=== PATIENT | female | born 1970 | race Caucasian/White ===

== ENCOUNTER → 2016-04-08 | Outpatient (CLI) | payer OTHER ==
[~2016-04-08] MED LIST: ATEN50TA8 PO; HYDR-5688 PO; HYDR25TA5 PO; POTA-335 PO; SERT50TA PO
== END | disposition home or self-care (01) ==
LOC: C.PAPS 12:06
PROVIDERS: ATTEND Obstetrics & Gynecology
DX: Z12.4 Encounter for screening for malignant neoplasm of cervix (principal)

== ENCOUNTER → 2016-11-28 | Outpatient (CLI) | payer OTHER ==
[2016-11-28 12:56] LABS: ALT/SGPT 22 U/L (12-78); BLOOD UREA NITROGEN 13 mg/dl (7-18); BUN/CREATININE RATIO 19.7 (10-20); CALCIUM 8.9 mg/dl (8.5-10.1); CARBON DIOXIDE 26 mmol/L (21-32); CHLORIDE 105 mmol/L (98-107); CHOLESTEROL 243 mg/dl (0-200); CREATININE 0.65 mg/dl (0.60-1.20); GLUCOSE,FASTING 91 mg/dl (70-99); POTASSIUM 3.5 mmol/L (3.5-5.1); SODIUM 140 mmol/L (136-145)
[2016-11-28 13:08] LABS: ALB/GLOB RATIO 0.9 (0.9-2); ALKALINE PHOSPHATASE 53 U/L (45-117); AST/SGOT 20 U/L (15-37); CHOLESTEROL/HDL RATIO 5.3; HDL CHOLESTEROL 46 mg/dl; LDL CHOLESTEROL CALCULATED 130 mg/dl; TRIGLYCERIDES 336 mg/dl (0-150); VERY LOW DENSITY LIPOPROT CALC 67 mg/dl
== END | disposition home or self-care (01) ==
LOC: C.LABPBG 09:12
PROVIDERS: ATTEND Physician Assistant
DX: Z00.00 Encounter for general adult medical examination without abnormal findings (principal); R63.5 Abnormal weight gain

== ENCOUNTER 2018-03-18 07:21 | Inpatient (IN) ==
[2018-03-18] MEDS ORDERED: ONDANSETRON INJ 2 MG/ML 2 ML VIAL IV STA (07:41)
[2018-03-18] MEDS ORDERED: HYDROmorphone INJ 0.5 MG/0.5 ML SYR IV STA ×2 (07:41→08:16)
[2018-03-18] MEDS ORDERED: SODIUM CHLORIDE 0.9% 1000ML 1,000 ML IV SCH (07:45)
[2018-03-18] MEDS ORDERED: KETOROLAC TROMETHAMINE 15 MG/ML VIAL IV ONE (07:49)
--- NOTE | 2018-03-18 08:32 | Emergency Department Note ---
History of Present Illness General Chief complaint: Flank Pain Stated complaint: LEFT SIDED FLANK PAIN Time Seen by Provider: 03/18/18 07:29 Source: patient and family Mode of arrival: ambulatory Limitations: no limitations History of Present Illness Maximum Pain Intensity: 8 This 47-year-old white female presents with her father, for evaluation of intractable left flank pain. Patient states she has been dealing with kidney stones since . 2 days ago she underwent ureteroscopy with lithotripsy by Dr. Scruggs. Ureteral stent was placed at that time. She states her pain has never really improved since the procedure. She is on Cipro twice daily. Due to persistently leaking urine, her ureteral stent was pulled yesterday by the patient at the direction of the urology office. Pain was uncontrolled afterward yesterday and she was seen in the ED, about 14 hours ago. Lab work and imaging was obtained. No stone was identified on film. Lab work showed a mild elevation in white count. She received 3 doses of Dilaudid 0.5 mg IV, Toradol 15 mg IV, and Zofran 4 mg IV with improvement of her pain. She went home last night and states she was fairly comfortable until early this morning. She did take her OxyIR but thinks she vomited soon after and did not retain it. She is now here for pain control. No new trauma. She states she does take Azo daily for interstitial cystitis. She thinks that the bladder spasms that she is experiencing are likely due to irritation from her procedure. Home Medications Home Medications Medication Instructions Recorded Confirmed Type diclofenac sodium 50 mg PO BID 03/06/18 03/18/18 History ondansetron 4 mg TRANSLINGUAL UD PRN 03/06/18 03/18/18 History phenazopyridine [Pyridium] 200 mg PO TID PRN 03/06/18 03/18/18 History trazodone 50 mg PO HS 03/06/18 03/18/18 History tamsulosin [Flomax] 0.4 mg PO QPM 03/14/18 03/18/18 History ciprofloxacin HCl [Cipro] 500 mg PO BID #6 tab 03/16/18 03/18/18 Rx hydrocodone-acetaminophen 1 tab PO Q6H PRN #20 tab 03/16/18 03/18/18 Rx Allergies Allergy/AdvReac Type Severity Reaction Status Date / Time Iodinated Contrast- Oral and Allergy Unknown CHEST Verified 03/18/18 07:44 IV Dye PAIN, SHORTNESS OF BREATH lisinopril AdvReac Mild Cough Verified 03/18/18 07:44 Past Med/Surg History Medical History Interstitial cystitis HTN (hypertension) Hyperlipidemia Chronic interstitial cystitis Depression History of hydronephrosis Hyperlipidemia NO MEDS Hypertension NO MEDS Kidney stones Migraine Morbid obesity Surgical History History of cystoscopy X MULTIPLE History of laparoscopy History of tonsillectomy and adenoidectomy Status post breast reduction Family History Other No pertinent family history Social History Current Living Situation: Spouse, Parent and Family Other Information That Helps Us Care for You: No Feels Safe at Home: Yes Safety Concerns: Feels Safe At This Time Smoking Status: Never smoker Do You Dip or Chew Tobacco: No Second Hand Exposure: No Tobacco Cessation Education Requested by Patient: No Hx Alcohol Use: No Hx Substance Use: No Beliefs That Will Affect Care: None Preferred Language: [place]ican Communication Ability: Effective Intermediate Designer Required: No Review of Systems A total of 10 systems reviewed and were otherwise negative Physical Exam Vital Signs Vital Signs - 24 hr 03/18/18 07:24 03/18/18 08:09 03/18/18 08:51 Temperature 36.9 C Temperature Source Oral Sepsis Recent Fever Within 48 Hours No Sepsis New/Unexplained Change in Mental Status No Sepsis Action Taken by Nursing No Action Required Pulse Rate 110 H Pulse Rate [Finger] 107 H 88 Pulse Rhythm [Finger] Pulse Strength [Finger] Respiratory Rate 18 20 20 Respiratory Effort / Characteristics Non-Labored Spontaneous Respiratory Depth Normal Respiratory Pattern Regular Blood Pressure 175/82 H Blood Pressure [Right Arm] 162/88 H 144/85 H Blood Pressure Mean 113 Blood Pressure Mean [Right Arm] 112 104 Blood Pressure Position [Right Arm] Pulse Oximetry 96 96 95 Oxygen Delivery Method Room Air Room Air Room Air 03/18/18 09:59 03/18/18 11:13 01/06/19 12:38 Temperature Temperature Source Sepsis Recent Fever Within 48 Hours Sepsis New/Unexplained Change in Mental Status Sepsis Action Taken by Nursing Pulse Rate Pulse Rate [Finger] 75 70 83 Pulse Rhythm [Finger] Pulse Strength [Finger] Respiratory Rate 20 20 20 Respiratory Effort / Characteristics Respiratory Depth Respiratory Pattern Blood Pressure Blood Pressure [Right Arm] 135/64 132/89 168/75 H Blood Pressure Mean Blood Pressure Mean [Right Arm] 87 103 106 Blood Pressure Position [Right Arm] Pulse Oximetry 97 98 95 Oxygen Delivery Method Room Air Room Air Room Air 03/18/18 13:05 03/18/18 14:54 Temperature 36.7 C 36.8 C Temperature Source Oral Oral Sepsis Recent Fever Within 48 Hours Sepsis New/Unexplained Change in Mental Status Sepsis Action Taken by Nursing Pulse Rate Pulse Rate [Finger] 75 66 Pulse Rhythm [Finger] Regular Pulse Strength [Finger] Normal Respiratory Rate 16 16 Respiratory Effort / Characteristics Non-Labored Spontaneous Respiratory Depth Normal Respiratory Pattern Regular Blood Pressure Blood Pressure [Right Arm] 162/94 H 142/85 H Blood Pressure Mean Blood Pressure Mean [Right Arm] 116 104 Blood Pressure Position [Right Arm] Sitting Sitting Pulse Oximetry 96 97 Oxygen Delivery Method Room Air Room Air General: Well-developed, well-nourished, middle-aged white female, discomfort. Tearful. Sitting on a bed. Alert and oriented. Skin: Warm and dry with good turgor. No rashes or lesions. No ecchymosis or erythema. The patient is not diaphoretic. No abrasions. HEENT: Normocephalic atraumatic. Eyes PERRLA, EOMI. No conjunctiva or scleral injection. Nares patent bilaterally without turbinate enlargement. No significant drainage. No epistaxis. Oropharynx without erythema or exudate. Uvula midline, oral mucosa moist. No lesions present. Heart: Heart RRR. No MGR. Peripheral pulses are 2+. Lungs: Lungs are clear to auscultation. No crackles rhonchi or wheezing. Good air movement. The patient is able to take a deep breath. Abdomen: Abdomen was inspected, auscultated, and palpated. Obese. Bowel sounds present x 4. Soft, nontender to palpation. No hepato-splenomegaly. No masses noted. Left side CVA tenderness. Musculoskeletal: Gross motor function of the upper and lower extremities is intact and unremarkable. Low back evaluation reveals no pain with palpation over the vertebral bodies or disc spaces. She does have pain with palpation over the left SI joint. No pain in the left buttock or along the greater trochanter. Neurologic: Gross sensation is intact across both lower extremities by soft touch. Course Administered Medications Ciprofloxacin (Cipro) 500 mg PO BID ELIUD Stop: 03/28/18 13:04 Last Admin: 03/18/18 14:49 Dose: 500 mg Hydromorphone HCl (Dilaudid) 0.5 mg IV Q2H PRN PRN Reason: Pain Stop: 04/01/18 14:23 Last Admin: 03/18/18 17:26 Dose: 0.5 mg Sodium Chloride (Nss 1000ml) 1,000 mls @ 80 mls/hr IV .[id number] ELIUD Stop: 04/17/18 14:29 Last Admin: 03/18/18 14:35 Dose: 80 mls/hr Morphine Sulfate (Morphine Sulfate) 1 mg IV Q6H PRN PRN Reason: Pain Stop: 04/01/18 13:04 Last Admin: 03/18/18 13:53 Dose: 1 mg Ondansetron HCl (Zofran Odt) 4 mg PO DAILY PRN PRN Reason: Nausea Stop: 04/17/18 13:04 Last Admin: 03/18/18 14:34 Dose: 4 mg Phenazopyridine HCl (Pyridium) 200 mg PO TID PRN PRN Reason: Pain Stop: 04/17/18 13:04 Last Admin: 03/18/18 14:49 Dose: 200 mg Discontinued Medications Hydromorphone HCl (Dilaudid) 0.5 mg IV NOW STA Stop: 03/18/18 07:42 Last Admin: 03/18/18 07:46 Dose: 0.5 mg Hydromorphone HCl (Dilaudid) 0.5 mg IV NOW STA Stop: 03/18/18 08:17 Last Admin: 03/18/18 08:23 Dose: 0.5 mg Hydromorphone HCl (Dilaudid) 0.5 mg IV Q15M PRN PRN Reason: Pain Stop: 04/01/18 08:54 Last Admin: 03/18/18 11:25 Dose: 0.5 mg Admin: 03/18/18 09:59 Dose: 0.5 mg Admin: 03/18/18 08:57 Dose: 0.5 mg Hydromorphone HCl (Dilaudid) Confirm Administered Dose 0.5 mg .ROUTE .STK-MED ONE Stop: 03/18/18 14:49 Last Admin: 03/18/18 14:49 Dose: 0.5 mg Sodium Chloride (Nss 1000ml) 1,000 mls @ 999 mls/hr IV .Q1H1M ELIUD Stop: 03/18/18 08:45 Last Infusion: 03/18/18 08:47 Dose: 0 mls/hr Admin: 03/18/18 07:46 Dose: 999 mls/hr Ketorolac Tromethamine (Toradol) 15 mg IV NOW ONE Stop: 03/18/18 07:50 Last Admin: 03/18/18 08:00 Dose: 15 mg Ketorolac Tromethamine (Toradol) 15 mg IV NOW STA Stop: 03/18/18 10:18 Last Admin: 03/18/18 10:21 Dose: 15 mg Ondansetron HCl (Zofran) 4 mg IV NOW STA Stop: 03/18/18 07:42 Last Admin: 03/18/18 07:46 Dose: 4 mg Medical Decision Making Differential Diagnosis Nephrolithiasis, ureterolithiasis, hydronephrosis, retained stone, nephritis, muscle strain Medical Records Attestation: I reviewed the patient's medical records. Lab work was reviewed from yesterday. Due to the limited number of hours since it was drawn, new labs were not obtained. Home Medications Current Medication List: was personally reviewed by me Imaging Data Radiologist's Impression: CT scan imaging of the abdomen and pelvis without contrast was reviewed by me and read by radiology. She has hydroureteronephrosis with associated periureteral stranding. No evidence of obstructing ureteral stone. There is a 3 mm nonobstructing left renal calculus. Blood Pressure Blood Pressure Disposition: elevated BP felt to be situational MDM Narrative Patient was evaluated in A11. IV was established. Labs were obtained. She was given Toradol 15 mg IV and Dilaudid 0.5 mg IV. She was also given Zofran 4 mg IV. Patient required multiple additional doses of Dilaudid 0.5 mg IV, totaling 5. She was also given an additional Toradol 15 mg IV. Pain was never controlled for prolonged period of time and kept rebounding. I did speak with Dr. Scruggs regarding her care, and he recommended CT scan imaging of her abdomen and pelvis to check for hydronephrosis. He did recommend that she undergo stent placement either later today or tomorrow depending on OR availability. I did speak with the patient regarding his recommendation and she is agreeable for admission with eventual ureteral stent placement. Hospitalist service was contacted and did come to evaluate the patient. Please see that dictation for final management and outcome. She remained stable while in the ED. Patient was seen in conjunction with Dr. Sandoval, who also evaluated the patient and concurred with today's diagnosis and treatment plan. Impression & Plan Hydroureteronephrosis, Acute left flank pain Hospitalist admission for pain control with urology evaluation Discharge Plan Visit Data *Final* Discharge Date/Time: 03/18/18 12:50 Chief Complaint: Flank Pain Stated Complaint: LEFT SIDED FLANK PAIN ED Provider: Frederick Sandoval ED Midlevel Provider: Jaciel Castro Discharge Problem: Hydroureteronephrosis, Acute left flank pain Patient Disposition: Admitted As Inpatient Condition: Fair Discharge Instructions Interventions: ED Discharge Assessment Last Done: 03/18/18 12:50
[2018-03-18] MEDS: HYDROmorphone INJ 0.5 MG/0.5 ML SYR IV PRN ×7 (08:57→23:21)
[2018-03-18] MEDS ORDERED: KETOROLAC TROMETHAMINE 15 MG/ML VIAL IV STA (10:17)
--- NOTE | 2018-03-18 11:38 | CT Scan Report ---
CT SCAN OF THE ABDOMEN AND PELVIS WITHOUT IV CONTRAST CLINICAL HISTORY: Left flank pain. COMPARISON STUDY: Abdominal CT dated 09/20/2017. TECHNIQUE: CT scan of the abdomen and pelvis is performed from the lung bases to the proximal femora. Images are reviewed in the axial, sagittal, and coronal planes. IV contrast was not administered for this examination. A dose lowering technique was utilized adhering to the principles of ALARA. CT DOSE: 1705.56 mGy.cm FINDINGS: Lung bases: The heart is normal in size and without pericardial effusion. Linear atelectasis is noted in the lingula. The lung bases are otherwise clear. Liver: The unenhanced liver is enlarged, measuring 21.3 cm in length. The liver demonstrates diffusel y diminished attenuation consistent with hepatic steatosis. Fatty sparing is seen adjacent to gallbla dder fossa. There is no intrahepatic biliary ductal dilatation. Gallbladder: Unremarkable. Spleen: Normal in size and attenuation. Pancreas: Unremarkable. Adrenal glands: Unremarkable. Kidneys: The unenhanced kidneys are normal in size. There is mild left hydroureteronephrosis with ass ociated periureteric stranding. No obstructing calculus is identified. A 3 mm nonobstructing calculus is seen in the interpolar left kidney. No right renal calculi are identified and there is no right-s ided hydronephrosis. There is no evidence of contour deforming renal mass lesion. Abdominal vasculature: The abdominal aorta is normal in course and caliber noting mild atheroscleroti c calcification. Bowel: The small bowel and colon are normal in course and caliber. The appendix is well-visualized a nd normal. Peritoneum: There is no intraperitoneal free air or abdominal ascites. There is a small fat-containin g umbilical hernia. Lymphadenopathy: None. Pelvic viscera: The bladder, uterus, and adnexa are normal as imaged. There are small bilateral ovari an follicles. Numerous phleboliths are observed in the pelvis. Skeletal structures: No lytic or blastic lesions are seen. IMPRESSION: 1. There is mild left hydroureteronephrosis, with associated left-sided periureteric stranding. No ob structing renal calculus is identified. Given the reported history and findings this likely represent s the sequelae of a recently passed kidney stone. 2. There is a 3 mm nonobstructing left renal calculus. 4. No right renal calculi are identified. 5. Hepatomegaly and hepatic steatosis. 6. Additional findings as above. Electronically signed by: William Rudolph M.D. 03/18/2018 11:37 AM
--- NOTE | 2018-03-18 12:26 | History & Physical Report ---
Date of Service March 18, 2018 Assessment & Plan (1) Renal colic on left side: CTAP noted for L hydronephorsis with appearance of recently passed stone and a 3mm nonobstructing stone Urology planning for OR tomorrow Pain control Was on cipro BID but missed AM dose due to ED, will give additional dose this afternoon and resume BID dosing (2) Hyperlipidemia: Not on meds due to LE swelling reaction (3) HTN (hypertension): Off meds x2 years (4) Interstitial cystitis: continue home meds (5) DVT prophylaxis: SCDs History of Present Illness Chief Complaint: 47 y/o F c/o intractable L flank pain. Pt was recently dx with a L sided renal stone. She had a stent and lithotripsy with Dr. Scruggs on Monday. She continued to have pain and yesterday noted urine leaking out. She called the urology office and Dr. Scruggs told her to pull out the stent, which she did. She continued to have pain and was seen in the ED yesterday. She was d/c'd to home with decent pain control at that time, however her pain continued to worsen so she returned to the ED today. She has been nauseated but no emesis since she has not eaten much. Pt denies fever, SOB, chest pain, c/ d, LE pain or swelling. ED spoke with Dr. Scruggs who stated the OR was full today for cases and to admit overnight for OR tomorrow. Primary Care Provider: Mariama Ann Allergies Allergy/AdvReac Type Severity Reaction Status Date / Time Iodinated Contrast- Oral and Allergy Unknown CHEST Verified 03/18/18 07:44 IV Dye PAIN, SHORTNESS OF BREATH lisinopril AdvReac Mild Cough Verified 03/18/18 07:44 Home Medications Home Medications Medication Instructions Recorded Confirmed Type diclofenac sodium 50 mg PO BID 03/06/18 03/18/18 History ondansetron 4 mg TRANSLINGUAL UD PRN 03/06/18 03/18/18 History phenazopyridine [Pyridium] 200 mg PO TID PRN 03/06/18 03/18/18 History trazodone 50 mg PO HS 03/06/18 03/18/18 History tamsulosin [Flomax] 0.4 mg PO QPM 03/14/18 03/18/18 History ciprofloxacin HCl [Cipro] 500 mg PO BID #6 tab 03/16/18 03/18/18 Rx hydrocodone-acetaminophen 1 tab PO Q6H PRN #20 tab 03/16/18 03/18/18 Rx Past Med/Surg History Medical History Chronic interstitial cystitis Depression History of hydronephrosis Hyperlipidemia NO MEDS Hypertension NO MEDS Kidney stones Migraine Morbid obesity Surgical History History of cystoscopy X MULTIPLE History of laparoscopy History of tonsillectomy and adenoidectomy Status post breast reduction Social History Current Living Situation: Family Feels Safe at Home: Yes Smoking Status: Never smoker Second Hand Exposure: No Hx Alcohol Use: No Hx Substance Use: No Beliefs That Will Affect Care: None Preferred Language: Greek Review of Systems Pertinent positives and negatives reviewed in HPI--all others negative Physical Exam 2 Vital Signs (Past 24 Hours): Last Vital Signs Temp 36.9 C 03/18/18 07:24 Pulse 70 03/18/18 11:13 Resp 20 03/18/18 11:13 BP 132/89 03/18/18 11:13 Pulse Ox 98 03/18/18 11:13 Constitutional: + obese; no acute distress Eyes: normal visual padilla by confrontation and + anicteric sclerae Neck: normal visual inspection and trachea midline Respiratory: normal respiratory effort, lungs clear to auscultation Cardiovascular: Rate/Rhythm: regular rate and regular rhythm Gastrointestinal (Abdomen): Inspection/Auscultation: abdomen not distended Percussion/Palpation: abdomen soft; abdomen nontender L sided flank TTP Musculoskeletal: Head/Neck/Chest: normocephalic and head atraumatic negative for edema, peripheral pulses intact Skin: no rashes, warm and dry Neurologic: awake; not confused Speech / Cognition: normal speech Psychiatric: A+Ox3, euthymic affect Results & Data Diagnostic Findings CTAP noted for L hydronephorsis with appearance of recently passed stone and a 3mm nonobstructing stone Code Status & VTE Plan Code Status Full code VTE Prophylaxis Plan VTE Prophylaxis will be ordered: Yes
[2018-03-18] MEDS ORDERED: ACETAMINOPHEN 325 MG TAB PO PRN (13:05)
[2018-03-18] MEDS ORDERED: ONDANSETRON INJ 2 MG/ML 2 ML VIAL IV PRN (13:05)
[2018-03-18] MEDS ORDERED: ONDANSETRON 4 MG OD TAB PO PRN (13:05)
[2018-03-18] MEDS ORDERED: MAGNESIUM HYDROXIDE SUSP 30 ML UDC PO PRN (13:05)
[2018-03-18] MEDS: MoRPHine SULFATE 2 MG/ML CARP IV PRN (13:53)
[2018-03-18] MEDS: SODIUM CHLORIDE 0.9% 1000ML 1,000 ML IV SCH (14:35)
[2018-03-18] MEDS ORDERED: HYDROmorphone INJ 0.5 MG/0.5 ML SYR ONE (14:48)
[2018-03-18] MEDS: CIPROFLOXACIN 500 MG TAB PO SCH ×2 (14:49→20:45)
[2018-03-18] MEDS: PHENAZOPYRIDINE HCL 200 MG TAB PO PRN (14:49)
--- NOTE | 2018-03-18 15:13 | Emergency Department Note ---
ED Visit Note I have personally evaluated this patient examined her and reviewed the pertinent labs and data. I have discussed the case with Jaciel Castro, the physician anesthetic assistant and agree with the plan. Please refer to the PA note. This patient comes in with left-sided flank pain. She has a long history of kidney stones and removed the stent a couple days ago . she has had spasms and pain since then she was seen yesterday in the ER with pain and required several doses of IV narcotics. The pain was briefly controlled when she went home but it came back today she appears very uncomfortable despite receiving several doses of IV narcotics. We have discussed the case with urology who recommended a CT scan which shows hydronephrosis. At this point, she has nothing to suggest infection. I do think she needs to be admitted/observe for inpatient pain management treatment and possible urologic consultation. .
[2018-03-18] MEDS ORDERED: HYDROmorphone INJ 0.5 MG/0.5 ML SYR IV PRN (18:11)
[2018-03-18] MEDS: DICLOFENAC SODIUM 25 MG TABDR PO SCH (20:45)
[2018-03-18] MEDS: TAMSULOSIN HCL 0.4 MG CAP PO SCH (20:45)
[2018-03-18] MEDS: TRAZODONE HCL 50 MG TAB PO SCH (20:46)
[2018-03-19] MEDS: HYDROCODONE/ACETAMOPHEN 5/325MG TAB PO PRN ×4 (00:36→20:11)
[2018-03-19] MEDS: SODIUM CHLORIDE 0.9% 1000ML 1,000 ML IV SCH ×2 (03:25→16:24)
[2018-03-19 05:10] LABS: Basophils # (auto) 0.03 K/uL (0-0.2); Basophils % (auto) 0.7 %; Eosinophils # (auto) 0.05 K/uL (0-0.5); Eosinophils % (auto) 1.1 %; Hematocrit (blood only) 34.3 % (37-47); Hemoglobin 10.6 g/dL (12.0-16.0); Immature Granulocytes # (auto) 0.01 K/uL (0.00-0.02); Immature Granulocytes % (auto) 0.2 %; Lymphocytes # (auto) 1.74 K/uL (1.2-3.4); Lymphocytes % (auto) 37.8 %; Mean Corpuscular Hgb Conc 30.9 g/dL (32-36); Mean Corpuscular Volume 88.9 fL (80-100); Mean Platelet Volume 9.7 fL (7.4-10.4); Monocytes # (auto) 0.48 K/uL (0.11-0.59); Monocytes % (auto) 10.4 %; Neutrophils # (auto) 2.29 K/uL (1.4-6.5); Neutrophils % (auto) 49.8 %; Platelet Count 234 K/uL (130-400); RDW Coefficient of Variation 12.9 % (11.5-14.5); Red Blood Count 3.86 M/uL (4.2-5.4)
[2018-03-19 05:49] LABS: Calcium 8.3 mg/dl (8.5-10.1); Creatinine Clr Calc Pharmacy 113.7 ml/min; Est GFR (African American) 120.5; Est GFR (Non-African American) 103.9
[2018-03-19] MEDS: HYDROmorphone INJ 0.5 MG/0.5 ML SYR IV PRN ×4 (06:07→16:32)
[2018-03-19] MEDS: PHENAZOPYRIDINE HCL 200 MG TAB PO PRN ×2 (06:49→20:11)
[2018-03-19] MEDS: MoRPHine SULFATE 2 MG/ML CARP IV PRN (07:37)
[2018-03-19] MEDS: DICLOFENAC SODIUM 25 MG TABDR PO SCH ×2 (08:05→20:11)
[2018-03-19] MEDS: CIPROFLOXACIN 500 MG TAB PO SCH ×2 (08:06→20:11)
[2018-03-19] MEDS ORDERED: POTASSIUM CHLORIDE 20 MEQ TABCR PO STA (09:02)
--- NOTE | 2018-03-19 09:14 | Urology Consultation ---
Date of Consultation March 19, 2018 Assessment & Plan (1) Renal colic on left side: Patient is afebrile and no evidence of ureteral obstruction on CT. Renal colic persisting post procedure likely due to premature stent removal and patient history of IC. No URO intervention today, will reassess for potential stent placement tomorrow if no clinical improvement. OK to provide diet. NPO at midnight. Will add Ditropan to regimen for management of bladder spasm. Continue IVF, push PO fluids. Pain control as needed (anti inflammatory likely most beneficial). Thanks for the consult, will follow. (2) Interstitial cystitis: Push PO intake, IVF, continue Pyridium. (3) Left nephrolithiasis: 3mm stone not obstructing, will continue to monitor. Should patient develop acute pain or fever will require emergent stent placement. (4) Urinary tract infection: Finish Cipro course as prescribed. History of Present Illness Reason for Consultation: Renal colic Attending Physician: Pastor Zapata DO History of Present Illness 47 YO female, renal colic. Patient had recent ureteroscopy, laser litho with stent insertion on Monday with Dr. Scruggs. Patient reports migration of tethered stent on Monday and was advised by on-call physician this weekend to remove stent, which she did without difficulty. Worsening flank pain yesterday brought her to the hospital. CT abd&pelvis reviewed and demonstrates mild L hydronephrosis - no obstructing stones; additional 3mm non obstructing L renal stone. Cr 0.67. Afebrile. Patient states that her pain is now mostly controlled +bladder spasms. Denies nausea/vomiting. Denies fever/chills. Spontaneously voiding without difficulty. Allergies Allergy/AdvReac Type Severity Reaction Status Date / Time Iodinated Contrast- Oral and Allergy Unknown CHEST Verified 03/18/18 07:44 IV Dye PAIN, SHORTNESS OF BREATH lisinopril AdvReac Mild Cough Verified 03/18/18 07:44 Home Medications Home Medications Medication Instructions Recorded Confirmed Type diclofenac sodium 50 mg PO BID 03/06/18 03/18/18 History ondansetron 4 mg TRANSLINGUAL UD PRN 03/06/18 03/18/18 History phenazopyridine [Pyridium] 200 mg PO TID PRN 03/06/18 03/18/18 History trazodone 50 mg PO HS 03/06/18 03/18/18 History tamsulosin [Flomax] 0.4 mg PO QPM 03/14/18 03/18/18 History ciprofloxacin HCl [Cipro] 500 mg PO BID #6 tab 03/16/18 03/18/18 Rx hydrocodone-acetaminophen 1 tab PO Q6H PRN #20 tab 03/16/18 03/18/18 Rx Patient History Medical History Interstitial cystitis HTN (hypertension) Hyperlipidemia Chronic interstitial cystitis Depression History of hydronephrosis Hyperlipidemia NO MEDS Hypertension NO MEDS Kidney stones Migraine Morbid obesity Surgical History History of cystoscopy X MULTIPLE History of laparoscopy History of tonsillectomy and adenoidectomy Status post breast reduction Family History Other No pertinent family history Social History Current Living Situation: Spouse, Parent and Family Other Information That Helps Us Care for You: No Feels Safe at Home: Yes Safety Concerns: Feels Safe At This Time Smoking Status: Never smoker Do You Dip or Chew Tobacco: No Second Hand Exposure: No Tobacco Cessation Education Requested by Patient: No Hx Alcohol Use: No Hx Substance Use: No Beliefs That Will Affect Care: None Preferred Language: Wolof Communication Ability: Effective Access Specialist Required: No Review of Systems Constitutional: no fever and no chills Eyes: no problem reported Respiratory: no dyspnea Cardiovascular: no chest pain Gastrointestinal: no nausea and no vomiting Genitourinary (Female): + dysuria and + flank pain; no difficulty urinating Musculoskeletal: + back pain Neurologic: no tingling and no numbness Psychiatric: no problem reported Endocrine: + fatigue Physical Exam 2 Vital Signs (Past 24 Hours): Last Vital Signs Temp 36.8 C 03/19/18 07:01 Pulse 76 03/19/18 07:01 Resp 18 03/19/18 07:01 BP 149/85 H 03/19/18 07:01 Pulse Ox 94 03/19/18 07:01 Constitutional: WD/WN, vitals as above + obese Neck: normal visual inspection Respiratory: normal respiratory effort; does not use accessory muscles Cardiovascular: Vessels: no JVD Gastrointestinal (Abdomen): Inspection/Auscultation: abdomen normal to inspection; abdomen not distended Skin: no rashes, warm and dry Psychiatric: A+Ox3, euthymic affect Genitourinary: Speculum/Bimanual Exam: bladder normal to palpation
[2018-03-19] MEDS: OXYBUTYNIN CHLORIDE 5 MG TAB PO PRN ×2 (11:04→21:05)
--- NOTE | 2018-03-19 11:17 | Hospitalist Progress Note ---
Date of Service March 19, 2018 Assessment & Plan (1) Renal colic on left side: - CT with evidence of L hydronephrosis and a non-obstructing 3 mm stone - Had recent lithotripsy and stent placement with migration and she was instructed to remove this which she did - Reports improvement in pain but not completely resolved but states some of her pain feels like her interstitial cystitis - Recent enterococcus faecalis on UCx with sample from 03/17 with < 1000 colonies - continue Cipro 500 mg BID at this time - Hydrocodone/Acetaminophen 1-2 tabs Q4H and Dilaudid Q2H PRN; Diclofenac 50 mg BID; Ditropan/Pyridium PRN - NSS at 80 mL/hr - Urology following - no urological intervention at this time Present on Admission?: Yes (2) Hyperlipidemia: - Not currently on medications due to LE swelling reaction Present on Admission?: Yes (3) HTN (hypertension): - Has been maintained off medications x 2 years - some elevations which could be pain response - can follow with PCP Present on Admission?: Yes (4) Interstitial cystitis: - Follows with Dr. Scruggs for this - Diclofenac 50 mg BID; Flomax 0.4 mg daily Present on Admission?: Yes (5) DVT prophylaxis: SCDs Disposition: Await clinical response prior to considering urological intervention Subjective Reports feeling some improvement today in pain but feels that is its spasmatic waves of pain. She is eating more but still reports a reduced appetite. Does not appear in distress but does look slightly uncomfortable. She reports the pain medications are helping but at the time of my visit she feels she was still playing some catchup with pain. No urological intervention planned for today. Constitutional: + anorexia; no fever and no chills Respiratory: no cough and no dyspnea Cardiovascular: no chest pain, no palpitations and no edema Gastrointestinal: + nausea; no abdominal pain, no vomiting, no constipation and no diarrhea/loose stools Genitourinary (Female): + dysuria, + urinary frequency, + urinary hesitancy and + flank pain Integumentary: no rash Physical Exam 2 Vital Signs (Past 24 Hours): Last Vital Signs Temp 36.8 C 03/19/18 07:01 Pulse 76 03/19/18 07:01 Resp 18 03/19/18 07:01 BP 149/85 H 03/19/18 07:01 Pulse Ox 94 03/19/18 07:01 Constitutional: well developed and well nourished; no acute distress Eyes: + anicteric sclerae Respiratory: normal respiratory effort, lungs clear to auscultation Cardiovascular: Rate/Rhythm: regular rate and regular rhythm Heart Sounds: no murmur Gastrointestinal (Abdomen): Inspection/Auscultation: normal bowel sounds Percussion/Palpation: abdomen soft; abdomen nontender Musculoskeletal: Head/Neck/Chest: normocephalic, head atraumatic and neck supple Skin: no rashes, warm and dry Psychiatric: A+Ox3, euthymic affect Genitourinary: + CVA tenderness (L)
[2018-03-19] MEDS ORDERED: KETOROLAC TROMETHAMINE 15 MG/ML VIAL IV ONE (11:19)
[2018-03-19] MEDS: TRAZODONE HCL 50 MG TAB PO SCH (20:11)
[2018-03-19] MEDS: TAMSULOSIN HCL 0.4 MG CAP PO SCH (20:11)
[2018-03-20] MEDS: HYDROCODONE/ACETAMOPHEN 5/325MG TAB PO PRN ×4 (00:16→12:31)
[2018-03-20] MEDS: SODIUM CHLORIDE 0.9% 1000ML 1,000 ML IV SCH (04:36)
--- NOTE | 2018-03-20 07:21 | Urology Progress Note ---
Date of Service March 20, 2018 Assessment & Plan (1) Renal colic on left side: Patient is feeling much better, states that her pain is mild and well controlled with pain medication. Declines ureteral stent today. Stable for DC home with pyridium, ditropan, and pain control. Finish Cipro course as prescribed. Patient has existing outpatient follow up with Dr. Scruggs on 03/26/17. Thank you for allowing us to participate in the care of this patient. Please contact our service with additional questions/concerns. Subjective 47YO female with renal colic. Patient reports feeling much better this morning. States that pain is mild and well controlled with PO medication. Denies nausea/vomiting. Denies fever/chills. Patient ambulating upon entry to room. States that she continues to void spontaneously without difficulty. Again offered ureteral stent for relief of renal colic, patient declines. Review of Systems All systems reviewed & are unremarkable except as noted in HPI & below Physical Exam 2 Vital Signs (Past 24 Hours): Last Vital Signs Temp 37.0 C 03/20/18 07:00 Pulse 71 03/20/18 07:00 Resp 16 03/20/18 07:00 BP 156/95 H 03/20/18 07:00 Pulse Ox 93 03/20/18 07:00 Physical Exam: WN/WD NAD. Resp effort normal. No JVD. Abd soft/nontender. No edema. A&O x 3, appropriate affect.
[2018-03-20] MEDS: CIPROFLOXACIN 500 MG TAB PO SCH (08:30)
[2018-03-20] MEDS: DICLOFENAC SODIUM 25 MG TABDR PO SCH (08:30)
[2018-03-20 09:18] LABS: Hematocrit (blood only) 33.8 % (37-47); Hemoglobin 10.6 g/dL (12.0-16.0); Mean Corpuscular Hgb Conc 31.4 g/dL (32-36); Mean Platelet Volume 9.7 fL (7.4-10.4); Platelet Count 251 K/uL (130-400); RDW Coefficient of Variation 12.8 % (11.5-14.5); RDW Standard Deviation 41.1 fL (36.4-46.3); Red Blood Count 3.84 M/uL (4.2-5.4); White Blood Count 4.23 K/uL (4.8-10.8)
[2018-03-20 09:53] LABS: BUN Creatinine Ratio 10.6 (10-20); Calcium 8.3 mg/dl (8.5-10.1); Creatinine Clr Calc Pharmacy 110.4 ml/min; Est GFR (African American) 119.3; Est GFR (Non-African American) 102.9; Potassium 3.3 mmol/L (3.5-5.1)
--- NOTE | 2018-03-23 16:49 | Discharge Summary ---
Date of Service March 20, 2018 Admission HPI Per Admitting Provider Chief Complaint: 47 y/o F c/o intractable L flank pain. Pt was recently dx with a L sided renal stone. She had a stent and lithotripsy with Dr. Scruggs on Monday. She continued to have pain and yesterday noted urine leaking out. She called the urology office and Dr. Scruggs told her to pull out the stent, which she did. She continued to have pain and was seen in the ED yesterday. She was d/c'd to home with decent pain control at that time, however her pain continued to worsen so she returned to the ED today. She has been nauseated but no emesis since she has not eaten much. Pt denies fever, SOB, chest pain, c/ d, LE pain or swelling. ED spoke with Dr. Scruggs who stated the OR was full today for cases and to admit overnight for OR tomorrow. Principal Diagnosis Renal Colic with L Hydronephrosis/Non-Obstructing Renal Calculi Discharge Exam Constitutional well developed and well nourished; no acute distress and not ill appearing Eyes + anicteric sclerae Neck trachea midline Respiratory normal respiratory effort, lungs clear to auscultation Cardiovascular Rate/Rhythm: regular rate and regular rhythm Heart Sounds: no murmur Gastrointestinal (Abdomen) Inspection/Auscultation: normal bowel sounds Percussion/Palpation: abdomen soft; abdomen nontender Musculoskeletal Head/Neck/Chest: normocephalic, head atraumatic and neck supple Skin no rashes, warm and dry Psychiatric A+Ox3, euthymic affect Genitourinary no CVA tenderness Discharge Data Allergies Allergy/AdvReac Type Severity Reaction Status Date / Time Iodinated Contrast- Oral and Allergy Unknown CHEST Verified 03/18/18 07:44 IV Dye PAIN, SHORTNESS OF BREATH lisinopril AdvReac Mild Cough Verified 03/18/18 07:44 Consultations 03/18/18 13:05 Consult Urology Routine Ordered Studies CT SCAN OF THE ABDOMEN AND PELVIS WITHOUT IV CONTRAST FINDINGS: Lung bases: The heart is normal in size and without pericardial effusion. Linear atelectasis is noted in the lingula. The lung bases are otherwise clear. Liver: The unenhanced liver is enlarged, measuring 21.3 cm in length. The liver demonstrates diffusely diminished attenuation consistent with hepatic steatosis. Fatty sparing is seen adjacent to gallbladder fossa. There is no intrahepatic biliary ductal dilatation. Gallbladder: Unremarkable. Spleen: Normal in size and attenuation. Pancreas: Unremarkable. Adrenal glands: Unremarkable. Kidneys: The unenhanced kidneys are normal in size. There is mild left hydroureteronephrosis with associated periureteric stranding. No obstructing calculus is identified. A 3 mm nonobstructing calculus is seen in the interpolar left kidney. No right renal calculi are identified and there is no right-sided hydronephrosis. There is no evidence of contour deforming renal mass lesion. Abdominal vasculature: The abdominal aorta is normal in course and caliber noting mild atherosclerotic calcification. Bowel: The small bowel and colon are normal in course and caliber. The appendix is well-visualized and normal. Peritoneum: There is no intraperitoneal free air or abdominal ascites. There is a small fat-containing umbilical hernia. Lymphadenopathy: None. Pelvic viscera: The bladder, uterus, and adnexa are normal as imaged. There are small bilateral ovarian follicles. Numerous phleboliths are observed in the pelvis. Skeletal structures: No lytic or blastic lesions are seen. IMPRESSION: 1. There is mild left hydroureteronephrosis, with associated left-sided periureteric stranding. No obstructing renal calculus is identified. Given the reported history and findings this likely represents the sequelae of a recently passed kidney stone. 2. There is a 3 mm nonobstructing left renal calculus. 3. No right renal calculi are identified. 4. Hepatomegaly and hepatic steatosis. 5. Additional findings as above. Hospital Course (1) Renal colic on left side: - CT with evidence of L hydronephrosis and a non-obstructing 3 mm stone - Had recent lithotripsy and stent placement with migration of this stent and she was instructed to remove this which she did - Pain is currently resolved with [place] 10 mg PRN and provided Rx - did review in PDMP and she did have a recent Rx but due to pain she was using this around the clock and finished this. Did provide an Rx for pain medication - Recent enterococcus faecalis on UCx with sample from 03/17 with < 1000 colonies - continue Cipro 500 mg BID at this time and to follow prescription guidelines provided by Urology - Rx provided for Pyridium and Ditropan for urinary pains/spasms - No intervention necessary at this time and is to F/U with Dr. Scruggs in the next week - appt already established (2) Hyperlipidemia: - Not currently on medications due to LE swelling reaction (3) HTN (hypertension): - Has been maintained off medications x 2 years - some elevations which could be pain response - can follow with PCP (4) Interstitial cystitis: - Follows with Dr. Scruggs for this - Diclofenac 50 mg BID; Flomax 0.4 mg daily Total Time Total Time Spent Total Time Spent (In Minutes): Greater than 30 minutes Discharge Plan Discharge Items Patient Disposition: Home - Self-Care Reason For Visit: INTRACTABLE FLANK PAIN Discharge Diagnosis: Left Hydronephrosis Condition: Good Discharge Goals: Decrease discomfort, Improve disease control and Improve function Activity: Resume your previous activity Non-emergency contact: Primary Care Provider and Urologist Call non-emergency contact if: you have any medication questions, your symptoms worsen and you have a fever Follow-up/Referrals: Gaetano Scruggs MD [Physician] - 03/26/18 1:20 pm (Please, follow up at [facility] Urology Office with Dr. Scruggs on MondayMarch 26 at 1:20 pm. *If you need to change this appointment, call the office at [phone].) Mariama Ann DO [Primary Care Provider] - 03/27/18 9:20 am (Please, follow up at Dr. Ann's office on MondayMarch 27 at 9:20 am. *This office is located in [place] next to [facility]. If you need to change this appointment, call the office at [phone].) Diet: Regular Addtl Provider Instructions: Left Hydronephrosis: - This is when fluid backs up around the kidney usually from stones or sometimes inflammation. Given your recent stone/stent removal this could have been the cause but some of this inflammation could be contributing. - No intervention was needed during this admission. Recommend to drink plenty of water to keep your urine a pale yellow color - Continue to take your antibiotic (Cipro) as previously prescribed. Your urologist can let you know on follow-up how much longer to take this medication. - Will give a prescription for pain medications. You may take 1-2 tablets as needed for pain. Do not drive when taking this medication. - Will also give you a prescription for Ditropan and Pyridium to use for urinary pain/spams. Usually Ditropan is well tolerated but some people can get urinary retention so just make sure you continue to urinate. Prescriptions: New oxybutynin chloride 5 mg tablet 5 mg PO TID PRN (Reason: bladder spasms) 7 Days Qty: 21 RF: 0 hydrocodone-acetaminophen 5-325 mg tablet 2 tab PO Q6H PRN (Reason: pain) Qty: 30 RF: 0 Continue trazodone 50 mg tablet 50 mg PO HS RF: 0 diclofenac sodium 50 mg tablet,delayed release (DR/EC) 50 mg PO BID RF: 0 ondansetron 4 mg tablet,disintegrating 4 mg Translingual UD PRN (Reason: Nausea) RF: 0 phenazopyridine [Pyridium] 200 mg Tablet 200 mg PO TID PRN (Reason: Pain) 7 Days Qty: 21 RF: 0 tamsulosin [Flomax] 0.4 mg capsule 0.4 mg PO QPM RF: 0 ciprofloxacin HCl [Cipro] 500 mg tablet 500 mg PO BID Qty: 6 RF: 0 Discontinued hydrocodone-acetaminophen 5-325 mg tablet 1 tab PO Q6H PRN (Reason: pain) Qty: 20 RF: 0 Visit Report [facility] Stand-Alone Forms: [facility], [facility] Discharge Orders: Discharge Order (Routine); Ordered 03/20/18 Ordered By: Evie Way Admission Data Admit Date/Time: 03/18/18 12:20 Attending Provider: Pastor Zapata Admit Provider: Yohana Her Primary Care Provider: Mariama Ann Other Providers: Oneil Pyle II Service: Surgical Services Other Interventions: Discharge Summary Assessment (RN) Last Done: 03/20/18 13:23 Pending Studies at Discharge: No DC Date/Time DO NOT enter until pt leaves facility: 03/20/18 14:09
== END 2018-03-20 14:09 | disposition home or self-care (01) | DRG 690 ==
LOC: ED 07:21 → SUATTDRO 12:20 → 3E 12:20
DX: Z87.442 Personal history of urinary calculi; I10 Essential (primary) hypertension; Z79.899 Other long term (current) drug therapy; Z68.42 Body mass index [BMI] 45.0-49.9, adult; Z88.8 Allergy status to other drugs, medicaments and biological substances; N32.89 Other specified disorders of bladder; F32.9 Major depressive disorder, single episode, unspecified; Z91.041 Radiographic dye allergy status; N30.10 Interstitial cystitis (chronic) without hematuria; E66.01 Morbid (severe) obesity due to excess calories; N13.6 Pyonephrosis

== ENCOUNTER 2020-07-30 17:02 | Inpatient (IN) ==
[2020-07-30] MEDS ORDERED: SODIUM CHLORIDE 0.9% 1000ML 1,000 ML IV STA (17:22)
[2020-07-30] MEDS ORDERED: ALBUTEROL 0.083% NEBU SOLN 3 ML VIAL NEB STA (17:22)
[2020-07-30] MEDS ORDERED: dexAMETHasone**PF** 10 MG/ML VIAL IV ONE (17:22)
--- NOTE | 2020-07-30 17:26 | Emergency Department Note ---
Impression & Plan Pneumonia due to COVID-19 virus, Acute dyspnea, Cough, URI (upper respiratory infection) ED Provider Note NAME: VEGA MANDUJANO AGE: 50 SEX: F : 1970 ARRIVES VIA: Ambulance INFORMANT: Patient ED PROVIDER(S): Chacorta Christy DO CHIEF COMPLAINT: shortness of breath HPI: Patient is a 50-year-old female who presents ER for cough which is productive and shortness of breath. Symptoms started over the past 3 weeks. Got sniffily worse this past Monday and Monday. She has lost her sense of taste and smell. Family member is positive for Covid but she has not been around them. She denies any chest pain. No belly pain nausea vomiting or diarrhea. N o dysuria urgency or frequency. Denies any recent trips or travel. Denies coughing up blood history of blood clots or history of clotting disorder. No history of cancer. No swelling of the calfs. No other exacerbating or remitting factors. She has been using inhaler, azithromycin and steroids with no significant improvement as she followed up with the PCP yesterday. ROS: See above HPI for pertinent positives & negatives. A total of 10 systems reviewed and were otherwise negative. PAST MEDICAL HISTORY:See Below PAST SURGICAL HISTORY:See Below FAMILY HISTORY:See Below SOCIAL HISTORY:See Below HOME MEDICATIONS:See Below ALLERGIES:See Below VITALS:See Below PHYSICAL EXAMINATION: GENERAL: Sitting up in bed, alert, significantly dyspneic unable to have a conversation, EYE EXAM: normal conjunctiva. OROPHARYNX:mucous membranes are dry with mask in place NECK: supple, no nuchal rigidity, no adenopathy, non-tender LUNGS: Diffuse wheezing bilaterally with minimal air movement. Normal chest wall mechanics HEART: no murmurs, S1 normal and S2 normal ABDOMEN: abdomen soft, non-tender, normo-active bowel sounds, no masses, no rebound or guarding. UPPER EXTREMITIES: upper extremities are grossly normal. LOWER EXTREMITIES: No pitting edema. NEURO EXAM: Normal sensorium, cranial nerves II-XII grossly intact, normal speech, no gross weakness of arms, no gross weakness of legs. MEDICAL DECISION MAKING: Patient is a 50-year-old female who presents ER for shortness of breath associate with a cough. Symptoms have been present for the past 2 weeks. IV was established blood was obtained. Labs show no significant leukocytosis or anemia. D-dimer was negative. BMP with a slightly elevated chloride. CO2 slightly low at 20. LFTs bilirubin and troponin was negative. Covid was negative. Chest x-ray with bilateral infiltrates. She was given steroids, ho ur-long neb treatment. She is significantly dyspneic. Pt improved significantly with rest and oxygen. She is given IV Toradol. Updated bedside. She became significantly dyspneic with only a short walk in the room. Discussed with hospitalist for further evaluation. Triage Nursing notes reviewed. Limited review of prior medical records performed Vital Signs: reviewed and remarkable for no significant abnormalities Differential diagnosis: Differential diagnoses includes but is not limited to pneumonia, bronchitis, COPD/Asthma exacerbation, pneumothorax, pulmonary embolism, congestive heart failure, acute coronary syndrome ER treatment provided: See below Diagnostics interpreted by me: ECG: Sinus rhythm rate of 101 Left axis No PVCs QTC 459 Cardiac Monitoring: An order was placed for continuous cardiac monitoring. The monitor shows a rate of 100 with sinus rhythm. Laboratory studies: As stated above and show below. Imaging studies: Portable AP upright 1 view of the chest shows bilateral lower lobe infiltrates Consultation(s): Discussed with Dr. Farhan Hopkins for further evaluation Procedures: none Critical Care: None Past Med/Surg History Medical History (Updated 07/30/20 @ 21:45 by Chacorta Christy DO) Chronic interstitial cystitis Depression History of hydronephrosis HTN (hypertension) Hyperlipidemia Kidney stones Migraine Morbid obesity Vitamin D deficiency Surgical History History of cystoscopy X MULTIPLE History of laparoscopy History of tonsillectomy and adenoidectomy Hx of lithotripsy (03/2018) w/ stent on L Status post breast reduction Family History Father No problems noted. Mother Hypertension Migraine Other No pertinent family history Social History Smoking Status: Never smoker Second Hand Exposure: No; Hx Alcohol Use: No Hx Substance Use: No Preferred Language: Jamaican Communication Ability: Effective Visual Impairment: No Limitations Primary Clinician Required: No Beliefs That Will Affect Care: None Current Living Situation: Spouse, Parent and Family current occupational status: employed current occupation: self employed, [employer] Feels Safe at Home: Yes Dental Care, Regularly: Yes Seatbelt Use: always Sunscreen Use: Yes Assistive Devices: None Allergies Allergies Allergy/AdvReac Type Severity Reaction Status Date / Time Iodinated Contrast Media Allergy Unknown CHEST Verified 07/30/20 17:52 PAIN, SHORTNESS OF BREATH lisinopril AdvReac Mild Cough Verified 07/30/20 17:52 Home Meds Previous Rx's Medication Instructions Recorded cholecalciferol (vitamin D3) 50 50 mcg PO DAILY #30 cap 11/28/19 mcg (2,000 unit) capsule escitalopram oxalate 10 mg tablet 10 mg PO DAILY #90 tab 04/08/20 trazodone 50 mg tablet 50 mg PO HS #90 tab 04/08/20 diclofenac sodium 75 mg 75 mg PO BID 30 Days #60 tab 06/15/20 tablet,delayed release metoprolol succinate 50 mg 50 mg PO DAILY #90 tab 06/15/20 tablet,extended release 24 hr azithromycin 250 mg tablet See Rx Instructions PO .COMPLEX #6 07/29/20 tab benzonatate 200 mg capsule 200 mg PO BID PRN #60 cap 07/29/20 prednisone 20 mg tablet 40 mg PO DAILY 5 Days #10 tab 07/29/20 Results & Data (ED) Vital Signs Vital Signs - 24 hr 07/30/20 16:50 07/30/20 17:26 07/30/20 17:40 Temperature 36.8 C Temperature Source Oral Pulse Rate 116 H 91 H Pulse Rate [Exercises] Pulse Rate [Recovery] Pulse Rate [Resting] Pulse Rate [Right Finger] Pulse Rate from SpO2 Sensor 91 H Respiratory Rate 24 22 Respiratory Rate [Exercises] Respiratory Rate [Recovery] Respiratory Rate [Resting] Respiratory Effort / Characteristics Spontaneous Respiratory Depth Shallow Blood Pressure 180/102 H 166/76 H Blood Pressure Mean 128 106 Blood Pressure Position Sitting Pulse Oximetry 94 94 92 Pulse Oximetry [Exercises] Pulse Oximetry [Recovery] Pulse Oximetry [Resting] Oxygen Delivery Method Room Air Room Air Oxygen Flow Rate Sepsis Recent Fever Within 48 Hours No Sepsis New/Unexplained Change in Mental Status N/A Sepsis Action Taken by Nursing No Action Required 07/30/20 17:53 07/30/20 18:00 07/30/20 18:01 Temperature Temperature Source Pulse Rate 91 H 92 H 103 H Pulse Rate [Exercises] Pulse Rate [Recovery] Pulse Rate [Resting] Pulse Rate [Right Finger] 90 Pulse Rate from SpO2 Sensor 91 H 92 H 101 H Respiratory Rate 22 20 25 H Respiratory Rate [Exercises] Respiratory Rate [Recovery] Respiratory Rate [Resting] Respiratory Effort / Characteristics Spontaneous Labored Short of Breath SOB on Exertion Respiratory Depth Shallow Blood Pressure 165/81 H Blood Pressure Mean 109 Blood Pressure Position Pulse Oximetry 92 93 94 Pulse Oximetry [Exercises] Pulse Oximetry [Recovery] Pulse Oximetry [Resting] Oxygen Delivery Method Nasal Cannula Oxygen Flow Rate 2 Sepsis Recent Fever Within 48 Hours Sepsis New/Unexplained Change in Mental Status Sepsis Action Taken by Nursing 07/30/20 18:10 07/30/20 18:20 07/30/20 18:30 Temperature Temperature Source Pulse Rate 100 H 95 H 98 H Pulse Rate [Exercises] Pulse Rate [Recovery] Pulse Rate [Resting] Pulse Rate [Right Finger] Pulse Rate from SpO2 Sensor 100 H 96 H 99 H Respiratory Rate 19 20 20 Respiratory Rate [Exercises] Respiratory Rate [Recovery] Respiratory Rate [Resting] Respiratory Effort / Characteristics Respiratory Depth Blood Pressure 142/85 H Blood Pressure Mean 104 Blood Pressure Position Pulse Oximetry 94 93 94 Pulse Oximetry [Exercises] Pulse Oximetry [Recovery] Pulse Oximetry [Resting] Oxygen Delivery Method Oxygen Flow Rate Sepsis Recent Fever Within 48 Hours Sepsis New/Unexplained Change in Mental Status Sepsis Action Taken by Nursing 07/30/20 18:31 07/30/20 18:40 07/30/20 18:50 Temperature Temperature Source Pulse Rate 101 H 104 H 100 H Pulse Rate [Exercises] Pulse Rate [Recovery] Pulse Rate [Resting] Pulse Rate [Right Finger] Pulse Rate from SpO2 Sensor 101 H 104 H 99 H Respiratory Rate 24 21 24 Respiratory Rate [Exercises] Respiratory Rate [Recovery] Respiratory Rate [Resting] Respiratory Effort / Characteristics Respiratory Depth Blood Pressure Blood Pressure Mean Blood Pressure Position Pulse Oximetry 96 91 93 Pulse Oximetry [Exercises] Pulse Oximetry [Recovery] Pulse Oximetry [Resting] Oxygen Delivery Method Oxygen Flow Rate Sepsis Recent Fever Within 48 Hours Sepsis New/Unexplained Change in Mental Status Sepsis Action Taken by Nursing 07/30/20 19:00 07/30/20 19:10 07/30/20 19:20 Temperature Temperature Source Pulse Rate 120 H 102 H 104 H Pulse Rate [Exercises] Pulse Rate [Recovery] Pulse Rate [Resting] Pulse Rate [Right Finger] Pulse Rate from SpO2 Sensor 117 H 103 H 104 H Respiratory Rate 31 H 23 21 Respiratory Rate [Exercises] Respiratory Rate [Recovery] Respiratory Rate [Resting] Respiratory Effort / Characteristics Respiratory Depth Blood Pressure 171/75 H Blood Pressure Mean 107 Blood Pressure Position Pulse Oximetry 95 93 92 Pulse Oximetry [Exercises] Pulse Oximetry [Recovery] Pulse Oximetry [Resting] Oxygen Delivery Method Oxygen Flow Rate Sepsis Recent Fever Within 48 Hours Sepsis New/Unexplained Change in Mental Status Sepsis Action Taken by Nursing 07/30/20 19:30 07/30/20 19:31 07/30/20 19:39 Temperature Temperature Source Pulse Rate 101 H 103 H Pulse Rate [Exercises] 130 H Pulse Rate [Recovery] 108 H Pulse Rate [Resting] 102 H Pulse Rate [Right Finger] Pulse Rate from SpO2 Sensor 102 H 102 H Respiratory Rate 22 23 Respiratory Rate [Exercises] 28 H Respiratory Rate [Recovery] 22 Respiratory Rate [Resting] 22 Respiratory Effort / Characteristics Respiratory Depth Blood Pressure 161/69 H Blood Pressure Mean 99 Blood Pressure Position Pulse Oximetry 94 94 Pulse Oximetry [Exercises] 92 Pulse Oximetry [Recovery] 95 Pulse Oximetry [Resting] 96 Oxygen Delivery Method Room Air Oxygen Flow Rate Sepsis Recent Fever Within 48 Hours Sepsis New/Unexplained Change in Mental Status Sepsis Action Taken by Nursing 07/30/20 19:40 07/30/20 19:50 07/30/20 20:00 Temperature Temperature Source Pulse Rate 100 H 102 H 98 H Pulse Rate [Exercises] Pulse Rate [Recovery] Pulse Rate [Resting] Pulse Rate [Right Finger] Pulse Rate from SpO2 Sensor 101 H 104 H 98 H Respiratory Rate 29 H 26 H 19 Respiratory Rate [Exercises] Respiratory Rate [Recovery] Respiratory Rate [Resting] Respiratory Effort / Characteristics Respiratory Depth Blood Pressure Blood Pressure Mean Blood Pressure Position Pulse Oximetry 94 91 90 Pulse Oximetry [Exercises] Pulse Oximetry [Recovery] Pulse Oximetry [Resting] Oxygen Delivery Method Oxygen Flow Rate Sepsis Recent Fever Within 48 Hours Sepsis New/Unexplained Change in Mental Status Sepsis Action Taken by Nursing 07/30/20 20:10 07/30/20 20:20 07/30/20 20:30 Temperature Temperature Source Pulse Rate 101 H 103 H Pulse Rate [Exercises] Pulse Rate [Recovery] Pulse Rate [Resting] Pulse Rate [Right Finger] Pulse Rate from SpO2 Sensor 103 H 102 H 102 H Respiratory Rate 28 H 14 Respiratory Rate [Exercises] Respiratory Rate [Recovery] Respiratory Rate [Resting] Respiratory Effort / Characteristics Respiratory Depth Blood Pressure Blood Pressure Mean Blood Pressure Position Pulse Oximetry 90 92 91 Pulse Oximetry [Exercises] Pulse Oximetry [Recovery] Pulse Oximetry [Resting] Oxygen Delivery Method Oxygen Flow Rate Sepsis Recent Fever Within 48 Hours Sepsis New/Unexplained Change in Mental Status Sepsis Action Taken by Nursing 07/30/20 20:43 07/30/20 20:50 07/30/20 21:00 Temperature Temperature Source Pulse Rate 92 H 98 H Pulse Rate [Exercises] Pulse Rate [Recovery] Pulse Rate [Resting] Pulse Rate [Right Finger] Pulse Rate from SpO2 Sensor 117 H 93 H 95 H Respiratory Rate 25 H 24 Respiratory Rate [Exercises] Respiratory Rate [Recovery] Respiratory Rate [Resting] Respiratory Effort / Characteristics Respiratory Depth Blood Pressure Blood Pressure Mean Blood Pressure Position Pulse Oximetry 95 93 93 Pulse Oximetry [Exercises] Pulse Oximetry [Recovery] Pulse Oximetry [Resting] Oxygen Delivery Method Oxygen Flow Rate Sepsis Recent Fever Within 48 Hours Sepsis New/Unexplained Change in Mental Status Sepsis Action Taken by Nursing 07/30/20 21:10 07/30/20 21:20 07/30/20 21:30 Temperature Temperature Source Pulse Rate 97 H 92 H 90 Pulse Rate [Exercises] Pulse Rate [Recovery] Pulse Rate [Resting] Pulse Rate [Right Finger] Pulse Rate from SpO2 Sensor 96 H 92 H 92 H Respiratory Rate 23 20 22 Respiratory Rate [Exercises] Respiratory Rate [Recovery] Respiratory Rate [Resting] Respiratory Effort / Characteristics Respiratory Depth Blood Pressure Blood Pressure Mean Blood Pressure Position Pulse Oximetry 93 92 91 Pulse Oximetry [Exercises] Pulse Oximetry [Recovery] Pulse Oximetry [Resting] Oxygen Delivery Method Oxygen Flow Rate Sepsis Recent Fever Within 48 Hours Sepsis New/Unexplained Change in Mental Status Sepsis Action Taken by Nursing Laboratory Data Result diagrams: 07/30/20 17:27 07/30/20 17:27 Lab Results 07/30/20 07/30/20 07/30/20 Range/Units 17:27 17:27 17:27 WBC 7.48 (4.8-10.8) K/uL RBC 4.61 (4.2-5.4) M/uL Hgb 13.6 (12.0-16.0) g/dL Hct 41.8 (37-47) % MCV 90.7 (80-100) fL MCH 29.5 (25-34) pg MCHC 32.5 (32-36) g/dL RDW Std Deviation 45.6 (36.4-46.3) fL RDW Coeff of Lexus 13.8 (11.5-14.5) % Plt Count 273 (130-400) K/uL MPV 10.1 (7.4-10.4) fL Immature Gran % (Auto) 0.3 % Neut % (Auto) 88.3 % Lymph % (Auto) 7.4 % Whitley % (Auto) 3.9 % Eos % (Auto) 0.0 % Baso % (Auto) 0.1 % Neut # (Auto) 6.61 H (1.4-6.5) K/uL Lymph # (Auto) 0.55 L (1.2-3.4) K/uL Whitley # (Auto) 0.29 (0.11-0.59) K/uL Eos # (Auto) 0.00 (0-0.5) K/uL Baso # (Auto) 0.01 (0-0.2) K/uL Immature Gran # (Auto) 0.02 (0.00-0.02) K/uL APTT 23.1 (21.0-31.0) Seconds PTT Ratio 0.9 D-Dimer 290 (0-500) ug/L FEU Sodium 142 (136-145) mmol/L Potassium 3.5 (3.5-5.1) mmol/L Chloride 110 H (98-107) mmol/L Carbon Dioxide 20 L (21-32) mmol/L Anion Gap 12.0 H (3-11) BUN 10 (7-18) mg/dl Creatinine 0.89 (0.6-1.2) mg/dl Est Cr Clr Drug Dosing 83.1 ml/min Est GFR ( Amer) 87.0 ml/min Est GFR (Non-Af Amer) 75.0 ml/min BUN/Creatinine Ratio 11.0 (10-20) Glucose 134 H (70-99) mg/dl Calcium 9.5 (8.5-10.1) mg/dl Total Bilirubin 0.3 (0.2-1) mg/dl AST 14 L (15-37) U/L ALT 15 (12-78) U/L Alkaline Phosphatase 63 (45-117) U/L Troponin I < 0.015 (0-0.045) ng/ml Total Protein 8.6 H (6.4-8.2) gm/dl Albumin 3.6 (3.4-5.0) gm/dl Globulin 5.0 H (2.5-4.0) gm/dl Albumin/Globulin Ratio 0.7 L (0.9-2) Lipase 76 (73-393) U/L COVID-19 Eval Order SARS-CoV-2 (PCR) (Negative) 07/30/20 07/30/20 Range/Units 17:40 17:40 WBC (4.8-10.8) K/uL RBC (4.2-5.4) M/uL Hgb (12.0-16.0) g/dL Hct (37-47) % MCV (80-100) fL MCH (25-34) pg MCHC (32-36) g/dL RDW Std Deviation (36.4-46.3) fL RDW Coeff of Lexus (11.5-14.5) % Plt Count (130-400) K/uL MPV (7.4-10.4) fL Immature Gran % (Auto) % Neut % (Auto) % Lymph % (Auto) % Whitley % (Auto) % Eos % (Auto) % Baso % (Auto) % Neut # (Auto) (1.4-6.5) K/uL Lymph # (Auto) (1.2-3.4) K/uL Whitley # (Auto) (0.11-0.59) K/uL Eos # (Auto) (0-0.5) K/uL Baso # (Auto) (0-0.2) K/uL Immature Gran # (Auto) (0.00-0.02) K/uL APTT (21.0-31.0) Seconds PTT Ratio D-Dimer (0-500) ug/L FEU Sodium (136-145) mmol/L Potassium (3.5-5.1) mmol/L Chloride (98-107) mmol/L Carbon Dioxide (21-32) mmol/L Anion Gap (3-11) BUN (7-18) mg/dl Creatinine (0.6-1.2) mg/dl Est Cr Clr Drug Dosing ml/min Est GFR ( Amer) ml/min Est GFR (Non-Af Amer) ml/min BUN/Creatinine Ratio (10-20) Glucose (70-99) mg/dl Calcium (8.5-10.1) mg/dl Total Bilirubin (0.2-1) mg/dl AST (15-37) U/L ALT (12-78) U/L Alkaline Phosphatase (45-117) U/L Troponin I (0-0.045) ng/ml Total Protein (6.4-8.2) gm/dl Albumin (3.4-5.0) gm/dl Globulin (2.5-4.0) gm/dl Albumin/Globulin Ratio (0.9-2) Lipase (73-393) U/L COVID-19 Eval Order Covid19 at [facility] SARS-CoV-2 (PCR) POSITIVE A* (Negative) Administered Medications Discontinued Medications Albuterol (Albuterol 0.083% Nebu Soln 3 Ml Vial) 10 mg NEB NOW STA Stop: 07/30/20 17:23 Last Admin: 07/30/20 17:52 Dose: 10 mg Documented by: [id number] Dexamethasone Sodium Phosphate (DexamethasonePf 10 Mg/Ml Vial) 10 mg IV NOW ONE Stop: 07/30/20 17:23 Last Admin: 07/30/20 17:41 Dose: 10 mg Documented by: [id number] Sodium Chloride (Nss 1000ml) 1,000 mls @ 999 mls/hr IV .Q1H1M STA Stop: 07/30/20 18:22 Last Infusion: 07/30/20 21:09 Dose: 0 mls/hr Documented by: [id number] Admin: 07/30/20 17:41 Dose: 999 mls/hr Documented by: [id number] Imaging Data Radiologist's Impression: Chest X-Ray 07/30/20 17:22 XR chest 1V portable HISTORY: 50 years-old Female Chest Pain acute atypical chest pain COMPARISON: Chest radiographs 03/10/2018 TECHNIQUE: Portable AP view the chest FINDINGS: Cardiac silhouette is upper limits of normal in size. Lungs are hypoinflated. Mild left greater than right bibasilar opacities. No pneumothorax, large pleural effusion or pulmonary edema. Bones appear grossly intact. IMPRESSION: Hypoinflation with left greater than right bibasilar opacities suspicious for pneumonitis with atelectasis considered less likely. Findings could be correlated with PA and lateral views of the chest. ACT 112: Negative or not required by law. The above report was generated using voice recognition software. It may contain grammatical, syntax or spelling errors. Electronically signed by: Deuce Garzon M.D. 07/30/2020 7:00 PM Discharge Plan Visit Data Chief Complaint: Shortness of Breath/Dyspnea Stated Complaint: SOB, COUGH ED Provider: Chacorta Christy Discharge Problem: Pneumonia due to COVID-19 virus, Acute dyspnea, Cough, URI (upper respiratory infection) Forms Stand Alone Forms: [facility] Prescriptions Prescriptions: No Action cholecalciferol (vitamin D3) 50 mcg (2,000 unit) capsule 50 mcg PO DAILY Qty: 30 RF: 0 escitalopram oxalate [Lexapro] 10 mg tablet 10 mg PO DAILY Qty: 90 RF: 1 trazodone 50 mg tablet 50 mg PO HS Qty: 90 RF: 1 diclofenac sodium 75 mg tablet,delayed release (DR/EC) 75 mg PO BID 30 Days Qty: 60 RF: 1 metoprolol succinate 50 mg tablet extended release 24 hr 50 mg PO DAILY Qty: 90 RF: 1 prednisone 20 mg tablet 40 mg PO DAILY 5 Days Qty: 10 RF: 0 azithromycin 250 mg tablet See Rx Instructions PO .COMPLEX Qty: 6 RF: 0 benzonatate 200 mg capsule 200 mg PO BID PRN (Reason: cough) Qty: 60 RF: 0 Discharge Problem: URI (upper respiratory infection) Qualifiers: URI type: unspecified URI Qualified Code(s): J06.9 - Acute upper respiratory infection, unspecified
[2020-07-30 17:41] LABS: Basophils # (auto) 0.01 K/uL (0-0.2); Basophils % (auto) 0.1 %; Hematocrit (blood only) 41.8 % (37-47); Hemoglobin 13.6 g/dL (12.0-16.0); Immature Granulocytes # (auto) 0.02 K/uL (0.00-0.02); Immature Granulocytes % (auto) 0.3 %; Lymphocytes # (auto) 0.55 K/uL (1.2-3.4); Lymphocytes % (auto) 7.4 %; Mean Corpuscular Hemoglobin 29.5 pg (25-34); Mean Corpuscular Hgb Conc 32.5 g/dL (32-36); Mean Corpuscular Volume 90.7 fL (80-100); Mean Platelet Volume 10.1 fL (7.4-10.4); Monocytes # (auto) 0.29 K/uL (0.11-0.59); Monocytes % (auto) 3.9 %; Neutrophils # (auto) 6.61 K/uL (1.4-6.5); Neutrophils % (auto) 88.3 %; Platelet Count 273 K/uL (130-400); RDW Coefficient of Variation 13.8 % (11.5-14.5); RDW Standard Deviation 45.6 fL (36.4-46.3); Red Blood Count 4.61 M/uL (4.2-5.4); White Blood Count 7.48 K/uL (4.8-10.8)
[2020-07-30 17:54] LABS: D Dimer 290 ug/L FEU (0-500); Partial Thromboplastin Ratio 0.9; Partial Thromboplastin Time 23.1 Seconds (21.0-31.0)
[2020-07-30 18:04] LABS: Alanine Aminotransferase 15 U/L (12-78); Albumin Level 3.6 gm/dl (3.4-5.0); Aspartate Aminotransferase 14 U/L (15-37); Blood Urea Nitrogen 10 mg/dl (7-18); Calcium 9.5 mg/dl (8.5-10.1); Carbon Dioxide 20 mmol/L (21-32); Chloride 110 mmol/L (98-107); Creatinine Clr Calc Pharmacy 83.1 ml/min; Glucose 134 mg/dl (70-99); Lipase 76 U/L (73-393); Potassium 3.5 mmol/L (3.5-5.1); Sodium 142 mmol/L (136-145)
[2020-07-30 18:09] LABS: Albumin Globulin Ratio 0.7 (0.9-2); Alkaline Phosphatase 63 U/L (45-117); Bilirubin,Total 0.3 mg/dl (0.2-1); Total Protein 8.6 gm/dl (6.4-8.2); Troponin I < 0.015 ng/ml (0-0.045)
--- NOTE | 2020-07-30 19:01 | XRay Report ---
XR chest 1V portable HISTORY: 50 years-old Female Chest Pain acute atypical chest pain COMPARISON: Chest radiographs 03/10/2018 TECHNIQUE: Portable AP view the chest FINDINGS: Cardiac silhouette is upper limits of normal in size. Lungs are hypoinflated. Mild left greater than right bibasilar opacities. No pneumothorax, large pleural effusion or pulmonary edema. Bones appear g rossly intact. IMPRESSION: Hypoinflation with left greater than right bibasilar opacities suspicious for pneumonitis with atelectasis considered less likely. Findings could be correlated with PA and lateral views of t he chest. ACT 112: Negative or not required by law. The above report was generated using voice recognition software. It may contain grammatical, syntax o r spelling errors. Electronically signed by: Deuce Garzon M.D. 07/30/2020 7:00 PM
--- NOTE | 2020-07-30 20:37 | History & Physical Report ---
Date of Service July 30, 2020 Assessment & Plan (1) Pneumonia due to COVID-19 virus: COVID-19 pneumonia with hypoxia- Symptoms initially began 3 weeks ago Placed on dexamethasone 6 mg IV every morning Duonebs every 4 hours while awake and every 2 hours when necessary. Ceftriaxone 2 g IV daily Azithromycin 500 mg IV daily Guaifenesin extended release 600 mg p.o. twice daily Vitamin D 5000 international units p.o. daily Zinc sulfate 220 mg p.o. daily Hycodan syrup 5 mils p.o. every 4 hours as needed severe cough Nasal cannula oxygen, titrate to keep pulse ox around 94 to 95% Present on Admission?: Yes (2) Hypoxia: See above Present on Admission?: Yes (3) Depression: continue Lexapro and trazodone Present on Admission?: Yes (4) HTN (hypertension): Continue metoprolol succinate Present on Admission?: Yes (5) Hyperlipidemia: History of Present Illness Chief Complaint: The patient presents to the emergency department with complaint of 3 weeks of persistent cough, and shortness of breath Primary Care Provider: Mariama Ann DO The patient is a 50-year-old female with a past medical history including depression, vitamin D deficiency, chronic interstitial cystitis, kidney stones, hypertension, hyperlipidemia and obesity. She presents to the emergency department after worsening cough and shortness of breath, initial began 3 weeks ago. Work-up in the emergency department included a positive COVID-19 test, with lowest recorded pulse ox 91% on room air. Chest x-ray showed bibasilar infiltrates, left greater than right. Allergies Allergy/AdvReac Type Severity Reaction Status Date / Time Iodinated Contrast Media Allergy Unknown CHEST Verified 07/30/20 17:52 PAIN, SHORTNESS OF BREATH lisinopril AdvReac Mild Cough Verified 07/30/20 17:52 Home Medications Medication Instructions Recorded Confirmed Type cholecalciferol (vitamin D3) 50 50 mcg PO DAILY #30 cap 11/28/19 07/30/20 Rx mcg (2,000 unit) capsule escitalopram oxalate 10 mg tablet 10 mg PO DAILY #90 tab 04/08/20 07/30/20 Rx trazodone 50 mg tablet 50 mg PO HS #90 tab 04/08/20 07/30/20 Rx diclofenac sodium 75 mg 75 mg PO BID 30 Days #60 tab 06/15/20 07/30/20 Rx tablet,delayed release metoprolol succinate 50 mg 50 mg PO DAILY #90 tab 06/15/20 07/30/20 Rx tablet,extended release 24 hr azithromycin 250 mg tablet See Rx Instructions PO .COMPLEX #6 07/29/20 07/30/20 Rx tab benzonatate 200 mg capsule 200 mg PO BID PRN #60 cap 07/29/20 07/30/20 Rx prednisone 20 mg tablet 40 mg PO DAILY 5 Days #10 tab 07/29/20 07/30/20 Rx Past Med/Surg History Medical History (Updated 07/31/20 @ 01:24 by Farhan Hopkins MD) Chronic interstitial cystitis Depression History of hydronephrosis HTN (hypertension) Hyperlipidemia Kidney stones Migraine Morbid obesity Vitamin D deficiency Surgical History History of cystoscopy X MULTIPLE History of laparoscopy History of tonsillectomy and adenoidectomy Hx of lithotripsy (03/2018) w/ stent on L Status post breast reduction Family History Father No problems noted. Mother Hypertension Migraine Other No pertinent family history Social History Smoking Status: Never smoker Second Hand Exposure: No; Hx Alcohol Use: No Hx Substance Use: No Preferred Language: [place] Communication Ability: Effective Visual Impairment: No Limitations Social Work Assistant Required: No Beliefs That Will Affect Care: None Current Living Situation: Family current occupational status: employed current occupation: self employed, [employer] Other Information That Helps Us Care for You: No Feels Safe at Home: Yes Safety Concerns: Feels Safe At This Time Dental Care, Regularly: Yes Seatbelt Use: always Sunscreen Use: Yes Assistive Devices: None Review of Systems Review of Systems: The patient denies palpitations, lower extremity swelling, sore throat, fevers, chills, sweats, nausea, vomiting, diarrhea , constipation, abdominal pain, pelvic pain, blood in urine or stool, dysuria, urinary frequency or urgency, lightheadedness, dizziness, headache, memory loss, loss of consciousness, rash, abnormal bruising or bleeding, imbalance, focal weakness, numbness or tingling in arms or legs, generalized arthralgias or myalgias, back or neck pain, or night sweats. The review of systems is otherwise negative other than for that already noted above, and at least 10 systems have been reviewed. Physical Exam Physical Exam: The patient is awake, alert and oriented 3, well developed and well nourished, normocephalic and atraumatic, lying in bed and in no acute distress. HEENT--PERRL, EOMI, mucous membranes and oropharynx normal. Neck--supple. No JVD. No bruits. Thyroid normal, trachea midline, no adenopathy. Heart--normal S1 and S2. No murmurs, rubs or gallops. Lungs--few coarse breath sounds bilaterally. Lung expansion limited by cough Abdomen--normal bowel sounds and soft. Nontender. Nondistended. Extremities--no cyanosis or clubbing. No edema. Dermatologic--normal skin turgor, normal color, no abnormal lymph nodes, no rash. Neurologic--cranial nerves II through XII grossly intact. Rheumatologic--normal range of motion. Psychiatric--normal affect. Results & Data Results & Data ([facility]) Vital Signs (Past 12 Hours) Vital Signs Temp Pulse Pulse Pulse Pulse Pulse Resp 07/30/20 20:30 07/30/20 20:20 103 H 14 07/30/20 20:10 101 H 28 H 07/30/20 20:00 98 H 19 07/30/20 19:50 102 H 26 H 07/30/20 19:40 100 H 29 H 07/30/20 19:39 130 H 108 H 102 H 07/30/20 19:31 103 H 23 07/30/20 19:30 101 H 22 07/30/20 19:20 104 H 21 07/30/20 19:10 102 H 23 07/30/20 19:00 120 H 31 H 07/30/20 18:50 100 H 24 07/30/20 18:40 104 H 21 07/30/20 18:31 101 H 24 07/30/20 18:30 98 H 20 07/30/20 18:20 95 H 20 07/30/20 18:10 100 H 19 07/30/20 18:01 103 H 25 H 07/30/20 18:00 92 H 20 07/30/20 17:53 91 H 90 22 07/30/20 17:40 91 H 22 07/30/20 17:26 07/30/20 16:50 98.2 F 116 H 24 Resp Resp Resp BP Pulse Ox Pulse Ox Pulse Ox 07/30/20 20:30 91 07/30/20 20:20 92 07/30/20 20:10 90 07/30/20 20:00 90 07/30/20 19:50 91 07/30/20 19:40 94 07/30/20 19:39 28 H 22 22 92 95 07/30/20 19:31 94 07/30/20 19:30 161/69 H 94 07/30/20 19:20 92 07/30/20 19:10 93 07/30/20 19:00 171/75 H 95 07/30/20 18:50 93 07/30/20 18:40 91 07/30/20 18:31 96 07/30/20 18:30 142/85 H 94 07/30/20 18:20 93 07/30/20 18:10 94 07/30/20 18:01 94 07/30/20 18:00 165/81 H 93 07/30/20 17:53 92 07/30/20 17:40 166/76 H 92 07/30/20 17:26 94 07/30/20 16:50 180/102 H 94 Pulse Ox 07/30/20 20:30 07/30/20 20:20 07/30/20 20:10 07/30/20 20:00 07/30/20 19:50 07/30/20 19:40 07/30/20 19:39 96 07/30/20 19:31 07/30/20 19:30 07/30/20 19:20 07/30/20 19:10 07/30/20 19:00 07/30/20 18:50 07/30/20 18:40 07/30/20 18:31 07/30/20 18:30 07/30/20 18:20 07/30/20 18:10 07/30/20 18:01 07/30/20 18:00 07/30/20 17:53 07/30/20 17:40 07/30/20 17:26 07/30/20 16:50 Laboratory Results Laboratory Results WBC 7.48 K/uL (4.8-10.8) 07/30/20: RBC 4.61 M/uL (4.2-5.4) 07/30/20: Hgb 13.6 g/dL (12.0-16.0) 07/30/20 17: Hct 41.8 % (37-47) 07/30/20: MCV 90.7 fL (80-100) 07/30/20: MCH 29.5 pg (25-34) 07/30/20: MCHC 32.5 g/dL (32-36) 07/30/20: RDW Std Deviation 45.6 fL (36.4-46.3) 07/30/20 RDW Coeff of Lexus 13.8 % (11.5-14.5) 07/30/20 Plt Count 273 K/uL (130-400) 07/30/20 MPV 10.1 fL (7.4-10.4) 07/30/20: Immature Gran % (Auto) 0.3 % 07/30/20: Neut % (Auto) 88.3 % 07/30/20: Lymph % (Auto) 7.4 % 07/30/20: [place] % (Auto) 3.9 % 07/30/20: Eos % (Auto) 0.0 % 07/30/20: Baso % (Auto) 0.1 % 07/30/20 Neut # (Auto) 6.61 K/uL (1.4-6.5) H 07/30/20: Lymph # (Auto) 0.55 K/uL (1.2-3.4) L 07/30/20: [place] # (Auto) 0.29 K/uL (0.11-0.59) 07/30/20: Eos # (Auto) 0.00 K/uL (0-0.5) 07/30/20: Baso # (Auto) 0.01 K/uL (0-0.2) 07/30/20: Immature Gran # (Auto) 0.02 K/uL (0.00-0.02) 07/30/20 17: APTT 23.1 Seconds (21.0-31.0) 07/30/20: PTT Ratio 0.9 07/30/20: D-Dimer 290 ug/L FEU (0-500) 07/30/20 17: Sodium 142 mmol/L (136-145) 07/30/20 17: Potassium 3.5 mmol/L (3.5-5.1) 07/30/20: Chloride 110 mmol/L (98-107) H 07/30/20 17: Carbon Dioxide 20 mmol/L (21-32) L 07/30/20: Anion Gap 12.0 (3-11) H 07/30/20: BUN 10 mg/dl (7-18) 07/30/20: Creatinine 0.89 mg/dl (0.6-1.2) 07/30/20: Est Cr Clr Drug Dosing 83.1 ml/min 07/30/20: Est GFR ( Amer) 87.0 ml/min 07/30/20: Est GFR (Non-Af Amer) 75.0 ml/min 07/30/20: BUN/Creatinine Ratio 11.0 (10-20) 07/30/20: Glucose 134 mg/dl (70-99) H 07/30/20: Calcium 9.5 mg/dl (8.5-10.1) 07/30/20: Total Bilirubin 0.3 mg/dl (0.2-1) 07/30/20: AST 14 U/L (15-37) L 07/30/20: ALT 15 U/L (12-78) 07/30/20: Alkaline Phosphatase 63 U/L (45-117) 07/30/20: Troponin I < 0.015 ng/ml (0-0.045) 07/30/20: Total Protein 8.6 gm/dl (6.4-8.2) H 07/30/20: Albumin 3.6 gm/dl (3.4-5.0) 07/30/20: Globulin 5.0 gm/dl (2.5-4.0) H 07/30/20 17:27 Albumin/Globulin Ratio 0.7 (0.9-2) L 07/30/20 17:27 Lipase 76 U/L (73-393) 07/30/20 17:27 COVID-19 Eval Order Covid19 at [facility] 07/30/20 17:40 SARS-CoV-2 (PCR) POSITIVE (Negative) A* 07/30/20 17:40 Impressions Chest X-Ray 07/30/20 17:22 XR chest 1V portable HISTORY: 50 years-old Female Chest Pain acute atypical chest pain COMPARISON: Chest radiographs 03/10/2018 TECHNIQUE: Portable AP view the chest FINDINGS: Cardiac silhouette is upper limits of normal in size. Lungs are hypoinflated. Mild left greater than right bibasilar opacities. No pneumothorax, large pleural effusion or pulmonary edema. Bones appear grossly intact. IMPRESSION: Hypoinflation with left greater than right bibasilar opacities suspicious for pneumonitis with atelectasis considered less likely. Findings could be correlated with PA and lateral views of the chest. ACT 112: Negative or not required by law. The above report was generated using voice recognition software. It may contain grammatical, syntax or spelling errors. Electronically signed by: Deuce Garzon M.D. 07/30/2020 7:00 PM Code Status & VTE Plan Code Status Full code VTE Prophylaxis Plan VTE Prophylaxis will be ordered: Yes PG Care Time/CCT Total # of Minutes Spent Total Time Spent with Patient: Total time spent is greater than 50% in coordination of care (as documented) at patient's floor/unit and/or counseling patient: Coding Level of Care Code 88708 Initial Inpt Care Lvl 3 Diagnoses Pneumonia due to COVID-19 virus U07.1; J12.82 Hypoxia R09.02 Depression F32.9 HTN (hypertension) I10 Hyperlipidemia E78.5
[2020-07-30] MEDS ORDERED: KETOROLAC TROMETHAMINE 15 MG/ML VIAL IV ONE (21:49)
[2020-07-30] MEDS ORDERED: ALBUT/IPRATROP 3MG/0.5MG NEB 3 ML VIAL NEB PRN (23:17)
[2020-07-30] MEDS ORDERED: ONDANSETRON INJ 2 MG/ML 2 ML VIAL IV PRN (23:17)
[2020-07-30] MEDS ORDERED: BENZONATATE 100 MG CAPSULE PO PRN (23:17)
[2020-07-31] MEDS: HYDROcodone/HOMATROPINE SYRUP 5MG/1.5MG 5ML UDP PO PRN ×5 (00:45→21:13)
[2020-07-31] MEDS: DICLOFENAC SODIUM 75 MG TABCR PO SCH ×3 (00:45→20:12)
[2020-07-31] MEDS: traZODone HCL 50 MG TAB PO SCH ×2 (00:46→20:12)
[2020-07-31] MEDS: guaiFENesin 600 MG TABCR PO SCH ×3 (00:46→20:12)
[2020-07-31] MEDS: ENOXAPARIN INJ 60 MG/0.6 ML SYR SQ SCH ×2 (00:46→11:57)
[2020-07-31] MEDS: cefTRIAXone SODIUM 2,000 MG in DEXTROSE 5% 50 ML IV SCH ×2 (02:17→20:08)
[2020-07-31] MEDS: AZITHROMYCIN 500 MG in DEXTROSE 5% 250 ML IV SCH ×2 (02:59→21:14)
[2020-07-31 08:00] LABS: Basophils # (auto) 0.01 K/uL (0-0.2); Basophils % (auto) 0.1 %; Hemoglobin 12.1 g/dL (12.0-16.0); Immature Granulocytes # (auto) 0.02 K/uL (0.00-0.02); Immature Granulocytes % (auto) 0.3 %; Lymphocytes # (auto) 0.53 K/uL (1.2-3.4); Lymphocytes % (auto) 7.8 %; Mean Corpuscular Hemoglobin 29.4 pg (25-34); Mean Corpuscular Hgb Conc 32.7 g/dL (32-36); Mean Corpuscular Volume 89.8 fL (80-100); Mean Platelet Volume 9.9 fL (7.4-10.4); Monocytes # (auto) 0.35 K/uL (0.11-0.59); Monocytes % (auto) 5.2 %; Neutrophils # (auto) 5.85 K/uL (1.4-6.5); Neutrophils % (auto) 86.6 %; Platelet Count 222 K/uL (130-400); RDW Coefficient of Variation 13.8 % (11.5-14.5); RDW Standard Deviation 45.2 fL (36.4-46.3); Red Blood Count 4.12 M/uL (4.2-5.4); White Blood Count 6.76 K/uL (4.8-10.8)
[2020-07-31] MEDS: ZINC SULFATE 220 MG CAPSULE PO SCH (08:18)
[2020-07-31] MEDS: ESCITALOPRAM OXALATE 10 MG TAB PO SCH (08:18)
[2020-07-31] MEDS: METOPROLOL SUCC 50MG EXT REL TAB PO SCH (08:18)
[2020-07-31] MEDS: CHOLECALCIFEROL 1,000 UNITS 25 MCG TAB PO SCH (08:18)
[2020-07-31] MEDS: dexAMETHasone 6 MG in SYRINGE 0 ML IV SCH (08:18)
[2020-07-31 08:34] LABS: Albumin Level 3.3 gm/dl (3.4-5.0); BUN Creatinine Ratio 17.3 (10-20); Calcium 8.7 mg/dl (8.5-10.1); Creatinine Clr Calc Pharmacy 115.8 ml/min; Est GFR (African American) 119.7 ml/min; Est GFR (Non-African American) 103.3 ml/min; Potassium 3.3 mmol/L (3.5-5.1)
[2020-07-31 08:36] LABS: Albumin Globulin Ratio 0.8 (0.9-2); Bilirubin,Total 0.2 mg/dl (0.2-1); Globulin 4.2 gm/dl (2.5-4.0); Total Protein 7.5 gm/dl (6.4-8.2)
[2020-07-31] MEDS ORDERED: POTASSIUM CHLORIDE CRTAB 20 MEQ TABCR PO STA (08:45)
[2020-07-31] MEDS ORDERED: CHOLECALCIFEROL 1,000 UNITS 25 MCG TAB PO SCH (09:00)
--- NOTE | 2020-07-31 11:32 | Electrocardiogram Report ---
Test Reason : Blood Pressure : / mmHG Vent. Rate : 101 BPM Atrial Rate : 101 BPM P-R Int : 126 ms QRS Dur : 078 ms QT Int : 354 ms P-R-T Axes : 044 -15 053 degrees QTc Int : 459 ms Poor data quality, interpretation may be adversely affected Sinus tachycardia Possible Left atrial enlargement Poor R wave progression, consider anterior CO vs. lead placement vs. LVH Borderline ECG When compared with ECG of 15-MAR-2018 18:05, No significant change was found Confirmed by Angel Valdes ([id number]) on 07/31/2020 11:32:22 AM Referred By: Maurizio Rdz Confirmed By:Osvaldo Valdes
--- NOTE | 2020-07-31 18:43 | Hospitalist Progress Note ---
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 really much worse in the last 5 days prior to admission With significant tachypnea, wheezing, respiratory distress and POx 91% on RA on admission, placed on O2 and given 1 hr long neb treatment CXR with bilat infiltrates With h/o obesity, asthma, HTN as risk factors for severe disease Still with severe cough paroxysms here On room air today -continue dexamethasone 6 mg IV every morning -make Duonebs scheduled qid -continue Ceftriaxone 2 g IV daily and Azithromycin daily but change to po 250mg-having PNA and worsening of symptoms late into course of illness so may have secondary bacterial infection -continueGuaifenesin extended release 600 mg p.o. twice daily -increase tessalon perles to 200mg po tid and make scheduled Vitamin D 5000 international units p.o. daily Zinc sulfate 220 mg p.o. daily -continue Hycodan syrup 5 mils p.o. every 4 hours as needed severe cough -continue Nasal cannula oxygen, titrate to keep pulse ox around 94 to 95% (2) Hypoxia: See above (3) Depression: continue Lexapro and trazodone (4) HTN (hypertension): Continue metoprolol succinate (5) Morbid obesity: BMI 46.6 needs weight loss (6) Hypokalemia: mildly low today replace with po KCl (7) DVT prophylaxis: Lovenox 50mg SQ bid Dispo-continued stay Admission and Anticipated Discharge Date Admission Date: July 30, 2020 Subjective pt reports still having severe coughing fits with any talking. Dry cough. No N/V, no abd pains, no diarrhea. Is eating and drinking, making urine Denies lightheadedness feels the nebs help her somewhat Tele with SB 50s to [address] 120s Review of Systems Review of Systems: All systems reviewed & are unremarkable except as noted in HPI & below Physical Exam Constitutional: WD/WN, vitals as above + morbidly obese Eyes: + anicteric sclerae Neck: trachea midline, no thyromegaly Respiratory: normal respiratory effort and + cough (severe); not tachypneic Auscultation: + crackles (bibasilar); no rhonchi and no wheezes Cardiovascular: RRR, no murmur, no edema Chest (Breasts): Chest: normal inspection of chest Gastrointestinal (Abdomen): normal bowel sounds, soft, nontender, no hepatos plenomegaly Musculoskeletal: Extremities: extremities normal to inspection; no cyanosis and no clubbing Skin: no rashes, warm and dry Neurologic: moves all extremities and awake; no focal motor deficits Psychiatric: A+Ox3, euthymic affect Lymphatic: no lymphedema Results & Data Results & Data ([facility]) Vital Signs (Past 12 Hours) Vital Signs Temp Pulse Pulse Resp BP Pulse Ox 07/31/20 17:01 88 20 92 07/31/20 15:10 57 L 07/31/20 11:58 36.8 C 61 18 110/95 96 07/31/20 08:00 53 L 07/31/20 07:35 36.6 C 69 20 130/101 H 93 Laboratory Results 07/31/20 07/31/20 Range/Units 07:40 07:40 WBC 6.76 (4.8-10.8) K/uL RBC 4.12 L (4.2-5.4) M/uL Hgb 12.1 (12.0-16.0) g/dL Hct 37.0 (37-47) % MCV 89.8 (80-100) fL MCH 29.4 (25-34) pg MCHC 32.7 (32-36) g/dL RDW Std Deviation 45.2 (36.4-46.3) fL RDW Coeff of Lexus 13.8 (11.5-14.5) % Plt Count 222 (130-400) K/uL MPV 9.9 (7.4-10.4) fL Immature Gran % (Auto) 0.3 % Neut % (Auto) 86.6 % Lymph % (Auto) 7.8 % [place] % (Auto) 5.2 % Eos % (Auto) 0.0 % Baso % (Auto) 0.1 % Neut # (Auto) 5.85 (1.4-6.5) K/uL Lymph # (Auto) 0.53 L (1.2-3.4) K/uL [place] # (Auto) 0.35 (0.11-0.59) K/uL Eos # (Auto) 0.00 (0-0.5) K/uL Baso # (Auto) 0.01 (0-0.2) K/uL Immature Gran # (Auto) 0.02 (0.00-0.02) K/uL Sodium 142 (136-145) mmol/L Potassium 3.3 L (3.5-5.1) mmol/L Chloride 110 H (98-107) mmol/L Carbon Dioxide 23 (21-32) mmol/L Anion Gap 8.0 (3-11) BUN 11 (7-18) mg/dl Creatinine 0.64 (0.6-1.2) mg/dl Est Cr Clr Drug Dosing 115.8 ml/min Est GFR ( Amer) 119.7 ml/min Est GFR (Non-Af Amer) 103.3 ml/min BUN/Creatinine Ratio 17.3 (10-20) Glucose 120 H (70-99) mg/dl Calcium 8.7 (8.5-10.1) mg/dl Total Bilirubin 0.2 (0.2-1) mg/dl AST 12 L (15-37) U/L ALT 11 L (12-78) U/L Alkaline Phosphatase 53 (45-117) U/L Total Protein 7.5 (6.4-8.2) gm/dl Albumin 3.3 L (3.4-5.0) gm/dl Globulin 4.2 H (2.5-4.0) gm/dl Albumin/Globulin Ratio 0.8 L (0.9-2) PG Care Time/CCT Total # of Minutes Spent Total Time Spent with Patient: Total time spent is greater than 50% in coordination of care (as documented) at patient's floor/unit and/or counseling patient: Coding Level of Care Code 99875 Subseq Hosp Care Lvl 3 Diagnoses Pneumonia due to COVID-19 virus U07.1; J12.82 Hypoxia R09.02 Depression F32.9 HTN (hypertension) I10 Morbid obesity E66.01 Hypokalemia E87.6 DVT prophylaxis Z29.9
[2020-07-31] MEDS: ALBUT/IPRATROP 3MG/0.5MG NEB 3 ML VIAL NEB SCH (19:52)
[2020-07-31] MEDS: BENZONATATE 100 MG CAPSULE PO SCH (20:09)
[2020-08-01] MEDS: ENOXAPARIN INJ 60 MG/0.6 ML SYR SQ SCH ×3 (00:12→23:49)
[2020-08-01] MEDS: ACETAMINOPHEN 325 MG TAB PO PRN (04:12)
[2020-08-01] MEDS: HYDROcodone/HOMATROPINE SYRUP 5MG/1.5MG 5ML UDP PO PRN ×3 (04:30→12:56)
[2020-08-01] MEDS: IBUPROFEN 800 MG TAB PO PRN ×3 (06:21→23:55)
[2020-08-01] MEDS: ALBUT/IPRATROP 3MG/0.5MG NEB 3 ML VIAL NEB SCH ×4 (07:17→19:44)
[2020-08-01 07:22] LABS: Basophils # (auto) 0.01 K/uL (0-0.2); Basophils % (auto) 0.1 %; Hematocrit (blood only) 35.6 % (37-47); Hemoglobin 11.4 g/dL (12.0-16.0); Immature Granulocytes # (auto) 0.05 K/uL (0.00-0.02); Immature Granulocytes % (auto) 0.6 %; Lymphocytes # (auto) 0.77 K/uL (1.2-3.4); Lymphocytes % (auto) 8.8 %; Mean Corpuscular Hemoglobin 29.2 pg (25-34); Mean Platelet Volume 9.8 fL (7.4-10.4); Monocytes # (auto) 0.35 K/uL (0.11-0.59); Neutrophils # (auto) 7.58 K/uL (1.4-6.5); Neutrophils % (auto) 86.5 %; Platelet Count 208 K/uL (130-400); RDW Coefficient of Variation 13.9 % (11.5-14.5); RDW Standard Deviation 46.4 fL (36.4-46.3); Red Blood Count 3.91 M/uL (4.2-5.4); White Blood Count 8.76 K/uL (4.8-10.8)
[2020-08-01 07:47] LABS: Albumin Level 3.1 gm/dl (3.4-5.0); C Reactive Protein 6.23 mg/dl (0-0.29); Calcium 8.7 mg/dl (8.5-10.1); Creatinine Clr Calc Pharmacy 117.6 ml/min; Est GFR (African American) 120.4 ml/min; Est GFR (Non-African American) 103.9 ml/min
[2020-08-01 07:50] LABS: Albumin Globulin Ratio 0.8 (0.9-2); Bilirubin,Total 0.3 mg/dl (0.2-1); Globulin 3.9 gm/dl (2.5-4.0)
[2020-08-01] MEDS: dexAMETHasone 6 MG in SYRINGE 0 ML IV SCH ×2 (08:25→20:57)
[2020-08-01] MEDS: guaiFENesin 600 MG TABCR PO SCH ×2 (08:26→20:55)
[2020-08-01] MEDS: DICLOFENAC SODIUM 75 MG TABCR PO SCH ×2 (08:26→20:54)
[2020-08-01] MEDS: ESCITALOPRAM OXALATE 10 MG TAB PO SCH (08:26)
[2020-08-01] MEDS: CHOLECALCIFEROL 1,000 UNITS 25 MCG TAB PO SCH (08:26)
[2020-08-01] MEDS: BENZONATATE 100 MG CAPSULE PO SCH ×3 (08:27→20:55)
[2020-08-01] MEDS: METOPROLOL SUCC 50MG EXT REL TAB PO SCH (08:27)
[2020-08-01] MEDS: ZINC SULFATE 220 MG CAPSULE PO SCH (08:27)
[2020-08-01] MEDS ORDERED: POTASSIUM CHLORIDE CRTAB 20 MEQ TABCR PO STA (10:04)
--- NOTE | 2020-08-01 15:57 | Hospitalist Progress Note ---
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 really much worse in the last 5 days prior to admission With significant tachypnea, wheezing, respiratory distress and POx 91% on RA on admission, placed on O2 and given 1 hr long neb treatment CXR with bilat infiltrates With h/o obesity, asthma, HTN as risk factors for severe disease Had a fever on 07/31 evening Still with severe cough paroxysms here Now requiring 2LNC -continue dexamethasone but increase to 6mg IV bid -continue Duonebs scheduled qid -continue Ceftriaxone 2 g IV daily and Azithromycin daily but change to po 250mg-having PNA and worsening of symptoms late into course of illness so may have secondary bacterial infection -continue Guaifenesin extended release 600 mg p.o. twice daily -continue tessalon perles 200mg po tid scheduled Vitamin D 5000 international units p.o. daily Zinc sulfate 220 mg p.o. daily -dc Hycodan syrup and trial Robitussin with codeine to see if better controled cough -continue Nasal cannula oxygen, titrate to keep pulse ox around 94 to 95% (2) Hypoxia: See above (3) Depression: continue Lexapro and trazodone (4) HTN (hypertension): Continue metoprolol succinate (5) Morbid obesity: BMI 46.6 needs weight loss (6) Hypokalemia: low again today, 2/2 poor po intake and neb treatments replace with po KCl follow BMP in AM (7) DVT prophylaxis: Lovenox 50mg SQ bid Dispo-continued stay Admission and Anticipated Discharge Date Admission Date: July 30, 2020 Subjective Continues with severe coughing fits with any talking. No N/V, no abd pains, no diarrhea. Is eating and drinking, making urine Denies lightheadedness feels the nebs help her somewhat Tele with SB 50s to 80s Review of Systems Review of Systems: All systems reviewed & are unremarkable except as noted in HPI & below Physical Exam Constitutional: WD/WN, vitals as above + morbidly obese Eyes: + anicteric sclerae Neck: trachea midline, no thyromegaly Respiratory: normal respiratory effort and + cough (severe); not tachypneic Auscultation: + crackles (bibasilar); no rhonchi and no wheezes Cardiovascular: RRR, no murmur, no edema Chest (Breasts): Chest: normal inspection of chest Gastrointestinal (Abdomen): normal bowel sounds, soft, nontender, no hepatosplenomegaly Musculoskeletal: Extremities: extremities normal to inspection; no cyanosis and no clubbing Skin: no rashes, warm and dry Neurologic: moves all extremities and awake; no focal motor deficits Psychiatric: A+Ox3, euthymic affect Lymphatic: no lymphedema Results & Data Results & Data ([facility]) Vital Signs (Past 12 Hours) Vital Signs Temp Pulse Pulse Resp BP BP Pulse Ox 08/01/20 15:32 62 18 96 08/01/20 11:42 36.9 C 65 20 124/74 92 08/01/20 10:44 60 18 94 08/01/20 10:34 36.9 C 08/01/20 08:26 37.3 C 08/01/20 08:11 36.7 C 75 18 156/73 H 96 08/01/20 08:00 86 08/01/20 07:17 61 18 94 08/01/20 06:23 38.6 C H 08/01/20 05:16 39.2 C H 165/76 H 88 L Laboratory Results Chest X-Ray 07/30/20 17:22 XR chest 1V portable HISTORY: 50 years-old Female Chest Pain acute atypical chest pain COMPARISON: Chest radiographs 03/10/2018 TECHNIQUE: Portable AP view the chest FINDINGS: Cardiac silhouette is upper limits of normal in size. Lungs are hypoinflated. Mild left greater than right bibasilar opacities. No pneumothorax, large pleural effusion or pulmonary edema. Bones appear grossly intact. IMPRESSION: Hypoinflation with left greater than right bibasilar opacities suspicious for pneumonitis with atelectasis considered less likely. Findings could be correlated with PA and lateral views of the chest. ACT 112: Negative or not required by law. The above report was generated using voice recognition software. It may contain grammatical, syntax or spelling errors. Electronically signed by: Deuce Garzon M.D. 07/30/2020 7:00 PM PG Care Time/CCT Total # of Minutes Spent Total Time Spent with Patient: Total time spent is greater than 50% in coordination of care (as documented) at patient's floor/unit and/or counseling patient: Coding Level of Care Code 93216 Subseq Hosp Care Lvl 3 Diagnoses Pneumonia due to COVID-19 virus U07.1; J12.82 Hypoxia R09.02 Depression F32.9 HTN (hypertension) I10 Morbid obesity E66.01 Hypokalemia E87.6 DVT prophylaxis Z29.9
[2020-08-01] MEDS: cefTRIAXone SODIUM 2,000 MG in DEXTROSE 5% 50 ML IV SCH (20:45)
[2020-08-01] MEDS: traZODone HCL 50 MG TAB PO SCH (20:55)
[2020-08-01] MEDS: AZITHROMYCIN 250 MG TAB PO SCH (20:57)
[2020-08-02] MEDS: ALBUT/IPRATROP 3MG/0.5MG NEB 3 ML VIAL NEB SCH ×4 (07:20→19:25)
[2020-08-02 07:32] LABS: Basophils # (auto) 0.01 K/uL (0-0.2); Basophils % (auto) 0.1 %; Eosinophils # (auto) 0.01 K/uL (0-0.5); Eosinophils % (auto) 0.1 %; Hematocrit (blood only) 38.3 % (37-47); Hemoglobin 12.3 g/dL (12.0-16.0); Immature Granulocytes # (auto) 0.05 K/uL (0.00-0.02); Immature Granulocytes % (auto) 0.6 %; Lymphocytes # (auto) 0.62 K/uL (1.2-3.4); Mean Corpuscular Hemoglobin 28.9 pg (25-34); Mean Corpuscular Hgb Conc 32.1 g/dL (32-36); Mean Corpuscular Volume 89.9 fL (80-100); Mean Platelet Volume 10.3 fL (7.4-10.4); Monocytes # (auto) 0.21 K/uL (0.11-0.59); Monocytes % (auto) 2.4 %; Neutrophils # (auto) 7.92 K/uL (1.4-6.5); Neutrophils % (auto) 89.8 %; Platelet Count 219 K/uL (130-400); RDW Coefficient of Variation 13.9 % (11.5-14.5); RDW Standard Deviation 45.8 fL (36.4-46.3); Red Blood Count 4.26 M/uL (4.2-5.4); White Blood Count 8.82 K/uL (4.8-10.8)
[2020-08-02 08:08] LABS: Albumin Globulin Ratio 0.6 (0.9-2); BUN Creatinine Ratio 17.8 (10-20); Bilirubin,Total 0.3 mg/dl (0.2-1); C Reactive Protein 13.7 mg/dl (0-0.29); Creatinine Clr Calc Pharmacy 97.5 ml/min; Est GFR (African American) 105.3 ml/min; Est GFR (Non-African American) 90.8 ml/min; Globulin 4.6 gm/dl (2.5-4.0); Potassium 3.8 mmol/L (3.5-5.1); Total Protein 7.6 gm/dl (6.4-8.2)
[2020-08-02] MEDS: BENZONATATE 100 MG CAPSULE PO SCH ×3 (08:53→21:07)
[2020-08-02] MEDS: CHOLECALCIFEROL 1,000 UNITS 25 MCG TAB PO SCH (08:54)
[2020-08-02] MEDS: dexAMETHasone 6 MG in SYRINGE 0 ML IV SCH ×2 (08:54→21:07)
[2020-08-02] MEDS: IBUPROFEN 800 MG TAB PO PRN (08:54)
[2020-08-02] MEDS: guaiFENesin 600 MG TABCR PO SCH ×2 (08:55→21:08)
[2020-08-02] MEDS: ZINC SULFATE 220 MG CAPSULE PO SCH (08:55)
[2020-08-02] MEDS: ESCITALOPRAM OXALATE 10 MG TAB PO SCH (08:55)
[2020-08-02] MEDS: METOPROLOL SUCC 50MG EXT REL TAB PO SCH (08:55)
[2020-08-02] MEDS: DICLOFENAC SODIUM 75 MG TABCR PO SCH ×2 (08:55→21:08)
[2020-08-02] MEDS: ACETAMINOPHEN 325 MG TAB PO PRN ×2 (12:01→21:08)
[2020-08-02] MEDS: ENOXAPARIN INJ 60 MG/0.6 ML SYR SQ SCH ×2 (12:01→23:51)
--- NOTE | 2020-08-02 16:19 | Hospitalist Progress Note ---
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 really much worse in the last 5 days prior to admission With significant tachypnea, wheezing, respiratory distress and POx 91% on RA on admission, placed on O2 and given 1 hr long neb treatment CXR with bilat infiltrates With h/o obesity, asthma, HTN as risk factors for severe disease Had a fever on 07/31 evening, but none since then Was having severe cough paroxysms here which are now improved with guaifenesin with codeine and Tessalon Perles Oxygen requirement has increased to 5 L nasal cannula today -continue dexamethasone at increased dose of 6mg IV bid -continue Duonebs scheduled qid -continue Ceftriaxone 2 g IV daily and Azithromycin 250 mg p.o. daily for possible secondary bacterial pneumonia given worsening of symptoms late into course of illness -continue Guaifenesin extended release 600 mg p.o. twice daily -continue tessalon perles 200mg po tid scheduled Vitamin D 5000 international units p.o. daily Zinc sulfate 220 mg p.o. daily -Continue Robitussin with codeine -continue Nasal cannula oxygen, titrate to keep pulse ox around 94 to 95% -Add on flutter valve 3 times daily and incentive spirometry -Continue prone position as often as possible-patient is doing well with this (2) Hypoxia: See above (3) Depression: continue Lexapro and trazodone No acute issues (4) HTN (hypertension): Continue metoprolol succinate Blood pressures have been low but elevated likely secondary to steroids Consider adding on second antihypertensive if persists (5) Morbid obesity: BMI 46.6 needs weight loss (6) Hypokalemia: Replaced and now resolved Follow BMP Has very poor p.o. intake the last few days (7) DVT prophylaxis: Lovenox 50mg SQ bid Dispo-continued stay on telemetry unit Did discuss the patient's care at her request with her sister, Grazyna Armas, who is an [employer] INSTRUCTOR at our facility Admission and Anticipated Discharge Date Admission Date: July 30, 2020 Subjective Patient reports she feels a little bit better today and that her cough is improved with changing to Robitussin with codeine. No further diarrhea. Denies chest pain. Does feel little short of breath with when she went to the bathroom today without oxygen on and her pulse ox dropped into the 70s. Telemetry with normal sinus rhythm with rates in the 50s to 80s, 130s with being out of bed. She was increased to 5 L nasal cannula overnight. When she sat up in bed for lung exam with minimal movement, her pulse ox dropped to 88% Review of Systems Review of Systems: All systems reviewed & are unremarkable except as noted in HPI & below Physical Exam Constitutional: WD/WN, vitals as above + morbidly obese Eyes: + anicteric sclerae Neck: trachea midline, no thyromegaly Respiratory: + abnormal respiratory effort (Not taking deep breaths due to the fear of coughing), no labored breathing, no cough (Improved today) and not tachypneic Auscultation: + crackles (In bilateral lower and middle lung padilla); no rhonchi and no wheezes Cardiovascular: RRR, no murmur, no edema Extremities: no calf tenderness Chest (Breasts): Chest: normal inspection of chest Gastrointestinal (Abdomen): normal bowel sounds, soft, nontender, no hepatosplenomegaly Musculoskeletal: Extremities: extremities normal to inspection; no cyanosis and no clubbing Skin: no rashes, warm and dry Neurologic: moves all extremities and awake; no focal motor deficits Psychiatric: Orientation: alert and oriented x 3 Speech: normal rate/rhythm/volume of speech Affect: + flat affect Lymphatic: no lymphedema Results & Data Results & Data ([facility]) Vital Signs (Past 12 Hours) Vital Signs Temp Pulse Pulse Resp BP Pulse Ox 08/02/20 15:05 65 18 94 08/02/20 12:00 37.2 C 73 20 174/74 H 94 08/02/20 10:49 72 18 95 08/02/20 07:43 109 H 08/02/20 07:20 82 18 96 08/02/20 06:50 36.7 C 08/02/20 04:26 36.5 C 56 L 18 156/81 H 94 Laboratory Results 08/02/20 08/02/20 Range/Units 07:01 07:01 WBC 8.82 (4.8-10.8) K/uL RBC 4.26 (4.2-5.4) M/uL Hgb 12.3 (12.0-16.0) g/dL Hct 38.3 (37-47) % MCV 89.9 (80-100) fL MCH 28.9 (25-34) pg MCHC 32.1 (32-36) g/dL RDW Std Deviation 45.8 (36.4-46.3) fL RDW Coeff of Lexus 13.9 (11.5-14.5) % Plt Count 219 (130-400) K/uL MPV 10.3 (7.4-10.4) fL Immature Gran % (Auto) 0.6 % Neut % (Auto) 89.8 % Lymph % (Auto) 7.0 % [place] % (Auto) 2.4 % Eos % (Auto) 0.1 % Baso % (Auto) 0.1 % Neut # (Auto) 7.92 H (1.4-6.5) K/uL Lymph # (Auto) 0.62 L (1.2-3.4) K/uL [place] # (Auto) 0.21 (0.11-0.59) K/uL Eos # (Auto) 0.01 (0-0.5) K/uL Baso # (Auto) 0.01 (0-0.2) K/uL Immature Gran # (Auto) 0.05 H (0.00-0.02) K/uL Sodium 139 (136-145) mmol/L Potassium 3.8 D (3.5-5.1) mmol/L Chloride 108 H (98-107) mmol/L Carbon Dioxide 20 L (21-32) mmol/L Anion Gap 11.0 (3-11) BUN 14 (7-18) mg/dl Creatinine 0.76 (0.6-1.2) mg/dl Est Cr Clr Drug Dosing 97.5 ml/min Est GFR ( Amer) 105.3 ml/min Est GFR (Non-Af Amer) 90.8 ml/min BUN/Creatinine Ratio 17.8 (10-20) Glucose 153 H (70-99) mg/dl Calcium 9.0 (8.5-10.1) mg/dl Total Bilirubin 0.3 (0.2-1) mg/dl AST 12 L (15-37) U/L ALT 13 (12-78) U/L Alkaline Phosphatase 58 (45-117) U/L C-Reactive Protein 13.70 H (0-0.29) mg/dl Total Protein 7.6 (6.4-8.2) gm/dl Albumin 3.0 L (3.4-5.0) gm/dl Globulin 4.6 H (2.5-4.0) gm/dl Albumin/Globulin Ratio 0.6 L (0.9-2) PG Care Time/CCT Total # of Minutes Spent Total Time Spent with Patient: Total time spent is greater than 50% in coordination of care (as documented) at patient's floor/unit and/or counseling patient: Coding Level of Care Code 76724 Subseq Hosp Care Lvl 3 Diagnoses Pneumonia due to COVID-19 virus U07.1; J12.82 Hypoxia R09.02 Depression F32.9 HTN (hypertension) I10 Morbid obesity E66.01 Hypokalemia E87.6 DVT prophylaxis Z29.9
[2020-08-02] MEDS: LOPERAMIDE HCL 2 MG CAP PO PRN (16:47)
[2020-08-02] MEDS: cefTRIAXone SODIUM 2,000 MG in DEXTROSE 5% 50 ML IV SCH (21:06)
[2020-08-02] MEDS: AZITHROMYCIN 250 MG TAB PO SCH (21:07)
[2020-08-02] MEDS: traZODone HCL 50 MG TAB PO SCH (21:08)
[2020-08-03] MEDS: LOPERAMIDE HCL 2 MG CAP PO PRN (04:40)
[2020-08-03 06:32] LABS: Basophils # (auto) 0.02 K/uL (0-0.2); Basophils % (auto) 0.3 %; Hematocrit (blood only) 35.7 % (37-47); Hemoglobin 11.8 g/dL (12.0-16.0); Immature Granulocytes # (auto) 0.11 K/uL (0.00-0.02); Immature Granulocytes % (auto) 1.5 %; Lymphocytes # (auto) 0.56 K/uL (1.2-3.4); Lymphocytes % (auto) 7.6 %; Mean Corpuscular Hemoglobin 29.7 pg (25-34); Mean Corpuscular Hgb Conc 33.1 g/dL (32-36); Mean Corpuscular Volume 89.9 fL (80-100); Monocytes % (auto) 5.4 %; Neutrophils # (auto) 6.31 K/uL (1.4-6.5); Neutrophils % (auto) 85.2 %; Platelet Count 241 K/uL (130-400); RDW Coefficient of Variation 13.7 % (11.5-14.5); RDW Standard Deviation 45.4 fL (36.4-46.3); Red Blood Count 3.97 M/uL (4.2-5.4)
[2020-08-03] MEDS: ALBUT/IPRATROP 3MG/0.5MG NEB 3 ML VIAL NEB SCH ×2 (06:57→11:02)
[2020-08-03 07:06] LABS: Albumin Level 2.8 gm/dl (3.4-5.0); BUN Creatinine Ratio 30.5 (10-20); Calcium 8.4 mg/dl (8.5-10.1); Creatinine Clr Calc Pharmacy 141.8 ml/min; Est GFR (African American) 128.2 ml/min; Est GFR (Non-African American) 110.6 ml/min; Magnesium 2.3 mg/dl (1.8-2.4); Potassium 3.4 mmol/L (3.5-5.1)
[2020-08-03 07:08] LABS: Albumin Globulin Ratio 0.6 (0.9-2); Bilirubin,Total 0.3 mg/dl (0.2-1); C Reactive Protein 7.19 mg/dl (0-0.29); Globulin 4.5 gm/dl (2.5-4.0); Total Protein 7.3 gm/dl (6.4-8.2)
[2020-08-03] MEDS: ACETAMINOPHEN 325 MG TAB PO PRN (09:04)
[2020-08-03] MEDS: BENZONATATE 100 MG CAPSULE PO SCH ×3 (09:05→20:57)
[2020-08-03] MEDS: DICLOFENAC SODIUM 75 MG TABCR PO SCH ×2 (09:05→21:00)
[2020-08-03] MEDS: dexAMETHasone 6 MG in SYRINGE 0 ML IV SCH ×2 (09:06→22:16)
[2020-08-03] MEDS: guaiFENesin 600 MG TABCR PO SCH ×2 (09:06→20:58)
[2020-08-03] MEDS: ZINC SULFATE 220 MG CAPSULE PO SCH (09:06)
[2020-08-03] MEDS: CHOLECALCIFEROL 1,000 UNITS 25 MCG TAB PO SCH (09:07)
[2020-08-03] MEDS: ESCITALOPRAM OXALATE 10 MG TAB PO SCH (09:07)
[2020-08-03] MEDS: METOPROLOL SUCC 50MG EXT REL TAB PO SCH (09:07)
[2020-08-03] MEDS ORDERED: POTASSIUM CHLORIDE CRTAB 20 MEQ TABCR PO STA (09:41)
--- NOTE | 2020-08-03 09:41 | Hospitalist Progress Note ---
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 in the last 5 days prior to admission With significant tachypnea, wheezing, respiratory distress and POx 91% on RA on admission, placed on O2 and given 1 hr long neb treatment CXR with bilat infiltrates With h/o obesity, asthma, HTN as risk factors for severe disease Had a fever on 07/31 evening, but none since then Was having severe cough paroxysms here which are now improved with guaifenesin with codeine and Tessalon Perles oxygen requirement was up to 5L yesterday, down to 2L this morning, no distress CRP trending down to 7 from 13 which is good sign -continue dexamethasone at 6mg IV bid, day 4 of treatment, complete 10 days -continue Duonebs scheduled qid -continue Ceftriaxone 2 g IV daily and Azithromycin 250 mg p.o. daily, day 4 of treatment, complete 7 days -continue Guaifenesin extended release 600 mg p.o. twice daily -continue tessalon perles 200mg po tid scheduled Vitamin D 5000 international units p.o. daily Zinc sulfate 220 mg p.o. daily -Continue Robitussin with codeine -Add on flutter valve 3 times daily and incentive spirometry -Continue prone position as often as possible-patient is doing well with this prognosis improving, anticipate a few more days in hospital encouraged her to try to eat and drink more if she can (2) Hypoxia: See above acute respiratory failure with hypoxemia improving, down to 2L NC today, no distress (3) Depression: continue Lexapro and trazodone No acute issues, flat affect (4) HTN (hypertension): Continue metoprolol succinate Blood pressures have been high at times but elevated likely secondary to steroids Consider adding on second antihypertensive if persists (5) Morbid obesity: BMI 46.6 needs weight loss (6) Hypokalemia: Replaced and now resolved Follow BMP Has very poor p.o. intake the last few days down to 3.4 this morning (7) DVT prophylaxis: Lovenox 50mg SQ bid Dispo-continued stay on telemetry unit updated patient's sister Admission and Anticipated Discharge Date Admission Date: July 30, 2020 Subjective patient doing a little better today, still with cough but dyspnea is decreasing she slept a little better still no appetite, drinking a little bit and chewing on ice chips she still has loose stools, not very often, she is making urine, no abdominal pain, no nausea/vomiting reviewed chart, reviewed labs K low at 3.4, CRP is coming down to 7 from 13 which is a good sign also, she is down to 2L NC from 5L NC and no distress encouraged her to be patient, will likely be here 2-3 more days, once down to room air will talk about discharge encouraged her to try to eat and drink, need to know she can stay well hydrated and nourished Review of Systems Review of Systems: All systems reviewed & are unremarkable except as noted in Subjective Physical Exam Constitutional: well developed, well nourished, + ill appearing and + overweight; no acute distress Neck: trachea midline, no thyromegaly Respiratory: normal respiratory effort and + cough; no respiratory distress, no labored breathing and not tachypneic Auscultation: + diminished lung sounds (moving more air on left side) Cardiovascular: RRR, no murmur, no edema Gastrointestinal (Abdomen): normal bowel sounds, soft, nontender, no hepatosplenomegaly Musculoskeletal: no cyanosis or clubbing, extremities motor strength 5/5 Skin: no rashes, warm and dry Neurologic: patellar DTR's 2+ bilat, sensation intact and PERRL, EOMI, accommodation nl, no face palsy, no dysarthria Psychiatric: Orientation: alert and oriented x 3 Affect: + flat affect Lymphatic: no cervical or axillary lymphadenopathy Results & Data Results & Data ([facility]) Vital Signs (Past 12 Hours) Vital Signs Temp Pulse Pulse Resp BP BP Pulse Ox 08/03/20 07:59 36.8 C 64 20 116/74 93 08/03/20 06:57 77 18 96 08/03/20 02:57 36.5 C 63 153/94 H 91 08/03/20 00:00 62 08/02/20 23:52 36.4 C L 66 22 155/76 H 91 08/02/20 23:00 Pulse Ox 08/03/20 07:59 08/03/20 06:57 08/03/20 02:57 08/03/20 00:00 08/02/20 23:52 08/02/20 23:00 91 Laboratory Results Laboratory Results - last 24 hr 08/03/20 08/03/20 06:20 06:20 WBC 7.40 RBC 3.97 L Hgb 11.8 L Hct 35.7 L MCV 89.9 MCH 29.7 MCHC 33.1 RDW Std Deviation 45.4 RDW Coeff of Lexus 13.7 Plt Count 241 MPV 10.0 Immature Gran % (Auto) 1.5 Neut % (Auto) 85.2 Lymph % (Auto) 7.6 [place] % (Auto) 5.4 Eos % (Auto) 0.0 Baso % (Auto) 0.3 Neut # (Auto) 6.31 Lymph # (Auto) 0.[address] [place] # (Auto) 0.40 Eos # (Auto) 0.00 Baso # (Auto) 0.02 Immature Gran # (Auto) 0.11 H Sodium 141 Potassium 3.4 L Chloride 110 H Carbon Dioxide 22 Anion Gap 9.0 BUN 16 Creatinine 0.52 L Est Cr Clr Drug Dosing 141.8 Est GFR ( Amer) 128.2 Est GFR (Non-Af Amer) 110.6 BUN/Creatinine Ratio 30.5 H Glucose 129 H Calcium 8.4 L Magnesium 2.3 Total Bilirubin 0.3 AST 17 ALT 16 Alkaline Phosphatase 58 C-Reactive Protein 7.19 H Total Protein 7.3 Albumin 2.8 L Globulin 4.5 H Albumin/Globulin Ratio 0.6 L Medications Administered Current Inpatient Medications Acetaminophen (Acetaminophen 325 Mg Tab) 650 mg PO Q4H PRN PRN Reason: Pain or Fever Stop: 08/29/20 23:16 Last Admin: 08/03/20 09:04 Dose: 650 mg Documented by: Albuterol (Albut/Ipratrop 3mg/0.5mg Neb 3 Ml Vial) 3 ml NEB QIDR [facility] Stop: 08/30/20 18:59 Last Admin: 08/03/20 06:57 Dose: 3 ml Documented by: Azithromycin (Azithromycin 250 Mg Tab) 250 mg PO [facility]; Protocol Stop: 08/08/20 20:59 Last Admin: 08/02/20 21:07 Dose: 250 mg Documented by: Benzonatate (Benzonatate 100 Mg Capsule) 200 mg PO TID [facility] Stop: 08/30/20 20:59 Last Admin: 08/03/20 09:05 Dose: 200 mg Documented by: Diclofenac Sodium (Diclofenac Sodium 75 Mg Tabcr) 75 mg PO BID [facility] Stop: 08/30/20 00:14 Last Admin: 08/03/20 09:05 Dose: 75 mg Documented by: Enoxaparin Sodium (Enoxaparin Inj 60 Mg/0.6 Ml Syr) 50 mg SQ Q12H [facility] Stop: 08/30/20 00:29 Last Admin: 08/02/20 23:51 Dose: 50 mg Documented by: Escitalopram Oxalate (Escitalopram Oxalate 10 Mg Tab) 10 mg PO DAILY [facility] Stop: 08/30/20 08:59 Last Admin: 08/03/20 09:07 Dose: 10 mg Documented by: Guaifenesin (Guaifenesin 600 Mg Tabcr) 600 mg PO Q12 [facility] Stop: 08/30/20 00:14 Last Admin: 08/03/20 09:06 Dose: 600 mg Documented by: Guaifenesin/Codeine Phosphate (Guaifenesin/Codeine 200mg/20mg 10ml Udc) 10 ml PO Q6H PRN PRN Reason: Cough Stop: 08/31/20 15:53 Last Admin: 08/03/20 09:04 Dose: 10 ml Documented by: Ceftriaxone Sodium 2,000 mg/ (Dextrose) 70 mls @ 100 mls/hr IV Q24H [facility]; Protocol Stop: 08/07/20 01:29 Last Infusion: 08/02/20 21:58 Dose: Infused Documented by: Dexamethasone 6 mg/ Syringe 1.5 mls @ 1 mls/min IV BID [facility] Stop: 08/31/20 20:59 Last Admin: 08/03/20 09:06 Dose: 1 mls/min Documented by: Ibuprofen (Ibuprofen 800 Mg Tab) 800 mg PO TID PRN PRN Reason: Fever Stop: 08/31/20 05:25 Last Admin: 08/02/20 08:54 Dose: 800 mg Documented by: Loperamide HCl (Loperamide Hcl 2 Mg Cap) 2 mg PO Q6H PRN PRN Reason: diarrhea Stop: 09/01/20 14:59 Last Admin: 08/03/20 04:40 Dose: 2 mg Documented by: Metoprolol Succinate (Metoprolol Succ 50mg Ext Rel Tab) 50 mg PO DAILY [facility] Stop: 08/30/20 08:59 Last Admin: 08/03/20 09:07 Dose: 50 mg Documented by: Ondansetron HCl (Ondansetron Inj 2 Mg/Ml 2 Ml Vial) 4 mg IV Q6H PRN PRN Reason: Nausea Stop: 08/29/20 23:16 Trazodone HCl (Trazodone Hcl 50 Mg Tab) 50 mg PO [facility] Stop: 08/30/20 00:14 Last Admin: 08/02/20 21:08 Dose: 50 mg Documented by: Vitamin D (Cholecalciferol 1,000 Units 25 Mcg Tab) [facility] Stop: 08/30/20 08:59 Last Admin: 08/03/20 09:07 Dose: 5,000 units Documented by: Zinc Sulfate (Zinc Sulfate 220 Mg Capsule) [facility] Stop: 08/30/20 08:59 Last Admin: 08/03/20 09:06 Dose: 220 mg Documented by: PG Care Time/CCT Total # of Minutes Spent Total Time Spent with Patient: Total time spent is greater than 50% in coordination of care (as documented) at patient's floor/unit and/or counseling patient: Coding Level of Care Code 61457 Subseq Hosp Care Lvl 3 Diagnoses Pneumonia due to COVID-19 virus U07.1; J12.82 Hypoxia R09.02 Depression F32.9 HTN (hypertension) I10 Morbid obesity E66.01 Hypokalemia E87.6 DVT prophylaxis Z29.9
[2020-08-03] MEDS: ENOXAPARIN INJ 60 MG/0.6 ML SYR SQ SCH (12:02)
[2020-08-03] MEDS: MoRPHine SULFATE 2 MG/ML CARP IV PRN ×3 (12:21→22:16)
[2020-08-03] MEDS ORDERED: ALBUT/IPRATROP 3MG/0.5MG NEB 3 ML VIAL NEB PRN (13:06)
[2020-08-03] MEDS: cefTRIAXone SODIUM 2,000 MG in DEXTROSE 5% 50 ML IV SCH (20:56)
[2020-08-03] MEDS: traZODone HCL 50 MG TAB PO SCH (20:58)
[2020-08-03] MEDS: AZITHROMYCIN 250 MG TAB PO SCH (20:59)
[2020-08-04] MEDS: ENOXAPARIN INJ 60 MG/0.6 ML SYR SQ SCH ×2 (00:10→11:54)
[2020-08-04] MEDS: LIDOCAINE 5% 1 PATCH TD SCH ×3 (00:13→20:54)
[2020-08-04] MEDS: dexAMETHasone 6 MG in SYRINGE 0 ML IV SCH ×2 (08:52→20:52)
[2020-08-04] MEDS: BENZONATATE 100 MG CAPSULE PO SCH ×3 (08:52→20:52)
[2020-08-04] MEDS: guaiFENesin 600 MG TABCR PO SCH ×2 (08:52→20:53)
[2020-08-04] MEDS: METOPROLOL SUCC 50MG EXT REL TAB PO SCH (08:53)
[2020-08-04] MEDS: CHOLECALCIFEROL 1,000 UNITS 25 MCG TAB PO SCH (08:53)
[2020-08-04] MEDS: DICLOFENAC SODIUM 75 MG TABCR PO SCH ×2 (08:54→20:53)
[2020-08-04] MEDS: ZINC SULFATE 220 MG CAPSULE PO SCH (08:54)
[2020-08-04] MEDS: ESCITALOPRAM OXALATE 10 MG TAB PO SCH (08:54)
--- NOTE | 2020-08-04 11:48 | Hospitalist Progress Note ---
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 but really much worse in the last 5 days prior to admission With significant tachypnea, wheezing, respiratory distress and POx 91% on RA on admission, placed on O2 and given 1 hr long neb treatment CXR with bilat infiltrates With h/o obesity, asthma, HTN as risk factors for severe disease Had a fever on 07/31 evening, but none since then Was having severe cough paroxysms here which are now improved with guaifenesin with codeine and Tessalon Perles oxygen requirement stable at 2L today CRP trending down yesterday -continue dexamethasone at 6mg IV bid, day 5 of treatment, complete 10 days -continue Duonebs scheduled qid -continue Ceftriaxone 2 g IV daily and Azithromycin 250 mg p.o. daily, day 5 of treatment, complete 7 days -continue Guaifenesin extended release 600 mg p.o. twice daily -continue tessalon perles 200mg po tid scheduled Vitamin D 5000 international units p.o. daily Zinc sulfate 220 mg p.o. daily -Continue Robitussin with codeine -Add on flutter valve 3 times daily and incentive spirometry -Continue prone position as often as possible-patient is doing well with this prognosis improving, anticipate a few more days in hospital encouraged her to try to eat and drink more if she can (2) Hypoxia: See above acute respiratory failure with hypoxemia stable on 2L NC today, no distress (3) Depression: continue Lexapro and trazodone No acute issues, flat affect (4) HTN (hypertension): Continue metoprolol succinate Blood pressures have been high at times but elevated likely secondary to steroids Consider adding on second antihypertensive if persists (5) Morbid obesity: BMI 46.6 needs weight loss (6) Hypokalemia: repeat tomorrow (7) DVT prophylaxis: Lovenox 50mg SQ bid Dispo-continued stay on telemetry unit Admission and Anticipated Discharge Date Admission Date: July 30, 2020 Subjective patient says she is doing better, would be a lot better if she could get rid of her coughing spells but overall she is breathing easier no fever/chills, no chest pain, she does have mid back pain from coughing stable on tele, BP has been high, will add Norvasc 5mg PO daily today reviewed labs, stable she is on 2L but she is 94%, might be able to get to room in in next 24 hours tried calling number for her sister, went straight to voicemail Review of Systems Review of Systems: All systems reviewed & are unremarkable except as noted in Subjective Respiratory: + cough, + dyspnea, + dyspnea on exertion and + sputum production Cardiovascular: no chest pain and no edema Musculoskeletal: + back pain (mid to upper back pain) Physical Exam Constitutional: well developed, well nourished, + ill appearing and + overweight; no acute distress Neck: trachea midline, no thyromegaly Respiratory: normal respiratory effort and + cough; no respiratory distress, no labored breathing and not tachypneic Auscultation: + diminished lung sounds (moving more air on left side) Cardiovascular: RRR, no murmur, no edema Gastrointestinal (Abdomen): normal bowel sounds, soft, nontender, no hepatosplenomegaly Musculoskeletal: no cyanosis or clubbing, extremities motor strength 5/5 Skin: no rashes, warm and dry Neurologic: patellar DTR's 2+ bilat, sensation intact and PERRL, EOMI, accommodation nl, no face palsy, no dysarthria Psychiatric: Orientation: alert and oriented x 3 Affect: + flat affect Lymphatic: no cervical or axillary lymphadenopathy Results & Data Results & Data ([facility]) Vital Signs (Past 12 Hours) Vital Signs Temp Pulse Pulse Resp BP Pulse Ox 08/04/20 08:16 36.7 C 91 H 23 198/78 H 94 08/04/20 08:00 52 L 08/04/20 03:15 36.2 C L 73 22 180/89 H 90 08/04/20 00:34 60 Medications Administered Current Inpatient Medications Acetaminophen (Acetaminophen 325 Mg Tab) 650 mg PO Q4H PRN PRN Reason: Pain or Fever Stop: 08/29/20 23:16 Last Admin: 08/03/20 09:04 Dose: 650 mg Documented by: Albuterol (Albut/Ipratrop 3mg/0.5mg Neb 3 Ml Vial) 3 ml NEB Q4R PRN PRN Reason: Shortness Of Breath Or Wheezing Stop: 09/02/20 13:05 Azithromycin (Azithromycin 250 Mg Tab) 250 mg PO HS [facility]; Protocol Stop: 08/08/20 20:59 Last Admin: 08/03/20 20:59 Dose: 250 mg Documented by: Benzonatate (Benzonatate 100 Mg Capsule) 200 mg PO TID [facility] Stop: 08/30/20 20:59 Last Admin: 08/04/20 08:52 Dose: 200 mg Documented by: Diclofenac Sodium (Diclofenac Sodium 75 Mg Tabcr) 75 mg PO BID [facility] Stop: 08/30/20 00:14 Last Admin: 08/04/20 08:54 Dose: 75 mg Documented by: Enoxaparin Sodium (Enoxaparin Inj 60 Mg/0.6 Ml Syr) 50 mg SQ Q12H [facility] Stop: 08/30/20 00:29 Last Admin: 08/04/20 00:10 Dose: 50 mg Documented by: Escitalopram Oxalate (Escitalopram Oxalate 10 Mg Tab) 10 mg PO DAILY [facility] Stop: 08/30/20 08:59 Last Admin: 08/04/20 08:54 Dose: 10 mg Documented by: Guaifenesin (Guaifenesin 600 Mg Tabcr) 600 mg PO Q12 [facility] Stop: 08/30/20 00:14 Last Admin: 08/04/20 08:52 Dose: 600 mg Documented by: Guaifenesin/Codeine Phosphate (Guaifenesin/Codeine 200mg/20mg 10ml Udc) 10 ml PO Q6H PRN PRN Reason: Cough Stop: 08/31/20 15:53 Last Admin: 08/04/20 08:52 Dose: 10 ml Documented by: Ceftriaxone Sodium 2,000 mg/ (Dextrose) 70 mls @ 100 mls/hr IV Q24H [facility]; Protocol Stop: 08/07/20 01:29 Last Infusion: 08/03/20 22:18 Dose: Infused Documented by: Dexamethasone 6 mg/ Syringe 1.5 mls @ 1 mls/min IV BID [facility] Stop: 08/31/20 20:59 Last Admin: 08/04/20 08:52 Dose: 1 mls/min Documented by: Ibuprofen (Ibuprofen 800 Mg Tab) 800 mg PO TID PRN PRN Reason: Fever Stop: 08/31/20 05:25 Last Admin: 08/02/20 08:54 Dose: 800 mg Documented by: Lidocaine (Lidocaine 5% 1 Patch) 1 patch TD QAM [facility] Stop: 09/03/20 08:59 Last Admin: 08/04/20 08:53 Dose: Not Given Documented by: Loperamide HCl (Loperamide Hcl 2 Mg Cap) 2 mg PO Q6H PRN PRN Reason: diarrhea Stop: 09/01/20 14:59 Last Admin: 08/03/20 04:40 Dose: 2 mg Documented by: Metoprolol Succinate (Metoprolol Succ 50mg Ext Rel Tab) 50 mg PO DAILY [facility] Stop: 08/30/20 08:59 Last Admin: 08/04/20 08:53 Dose: 50 mg Documented by: Miscellaneous (Remove Lidoderm Patch) 1 ea N/A DAILY@2100 [facility] Stop: 09/03/20 20:59 Morphine Sulfate (Morphine Sulfate 2 Mg/Ml Carp) 2 mg IV Q4H PRN PRN Reason: Pain Stop: 08/17/20 12:09 Last Admin: 08/03/20 22:16 Dose: 2 mg Documented by: Ondansetron HCl (Ondansetron Inj 2 Mg/Ml 2 Ml Vial) 4 mg IV Q6H PRN PRN Reason: Nausea Stop: 08/29/20 23:16 Trazodone HCl (Trazodone Hcl 50 Mg Tab) 50 mg PO HS [facility] Stop: 08/30/20 00:14 Last Admin: 08/03/20 20:58 Dose: 50 mg Documented by: Vitamin D (Cholecalciferol 1,000 Units 25 Mcg Tab) 5,000 units PO QAM [facility] Stop: 08/30/20 08:59 Last Admin: 08/04/20 08:53 Dose: 5,000 units Documented by: Zinc Sulfate (Zinc Sulfate 220 Mg Capsule) [facility] Stop: 08/30/20 08:59 Last Admin: 08/04/20 08:54 Dose: 220 mg Documented by: PG Care Time/CCT Total # of Minutes Spent Total Time Spent with Patient: Total time spent is greater than 50% in coordination of care (as documented) at patient's floor/unit and/or counseling patient: Coding Level of Care Code 10430 Subseq Hosp Care Lvl 3 Diagnoses Pneumonia due to COVID-19 virus U07.1; J12.82 Hypoxia R09.02 Depression F32.9 HTN (hypertension) I10 Morbid obesity E66.01 Hypokalemia E87.6 DVT prophylaxis Z29.9
[2020-08-04] MEDS: amLODIPine BESYLATE 5 MG TAB PO SCH (12:50)
[2020-08-04] MEDS: MoRPHine SULFATE 2 MG/ML CARP IV PRN ×2 (15:08→20:55)
[2020-08-04] MEDS: cefTRIAXone SODIUM 2,000 MG in DEXTROSE 5% 50 ML IV SCH (20:51)
[2020-08-04] MEDS: traZODone HCL 50 MG TAB PO SCH (20:53)
[2020-08-04] MEDS: AZITHROMYCIN 250 MG TAB PO SCH (20:54)
[2020-08-05] MEDS: ENOXAPARIN INJ 60 MG/0.6 ML SYR SQ SCH ×2 (00:49→11:30)
[2020-08-05] MEDS: dexAMETHasone 6 MG in SYRINGE 0 ML IV SCH ×2 (08:13→20:22)
[2020-08-05] MEDS: ESCITALOPRAM OXALATE 10 MG TAB PO SCH (08:13)
[2020-08-05] MEDS: CHOLECALCIFEROL 1,000 UNITS 25 MCG TAB PO SCH (08:13)
[2020-08-05] MEDS: guaiFENesin 600 MG TABCR PO SCH ×2 (08:14→20:20)
[2020-08-05] MEDS: DICLOFENAC SODIUM 75 MG TABCR PO SCH ×2 (08:14→20:20)
[2020-08-05] MEDS: ZINC SULFATE 220 MG CAPSULE PO SCH (08:14)
[2020-08-05] MEDS: METOPROLOL SUCC 50MG EXT REL TAB PO SCH (08:14)
[2020-08-05] MEDS: amLODIPine BESYLATE 5 MG TAB PO SCH (08:14)
[2020-08-05] MEDS: BENZONATATE 100 MG CAPSULE PO SCH ×3 (08:15→20:22)
[2020-08-05 08:54] LABS: BUN Creatinine Ratio 25.1 (10-20); Calcium 8.9 mg/dl (8.5-10.1); Creatinine Clr Calc Pharmacy 104.2 ml/min; Est GFR (African American) 110.5 ml/min; Est GFR (Non-African American) 95.4 ml/min; Potassium 3.7 mmol/L (3.5-5.1)
--- NOTE | 2020-08-05 10:43 | Hospitalist Progress Note ---
Date of Service August 05, 2020 Assessment & Plan (1) Pneumonia due to COVID-19 virus: COVID-19 pneumonia with hypoxia- Symptoms initially began maybe 3 weeks [employer] but really much worse in the last 5 days prior to admission With significant tachypnea, wheezing, respiratory distress and POx 91% on RA on admission, placed on O2 and given 1 hr long neb treatment CXR with bilat infiltrates With h/o obesity, asthma, HTN as risk factors for severe disease Had a fever on 07/31 evening, but none since then Was having severe cough paroxysms here which are now improved with guaifenesin with codeine and Tessalon Perles down to room air at rest today, saturations 93% will get two step tomorrow and plan to discharge home -continue dexamethasone at 6mg IV bid, day 6 of treatment, complete 10 days will change to 6mg PO BID and then daily -continue Duonebs scheduled qid -continue Ceftriaxone 2 g IV daily and Azithromycin 250 mg p.o. daily, day 6 of treatment, complete 7 days -continue Guaifenesin extended release 600 mg p.o. twice daily -continue tessalon perles 200mg po tid scheduled Vitamin D 5000 international units p.o. daily Zinc sulfate 220 mg p.o. daily -Continue Robitussin with codeine -Add on flutter valve 3 times daily and incentive spirometry -Continue prone position as often as possible-patient is doing well with this (2) Hypoxia: See above acute respiratory failure with hypoxemia stable on room air today get two step tomorrow (3) Depression: continue Lexapro and trazodone No acute issues, flat affect (4) HTN (hypertension): Continue metoprolol succinate Blood pressures have been high at times but elevated likely secondary to steroids BP better today on Norvasc 5mg, will continue (5) Morbid obesity: BMI 46.6 needs weight loss (6) Hypokalemia: K is normal today (7) DVT prophylaxis: Lovenox 50mg SQ bid plan to send home tomorrow Admission and Anticipated Discharge Date Admission Date: July 30, 2020 Subjective patient feeling better this morning, much better, down to room air, 93-95% coughing less, using flutter valve all the time she will place oxygen when she walks to the bathroom, told her we can get a two step tomorrow morning she feels ready to be discharged tomorrow, anxious to go home got BMP, Cr and electrolytes stable no fever/chills, no chest pain, no abdominal pain, no diarrhea Review of Systems Review of Systems: All systems reviewed & are unremarkable except as noted in Subjective Respiratory: + cough and + dyspnea on exertion; no dyspnea and no sputum production Physical Exam Constitutional: well developed, well nourished, + ill appearing and + overweight; no acute distress Neck: trachea midline, no thyromegaly Respiratory: normal respiratory effort and + cough; no respiratory distress, no labored breathing and not tachypneic Auscultation: lungs clear to auscultation bilaterally Cardiovascular: RRR, no murmur, no edema Gastrointestinal (Abdomen): normal bowel sounds, soft, nontender, no hepatosplenomegaly Musculoskeletal: no cyanosis or clubbing, extremities motor strength 5/5 Skin: no rashes, warm and dry Neurologic: patellar DTR's 2+ bilat, sensation intact and PERRL, EOMI, accommodation nl, no face palsy, no dysarthria Psychiatric: Orientation: alert and oriented x 3 Affect: + flat affect Lymphatic: no cervical or axillary lymphadenopathy Results & Data Results & Data ([facility]) Vital Signs (Past 12 Hours) Vital Signs Temp Pulse Pulse Resp BP BP Pulse Ox 08/05/20 07:57 36.4 C L 69 18 139/79 96 08/05/20 03:59 36.6 C 64 18 148/75 H 93 08/05/20 00:50 36.6 C 56 L 20 149/82 H 92 08/04/20 23:45 98 H 08/04/20 23:15 Pulse Ox 08/05/20 07:57 08/05/20 03:59 08/05/20 00:50 08/04/20 23:45 08/04/20 23:15 95 Laboratory Results Laboratory Results - last 24 hr 08/05/20 08:16 Sodium 139 Potassium 3.7 Chloride 107 Carbon Dioxide 23 Anion Gap 8.0 BUN 18 Creatinine 0.73 Est Cr Clr Drug Dosing 104.2 Est GFR ( Amer) 110.5 Est GFR (Non-Af Amer) 95.4 BUN/Creatinine Ratio 25.1 H Glucose 147 H Calcium 8.9 Medications Administered Current Inpatient Medications Acetaminophen (Acetaminophen 325 Mg Tab) 650 mg PO Q4H PRN PRN Reason: Pain or Fever Stop: 08/29/20 23:16 Last Admin: 08/03/20 09:04 Dose: 650 mg Documented by: Albuterol (Albut/Ipratrop 3mg/0.5mg Neb 3 Ml Vial) 3 ml NEB Q4R PRN PRN Reason: Shortness Of Breath Or Wheezing Stop: 09/02/20 13:05 Amlodipine Besylate (Amlodipine Besylate 5 Mg Tab) 5 mg PO QAM [facility] Stop: 09/03/20 11:59 Last Admin: 08/05/20 08:14 Dose: 5 mg Documented by: Azithromycin (Azithromycin 250 Mg Tab) 250 mg PO HS [facility]; Protocol Stop: 08/08/20 20:59 Last Admin: 08/04/20 20:54 Dose: 250 mg Documented by: Benzonatate (Benzonatate 100 Mg Capsule) 200 mg PO TID [facility] Stop: 08/30/20 20:59 Last Admin: 08/05/20 08:15 Dose: 200 mg Documented by: Diclofenac Sodium (Diclofenac Sodium 75 Mg Tabcr) 75 mg PO BID [facility] Stop: 08/30/20 00:14 Last Admin: 08/05/20 08:14 Dose: 75 mg Documented by: Enoxaparin Sodium (Enoxaparin Inj 60 Mg/0.6 Ml Syr) 50 mg SQ Q12H [facility] Stop: 08/30/20 00:29 Last Admin: 08/05/20 00:49 Dose: 50 mg Documented by: Escitalopram Oxalate (Escitalopram Oxalate 10 Mg Tab) 10 mg PO DAILY [facility] Stop: 08/30/20 08:59 Last Admin: 08/05/20 08:13 Dose: 10 mg Documented by: Guaifenesin (Guaifenesin 600 Mg Tabcr) 600 mg PO Q12 [facility] Stop: 08/30/20 00:14 Last Admin: 08/05/20 08:14 Dose: 600 mg Documented by: Guaifenesin/Codeine Phosphate (Guaifenesin/Codeine 200mg/20mg 10ml Udc) 10 ml PO Q6H PRN PRN Reason: Cough Stop: 08/31/20 15:53 Last Admin: 08/05/20 10:33 Dose: 10 ml Documented by: Ceftriaxone Sodium 2,000 mg/ (Dextrose) 70 mls @ 100 mls/hr IV Q24H [facility]; Protocol Stop: 08/07/20 01:29 Last Infusion: 08/04/20 21:33 Dose: Infused Documented by: Dexamethasone 6 mg/ Syringe 1.5 mls @ 1 mls/min IV BID [facility] Stop: 08/31/20 20:59 Last Admin: 08/05/20 08:13 Dose: 1 mls/min Documented by: Ibuprofen (Ibuprofen 800 Mg Tab) 800 mg PO TID PRN PRN Reason: Fever Stop: 08/31/20 05:25 Last Admin: 08/02/20 08:54 Dose: 800 mg Documented by: Lidocaine (Lidocaine 5% 1 Patch) 1 patch TD [facility] Stop: 09/03/20 20:59 Last Admin: 08/04/20 20:54 Dose: 1 patch Documented by: Loperamide HCl (Loperamide Hcl 2 Mg Cap) 2 mg PO Q6H PRN PRN Reason: diarrhea Stop: 09/01/20 14:59 Last Admin: 08/03/20 04:40 Dose: 2 mg Documented by: Metoprolol Succinate (Metoprolol Succ 50mg Ext Rel Tab) 50 mg PO DAILY [facility] Stop: 08/30/20 08:59 Last Admin: 08/05/20 08:14 Dose: 50 mg Documented by: Miscellaneous (Remove Lidoderm Patch) 1 ea N/A DAILY@0900 [facility] Stop: 09/04/20 08:59 Morphine Sulfate (Morphine Sulfate 2 Mg/Ml Carp) 2 mg IV Q4H PRN PRN Reason: Pain Stop: 08/17/20 12:09 Last Admin: 08/04/20 20:55 Dose: 2 mg Documented by: Ondansetron HCl (Ondansetron Inj 2 Mg/Ml 2 Ml Vial) 4 mg IV Q6H PRN PRN Reason: Nausea Stop: 08/29/20 23:16 Trazodone HCl (Trazodone Hcl 50 Mg Tab) 50 mg PO [facility] Stop: 08/30/20 00:14 Last Admin: 08/04/20 20:53 Dose: 50 mg Documented by: Vitamin D (Cholecalciferol 1,000 Units 25 Mcg Tab) 5,000 units PO QAM [facility] Stop: 08/30/20 08:59 Last Admin: 08/05/20 08:13 Dose: 5,000 units Documented by: Zinc Sulfate (Zinc Sulfate 220 Mg Capsule) 220 mg PO QAM [facility] Stop: 08/30/20 08:59 Last Admin: 08/05/20 08:14 Dose: 220 mg Documented by: PG Care Time/CCT Total # of Minutes Spent Total Time Spent with Patient: Total time spent is greater than 50% in coordination of care (as documented) at patient's floor/unit and/or counseling patient: Coding Level of Care Code 27847 Subseq Hosp Care Lvl 3 Diagnoses Pneumonia due to COVID-19 virus U07.1; J12.82 Hypoxia R09.02 Depression F32.9 HTN (hypertension) I10 Morbid obesity E66.01 Hypokalemia E87.6 DVT prophylaxis Z29.9
[2020-08-05] MEDS: LIDOCAINE 5% 1 PATCH TD SCH (20:20)
[2020-08-05] MEDS: AZITHROMYCIN 250 MG TAB PO SCH (20:20)
[2020-08-05] MEDS: cefTRIAXone SODIUM 2,000 MG in DEXTROSE 5% 50 ML IV SCH (20:21)
[2020-08-05] MEDS: traZODone HCL 50 MG TAB PO SCH (20:23)
[2020-08-06] MEDS: ENOXAPARIN INJ 60 MG/0.6 ML SYR SQ SCH ×2 (01:02→12:24)
[2020-08-06] MEDS: dexAMETHasone 6 MG in SYRINGE 0 ML IV SCH (07:57)
[2020-08-06] MEDS: DICLOFENAC SODIUM 75 MG TABCR PO SCH (07:58)
[2020-08-06] MEDS: BENZONATATE 100 MG CAPSULE PO SCH (07:59)
[2020-08-06] MEDS: guaiFENesin 600 MG TABCR PO SCH (07:59)
[2020-08-06] MEDS: ESCITALOPRAM OXALATE 10 MG TAB PO SCH (07:59)
[2020-08-06] MEDS: CHOLECALCIFEROL 1,000 UNITS 25 MCG TAB PO SCH (08:00)
[2020-08-06] MEDS: ZINC SULFATE 220 MG CAPSULE PO SCH (08:00)
[2020-08-06] MEDS: METOPROLOL SUCC 50MG EXT REL TAB PO SCH (08:00)
[2020-08-06] MEDS: amLODIPine BESYLATE 5 MG TAB PO SCH (08:00)
--- NOTE | 2020-08-06 10:23 | Discharge Summary ---
Date of Service August 06, 2020 Admission HPI Per Admitting Provider The patient is a 50-year-old female with a past medical history including depression, vitamin D deficiency, chronic interstitial cystitis, kidney stones, hypertension, hyperlipidemia and obesity. She presents to the emergency department after worsening cough and shortness of breath, initial began 3 weeks ago. Work-up in the emergency department included a positive COVID-19 test, with lowest recorded pulse ox 91% on room air. Chest x-ray showed bibasilar infiltrates, left greater than right. Principal Diagnosis COVID 19 pneumonia Discharge Exam Constitutional well developed, well nourished and + overweight; no acute distress Neck trachea midline, no thyromegaly Respiratory normal respiratory effort and + cough; no respiratory distress, no labored breathing and not tachypneic Auscultation: lungs clear to auscultation bilaterally Cardiovascular RRR, no murmur, no edema Gastrointestinal (Abdomen) normal bowel sounds, soft, nontender, no hepatosplenomegaly Musculoskeletal no cyanosis or clubbing, extremities motor strength 5/5 Skin no rashes, warm and dry Neurologic patellar DTR's 2+ bilat, sensation intact and PERRL, EOMI, accommodation nl, no face palsy, no dysarthria Psychiatric Orientation: alert and oriented x 3 Affect: + flat affect Lymphatic no cervical or axillary lymphadenopathy Discharge Data Allergies Allergy/AdvReac Type Severity Reaction Status Date / Time Iodinated Contrast Media Allergy Unknown CHEST Verified 07/30/20 17:52 PAIN, SHORTNESS OF BREATH lisinopril AdvReac Mild Cough Verified 07/30/20 17:52 Consultations 07/30/20 19:57 ED Decision to Admit Stat Hospital Course (1) Pneumonia due to COVID-19 virus: COVID-19 pneumonia with hypoxia- Symptoms initially began maybe 3 weeks [employer] but really much worse in the last 5 days prior to admission With significant tachypnea, wheezing, respiratory distress and POx 91% on RA on admission, placed on O2 and given 1 hr long neb treatment CXR with bilat infiltrates With h/o obesity, asthma, HTN as risk factors for severe disease Had a fever on 07/31 evening, but none since then Was having severe cough paroxysms here which are now improved with guaifenesin with codeine and Tessalon Perles down to room air at rest the day prior to discharge 2 step performed day of discharge, no oxygen needed at rest or on exertion discharge to home on dexamethasone 6mg daily x 4 more days Codeine 10mL q6 PRN for cough stay well rested, well nourished, well hydrated at home no need to quarantine any further (2) Hypoxia: See above acute respiratory failure with hypoxemia stable on room air at rest and on exertion, no home oxygen needed (3) Depression: continue Lexapro and trazodone No acute issues, flat affect (4) HTN (hypertension): Continue metoprolol succinate Blood pressures have been high at times but elevated likely secondary to steroid s BP better today on Norvasc 5mg, will continue on discharge follow up with PCP (5) Morbid obesity: BMI 46.6 needs weight loss (6) Hypokalemia: K is normal today (7) DVT prophylaxis: Lovenox 50mg SQ bid while she was admitted (8) Oral thrush: Nystatin swish and swallow Total Time Total Time Spent Total Time Spent (In Minutes): 33 minutes Total Time Includes: Examination of the Patient, Discharge Planning, Medication Reconciliation and Other (spoke with her sister) Discharge Plan Discharge Items Patient Disposition: Home - Self-Care Reason For Visit: COVID-19 PNEUMONIA Discharge Diagnosis: COVID 19 pneumonia Acute hypoxic respiratory failure Hypertension Oral thrush Condition on Discharge: Good Goals: complete course of steroids stay well nourished, well hydrated, well rested Activity: Resume your previous activity Weightbearing: Full weightbearing Non-emergency contact: Primary Care Provider Call non-emergency contact if: you have any medication questions Follow-up/Referrals: Mariama Ann, [Primary Care Provider] - 08/13/20 9:00 am (Please follow up with Dr. Ann via Telehealth visit on 08/13/20 at 9:00 am. If you are unable to keep this appointment, please call the office to reschedule at [phone].) Diet: Heart Healthy Addtl Attending Provider Instructions: Medications: - DEXAMETHASONE: 6mg daily for 4 more days, next dose due tomorrow - CODEINE: take 10mL as needed for cough, every 6 hours - AMLODIPINE: blood pressure medication added while you were here for high pressures, continue to take 5mg daily, follow up with Dr. Ann for blood pressure check - NYSTATIN: 2mL swish and swallow, take four times a day for 10 days for oral thrush COVID 19: you should only continue to improve complete 4 more days of dexamethasone, no antibiotics needed get rest you do not need to isolate as you are out of contagious time period stay well nourished, well hydrated Pending Studies at Discharge: No Stand-Alone Forms: My [facility], Smoking Cessation Medications and DC Order Prescriptions: New amlodipine [Norvasc] 5 mg Tablet 5 mg PO QAM 30 Days Qty: 30 RF: 3 codeine-guaifenesin 10-100 mg/5 mL Liquid 10 ml PO Q6H PRN (Reason: cough) Qty: 240 RF: 0 dexamethasone 4 mg tablet 6 mg PO DAILY 4 Days Qty: 6 RF: 0 nystatin 100,000 unit/mL suspension 2 ml PO QID 10 Days Qty: 80 RF: 0 Continued cholecalciferol (vitamin D3) 50 mcg (2,000 unit) capsule 50 mcg PO DAILY Qty: 30 RF: 0 escitalopram oxalate [Lexapro] 10 mg tablet 10 mg PO DAILY Qty: 90 RF: 1 trazodone 50 mg tablet 50 mg PO HS Qty: 90 RF: 1 diclofenac sodium 75 mg tablet,delayed release (DR/EC) 75 mg PO BID 30 Days Qty: 60 RF: 1 metoprolol succinate 50 mg tablet extended release 24 hr 50 mg PO DAILY Qty: 90 RF: 1 benzonatate 200 mg capsule 200 mg PO BID PRN (Reason: cough) Qty: 60 RF: 0 Discontinued prednisone 20 mg tablet 40 mg PO DAILY 5 Days Qty: 10 RF: 0 azithromycin 250 mg tablet See Rx Instructions PO .COMPLEX Qty: 6 RF: 0 Discharge Orders: Discharge Order (Routine); Ordered 08/06/20 Ordered By: Pastor Zapata Admission Data Admit Date/Time: 07/30/20 20:39 Attending Provider: Pastor Zapata Admit Provider: Farhan Hopkins Primary Care Provider: Mariama Ann Other Providers: Fahran Hopkins Other Interventions: Discharge Summary Assessment (RN) Last Done: 08/06/20 10:23 Coding Level of Care Code D/C Day Management >30 mins Diagnoses Pneumonia due to COVID-19 virus U07.1; J12.82 Hypoxia R09.02 Depression F32.9 HTN (hypertension) I10 Morbid obesity E66.01 Hypokalemia E87.6 DVT prophylaxis Z29.9 Oral thrush B37.0
== END 2020-08-06 12:57 | disposition home or self-care (01) | DRG 177 ==
LOC: ED 17:02 → SUATTDRO 20:39 → 2S 20:39

== ENCOUNTER 2023-05-09 12:39 | Observation (INO) ==
[2023-05-09] MEDS: ONDANSETRON INJ 2 MG/ML 2 ML VIAL IV STA (13:10)
[2023-05-09] MEDS: SODIUM CHLORIDE 0.9% 500 ML IV STA (13:11)
[2023-05-09 13:40] LABS: Basophils # (auto) 0.02 K/uL (0.00-0.20); Basophils % (auto) 0.3 %; Eosinophils # (auto) 0.06 K/uL (0.00-0.50); Eosinophils % (auto) 0.9 %; Hematocrit (blood only) 41.6 % (37.0-47.0); Hemoglobin 14.7 g/dl (12.0-16.0); Immature Granulocytes # (auto) 0.02 K/uL (0.01-0.20); Immature Granulocytes % (auto) 0.3 %; Lymphocytes # (auto) 1.86 K/uL (1.20-3.40); Lymphocytes % (auto) 27.8 %; Mean Corpuscular Hemoglobin 32.6 pg (25.0-34.0); Mean Corpuscular Hgb Conc 35.3 g/dL (32.0-36.0); Mean Corpuscular Volume 92.2 fL (80.0-100.0); Mean Platelet Volume 10.4 fL (9.4-12.4); Monocytes # (auto) 0.45 K/uL (0.11-0.59); Monocytes % (auto) 6.7 %; Neutrophils # (auto) 4.28 K/uL (1.40-6.50); Platelet Count 278 K/uL (130-400); RDW Coefficient of Variation 11.8 % (11.5-14.5); RDW Standard Deviation 40.1 fL (36.4-46.3); Red Blood Count 4.51 M/uL (4.20-5.40); White Blood Count 6.69 K/ul (4.8-10.8)
[2023-05-09] MEDS: FAMOTIDINE 20MG IV PUSH 20 MG/5 ML SYR IV STA (13:45)
--- NOTE | 2023-05-09 13:45 | Emergency Department Note ---
History of Present Illness General Chief complaint: Abdominal Pain Stated complaint: SEVERE ABDOMINAL PAIN R SIDE UNDER RIB Time Seen by Provider: 05/09/23 13:24 History of Present Illness Maximum Pain Intensity: 9 Patient is a 52-year-old female with past medical history significant for asthma, iron deficiency anemia, anxiety, depression, obesity, hypertension, dyslipidemia, among other chronic medical problems who presents to the emergency department for evaluation of right upper quadrant abdominal pain. Her symptoms starting acutely around 3 hours ago. She admits to having a breakfast sandwich from [employer] to eat this morning. Shortly thereafter she developed what she thought was "heartburn" a upper, epigastric discomfort that quickly moved to the right upper quadrant. It does wrap around to the back. It is a sharp, stabbing, constant pain that she rates a 9/10. She tried taking Tums without relief. She is nauseous but has not vomited. She never had pain like this before. She has no history of gallbladder disease but there is a very extensive family history. No chest pain. She does not feel short of breath. No shortness of breath. She does have a history of kidney stones but states that this is not similar to her kidney stone pain. Home Medications Medication Instructions Recorded Confirmed Type albuterol sulfate 90 mcg/actuation 2 puff inhalation Q6H PRN 06/16/21 03/31/23 Rx aerosol inhaler shortness of breath or wheezing #18 grams phenazopyridine 100 mg tablet 100 mg PO DIRECTED PRN BLADDER 01/17/22 03/31/23 History (Pyridium) PAIN fluticasone furoate 200 1 inh inhalation QAM 03/09/22 03/31/23 History mcg-vilanterol 25 mcg/dose inhalation powder (Breo Ellipta) Iron Transfusions 1 dose IV DIRECTED 04/28/22 03/31/23 History trazodone 50 mg tablet 50 mg PO HS #90 tabs 09/19/22 03/31/23 Rx benzonatate 200 mg capsule 200 mg PO BID PRN cough #60 caps 12/07/22 03/31/23 Rx nystatin 100,000 unit/mL oral 5 ml PO QID PRN NEEDED Thrush 12/21/22 03/31/23 Rx suspension #480 mL hydroxyzine pamoate 25 mg capsule 25 mg PO Q8H PRN anxiety #60 caps 03/14/23 03/31/23 Rx (Vistaril) pravastatin 40 mg tablet 40 mg PO HS #90 tabs 04/03/23 Rx buspirone 5 mg tablet 5 mg PO BID #60 tabs 04/14/23 Rx diclofenac sodium 75 mg 75 mg PO BID Pain #60 tabs 04/14/23 Rx tablet,delayed release metoprolol succinate 50 mg 50 mg PO HS #90 tabs 04/14/23 Rx tablet,extended release 24 hr phentermine 37.5 mg capsule 37.5 mg PO DAILY #30 caps 04/28/23 Rx Allergies Allergy/AdvReac Type Severity Reaction Status Date / Time Iodinated Contrast Media Allergy Severe CHEST Verified 03/31/23 08:52 PAIN, SHORTNESS OF BREATH atorvastatin AdvReac Intermediate leg Verified 03/31/23 08:52 swelling lisinopril AdvReac Intermediate Cough Verified 03/31/23 08:52 Past Med/Surg History Medical History Menorrhagia DEXTER (iron deficiency anemia) DEXTER in the setting of GI blood loss with concurrent anemia of chronic disease/inflammation History of chronic cough since COVID PNA 07/2020 Hx of migraines Hx of supraventricular tachycardia hx of; controlled w/metoprolol; f/u with PCP (no mention in recent PCP notes over past 1 year) Premature ventricular contraction remote hx of per pt History of COVID-19 hospitalized 07/2020 [facility] covid pneumonia; currently has chronic cough, brain fog, chronic fatigue, memory loss; maintains f/u with PCP Hemorrhoids Anxiety Vitamin D deficiency HTN (hypertension) Hyperlipidemia no meds at present; PCP monitoring History of hydronephrosis none currently Depression Chronic interstitial cystitis Morbid obesity Kidney stones hx Surgical History History of hysterectomy S/P hemorrhoidectomy (05/04/22) 05/04/22 [facility]; [place]: LMA #4 iGel wihtout issue History of colonoscopy Hx of lithotripsy (03/2018) History of tonsillectomy and adenoidectomy History of laparoscopy History of cystoscopy x MULTIPLE Status post breast reduction Family History Father No problems noted. Mother Hypertension Migraine Aunt Breast cancer Uncle Colorectal cancer Grandfather (Paternal) Myocardial infarction Other No pertinent family history Denies family history of Ovarian cancer Prostate cancer Social History Smoking Status: Never smoker Second Hand Exposure: No; Do You Dip or Chew Tobacco: No; Hx Alcohol Use: No Hx Substance Use: No Preferred Language: Swedish Communication Ability: Effective Visual Impairment: No Limitations Medical Information Specialist Required: No Beliefs That Will Affect Care: None Current Living Situation: Family current occupational status: employed current occupation: self employed, [employer] Feels Safe at Home: Yes Dental Care, Regularly: Yes Seatbelt Use: always Sunscreen Use: Yes Assistive Devices: Glasses Review of Systems A total of 10 systems reviewed and were otherwise negative Physical Exam Vital Signs Vital Signs - 24 hr 05/09/23 12:49 05/09/23 14:35 05/09/23 15:51 Temperature 37.0 C Temperature Source Temporal Artery Scan Pulse Rate 85 68 Pulse Rate [Left Finger] 88 Respiratory Rate 20 20 Blood Pressure 161/111 H Blood Pressure [Left Arm] 148/77 H Blood Pressure Mean 127 Blood Pressure Mean [Left Arm] 100 Pulse Oximetry 100 98 Oxygen Delivery Method Room Air Sepsis Recent Fever Within 48 Hours No Sepsis New/Unexplained Change in Mental Status N/A Sepsis Action Taken by Nursing No Action Required CONSTITUTIONAL: Patient is an uncomfortable but otherwise well-appearing 52-year-old female in mild distress due to her stated complaint. EYES: Pupils equal, round, reactive to light and accommodation. EOMs intact without nystagmus. Sclera are anicteric. ENT: Tympanic membranes intact, with normal landmarks. External canals are clear. Oral and nasopharynx are clear. Mucous membranes are moist, no lesions, tongue and gums appear normal. NECK: No bruits auscultated. Supple without lymphadenopathy. No thyromegaly. No meningeal signs. Full active range of motion without discomfort. CARDIOVASCULAR: Regular rate and rhythm. Peripheral pulses easily palpable. RESPIRATORY: Breath sounds equal and clear to auscultation. ABDOMEN: Bowel sounds are present. The abdomen is soft, obese, tender in the epigastric and the right upper quadrant with voluntary guarding. INTEGUMENTARY: No lesions or rash, normal skin turgor. LYMPH: No lymphadenopathy. Course Course Patient was seen and assessed as above. External medical records were reviewed. Critical pathways implemented from triage included CBC with differential, CMP, lipase and urinalysis. Urine test was performed ordered as well but the patient is status post hysterectomy. She received a 500 cc bolus of normal saline solution and Zofran from triage, after I assessed the patient she was ordered Pepcid 20 mg and morphine 4 mg IV. Nursing staff contacted me when patient was ready for ultrasound, that she had had no relief of her pain. She was given an additional 6 mg of morphine IV. When she returned from ultrasound she was still quite uncomfortable. EKG and troponin were ordered. She was given Dilaudid 0.5 mg IV. Patient was reassessed, and was roomed in room A11A. Laboratory studies and ultrasound findings were reviewed with her. Given her persistent symptoms, recommended CT scan of the chest, abdomen and pelvis. She was ordered Toradol and Protonix IV. She has had little relief with the IV Dilaudid. CT scan findings as noted below were discussed with the patient. Chest findings are known to her, they are chronic from prior COVID infection. She was ordered an additional dose of Dilaudid 1 mg IV. I did review the exam with general surgery on-call, Dr. Mckay. She does not feel that her findings are acutely surgical, but did recommend medical admission for symptom management, and continued observation, to see if the situation declares itself. After review of the information above and other included data I feel that the patient would benefit from hospitalization. The [facility] hospitalist was consulted for further care. Case discussed with Dr. Case, and Percy Nair PA-C. They will evaluate the patient for admission. Diagnostics, as interpreted by me: Laboratory studies: No leukocytosis, no anemia. No electrolyte imbalance or MARISA. No transaminitis. Lipase is not indicative of acute pancreatitis. Urine microscopy negative, no signs of infection. Trace ketones noted. I did order a high-sensitivity troponin, when gallbladder ultrasound was negative and pain persist, and this was not indicative of acute ischemia. Imaging studies: Gallbladder ultrasound shows no evidence for acute biliary pathology. No gallstones or gallbladder wall thickening. No ductal dilatation. Chest CT notes diffuse groundglass opacities, follow-up chest CT recommended. No obvious aortic pathology. Abdominal pelvic CT mildly distended gallbladder with mild pericholecystic stranding concerning for possible acute cholecystitis. HIDA scan could be obtained as needed. No urinary calculi or hydronephrosis. Normal appendix. Left adnexal lesion noted, possibly cyst, nonemergent pelvic ultrasound recommended. EKG: Normal sinus rhythm at 72 bpm. No ectopy, no acute ischemic changes. Differential diagnosis: GERD, gastritis, esophagitis, peptic ulcer disease, perforated ulcer, acute pancreatitis, acute cholecystitis, biliary colic, ascending cholangitis, choledocholithiasis, bowel obstruction, perforation, ACS, acute HI, aortic dissection, among others. Administered Medications Discontinued Medications Hydromorphone HCl (Hydromorphone Inj 0.5 Mg/0.5 Ml Syr) 0.5 mg IV NOW STA Stop: 05/09/23 15:18 Last Admin: 05/09/23 15:33 Dose: 0.5 mg Documented By: ANDRES Sodium Chloride (Nss) 500 mls @ 999 mls/hr IV .Q31M STA Stop: 05/09/23 13:23 Last Admin: 05/09/23 13:11 Dose: 999 mls/hr Documented By: MARIELA Famotidine (Pepcid 20mg Iv Push) 20 mg in 5 mls @ 2.5 mls/min IV NOW STA Stop: 05/09/23 13:38 Last Admin: 05/09/23 13:45 Dose: 2.5 mls/min Documented By: CATALINOK Morphine Sulfate (Morphine Sulfate 4 Mg/Ml 1 Ml Carp\\Vial) 4 mg IV NOW STA Stop: 05/09/23 13:38 Last Admin: 05/09/23 14:12 Dose: 4 mg Documented By: KADEN Morphine Sulfate (Morphine Sulfate 10 Mg/Ml Carp/Vial) 6 mg IV NOW STA Stop: 05/09/23 14:33 Last Admin: 05/09/23 14:38 Dose: 6 mg Documented By: KADEN Ondansetron HCl (Ondansetron Inj 2 Mg/Ml 2 Ml Vial) 4 mg IV NOW STA Stop: 05/09/23 12:54 Last Admin: 05/09/23 13:10 Dose: 4 mg Documented By: MARIELA Medical Decision Making Differential Diagnosis See ED Course. Medical Records Attestation: I reviewed the patient's medical records. Home Medications Current Medication List: was personally reviewed by me Laboratory Data Attestation: I reviewed the patient's lab results. 05/09/23 13:10 05/09/23 13:10 Lab Results 05/09/23 05/09/23 Range/Units 13:10 15:16 WBC 6.69 (4.8-10.8) K/ul RBC 4.51 (4.20-5.40) M/uL Hgb 14.7 (12.0-16.0) g/dl Hct 41.6 (37.0-47.0) % MCV 92.2 (80.0-100.0) fL MCH 32.6 (25.0-34.0) pg MCHC 35.3 (32.0-36.0) g/dL RDW Std Deviation 40.1 (36.4-46.3) fL RDW Coeff of Lexus 11.8 (11.5-14.5) % Plt Count 278 (130-400) K/uL MPV 10.4 (9.4-12.4) fL Immature Gran % (Auto) 0.3 % Neut % (Auto) 64.0 % Lymph % (Auto) 27.8 % Ashley % (Auto) 6.7 % Eos % (Auto) 0.9 % Baso % (Auto) 0.3 % Neut # (Auto) 4.28 (1.40-6.50) K/uL Lymph # (Auto) 1.86 (1.20-3.40) K/uL Ashley # (Auto) 0.45 (0.11-0.59) K/uL Eos # (Auto) 0.06 (0.00-0.50) K/uL Baso # (Auto) 0.02 (0.00-0.20) K/uL Immature Gran # (Auto) 0.02 (0.01-0.20) K/uL Sodium 138 (136-145) mmol/L Potassium 3.9 (3.5-5.1) mmol/L Chloride 104 (98-107) mmol/L Carbon Dioxide 27 (21-32) mmol/L Anion Gap 7 (3-11) BUN 16 (6-23) mg/dl Creatinine 0.62 (0.6-1.2) mg/dl Est Cr Clr Drug Dosing 121.7 ml/min Est GFR ( Amer) 119.3 ml/min Est GFR (Non-Af Amer) 102.9 ml/min BUN/Creatinine Ratio 25.8 H (10-20) Glucose 97 (70-99(Fasting)) mg/dl Calcium 10.6 H (8.6-10.3) mg/dl Total Bilirubin 0.4 (0.2-1.0) mg/dl AST 25 (13-39) U/L ALT 23 (7-52) U/L Alkaline Phosphatase 61 (34-104) U/L Troponin I High Sens < 2.3 (0-14) pg/ml Total Protein 7.7 (6.0-8.3) gm/dl Albumin 4.7 (3.4-5.0) gm/dl Globulin 3.0 (2.5-4.0) gm/dl Albumin/Globulin Ratio 1.6 (0.9-2) Lipase 39 (11-82) U/L HCG, Qual Negative (Negative) Urine Color Yellow Urine Appearance Clear (Clear) Urine pH 8.0 H (4.5-7.5) Ur Specific Putnam 1.009 (1.000-1.030) Urine Protein Negative (Negative) Urine Glucose (UA) Negative (Negative) Urine Ketones 1+ H (Negative) Urine Blood Negative (Negative) Urine Nitrite Negative (Negative) Urine Bilirubin Negative (Negative) Urine Urobilinogen Negative (Negative) Ur Leukocyte Esterase Negative (Negative) Imaging Data Attestation: I personally reviewed and interpreted this imaging study as follows: Radiologist's Impression: Gallbladder Ultrasound 05/09/23 13:21 US gallbladder CLINICAL HISTORY: Right upper quadrant abdominal pain. COMPARISON STUDY: CT of the abdomen and pelvis January 17, 2022. FINDINGS: Hepatic echogenicity is increased. There are no hepatic lesions. Hypoechoic foci within the gallbladder fossa favor fatty sparing. There is no biliary ductal dilatation. The gallbladder is normal. There are no gallstones. Internal echoes within the gallbladder are likely artifactual. No sonographic Rucker sign was elicited. Pancreatic body is normal. Head and tail are partially obscured. There is no right hydronephrosis. IMPRESSION: 1. No gallstones or biliary ductal dilatation. 2. Hepatic steatosis. 3. Partially obscured pancreas. ACT 112: Negative or not required by law. Electronically signed by: Alpesh Noel M.D. 05/09/2023 3:24 PM Abdomen/Pelvis CT 05/09/23 15:29 CT OF THE ABDOMEN AND PELVIS WITHOUT CONTRAST CLINICAL HISTORY: Right flank pain. COMPARISON STUDY: CT of the abdomen and pelvis January 17, 2022. Right upper quadrant ultrasound performed earlier today. Pelvic ultrasound July 18, 2022. TECHNIQUE: Axial images of the abdomen and pelvis were obtained without IV contrast. Images were reviewed in the axial, sagittal, and coronal planes. Automated exposure control was utilized for the study. A dose lowering technique was utilized adhering to the principles of ALARA. FINDINGS: Please note that the chest CT will be reported separately. No pneumatosis, free air or portal venous gas is present. There are no renal, ureteral or bladder calculi. There is hepatic steatosis. Unenhanced images of the spleen, adrenal glands and pancreas are unremarkable. There is no biliary or pancreatic ductal dilatation. The gallbladder is mildly distended. There is mild pericholecystic stranding. No radiopaque stones are identified. The appendix is normal. There is no evidence for a bowel obstruction. There is no lymphadenopathy. Low attenuation left adnexal lesion measures approximately 3.3 cm. No acute fractures are identified within visualized skeletal structures. IMPRESSION: 1. Mildly distended gallbladder with mild pericholecystic stranding. Despite negative ultrasound, the findings raise the possibility of acute cholecystitis. Nuclear medicine hepatobiliary scan could be obtained for further evaluation. 2. No urinary calculi or hydronephrosis. 3. Normal appendix. No bowel obstruction. 4. Low-attenuation left adnexal lesion. This may reflect an ovarian cyst however follow-up nonemergent pelvic ultrasound is recommended. ACT 112: Negative or not required by law. Electronically signed by: Alpesh Noel M.D. 05/09/2023 4:[address] 05/09/23 15:35 CT SCAN OF THE CHEST WITHOUT IV CONTRAST CLINICAL HISTORY: Atypical chest pain. Epigastric abdominal pain. COMPARISON STUDY: Chest CT dated 07/02/2021. Chest x-ray dated 08/09/2021. TECHNIQUE: CT scan of the thorax was performed from the thoracic inlet to the upper abdomen. Images are reviewed in the axial, sagittal, and coronal planes. IV contrast was not administered for this examination as per the referring clinician. A dose lowering technique was utilized adhering to the principles of ALARA. FINDINGS: Thyroid: Imaged portions of the thyroid gland are normal in size and attenuation. Thoracic aorta: There is minimal atherosclerotic calcification of the thoracic aorta, which is normal in caliber and demonstrates standard 3-vessel arch anatomy. Heart: The heart is normal in size and without pericardial effusion. Lungs and pleural spaces: There is no lobar consolidation or pleural effusion. The trachea and central airways are clear. A 15 mm groundglass focus in the right upper lobe on image #93. Minimal groundglass opacities are also seen in the left upper lobe and lingula. There is a 3 mm left basilar pulmonary nodule on image #144. This is unchanged from 2022. Scattered calcified granulomas are observed. Mediastinum: There is no mediastinal lymphadenopathy. Velia: Not well assessed without IV contrast. Axillae: There is no axillary lymphadenopathy. Upper abdomen: The liver appears steatotic. The liver is top normal in size measuring 13.1 cm in length. Skeletal structures: No lytic or blastic bony lesions are seen. IMPRESSION: 1. There is a 15 mm groundglass focus in the right upper lobe, as well as minimal groundglass opacities seen in the left upper lobe and lingula. These findings likely represent atelectasis versus a mild infectious/inflammatory process. A follow-up chest CT is recommended in 3-4 months time to document resolution. 2. There is no lobar consolidation or pleural effusion. 3. No lymphadenopathy is seen. 4. Hepatic steatosis. 5. Additional findings as above. ACT 112: Negative or not required by law. Electronically signed by: William Rudolph M.D. 05/09/2023 4:19 PM MDM Narrative See ED Course. Impression & Plan Acute acalculous cholecystitis, Intractable right upper quadrant abdominal pain Discharge Plan Visit Data Chief Complaint: Abdominal Pain Stated Complaint: SEVERE ABDOMINAL PAIN R SIDE UNDER RIB ED Provider: William Villarreal ED Midlevel Provider: Mark Wang Discharge Problem: Acute acalculous cholecystitis, Intractable right upper quadrant abdominal pain Patient Disposition: Being Evaluated by Hospitalist Forms Stand Alone Forms: [employer] Prescriptions Prescriptions: No Action trazodone 50 mg tablet 50 mg PO HS Qty: 90 1RF benzonatate 200 mg capsule 200 mg PO BID PRN (Reason: cough) Qty: 60 2RF nystatin 100,000 unit/mL suspension 5 ml PO QID PRN (Reason: NEEDED Thrush) Qty: 480 3RF Rx Instructions: swish and swallow hydroxyzine pamoate [Vistaril] 25 mg capsule 25 mg PO Q8H PRN (Reason: anxiety) Qty: 60 2RF pravastatin 40 mg tablet 40 mg PO HS Qty: 90 4RF metoprolol succinate 50 mg tablet extended release 24 hr 50 mg PO HS Qty: 90 3RF buspirone 5 mg tablet 5 mg PO BID Qty: 60 5RF diclofenac sodium 75 mg tablet,delayed release (DR/EC) 75 mg PO BID Qty: 60 2RF phentermine 37.5 mg capsule 37.5 mg PO DAILY Qty: 30 0RF Rx Instructions: must administer 30 minutes before or 1-2 hours after breakfast albuterol sulfate 90 mcg/actuation HFA aerosol inhaler 2 puff inhalation Q6H PRN (Reason: shortness of breath or wheezing) Qty: 18 3RF phenazopyridine [Pyridium] 100 mg Tablet 100 mg PO DIRECTED PRN (Reason: BLADDER PAIN) Rx Instructions: PER PT "UNSURE OF STRENGTH, HAD LEFTOVER FROM OLD SCRIPT" fluticasone furoate-vilanterol [Breo Ellipta] 200-25 mcg/dose blister with device 1 inh inhalation QAM Iron Transfusions 1 dose IV DIRECTED Referrals Referrals: Maurizio Rdz CRNP [Primary Care Provider] -
[2023-05-09 13:58] LABS: Alanine Aminotransferase 23 U/L (7-52); Albumin Globulin Ratio 1.6 (0.9-2); Albumin Level 4.7 gm/dl (3.4-5.0); Alkaline Phosphatase 61 U/L (34-104); Anion Gap 7 (3-11); Aspartate Aminotransferase 25 U/L (13-39); BUN Creatinine Ratio 25.8 (10-20); Bilirubin,Total 0.4 mg/dl (0.2-1.0); Blood Urea Nitrogen 16 mg/dl (6-23); Calcium 10.6 mg/dl (8.6-10.3); Carbon Dioxide 27 mmol/L (21-32); Chloride 104 mmol/L (98-107); Creatinine Clr Calc Pharmacy 121.7 ml/min; Est GFR (African American) 119.3 ml/min; Est GFR (Non-African American) 102.9 ml/min; Glucose 97 mg/dl (70-99(Fasting)); Lipase 39 U/L (11-82); Potassium 3.9 mmol/L (3.5-5.1); Sodium 138 mmol/L (136-145); Total Protein 7.7 gm/dl (6.0-8.3)
[2023-05-09] MEDS: MoRPHine SULFATE 4 MG/ML 1 ML CARP\\VIAL IV STA (14:12)
[2023-05-09 14:29] LABS: Pregnancy Test, Serum Negative (Negative)
[2023-05-09] MEDS: MoRPHine SULFATE 10 MG/ML CARP/VIAL IV STA (14:38)
--- NOTE | 2023-05-09 15:25 | Ultrasound Report ---
US gallbladder CLINICAL HISTORY: Right upper quadrant abdominal pain. COMPARISON STUDY: CT of the abdomen and pelvis January 17, 2022. FINDINGS: Hepatic echogenicity is increased. There are no hepatic lesions. Hypoechoic foci within the gallbladder fossa favor fatty sparing. There is no biliary ductal dilatation. The gallbladder is nor mal. There are no gallstones. Internal echoes within the gallbladder are likely artifactual. No sonog raphic Rucker sign was elicited. Pancreatic body is normal. Head and tail are partially obscured. The re is no right hydronephrosis. IMPRESSION: 1. No gallstones or biliary ductal dilatation. 2. Hepatic steatosis. 3. Partially obscured pancreas. ACT 112: Negative or not required by law. Electronically signed by: Alpesh Noel M.D. 05/09/2023 3:24 PM
[2023-05-09 15:33] LABS: Appearance Urine Clear (Clear); Bilirubin Urine Negative (Negative); Blood Urine Negative (Negative); Color Urine Yellow; Glucose Urine UA Negative (Negative); Ketones Urine 1+ (Negative); Leukocyte Esterase Urine Negative (Negative); Nitrite Urine Negative (Negative); Protein Urine Negative (Negative); Specific Gravity Urine 1.009 (1.000-1.030); Urobilinogen Urine Negative (Negative)
[2023-05-09] MEDS: HYDROmorphone INJ 0.5 MG/0.5 ML SYR IV STA (15:33)
[2023-05-09 15:36] LABS: Troponin I High Sensitivity < 2.3 pg/ml (0-14)
--- NOTE | 2023-05-09 16:18 | CT Scan Report ---
CT OF THE ABDOMEN AND PELVIS WITHOUT CONTRAST CLINICAL HISTORY: Right flank pain. COMPARISON STUDY: CT of the abdomen and pelvis January 17, 2022. Right upper quadrant ultrasound per formed earlier today. Pelvic ultrasound July 18, 2022. TECHNIQUE: Axial images of the abdomen and pelvis were obtained without IV contrast. Images were revi ewed in the axial, sagittal, and coronal planes. Automated exposure control was utilized for the matthias dy. A dose lowering technique was utilized adhering to the principles of ALARA. FINDINGS: Please note that the chest CT will be reported separately. No pneumatosis, free air or port al venous gas is present. There are no renal, ureteral or bladder calculi. There is hepatic steatosis . Unenhanced images of the spleen, adrenal glands and pancreas are unremarkable. There is no biliary or pancreatic ductal dilatation. The gallbladder is mildly distended. There is mild pericholecystic s tranding. No radiopaque stones are identified. The appendix is normal. There is no evidence for a bow el obstruction. There is no lymphadenopathy. Low attenuation left adnexal lesion measures approximate ly 3.3 cm. No acute fractures are identified within visualized skeletal structures. IMPRESSION: 1. Mildly distended gallbladder with mild pericholecystic stranding. Despite negative ultrasound, the findings raise the possibility of acute cholecystitis. Nuclear medicine hepatobiliary scan could be obtained for further evaluation. 2. No urinary calculi or hydronephrosis. 3. Normal appendix. No bowel obstruction. 4. Low-attenuation left adnexal lesion. This may reflect an ovarian cyst however follow-up nonemergen t pelvic ultrasound is recommended. ACT 112: Negative or not required by law. Electronically signed by: Alpesh Noel M.D. 05/09/2023 4:17 PM
--- NOTE | 2023-05-09 16:21 | CT Scan Report ---
CT SCAN OF THE CHEST WITHOUT IV CONTRAST CLINICAL HISTORY: Atypical chest pain. Epigastric abdominal pain. COMPARISON STUDY: Chest CT dated 07/02/2021. Chest x-ray dated 08/09/2021. TECHNIQUE: CT scan of the thorax was performed from the thoracic inlet to the upper abdomen. Images are reviewed in the axial, sagittal, and coronal planes. IV contrast was not administered for this ex amination as per the referring clinician. A dose lowering technique was utilized adhering to the vishnu Michael. FINDINGS: Thyroid: Imaged portions of the thyroid gland are normal in size and attenuation. Thoracic aorta: There is minimal atherosclerotic calcification of the thoracic aorta, which is normal in caliber and demonstrates standard 3-vessel arch anatomy. Heart: The heart is normal in size and without pericardial effusion. Lungs and pleural spaces: There is no lobar consolidation or pleural effusion. The trachea and centra l airways are clear. A 15 mm groundglass focus in the right upper lobe on image #93. Minimal groundgl ass opacities are also seen in the left upper lobe and lingula. There is a 3 mm left basilar pulmonar y nodule on image #144. This is unchanged from 2022. Scattered calcified granulomas are observed. Mediastinum: There is no mediastinal lymphadenopathy. Velia: Not well assessed without IV contrast. Axillae: There is no axillary lymphadenopathy. Upper abdomen: The liver appears steatotic. The liver is top normal in size measuring 13.1 cm in melida th. Skeletal structures: No lytic or blastic bony lesions are seen. IMPRESSION: 1. There is a 15 mm groundglass focus in the right upper lobe, as well as minimal groundglass opaciti es seen in the left upper lobe and lingula. These findings likely represent atelectasis versus a mild infectious/inflammatory process. A follow-up chest CT is recommended in 3-4 months time to document resolution. 2. There is no lobar consolidation or pleural effusion. 3. No lymphadenopathy is seen. 4. Hepatic steatosis. 5. Additional findings as above. ACT 112: Negative or not required by law. Electronically signed by: William Rudolph M.D. 05/09/2023 4:19 PM
--- NOTE | 2023-05-09 16:52 | History & Physical Report ---
Date of Service May 09, 2023 Assessment & Plan (1) Acute cholecystitis: Plan: Acute onset of epigastric/RUQ pain radiating to the right scapula after eating a breakfast manage around 11 AM on 05/09 Patient was previously on a keto-like diet since march and had not been regularly eating fast foods While gallbladder ultrasound was negative, A/P CT revealed mildly distended gallbladder with pericholecystic stranding which raises the possibility of acute cholecystitis HIDA scan ordered, pending General surgery consulted, and recommended conservative treatment for now Chest CT revealed 15 mm groundglass focus in the right upper lobe (recommended chest CT in 3-4 months) No leukocytosis; afebrile Lipase WNL hCG negative UA negative Keep n.p.o. for now Rocephin 2000 mg IV q24h Metronidazole 500 mg IV q8h IVF with Plasma-Lyte 125 mL/hr x 3 Acetaminophen 1000 mg IV q8h as needed for pain 13 Dilaudid 0.51.0 IV q4h as needed for pain 4-10 Zofran as needed for nausea/vomiting; QTc 413 A.m. CBC, BMP (2) Hyperlipidemia: Plan: Continue pravastatin (3) Depression: Plan: Continue trazodone (4) Anxiety: Plan: Continue BuSpar Hydroxyzine as needed (5) Chronic interstitial cystitis: Plan: Pyridium as needed for bladder pain (6) Hx of supraventricular tachycardia: Plan: Chronic; noted EKG NSR at 72 bpm on arrival; QTc 413 Troponin WNL Continue metoprolol Plan Disposition: Obs -admit to [facility] [place] Full code Keep n.p.o. for now VTE PPx: SCDs (hold chemical DVT PPx until seen by surgery) History of Present Illness Chief Complaint: Abdominal pain Primary Care Provider: MICHELLE Roland Courtney is a 52yo female with PMH of... Patient developed sudden onset of epigastric pain around 11 AM after eating breakfast sandwich from [employer]. Patient notes she has been on a keto-like diet since march and has not been eating this type of food in a while. Sudden epigastric pain felt like heartburn to her, then it radiated under her right ribs into her right upper scapula. She notes that the pain has been constant, sharp, and she rates it at 10/10 at its worst. She did not take any pain medication before coming in. She notes that she took all of her regular morning medications. No prior history of gallbladder issues. Surgeries include hysterectomy in August 2022; no history of appendectomy. She reports that she been having ongoing fevers on and off due to her chronic cystitis. Patient denies smoking, tobacco use, and recent alcohol use. Patient is mildly hypertensive at 148/77 at time of admission; vitals otherwise stable. ED Course: Morphine 4 mg + 6 mg IV Hydromorphone 1.5 mg IV NSS 500 mL IV Pepcid 20 mg IV Zofran 4 mg IV Protonix 40 mg IV ROS: Patient endorses intermittent fevers secondary to cystitis, dry cough (chronic after covid in 2019), pleuritic CP, chest palpitations (with PVCs), epigastric pain, nausea, explosive diarrhea x1 episode yesterday, burning with urination (chronic), blood in urine (chronic), Patient denies chills, nightsweats, dizziness, lightheadedness, pain/pressure in L arm or jaw, headaches, blood in stool, or numbness/tingling in arms or legs. Allergies Allergy/AdvReac Type Severity Reaction Status Date / Time Iodinated Contrast Media Allergy Severe CHEST Verified 05/09/23 17:44 PAIN, SHORTNESS OF BREATH atorvastatin AdvReac Intermediate leg Verified 05/09/23 17:44 swelling lisinopril AdvReac Intermediate Cough Verified 05/09/23 17:44 Home Medications Medication Instructions Recorded Confirmed Type albuterol sulfate 90 mcg/actuation 2 puff inhalation Q6H PRN 06/16/21 05/09/23 Rx aerosol inhaler shortness of breath or wheezing #18 grams phenazopyridine 100 mg tablet 100 mg PO DIRECTED PRN BLADDER 01/17/22 05/09/23 History (Pyridium) PAIN fluticasone furoate 200 1 inh inhalation QAM 03/09/22 05/09/23 History mcg-vilanterol 25 mcg/dose inhalation powder (Breo Ellipta) trazodone 50 mg tablet 50 mg PO HS #90 tabs 09/19/22 05/09/23 Rx benzonatate 200 mg capsule 200 mg PO BID PRN cough #60 caps 12/07/22 05/09/23 Rx nystatin 100,000 unit/mL oral 5 ml PO QID PRN NEEDED Thrush 12/21/22 05/09/23 Rx suspension #480 mL hydroxyzine pamoate 25 mg capsule 25 mg PO Q8H PRN anxiety #60 caps 03/14/23 05/09/23 Rx (Vistaril) pravastatin 40 mg tablet 40 mg PO HS #90 tabs 04/03/23 05/09/23 Rx buspirone 5 mg tablet 5 mg PO BID #60 tabs 04/14/23 05/09/23 Rx metoprolol succinate 50 mg 50 mg PO HS #90 tabs 04/14/23 05/09/23 Rx tablet,extended release 24 hr phentermine 37.5 mg capsule 37.5 mg PO DAILY #30 caps 04/28/23 05/09/23 Rx diclofenac sodium 75 mg 75 mg PO BID PRN Pain 05/09/23 05/09/23 History tablet,delayed release iron,carbonyl 65 mg-vitamin C 125 1 tab PO .EVERY OTHER DAY 05/09/23 05/09/23 History mg tablet,delayed release (Vitron-C) Past Med/Surg History Medical History Menorrhagia DEXTER (iron deficiency anemia) DEXTER in the setting of GI blood loss with concurrent anemia of chronic disease/inflammation History of chronic cough since COVID PNA 07/2020 Hx of migraines Hx of supraventricular tachycardia hx of; controlled w/metoprolol; f/u with PCP (no mention in recent PCP notes over past 1 year) Premature ventricular contraction remote hx of per pt History of COVID-19 hospitalized 07/2020 [facility] covid pneumonia; currently has chronic cough, brain fog, chronic fatigue, memory loss; maintains f/u with PCP Hemorrhoids Anxiety Vitamin D deficiency HTN (hypertension) Hyperlipidemia no meds at present; PCP monitoring History of hydronephrosis none currently Depression Chronic interstitial cystitis Morbid obesity Kidney stones hx Surgical History History of hysterectomy S/P hemorrhoidectomy (05/04/22) 05/04/22 [facility]; [place]: LMA #4 iGel wihtout issue History of colonoscopy Hx of lithotripsy (03/2018) History of tonsillectomy and adenoidectomy History of laparoscopy History of cystoscopy x MULTIPLE Status post breast reduction Family History Father No problems noted. Mother Hypertension Migraine Aunt Breast cancer maternal Uncle Colorectal cancer maternal Grandfather (Paternal) Myocardial infarction Other No pertinent family history Denies family history of Ovarian cancer Prostate cancer Social History Smoking Status: Never smoker Second Hand Exposure: No; Do You Dip or Chew Tobacco: No; Tobacco Cessation Education Requested by Patient: No Hx Alcohol Use: No Hx Substance Use: No Preferred Language: Chinese Communication Ability: Effective Visual Impairment: No Limitations Tanning Consultant Required: No Beliefs That Will Affect Care: None Current Living Situation: Alone current occupational status: employed current occupation: self employed, [employer] Other Information That Helps Us Care for You: No Feels Safe at Home: Yes Safety Concerns: Feels Safe At This Time Dental Care, Regularly: Yes Seatbelt Use: always Sunscreen Use: Yes Assistive Devices: Glasses Review of Systems Review of Systems: See HPI above Physical Exam Physical Exam: General: Moderate physical distress secondary to RUQ pain; non-toxic appearing; well-nourished; cooperative; SpO2 98% on RA HEENT: normocephalic, atraumatic; no scleral icterus; PERRLA; vision and hearing grossly intact Neck: supple; no lymphadenopathy; trachea midline Skin: warm, dry without signs of tenting; no cyanosis; no rashes, bruising, lesions, or erythema noted CV: chest wall NTP; RRR; S1/S2 normal; no murmurs/rubs/gallops; pulses intact and symmetric at radial, DP, and PT Lungs: no acute respiratory distress; symmetrical chest wall expansion; clear breath sounds across all lung padilla w/o adventitious sounds; no wheezing ABD: Soft; RUQ TTP; positive Rucker sign; BS present; mild distention secondary to body habitus; no rashes or bruising on the abdomen noted MSK: no tics or fasciculations; no edema noted in the LEs b/l, nonerythematous Neuro: A&Ox3; normal mood and affect; fluent speech; no focal deficits Results & Data Results & Data Vital Signs (Past 12 Hours) Vital Signs Temp Pulse Pulse Resp BP BP Pulse Ox 05/09/23 15:51 68 05/09/23 14:35 88 20 148/77 H 98 05/09/23 12:49 37.0 C 85 20 161/111 H 100 O2 Del Method 05/09/23 15:51 05/09/23 14:35 05/09/23 12:49 Room Air Laboratory Results Abnormal lab results 05/09/23 05/09/23 Range/Units 13:10 15:16 BUN/Creatinine Ratio 25.8 H (10-20) Calcium 10.6 H (8.6-10.3) mg/dl Urine pH 8.0 H (4.5-7.5) Urine Ketones 1+ H (Negative) Diagnostic Findings Gallbladder Ultrasound 05/09/23 13:21 US gallbladder CLINICAL HISTORY: Right upper quadrant abdominal pain. COMPARISON STUDY: CT of the abdomen and pelvis January 17, 2022. FINDINGS: Hepatic echogenicity is increased. There are no hepatic lesions. Hypoechoic foci within the gallbladder fossa favor fatty sparing. There is no biliary ductal dilatation. The gallbladder is normal. There are no gallstones. Internal echoes within the gallbladder are likely artifactual. No sonographic Rucker sign was elicited. Pancreatic body is normal. Head and tail are partially obscured. There is no right hydronephrosis. IMPRESSION: 1. No gallstones or biliary ductal dilatation. 2. Hepatic steatosis. 3. Partially obscured pancreas. ACT 112: Negative or not required by law. Electronically signed by: Alpesh Noel M.D. 05/09/2023 3:24 PM Abdomen/Pelvis CT 05/09/23 15:29 CT OF THE ABDOMEN AND PELVIS WITHOUT CONTRAST CLINICAL HISTORY: Right flank pain. COMPARISON STUDY: CT of the abdomen and pelvis January 17, 2022. Right upper quadrant ultrasound performed earlier today. Pelvic ultrasound July 18, 2022. TECHNIQUE: Axial images of the abdomen and pelvis were obtained without IV contrast. Images were reviewed in the axial, sagittal, and coronal planes. Automated exposure control was utilized for the study. A dose lowering technique was utilized adhering to the principles of ALARA. FINDINGS: Please note that the chest CT will be reported separately. No pneumatosis, free air or portal venous gas is present. There are no renal, ureteral or bladder calculi. There is hepatic steatosis. Unenhanced images of the spleen, adrenal glands and pancreas are unremarkable. There is no biliary or pancreatic ductal dilatation. The gallbladder is mildly distended. There is mild pericholecystic stranding. No radiopaque stones are identified. The appendix is normal. There is no evidence for a bowel obstruction. There is no lymphadenopathy. Low attenuation left adnexal lesion measures approximately 3.3 cm. No acute fractures are identified within visualized skeletal structures. IMPRESSION: 1. Mildly distended gallbladder with mild pericholecystic stranding. Despite negative ultrasound, the findings raise the possibility of acute cholecystitis. Nuclear medicine hepatobiliary scan could be obtained for further evaluation. 2. No urinary calculi or hydronephrosis. 3. Normal appendix. No bowel obstruction. 4. Low-attenuation left adnexal lesion. This may reflect an ovarian cyst however follow-up nonemergent pelvic ultrasound is recommended. ACT 112: Negative or not required by law. Electronically signed by: Alpesh Noel M.D. 05/09/2023 4:[address] 05/09/23 15:35 CT SCAN OF THE CHEST WITHOUT IV CONTRAST CLINICAL HISTORY: Atypical chest pain. Epigastric abdominal pain. COMPARISON STUDY: Chest CT dated 07/02/2021. Chest x-ray dated 08/09/2021. TECHNIQUE: CT scan of the thorax was performed from the thoracic inlet to the upper abdomen. Images are reviewed in the axial, sagittal, and coronal planes. IV contrast was not administered for this examination as per the referring clinician. A dose lowering technique was utilized adhering to the principles of ALARA. FINDINGS: Thyroid: Imaged portions of the thyroid gland are normal in size and attenuation. Thoracic aorta: There is minimal atherosclerotic calcification of the thoracic aorta, which is normal in caliber and demonstrates standard 3-vessel arch anatomy. Heart: The heart is normal in size and without pericardial effusion. Lungs and pleural spaces: There is no lobar consolidation or pleural effusion. The trachea and central airways are clear. A 15 mm groundglass focus in the right upper lobe on image #93. Minimal groundglass opacities are also seen in the left upper lobe and lingula. There is a 3 mm left basilar pulmonary nodule on image #144. This is unchanged from 2022. Scattered calcified granulomas are observed. Mediastinum: There is no mediastinal lymphadenopathy. Velia: Not well assessed without IV contrast. Axillae: There is no axillary lymphadenopathy. Upper abdomen: The liver appears steatotic. The liver is top normal in size measuring 13.1 cm in length. Skeletal structures: No lytic or blastic bony lesions are seen. IMPRESSION: 1. There is a 15 mm groundglass focus in the right upper lobe, as well as minimal groundglass opacities seen in the left upper lobe and lingula. These findings likely represent atelectasis versus a mild infectious/inflammatory process. A follow-up chest CT is recommended in 3-4 months time to document resolution. 2. There is no lobar consolidation or pleural effusion. 3. No lymphadenopathy is seen. 4. Hepatic steatosis. 5. Additional findings as above. ACT 112: Negative or not required by law. Electronically signed by: William Rudolph M.D. 05/09/2023 4:19 PM Code Status & VTE Plan Code Status Full code VTE Prophylaxis Plan VTE Prophylaxis will be ordered: Yes Supervising Physician Co-Signing Physician Notes I personally saw and examined the patient. I independently reviewed the labs, EKG, imaging, problem list, medication list, past medical history and family history. I verified all renteria points and agree with Percy Nair PA-C with the following exceptions and/or additions: 52 year old with acute onset right upper quadrant pain after eating [employer] earlier today. No fever or chills. O/E HS RRR, no murmurs, Chest CTAB, Abdo RUQ pain with positive [place] sign A/P Possible acute cholecystitis - WBC may not be up yet due to acute onset. Biliary colic vs. acute kieran - acute onset without prior symptoms favors biliary colic. Recommend NPO and treating as acute kieran at this time given ongoing RUQ symptomatically and on palpation with imaging changes. HIDA scan. Consult surgery. PG Care Time/CCT Total # of Minutes Spent Total Time Spent with Patient: Total time spent is greater than 50% in coordination of care (as documented) at patient's floor/unit and/or counseling patient: Coding [place] [address] INT INP/OBS CARE 2/55MIN Patient Type Established Medical Decision Making Moderate Complexity Diagnoses Acute cholecystitis K81.0 Hyperlipidemia E78.5 Depression F32.9 Anxiety F41.9 Chronic interstitial cystitis N30.10 Hx of supraventricular tachycardia Z86.79
[2023-05-09] MEDS: HYDROmorphone INJ 1 MG/ML SYRINGE IV STA (17:11)
[2023-05-09] MEDS: KETOROLAC TROMETHAMINE 15 MG/ML VIAL IV STA (17:13)
[2023-05-09] MEDS ORDERED: cefTRIAXone SODIUM 2,000 MG in DEXTROSE 5 % MINI-B 50 ML IV SCH (17:30)
[2023-05-09 18:21] LABS: Magnesium 1.6 mg/dl (1.7-2.4)
--- NOTE | 2023-05-09 19:20 | Surgery Consultation ---
<Statement entered by Joshua Mckay, DO - 05/10/23 03:37> This case was discussed with the emergency room physician as well as the surgical PA. No abnormality within GB noted to be a potential cause for acute cholecystitis, however, the patient continues with abdominal pain and the radiologist reads stranding around the GB on CT. Of note, I do not appreciate t his on the CT and must be rather mild/subtle. Will f/u am diagnostics/labs and symptoms. Date of Consultation May 09, 2023 Assessment & Plan (1) Acute cholecystitis: Patient has been admitted on the hospitalist service. From surgery perspective we recommend the following: Provide analgesics Provide antiemetics Implement n.p.o. status Provide IV fluid for hydration Patient has been started on antibiotics in the form of Rocephin and Flagyl which should continue At the present time the patient is noted to be afebrile and hemodynamically stable without leukocytosis or elevated LFTs. Although the patient had a essentially normal gallbladder ultrasound her CT scan raises the potential for acute cholecystitis. Therefore, the patient is to undergo HIDA scan to definitively ascertain patient is suffering from acute cholecystitis. If the patient's HIDA scan is positive we will have further discussion with the patient regarding potential cholecystectomy. Additional recommendations will be forthcoming based on her clinical course as unfolds and her pending HIDA scan upon his completion History of Present Illness Reason for Consultation: Abdominal pain History of Present Illness This is a 52-year-old female who presented to the emergency department secondary to abdominal pain. Patient says that she was having a meal at [employer] and approximate 45 minutes later at approximate 11:00 AM today she developed epigastric abdominal pain which radiated to the right upper quadrant and into her back. She had nausea and vomiting but denies any fevers, shakes, or chills. Patient notes that she has not had any postprandial pain in the past several weeks to months. She notes that her bowels have been moving normally and denies any melena. She has had prior abdominal surgeries in the form of a hysterectomy. Since arrival to hospital patient has had labs and imaging which I independent reviewed. The patient had a gallbladder ultrasound that showed no biliary ductal dilatation. The gallbladder was noted to be essentially normal. No cholelithiasis was noted. A CT scan of the abdomen pelvis was performed. This showed that the patient had a mildly distended gallbladder with some pericholecystic stranding. This raises the possibility of potential cholecystitis. A CT scan of the chest was performed that showed patient had a right upper lobe 15 mm groundglass opacity. This was felt to represent either atelectasis or an infectious/inflammatory process. Labs include a CBC her white blood cell count, hemoglobin, hematocrit, and platelet count were normal. Chemistry profile showed sodium and potassium along with BUN and creatinine were normal. There is no elevation of patient's LFTs or lipase. test was negative. Urinalysis was not indicative of infection. An EKG showed normal sinus rhythm without changes indicative of acute ischemia. At the time of my interview the patient was resting comfortably in bed and she was no distress. Allergies Allergy/AdvReac Type Severity Reaction Status Date / Time Iodinated Contrast Media Allergy Severe CHEST Verified 05/09/23 17:44 PAIN, SHORTNESS OF BREATH atorvastatin AdvReac Intermediate leg Verified 05/09/23 17:44 swelling lisinopril AdvReac Intermediate Cough Verified 05/09/23 17:44 Home Medications Medication Instructions Recorded Confirmed Type albuterol sulfate 90 mcg/actuation 2 puff inhalation Q6H PRN 06/16/21 05/09/23 Rx aerosol inhaler shortness of breath or wheezing #18 grams phenazopyridine 100 mg tablet 100 mg PO DIRECTED PRN BLADDER 01/17/22 05/09/23 History (Pyridium) PAIN fluticasone furoate 200 1 inh inhalation QAM 03/09/22 05/09/23 History mcg-vilanterol 25 mcg/dose inhalation powder (Breo Ellipta) trazodone 50 mg tablet 50 mg PO HS #90 tabs 09/19/22 05/09/23 Rx benzonatate 200 mg capsule 200 mg PO BID PRN cough #60 caps 12/07/22 05/09/23 Rx nystatin 100,000 unit/mL oral 5 ml PO QID PRN NEEDED Thrush 12/21/22 05/09/23 Rx suspension #480 mL hydroxyzine pamoate 25 mg capsule 25 mg PO Q8H PRN anxiety #60 caps 03/14/23 05/09/23 Rx (Vistaril) pravastatin 40 mg tablet 40 mg PO HS #90 tabs 04/03/23 05/09/23 Rx buspirone 5 mg tablet 5 mg PO BID #60 tabs 04/14/23 05/09/23 Rx metoprolol succinate 50 mg 50 mg PO HS #90 tabs 04/14/23 05/09/23 Rx tablet,extended release 24 hr phentermine 37.5 mg capsule 37.5 mg PO DAILY #30 caps 04/28/23 05/09/23 Rx diclofenac sodium 75 mg 75 mg PO BID PRN Pain 05/09/23 05/09/23 History tablet,delayed release iron,carbonyl 65 mg-vitamin C 125 1 tab PO .EVERY OTHER DAY 05/09/23 05/09/23 History mg tablet,delayed release (Vitron-C) Patient History Medical History Menorrhagia DEXTER (iron deficiency anemia) DEXTER in the setting of GI blood loss with concurrent anemia of chronic disease/inflammation History of chronic cough since COVID PNA 07/2020 Hx of migraines Hx of supraventricular tachycardia hx of; controlled w/metoprolol; f/u with PCP (no mention in recent PCP notes over past 1 year) Premature ventricular contraction remote hx of per pt History of COVID-19 hospitalized 07/2020 [facility] covid pneumonia; currently has chronic cough, brain fog, chronic fatigue, memory loss; maintains f/u with PCP Hemorrhoids Anxiety Vitamin D deficiency HTN (hypertension) Hyperlipidemia no meds at present; PCP monitoring History of hydronephrosis none currently Depression Chronic interstitial cystitis Morbid obesity Kidney stones hx Surgical History History of hysterectomy S/P hemorrhoidectomy (05/04/22) 05/04/22 [facility]; [place]: LMA #4 [facility] issue History of colonoscopy Hx of lithotripsy (03/2018) History of tonsillectomy and adenoidectomy History of laparoscopy History of cystoscopy x MULTIPLE Status post breast reduction Family History Father No problems noted. Mother Hypertension Migraine Aunt Breast cancer maternal Uncle Colorectal cancer maternal Grandfather (Paternal) Myocardial infarction Other No pertinent family history Denies family history of Ovarian cancer Prostate cancer Social History Smoking Status: Never smoker Second Hand Exposure: No; Do You Dip or Chew Tobacco: No; Hx Alcohol Use: No Hx Substance Use: No Preferred Language: Nigerien Communication Ability: Effective Visual Impairment: No Limitations Extruder Operator Required: No Beliefs That Will Affect Care: None Current Living Situation: Family current occupational status: employed current occupation: self employed, [employer] Feels Safe at Home: Yes Dental Care, Regularly: Yes Seatbelt Use: always Sunscreen Use: Yes Assistive Devices: Glasses Review of Systems Constitutional: no fever and no chills Ear, Nose, Mouth, Throat: no hearing loss Respiratory: no dyspnea Cardiovascular: no chest pain Gastrointestinal: as per Subjective / HPI Genitourinary: no dysuria Musculoskeletal: + back pain (Patient reports chronic tlaya k pain from chronic interstitial cystitis) Integumentary: no rash Neurologic: no localized weakness Physical Exam Constitutional: WD/WN, vitals as above Eyes: + anicteric sclerae ENMT: Ears: no hearing impairment and no external ear abnormality Mouth: no oropharynx abnormality Neck: trachea midline Respiratory: normal respiratory effort; no respiratory distress and no labored breathing Occasional rhonchi noted bilaterally on expiration Cardiovascular: Rate/Rhythm: regular rate and regular rhythm Gastrointestinal (Abdomen): Abdomen is soft and nondistended. There is no rebound tenderness or guarding. The patient did have some mild tenderness with palpation in the epigastric area and the right upper quadrant. Musculoskeletal: No calf tenderness Skin: no rashes Neurologic: moves all extremities Psychiatric: A+Ox3, euthymic affect Results & Data Vital Signs (Past 12 Hours) Vital Signs Temp Pulse Pulse Resp BP BP Pulse Ox 05/09/23 19:00 70 15 96 05/09/23 18:50 77 17 97 05/09/23 18:40 80 15 91 05/09/23 18:30 68 9 L 95 05/09/23 18:20 77 14 95 05/09/23 18:18 73 20 95 05/09/23 18:18 140/82 05/09/23 18:10 74 17 99 05/09/23 18:00 74 17 98 05/09/23 17:50 70 18 97 05/09/23 17:40 68 16 96 05/09/23 17:30 69 19 98 05/09/23 17:20 71 15 98 05/09/23 17:10 73 23 100 05/09/23 17:00 72 21 99 05/09/23 16:50 63 14 100 05/09/23 16:40 65 22 100 05/09/23 16:30 66 23 100 05/09/23 16:20 66 16 100 05/09/23 16:10 64 21 100 05/09/23 16:04 163/73 H 05/09/23 16:04 74 26 H 100 05/09/23 16:03 74 16 100 05/09/23 15:51 68 05/09/23 15:50 100 05/09/23 15:47 65 16 100 05/09/23 14:35 88 20 148/77 H 98 05/09/23 12:49 37.0 C 85 20 161/111 H 100 O2 Del Method 05/09/23 19:00 05/09/23 18:50 05/09/23 18:40 05/09/23 18:30 05/09/23 18:20 05/09/23 18:18 05/09/23 18:18 05/09/23 18:10 05/09/23 18:00 05/09/23 17:50 05/09/23 17:40 05/09/23 17:30 05/09/23 17:20 05/09/23 17:10 05/09/23 17:00 05/09/23 16:50 05/09/23 16:40 05/09/23 16:30 05/09/23 16:20 05/09/23 16:10 05/09/23 16:04 05/09/23 16:04 05/09/23 16:03 05/09/23 15:51 05/09/23 15:50 05/09/23 15:47 05/09/23 14:35 05/09/23 12:49 Room Air PG Care Time/CCT Total # of Minutes Spent Total Time Spent with Patient: Total time spent is greater than 50% in coordination of care (as documented) at patient's floor/unit and/or counseling patient: Coding Level of Care Code 16447 IN/OBS CONSULT LVL 5,80M Diagnoses Acute cholecystitis K81.0
[2023-05-09] MEDS: metroNIDAZOLE 500 MG/100 ML BAG IV STA (20:24)
[2023-05-09] MEDS: PANTOprazole 40 MG in SYRINGE 0 ML IV ONE (20:24)
[2023-05-09] MEDS ORDERED: ACETAMINOPHEN 1,000 MG/100 ML VIAL IV PRN (21:00)
[2023-05-09] MEDS ORDERED: HYDROmorphone INJ 0.5 MG/0.5 ML SYR IV PRN (21:00)
[2023-05-09] MEDS ORDERED: BENZONATATE 100 MG CAPSULE PO PRN (21:00)
[2023-05-09] MEDS ORDERED: hydrOXYzine HCl 25 MG TAB PO PRN (21:00)
[2023-05-09] MEDS ORDERED: MELATONIN 3 MG TAB PO PRN (21:00)
[2023-05-09] MEDS ORDERED: ALBUTEROL HFA 8 GM INHALER INH PRN (21:00)
[2023-05-09] MEDS ORDERED: PHENAZOPYRIDINE HCL 100 MG TAB PO PRN (21:00)
[2023-05-09] MEDS: ONDANSETRON INJ 2 MG/ML 2 ML VIAL IV PRN (21:09)
[2023-05-09] MEDS: traZODone HCL 50 MG TAB PO SCH (21:45)
[2023-05-09] MEDS: PRAVASTATIN SOD 40 MG TAB PO SCH (21:45)
[2023-05-09] MEDS: METOPROLOL SUCC 50MG EXT REL TAB PO SCH (21:45)
[2023-05-09] MEDS: busPIRone 5 MG TAB PO SCH (21:46)
[2023-05-09] MEDS: cefTRIAXone SODIUM 2,000 MG in DEXTROSE 5 % MINI-B 50 ML IV SCH (21:48)
[2023-05-09] MEDS: cefTRIAXone SODIUM 2000MG/50ML D5W IV ONE (21:48)
[2023-05-09] MEDS: PLASMA-LYTE A 1,000 ML IV SCH (22:25)
[2023-05-10] MEDS: metroNIDAZOLE 500 MG/100 ML BAG IV SCH (03:05)
--- NOTE | 2023-05-10 06:39 | Surgery Progress Note ---
Date of Service May 10, 2023 Assessment & Plan (1) Abdominal pain: Plan: resolved F/u am labs. If no leukocytosis or transaminitis, may have a low fat diet. Discharge home if she tolerates F/u with me in the office for EGD evaluation and outpatient HIDA scan with EF to check GB function. Admission and Anticipated Discharge Date Admission Date: May 09, 2023 Subjective I have seen and this patient this am. She denies abdominal pain or any other associated symptoms since being admitted and says all resolved. She has not required any pain medication or other intervention. She explains that she had been keeping away from certain foods with a keto diet and had [employer] that sparked her symptoms. She describes RUQ pain under her ribs at that time which has since resolved. Physical Exam Constitutional: + obese; not ill appearing, not in distr ess and not diaphoretic Respiratory: normal respiratory effort; no respiratory distress, no labored breathing and does not use accessory muscles Cardiovascular: Rate/Rhythm: regular rate; not tachycardic Gastrointestinal (Abdomen): Benign Results & Data Vital Signs (Past 12 Hours) Vital Signs Temp Pulse Pulse Resp BP Pulse Ox O2 Del Method 05/09/23 22:05 36.5 C 75 16 142/77 H 98 Room Air 05/09/23 20:45 Room Air 05/09/23 19:44 75 05/09/23 19:23 76 18 131/76 97 Room Air 05/09/23 19:00 70 15 96 05/09/23 18:50 77 17 97 05/09/23 18:40 80 15 91 PG Care Time/CCT Total # of Minutes Spent Total Time Spent with Patient: Total time spent is greater than 50% in coordination of care (as documented) at patient's floor/unit and/or counseling patient: Coding Level of Care Code 78878 SUB INP/OBS CARE 04/06MIN Diagnoses Right upper quadrant abdominal pain R10.11 Abdominal location: right upper quadrant (1) Abdominal pain Abdominal location: right upper quadrant Qualified Code(s): R10.11 - Right upper quadrant pain
[2023-05-10 06:59] LABS: Basophils # (auto) 0.03 K/uL (0.00-0.20); Basophils % (auto) 0.5 %; Eosinophils # (auto) 0.01 K/uL (0.00-0.50); Eosinophils % (auto) 0.2 %; Hematocrit (blood only) 38.2 % (37.0-47.0); Hemoglobin 12.8 g/dl (12.0-16.0); Immature Granulocytes # (auto) 0.02 K/uL (0.01-0.20); Immature Granulocytes % (auto) 0.3 %; Lymphocytes # (auto) 1.19 K/uL (1.20-3.40); Lymphocytes % (auto) 20.4 %; Mean Corpuscular Hgb Conc 33.5 g/dL (32.0-36.0); Mean Corpuscular Volume 95.5 fL (80.0-100.0); Mean Platelet Volume 10.1 fL (9.4-12.4); Monocytes # (auto) 0.45 K/uL (0.11-0.59); Monocytes % (auto) 7.7 %; Neutrophils # (auto) 4.14 K/uL (1.40-6.50); Neutrophils % (auto) 70.9 %; Platelet Count 221 K/uL (130-400); RDW Coefficient of Variation 11.9 % (11.5-14.5); RDW Standard Deviation 41.3 fL (36.4-46.3); White Blood Count 5.84 K/ul (4.8-10.8)
[2023-05-10 07:10] LABS: BUN Creatinine Ratio 18.2 (10-20); Calcium 8.8 mg/dl (8.6-10.3); Creatinine Clr Calc Pharmacy 135.3 ml/min; Est GFR (African American) 124.1 ml/min; Est GFR (Non-African American) 107.1 ml/min; Magnesium 1.7 mg/dl (1.7-2.4)
[2023-05-10 09:04] LABS: Albumin Level 3.9 gm/dl (3.4-5.0); Bilirubin Direct 0.3 mg/dl (0-0.2); Bilirubin,Total 0.8 mg/dl (0.2-1.0); Total Protein 6.4 gm/dl (6.0-8.3)
[2023-05-10] MEDS: FLUTICASONE/VILANTEROL 200/25MCG 14 PUFFS/INHALER INH SCH (10:02)
[2023-05-10] MEDS ORDERED: ACETAMINOPHEN 500 MG TAB PO PRN (10:13)
--- NOTE | 2023-05-10 10:19 | Electrocardiogram Report ---
Test Reason : Blood Pressure : / mmHG Vent. Rate : 072 BPM Atrial Rate : 072 BPM P-R Int : 150 ms QRS Dur : 068 ms QT Int : 378 ms P-R-T Axes : 099 035 043 degrees QTc Int : 413 ms Normal sinus rhythm Low voltage QRS Borderline ECG When compared with ECG of 04-AUG-2022 11:04, No significant change was found Confirmed by Raul Brito ([id number]) on 05/10/2023 10:18:52 AM Referred By: Confirmed By:Raul Brito
--- NOTE | 2023-05-10 12:53 | Hospitalist Progress Note ---
Date of Service May 10, 2023 Assessment & Plan (1) Acute cholecystitis: Plan: Acute onset of epigastric/RUQ pain radiating to the right scapula after eating a breakfast manage around 11 AM on 05/09 While gallbladder ultrasound was negative, A/P CT revealed mildly distended gallbladder with pericholecystic stranding which raises the possibility of acute cholecystitis General surgery consulted - was seen earlier this morning and recommended advanced diet and if tolerated outpatient follow-up - with nausea and vomiting with breakfast, recommended HIDA scan Lipase WNL, LFTs WNL Continue Rocephin 2000 mg IV q24h and Metronidazole 500 mg IV q8h Restart IVF and keep NPO at midnight for pending HIDA results Pain control prn tylenol, diluadid PRN zofran A.m. CBC, BMP (2) Hyperlipidemia: Plan: Continue pravastatin (3) Depression: Plan: Continue trazodone (4) Anxiety: Plan: Continue BuSpar Hydroxyzine as needed (5) Chronic interstitial cystitis: Plan: Pyridium as needed for bladder pain (6) Hx of supraventricular tachycardia: Plan: Chronic; noted EKG NSR at 72 bpm on arrival; QTc 413 Troponin WNL Continue metoprolol (7) Abnormal finding on CT scan: Plan: Chest CT revealed 15 mm groundglass focus in the right upper lobe (recommended chest CT in 3-4 months) CT abdomen and pelvis: 3.3 cm left adnexal lesion, possible ovarian cyst, recommend outpatient pelvic ultrasound Plan Disposition: continue inpatient stay VTE PPx: SCDs (hold chemical DVT PPx pending HIDA scan) Admission and Anticipated Discharge Date Admission Date: May 09, 2023 Supervising Physician Co-Signing Physician Notes Attending Attestation - Chart reviewed, care plan d/w JHOAN Nolasco. I agree w/ the renteria components of her documentation. Await HIDA scan results. Sumanth Ochoa MD Subjective Patient seen sitting up in bed. had a few bites of oatmeal and toast for breakfast which cause nausea and vomtiting. Surgery made aware denies fevers or chills. Does report hx of somtach uclers a long time ago. No current maintnece therapy. Denies NSAID use Review of Systems Review of Systems: All systems reviewed & are unremarkable except as noted in Subjective Physical Exam Physical Exam: General: NAD, VS as above Resp: normal respiratory effort, lungs clear to auscultation CV: RRR, no murmur, Abd: mildly tender RUQ/epigastic Extremities: Moves all extremities, Results & Data Results & Data Vital Signs (Past 12 Hours) Vital Signs Temp Pulse Resp BP O2 Del Method 05/10/23 07:42 36.6 C 72 18 112/55 L Room Air Laboratory Results CBC and chemistry reviewed PG Care Time/CCT Total # of Minutes Spent Total Time Spent with Patient: Total time spent is greater than 50% in coordination of care (as documented) at patient's floor/unit and/or counseling patient: Coding Level of Care Code 93101 SUB INP/OBS CARE 3/50MIN Diagnoses Acute cholecystitis K81.0 Hyperlipidemia E78.5 Depression F32.9 Anxiety F41.9 Chronic interstitial cystitis N30.10 Hx of supraventricular tachycardia Z86.[address] scan R93.89
[2023-05-10] MEDS ORDERED: cefTRIAXone SODIUM 2,000 MG in DEXTROSE 5 % MINI-B 50 ML IV SCH (18:00)
[2023-05-10] MEDS: SINCALIDE 2.3 MCG in 0.9 % SODIUM CHLORIDE 100 ML IV ONE (18:01)
[2023-05-10] MEDS: PLASMA-LYTE A 1,000 ML IV SCH (18:15)
--- NOTE | 2023-05-10 19:13 | Nuclear Medicine Report ---
NUCLEAR MEDICINE HEPATOBILIARY SCAN HISTORY: Right flank pain. cholecystitis COMPARISON: Abdomen and pelvis CT 05/09/2023 TECHNIQUE: Immediately following the intravenous administration of 4.8 mCi Tc-99m Choletec, dynamic a nterior abdominal imaging was performed. FINDINGS: Uniform hepatic tracer accumulation is shown. Prompt intrahepatic biliary excretion is seen. The gall bladder, common bile duct, and small bowel were not visualized during the initial 60 minutes of imagi ng. Therefore, additional imaging of the 4 hour time interval was obtained. The gallbladder common bi le duct are visualized at the 90 minute time interval. The small bowel was not visualized throughout the 4 hours of imaging. IMPRESSION: 1. Delayed visualization of the gallbladder and common bile duct. Of note, the small bowel was not id entified during the 4 hours of imaging. Therefore, these findings are concerning for distal common bi le duct obstruction. A chronic cholecystitis also remains in the differential diagnosis. 2. Follow-up ERCP recommended for further evaluation. ACT 112: Negative or not required by law. Electronically signed by: Percy Starkey M.D. 05/10/2023 7:10 PM
--- NOTE | 2023-05-10 21:25 | Communication Note ---
Date of Service: May 10, 2023 I was contacted by nurse that patient had some questions/concerns about her HIDA scan. Patient underwent a HIDA scan from today that showed delayed visualization of the gallbladder and common bile duct. The interpreting radiologist felt that due to the delayed visualization of the gallbladder and common bile duct there were concerns that patient had a distal common bile duct obstruction. It is nowhere the mention that patient's labs were reviewed and her LFTs were normal. In light of the findings of the HIDA scan and the patient's ongoing sym ptomatology we will proceed as follows: Obtain an MRCP Repeat LFTs with her morning labs Requested gastroenterology consultation I discussed these findings and this plan with the patient and she is agreeable. Additional recommendations be forthcoming based on the pending items listed above.
[2023-05-10] MEDS: HYDROmorphone INJ 1 MG/ML SYRINGE IV PRN (21:28)
[2023-05-10] MEDS: HYDROmorphone INJ 0.5 MG/0.5 ML SYR IV STA (22:33)
[2023-05-10] MEDS: METOCLOPRAMIDE HCL INJ 5 MG/ML 2 ML VIAL IV PRN (22:41)
[2023-05-11] MEDS: ONDANSETRON INJ 2 MG/ML 2 ML VIAL IV STA (00:17)
--- NOTE | 2023-05-11 00:44 | Magnetic Resonance Report ---
Exam(s): MRI MRCP EXAM: MR Abdomen Without Intravenous Contrast, MRCP Protocol CLINICAL HISTORY: bile duct obstruction. TECHNIQUE: Multiplanar magnetic resonance images of the abdomen without intravenous contrast using MRCP protocol. COMPARISON: Hepatobiliary examination performed at 1404 hrs.; CT abdomen and pelvis without contrast 05/09/2023 FINDINGS: Bile ducts: The common bile duct is upper normal limits, measuring 6.3 mm. There is a normal tapering of the distal common bile duct near the ampulla. No choledocholithiasis noted. Gallbladder: Multiple granular gallstones are noted along the posterior aspect of the gallbladder measuring up to 3 mm in diameter. No gallbladder wall thickening. Liver: No intrahepatic biliary dilatation. Trace perihepatic fluid noted laterally. Pancreas: Peripancreatic edema and fluid appears to be new from the previous CT examination. No pancreatic ductal dilation or loculated pseudocysts. Spleen: Unremarkable. No splenomegaly. Adrenals: Unremarkable. No mass. Kidneys and ureters: Unremarkable. No hydronephrosis. Stomach and bowel: Unremarkable. No obstruction. IMPRESSION: 1. Multiple granular gallstones are noted along the posterior aspect of the gallbladder measuring up to 3 mm in diameter. No gallbladder wall thickening. 2. The common bile duct is upper normal limits, measuring 6.3 mm. No intrahepatic biliary dilatation. There is a normal tapering of the distal common bile duct near the ampulla. No choledocholithiasis noted. If there is concern for developing an ampullary stricture, recommend endoscopic manometric evaluation, as clinically indicated. 3. Peripancreatic edema and fluid appears to be new from the previous CT examination. No pancreatic ductal dilation or loculated pseudocysts. Findings are most consistent with acute pancreatitis. Electronically signed by: Maurizio Fernández MD 05/11/23 00:43 AM
[2023-05-11 07:10] LABS: Basophils # (auto) 0.03 K/uL (0.00-0.20); Basophils % (auto) 0.5 %; Eosinophils # (auto) 0.05 K/uL (0.00-0.50); Eosinophils % (auto) 0.9 %; Hematocrit (blood only) 37.7 % (37.0-47.0); Hemoglobin 12.6 g/dl (12.0-16.0); Immature Granulocytes # (auto) 0.02 K/uL (0.01-0.20); Immature Granulocytes % (auto) 0.4 %; Lymphocytes % (auto) 19.3 %; Mean Corpuscular Hemoglobin 32.1 pg (25.0-34.0); Mean Corpuscular Hgb Conc 33.4 g/dL (32.0-36.0); Mean Corpuscular Volume 95.9 fL (80.0-100.0); Mean Platelet Volume 10.2 fL (9.4-12.4); Monocytes # (auto) 0.45 K/uL (0.11-0.59); Monocytes % (auto) 7.9 %; Neutrophils # (auto) 4.04 K/uL (1.40-6.50); Platelet Count 197 K/uL (130-400); RDW Coefficient of Variation 11.9 % (11.5-14.5); RDW Standard Deviation 41.6 fL (36.4-46.3); Red Blood Count 3.93 M/uL (4.20-5.40); White Blood Count 5.69 K/ul (4.8-10.8)
[2023-05-11 07:38] LABS: Albumin Globulin Ratio 1.6 (0.9-2); Albumin Level 3.8 gm/dl (3.4-5.0); BUN Creatinine Ratio 14.5 (10-20); Bilirubin,Total 0.7 mg/dl (0.2-1.0); Calcium 8.5 mg/dl (8.6-10.3); Creatinine Clr Calc Pharmacy 135.3 ml/min; Est GFR (African American) 124.1 ml/min; Est GFR (Non-African American) 107.1 ml/min; Globulin 2.4 gm/dl (2.5-4.0); Potassium 3.6 mmol/L (3.5-5.1); Total Protein 6.2 gm/dl (6.0-8.3)
[2023-05-11] MEDS: LACTATED RINGER'S 1,000 ML IV SCH (09:27)
--- NOTE | 2023-05-11 10:27 | Gastrointestinal Consultation ---
Date of Consultation May 11, 2023 Assessment & Plan (1) Abdominal pain: (2) Acute cholecystitis: Plan Patient is a 52 y.o. female admitted with abdominal pain with abnormal imaging suggestive of acute cholecystitis and gallstones now with acute pancreatitis. 1. Discussed with Dr. Greene. No role for EUS/ERCP with negative MRCP. 2. Recommend consideration of cholecystectomy with IOC. 3. Rest per primary team. Supervising Physician Co-Signing Physician Notes Agree with MICHELLE Matias as above Abd: Soft, tender RUQ, ND, +BS Continue current therapy and supportive care Recommend Surgery to perform Lap kieran with IOC when stable History of Present Illness Reason for Consultation: ?CDB obstruction Requesting Physician: Dr. Ochoa Attending Physician: Sumanth Ochoa MD History of Present Illness Patient is a 52 year-old female admitted two days ago with concern for acute cholecystitis. She was evaluated by general surgery. Most recently, she did have a MRCP with peripancreatic edema and elevated lipase of ~3000. She states she is having epigastric pain that is localized, rated 6/10 in intensity with associated nausea. No vomiting or fevers. No leukocytosis. Normal liver panel. No choledocholithiasis on MRCP. Allergies Allergy/AdvReac Type Severity Reaction Status Date / Time Iodinated Contrast Media Allergy Severe CHEST Verified 05/09/23 17:44 PAIN, SHORTNESS OF BREATH atorvastatin AdvReac Intermediate leg Verified 05/09/23 17:44 swelling lisinopril AdvReac Intermediate Cough Verified 05/09/23 17:44 Home Medications Medication Instructions Recorded Confirmed Type albuterol sulfate 90 mcg/actuation 2 puff inhalation Q6H PRN 06/16/21 05/09/23 Rx aerosol inhaler shortness of breath or wheezing #18 grams phenazopyridine 100 mg tablet 100 mg PO DIRECTED PRN BLADDER 01/17/22 05/09/23 History (Pyridium) PAIN fluticasone furoate 200 1 inh inhalation QAM 03/09/22 05/09/23 History mcg-vilanterol 25 mcg/dose inhalation powder (Breo Ellipta) trazodone 50 mg tablet 50 mg PO HS #90 tabs 09/19/22 05/09/23 Rx benzonatate 200 mg capsule 200 mg PO BID PRN cough #60 caps 12/07/22 05/09/23 Rx nystatin 100,000 unit/mL oral 5 ml PO QID PRN NEEDED Thrush 12/21/22 05/09/23 Rx suspension #480 mL hydroxyzine pamoate 25 mg capsule 25 mg PO Q8H PRN anxiety #60 caps 03/14/23 05/09/23 Rx (Vistaril) pravastatin 40 mg tablet 40 mg PO HS #90 tabs 04/03/23 05/09/23 Rx buspirone 5 mg tablet 5 mg PO BID #60 tabs 04/14/23 05/09/23 Rx metoprolol succinate 50 mg 50 mg PO HS #90 tabs 04/14/23 05/09/23 Rx tablet,extended release 24 hr phentermine 37.5 mg capsule 37.5 mg PO DAILY #30 caps 04/28/23 05/09/23 Rx diclofenac sodium 75 mg 75 mg PO BID PRN Pain 05/09/23 05/09/23 History tablet,delayed release iron,carbonyl 65 mg-vitamin C 125 1 tab PO .EVERY OTHER DAY 05/09/23 05/09/23 History mg tablet,delayed release (Vitron-C) Patient History Medical History Menorrhagia DEXTER (iron deficiency anemia) DEXTER in the setting of GI blood loss with concurrent anemia of chronic disease/inflammation History of chronic cough since COVID PNA 07/2020 Hx of migraines Hx of supraventricular tachycardia hx of; controlled w/metoprolol; f/u with PCP (no mention in recent PCP notes over past 1 year) Premature ventricular contraction remote hx of per pt History of COVID-19 hospitalized 07/2020 [facility] covid pneumonia; currently has chronic cough, brain fog, chronic fatigue, memory loss; maintains f/u with PCP Hemorrhoids Anxiety Vitamin D deficiency HTN (hypertension) Hyperlipidemia no meds at present; PCP monitoring History of hydronephrosis none currently Depression Chronic interstitial cystitis Morbid obesity Kidney stones hx Surgical History History of hysterectomy S/P hemorrhoidectomy (05/04/22) 05/04/22 [facility]; [place]: LMA #4 iGel wihtout issue History of colonoscopy Hx of lithotripsy (03/2018) History of tonsillectomy and adenoidectomy History of laparoscopy History of cystoscopy x MULTIPLE Status post breast reduction Family History Father No problems noted. Mother Hypertension Migraine Aunt Breast cancer maternal Uncle Colorectal cancer maternal Grandfather (Paternal) Myocardial infarction Other No pertinent family history Denies family history of Ovarian cancer Prostate cancer Social History Smoking Status: Never smoker Second Hand Exposure: No; Do You Dip or Chew Tobacco: No; Tobacco Cessation Education Requested by Patient: No Hx Alcohol Use: No Hx Substance Use: No Preferred Language: Nigerian Communication Ability: Effective Visual Impairment: No Limitations Assistant Distribution Manager Required: No Beliefs That Will Affect Care: None Current Living Situation: Alone current occupational status: employed current occupation: self employed, [employer] Other Information That Helps Us Care for You: No Feels Safe at Home: Yes Safety Concerns: Feels Safe At This Time Dental Care, Regularly: Yes Seatbelt Use: always Sunscreen Use: Yes Assistive Devices: None Review of Systems Constitutional: as per Subjective / HPI Gastrointestinal: as per Subjective / HPI Physical Exam Constitutional: WD/WN, vitals as above Eyes: EOM intact bilaterally Neck: normal appearance Respiratory: normal respiratory effort, lungs clear to auscultation Cardiovascular: Rate/Rhythm: regular rate and regular rhythm Heart Sounds: no gallop and no murmur Gastrointestinal (Abdomen): Inspection/Auscultation: abdomen normal to inspection and normal bowel sounds Percussion/Palpation: + abdomen tender and abdomen soft; no guarding and abdomen not rigid Musculoskeletal: Extremities: no cyanosis no lower extremity edema Skin: no rashes, warm and dry Neurologic: moves all extremities Psychiatric: A+Ox3, euthymic affect Results & Data Vital Signs (Past 12 Hours) Vital Signs Temp Pulse Resp BP Pulse Ox O2 Del Method 05/11/23 06:46 37.0 C 66 18 117/72 95 Room Air Diagnostic Findings Laboratory Results WBC 5.69 K/ul (4.8-10.8) 05/11/23 06:17 RBC 3.93 M/uL (4.20-5.40) L 05/11/23 06:17 Hgb 12.6 g/dl (12.0-16.0) 05/11/23 06:17 Hct 37.7 % (37.0-47.0) 05/11/23 06:17 MCV 95.9 fL (80.0-100.0) 05/11/23 06:17 MCH 32.1 pg (25.0-34.0) 05/11/23 06:17 MCHC 33.4 g/dL (32.0-36.0) 05/11/23 06:17 RDW Std Deviation 41.6 fL (36.4-46.3) 05/11/23 06:17 RDW Coeff of Lexus 11.9 % (11.5-14.5) 05/11/23 06:17 Plt Count 197 K/uL (130-400) 05/11/23 06:17 MPV 10.2 fL (9.4-12.4) 05/11/23 06:17 Immature Gran % (Auto) 0.4 % 05/11/23 06:17 Neut % (Auto) 71.0 % 05/11/23 06:17 Lymph % (Auto) 19.3 % 05/11/23 06:17 [place]t % (Auto) 7.9 % 05/11/23 06:17 Eos % (Auto) 0.9 % 05/11/23 06:17 Baso % (Auto) 0.5 % 05/11/23 06:17 Neut # (Auto) 4.04 K/uL (1.40-6.50) 05/11/23 06:17 Lymph # (Auto) 1.10 K/uL (1.20-3.40) L 05/11/23 06:17 [place]t # (Auto) 0.45 K/uL (0.11-0.59) 05/11/23 06:17 Eos # (Auto) 0.05 K/uL (0.00-0.50) 05/11/23 06:17 Baso # (Auto) 0.03 K/uL (0.00-0.20) 05/11/23 06:17 Immature Gran # (Auto) 0.02 K/uL (0.01-0.20) 05/11/23 06:17 Sodium 140 mmol/L (136-145) 05/11/23 06:17 Potassium 3.6 mmol/L (3.5-5.1) 05/11/23 06:17 Chloride 106 mmol/L (98-107) 05/11/23 06:17 Carbon Dioxide 28 mmol/L (21-32) 05/11/23 06:17 Anion Gap 6 (3-11) 05/11/23 06:17 BUN 8 mg/dl (6-23) 05/11/23 06:17 Creatinine 0.55 mg/dl (0.6-1.2) L 05/11/23 06:17 Est Cr Clr Drug Dosing 135.3 ml/min 05/11/23 06:17 Est GFR ( Amer) 124.1 ml/min 05/11/23 06:17 Est GFR (Non-Af Amer) 107.1 ml/min 05/11/23 06:17 BUN/Creatinine Ratio 14.5 (10-20) 05/11/23 06:17 Glucose 91 mg/dl (70-99(Fasting)) 05/11/23 06:17 Calcium 8.5 mg/dl (8.6-10.3) L 05/11/23 06:17 Magnesium 1.7 mg/dl (1.7-2.4) 05/10/23 06:15 Total Bilirubin 0.7 mg/dl (0.2-1.0) 05/11/23 06:17 Direct Bilirubin 0.3 mg/dl (0-0.2) H 05/10/23 06:15 AST 35 U/L (13-39) 05/11/23 06:17 ALT 40 U/L (7-52) 05/11/23 06:17 Alkaline Phosphatase 72 U/L (34-104) 05/11/23 06:17 Troponin I High Sens < 2.3 pg/ml (0-14) 05/09/23 13:10 Total Protein 6.2 gm/dl (6.0-8.3) 05/11/23 06:17 Albumin 3.8 gm/dl (3.4-5.0) 05/11/23 06:17 Globulin 2.4 gm/dl (2.5-4.0) L 05/11/23 06:17 Albumin/Globulin Ratio 1.6 (0.9-2) 05/11/23 06:17 Lipase 3042 U/L (11-82) H 05/11/23 06:17 HCG, Qual Negative (Negative) 05/09/23 13:10 Urine Color Yellow 05/09/23 15:16 Urine Appearance Clear (Clear) 05/09/23 15:16 Urine pH 8.0 (4.5-7.5) H 05/09/23 15:16 Ur Specific Thayer 1.009 (1.000-1.030) 05/09/23 15:16 Urine Protein Negative (Negative) 05/09/23 15:16 Urine Glucose (UA) Negative (Negative) 05/09/23 15:16 Urine Ketones 1+ (Negative) H 05/09/23 15:16 Urine Blood Negative (Negative) 05/09/23 15:16 Urine Nitrite Negative (Negative) 05/09/23 15:16 Urine Bilirubin Negative (Negative) 05/09/23 15:16 Urine Urobilinogen Negative (Negative) 05/09/23 15:16 Ur Leukocyte Esterase Negative (Negative) 05/09/23 15:16 Impressions Gallbladder Ultrasound 05/09/23 13:21 US gallbladder CLINICAL HISTORY: Right upper quadrant abdominal pain. COMPARISON STUDY: CT of the abdomen and pelvis January 17, 2022. FINDINGS: Hepatic echogenicity is increased. There are no hepatic lesions. Hypoechoic foci within the gallbladder fossa favor fatty sparing. There is no biliary ductal dilatation. The gallbladder is normal. There are no gallstones. Internal echoes within the gallbladder are likely artifactual. No sonographic Rucker sign was elicited. Pancreatic body is normal. Head and tail are partially obscured. There is no right hydronephrosis. IMPRESSION: 1. No gallstones or biliary ductal dilatation. 2. Hepatic steatosis. 3. Partially obscured pancreas. ACT 112: Negative or not required by law. Electronically signed by: Alpesh Noel M.D. 05/09/2023 3:24 PM Abdomen/Pelvis CT 05/09/23 15:29 CT OF THE ABDOMEN AND PELVIS WITHOUT CONTRAST CLINICAL HISTORY: Right flank pain. COMPARISON STUDY: CT of the abdomen and pelvis January 17, 2022. Right upper quadrant ultrasound performed earlier today. Pelvic ultrasound July 18, 2022. TECHNIQUE: Axial images of the abdomen and pelvis were obtained without IV contrast. Images were reviewed in the axial, sagittal, and coronal planes. Automated exposure control was utilized for the study. A dose lowering technique was utilized adhering to the principles of ALARA. FINDINGS: Please note that the chest CT will be reported separately. No pneumatosis, free air or portal venous gas is present. There are no renal, ureteral or bladder calculi. There is hepatic steatosis. Unenhanced images of the spleen, adrenal glands and pancreas are unremarkable. There is no biliary or pancreatic ductal dilatation. The gallbladder is mildly distended. There is mild pericholecystic stranding. No radiopaque stones are identified. The appendix is normal. There is no evidence for a bowel obstruction. There is no lymphadenopathy. Low attenuation left adnexal lesion measures approximately 3.3 cm. No acute fractures are identified within visualized skeletal structures. IMPRESSION: 1. Mildly distended gallbladder with mild pericholecystic stranding. Despite negative ultrasound, the findings raise the possibility of acute cholecystitis. Nuclear medicine hepatobiliary scan could be obtained for further evaluation. 2. No urinary calculi or hydronephrosis. 3. Normal appendix. No bowel obstruction. 4. Low-attenuation left adnexal lesion. This may reflect an ovarian cyst however follow-up nonemergent pelvic ultrasound is recommended. ACT 112: Negative or not required by law. Electronically signed by: Alpesh Noel M.D. 05/09/2023 4:[address] 05/09/23 15:35 CT SCAN OF THE CHEST WITHOUT IV CONTRAST CLINICAL HISTORY: Atypical chest pain. Epigastric abdominal pain. COMPARISON STUDY: Chest CT dated 07/02/2021. Chest x-ray dated 08/09/2021. TECHNIQUE: CT scan of the thorax was performed from the thoracic inlet to the upper abdomen. Images are reviewed in the axial, sagittal, and coronal planes. IV contrast was not administered for this examination as per the referring clinician. A dose lowering technique was utilized adhering to the principles of ALARA. FINDINGS: Thyroid: Imaged portions of the thyroid gland are normal in size and attenuation. Thoracic aorta: There is minimal atherosclerotic calcification of the thoracic aorta, which is normal in caliber and demonstrates standard 3-vessel arch anatomy. Heart: The heart is normal in size and without pericardial effusion. Lungs and pleural spaces: There is no lobar consolidation or pleural effusion. The trachea and central airways are clear. A 15 mm groundglass focus in the right upper lobe on image #93. Minimal groundglass opacities are also seen in the left upper lobe and lingula. There is a 3 mm left basilar pulmonary nodule on image #144. This is unchanged from 2022. Scattered calcified granulomas are observed. Mediastinum: There is no mediastinal lymphadenopathy. Velia: Not well assessed without IV contrast. Axillae: There is no axillary lymphadenopathy. Upper abdomen: The liver appears steatotic. The liver is top normal in size measuring 13.1 cm in length. Skeletal structures: No lytic or blastic bony lesions are seen. IMPRESSION: 1. There is a 15 mm groundglass focus in the right upper lobe, as well as minimal groundglass opacities seen in the left upper lobe and lingula. These findings likely represent atelectasis versus a mild infectious/inflammatory process. A follow-up chest CT is recommended in 3-4 months time to document resolution. 2. There is no lobar consolidation or pleural effusion. 3. No lymphadenopathy is seen. 4. Hepatic steatosis. 5. Additional findings as above. ACT 112: Negative or not required by law. Electronically signed by: William Rudolph M.D. 05/09/2023 4:19 PM Hepatobiliary Scan Nuclear Medicine 05/10/23 15:00 NUCLEAR MEDICINE HEPATOBILIARY SCAN HISTORY: Right flank pain. cholecystitis COMPARISON: Abdomen and pelvis CT 05/09/2023 TECHNIQUE: Immediately following the intravenous administration of 4.8 mCi Tc- 99m Choletec, dynamic anterior abdominal imaging was performed. FINDINGS: Uniform hepatic tracer accumulation is shown. Prompt intrahepatic biliary excretion is seen. The gallbladder, common bile duct, and small bowel were not visualized during the initial 60 minutes of imaging. Therefore, additional imaging of the 4 hour time interval was obtained. The gallbladder common bile duct are visualized at the 90 minute time interval. The small bowel was not visualized throughout the 4 hours of imaging. IMPRESSION: 1. Delayed visualization of the gallbladder and common bile duct. Of note, the small bowel was not identified during the 4 hours of imaging. Therefore, these findings are concerning for distal common bile duct obstruction. A chronic cholecystitis also remains in the differential diagnosis. 2. Follow-up ERCP recommended for further evaluation. ACT 112: Negative or not required by law. Electronically signed by: Percy Starkey M.D. 05/10/2023 7:10 PM Cholangiopancreatography MRI 05/10/23 21:25 Exam(s): MRI MRCP EXAM: MR Abdomen Without Intravenous Contrast, MRCP Protocol CLINICAL HISTORY: bile duct obstruction. TECHNIQUE: Multiplanar magnetic resonance images of the abdomen without intravenous contrast using MRCP protocol. COMPARISON: Hepatobiliary examination performed at 1404 hrs.; CT abdomen and pelvis without contrast 05/09/2023 FINDINGS: Bile ducts: The common bile duct is upper normal limits, measuring 6.3 mm. There is a normal tapering of the distal common bile duct near the ampulla. No choledocholithiasis noted. Gallbladder: Multiple granular gallstones are noted along the posterior aspect of the gallbladder measuring up to 3 mm in diameter. No gallbladder wall thickening. Liver: No intrahepatic biliary dilatation. Trace perihepatic fluid noted laterally. Pancreas: Peripancreatic edema and fluid appears to be new from the previous CT examination. No pancreatic ductal dilation or loculated pseudocysts. Spleen: Unremarkable. No splenomegaly. Adrenals: Unremarkable. No mass. Kidneys and ureters: Unremarkable. No hydronephrosis. Stomach and bowel: Unremarkable. No obstruction. IMPRESSION: 1. Multiple granular gallstones are noted along the posterior aspect of the gallbladder measuring up to 3 mm in diameter. No gallbladder wall thickening. 2. The common bile duct is upper normal limits, measuring 6.3 mm. No intrahepatic biliary dilatation. There is a normal tapering of the distal common bile duct near the ampulla. No choledocholithiasis noted. If there is concern for developing an ampullary stricture, recommend endoscopic manometric evaluation, as clinically indicated. 3. Peripancreatic edema and fluid appears to be new from the previous CT examination. No pancreatic ductal dilation or loculated pseudocysts. Findings are most consistent with acute pancreatitis. Electronically signed by: Maurizio Fernández MD 05/11/23 00:43 AM PG Care Time/CCT Total # of Minutes Spent Total Time Spent with Patient: Total time spent is greater than 50% in coordination of care (as documented) at patient's floor/unit and/or counseling patient: Coding Level of Care Code 59313 INT INP/OBS CARE 3/75MIN Diagnoses Right upper quadrant abdominal pain R10.11 Abdominal location: right upper quadrant Acute cholecystitis K81.0 (1) Abdominal pain Abdominal location: right upper quadrant Qualified Code(s): R10.11 - Right upper quadrant pain
--- NOTE | 2023-05-11 13:06 | Hospitalist Progress Note ---
Date of Service May 11, 2023 Assessment & Plan (1) Acute cholecystitis: Plan: Acute onset of epigastric/RUQ pain radiating to the right scapula after eating a breakfast manage around 11 AM on 05/09 - Gallbladder ultrasound was negative - A/P CT revealed mildly distended gallbladder with pericholecystic stranding which raises the possibility of acute cholecystitis General surgery consulted - n/v with breakfast , recommended HIDA scan --> delayed visualization of gallbladder and common bile duct - Recommend MRCP --> multiple granular gallstones (3mm), no gallbladder wall thickening, no CBD dilation, peripancreatic edema consistent with acute pancrea titis - Allow patient time to recover from pancreatitis, then will consider lap kieran (potentially outpatient if patient progressing well, if here through the weekend add-on case next week) Gastroenterology consulted - no role for EUS/ERCP with negative MRCP - Consider cholecystectomy with IOC LFTs WNL Continue Rocephin 2000 mg IV q24h and Metronidazole 500 mg IV q8h Pain control prn tylenol, diluadid PRN zofran (2) Pancreatitis: Plan: Lipase 39 --> 3042 - Triglycerides 03/2023: 280 - IVF as above - Keep NPO for now, consider advancing diet in the morning (3) Hyperlipidemia: Plan: Continue pravastatin (4) Depression: Plan: Continue trazodone (5) Anxiety: Plan: Continue BuSpar Hydroxyzine as needed (6) Chronic interstitial cystitis: Plan: Pyridium as needed for bladder pain (7) Hx of supraventricular tachycardia: Plan: Chronic; noted EKG NSR at 72 bpm on arrival; QTc 413 Troponin WNL Continue metoprolol (8) Abnormal finding on CT scan: Plan: Chest CT revealed 15 mm groundglass focus in the right upper lobe (recommended chest CT in 3-4 months) CT abdomen and pelvis: 3.3 cm left adnexal lesion, possible ovarian cyst, recommend outpatient pelvic ultrasound Plan Disposition: continue inpatient stay VTE PPx: SCDs (hold chemical dvt proh at this time, encourage ambulation) Admission and Anticipated Discharge Date Admission Date: May 11, 2023 Supervising Physician Co-Signing Physician Notes Attending Attestation - Chart reviewed, care plan d/w JHOAN Nolasco. I agree w/ the renteria components of her documentation. HIDA scan results noted from 05/10/23. MRCP results noted - radiological evidence of pancreatitis was found. No CBD stone seen. Pt today with biochemical evidence of acute gallstone pancreatitis (lipase ~3000). Appreciate GI & gen surg consultations. Sumanth Ochoa MD Subjective Patient seen sitting up in bed. Pain and nausea is well controlled with medications. Patient with current health state - lack of answers, multiple consulting services needed. Feels like her abdomen is more distended today. Reports "PTSD from having COVID and not being able to breath" and is worried that her stomach is pushing up on her lungs. Has not had BM since arrival to the hosptial, but is passing gas. No CP or SOB Review of Systems Review of Systems: All systems reviewed & are unremarkable except as noted in Subjective Physical Exam Physical Exam: General: NAD, VS as above Resp: normal respiratory effort, lungs clear to auscultation CV: RRR, no murmur, Abd: soft, nondistended. Tender RUQ quadrant, epigastric and LUQ. No rebound Extremities: Moves all extremities, Results & Data Results & Data Vital Signs (Past 12 Hours) Vital Signs Temp Pulse Resp BP Pulse Ox O2 Del Method 05/11/23 06:46 37.0 C 66 18 117/72 95 Room Air Laboratory Results CBC, chemistry, lipase reviewed Diagnostic Findings MRCP reviewed PG Care Time/CCT Total # of Minutes Spent Total Time Spent with Patient: Total time spent is greater than 50% in coordination of care (as documented) at patient's floor/unit and/or counseling patient: Coding Level of Care Code 30861 SUB INP/OBS CARE 3/50MIN Diagnoses Acute cholecystitis K81.0 Pancreatitis K85.90 Hyperlipidemia E78.5 Depression F32.9 Anxiety F41.9 Chronic interstitial cystitis N30.10 Hx of supraventricular tachycardia Z86.[address] scan R93.89
--- NOTE | 2023-05-11 15:36 | Surgery Progress Note ---
Date of Service May 11, 2023 Assessment & Plan (1) Pancreatitis: Plan: Patient here with abdominal pain + nausea, initial CT scan could not rule out acute kieran and RUQ US read as normal gallbladder Today's labs show WBC 6.5, LFTs within normal limits, elevated Lipase of 3042 with concerns for pancreatitis She has increased epigastric pain since yesterday after trialing a diet HIDA obtained yesterday and showed concern for distal CBD obstruction. MRCP o btained after showing multiple gallstones and concern for acute pancreatitis Appreciate GI's review of case, No plans for EUS/ERCP at this time given normal LFTs We will allow pt to recover from her pancreatitis, if labs and symptoms improved may consider diet advancement tomorrow and f/u in the office with dr. leela aleman in short order for elective outpt cholecystectomy vs if the patient requ ires hospitalization through the wknd we could consider adding her on for lap kieran next week (2) Abdominal pain: Admission and Anticipated Discharge Date Admission Date: May 11, 2023 Supervising Physician Co-Signing Physician Notes This case was discussed with the surgical PA. May consider lap kieran once lipase trending down Subjective Patient with epigastric abdominal pain and nausea. symptoms worsened after eating yesterday Physical Exam Physical Exam: awake/alert, no distress Gastrointestinal (Abdomen): Percussion/Palpation: + abdomen tender (ttp in epigastric and across upper abdomen ) and abdomen soft Results & Data Vital Signs (Past 12 Hours) Vital Signs Temp Pulse Resp BP Pulse Ox O2 Del Method 05/11/23 15:12 98.4 F 71 18 145/77 H 99 Room Air 05/11/23 06:46 98.6 F 66 18 117/72 95 Room Air PG Care Time/CCT Total # of Minutes Spent Total Time Spent with Patient: Total time spent is greater than 50% in coordination of care (as documented) at patient's floor/unit and/or counseling patient: Coding Level of Care Code 13427 SUB INP/OBS CARE 04/06MIN Diagnoses Pancreatitis K85.90 Right upper quadrant abdominal pain R10.11 Abdominal location: right upper quadrant (2) Abdominal pain Abdominal location: right upper quadrant Qualified Code(s): R10.11 - Right upper quadrant pain
[2023-05-12 07:34] LABS: Basophils # (auto) 0.02 K/uL (0.00-0.20); Basophils % (auto) 0.3 %; Eosinophils # (auto) 0.09 K/uL (0.00-0.50); Eosinophils % (auto) 1.3 %; Hematocrit (blood only) 36.2 % (37.0-47.0); Hemoglobin 12.3 g/dl (12.0-16.0); Immature Granulocytes # (auto) 0.02 K/uL (0.01-0.20); Immature Granulocytes % (auto) 0.3 %; Lymphocytes # (auto) 1.06 K/uL (1.20-3.40); Lymphocytes % (auto) 15.2 %; Mean Corpuscular Hemoglobin 32.1 pg (25.0-34.0); Mean Corpuscular Volume 94.5 fL (80.0-100.0); Monocytes % (auto) 7.2 %; Neutrophils # (auto) 5.29 K/uL (1.40-6.50); Neutrophils % (auto) 75.7 %; Platelet Count 194 K/uL (130-400); RDW Coefficient of Variation 11.9 % (11.5-14.5); Red Blood Count 3.83 M/uL (4.20-5.40); White Blood Count 6.98 K/ul (4.8-10.8)
[2023-05-12 07:58] LABS: Albumin Globulin Ratio 1.5 (0.9-2); Albumin Level 3.8 gm/dl (3.4-5.0); BUN Creatinine Ratio 11.5 (10-20); Bilirubin,Total 0.5 mg/dl (0.2-1.0); Calcium 8.7 mg/dl (8.6-10.3); Creatinine Clr Calc Pharmacy 143.2 ml/min; Est GFR (African American) 126.4 ml/min; Est GFR (Non-African American) 109.1 ml/min; Globulin 2.5 gm/dl (2.5-4.0); Total Protein 6.3 gm/dl (6.0-8.3)
--- NOTE | 2023-05-12 13:51 | Hospitalist Progress Note ---
Date of Service May 12, 2023 Assessment & Plan (1) Acute cholecystitis: Plan: Acute onset of epigastric/RUQ pain radiating to the right scapula after eating a breakfast manage around 11 AM on 05/09 - Gallbladder ultrasound was negative - A/P CT revealed mildly distended gallbladder with pericholecystic stranding which raises the possibility of acute cholecystitis General surgery consulted - n/v with breakfast , recommended HIDA scan --> delayed visualization of gallbladder and common bile duct - Recommend MRCP --> multiple granular gallstones (3mm), no gallbladder wall thickening, no CBD dilation, peripancreatic edema consistent with acute pancreatitis - Considering OR today, 05/11 for lap kieran pending OR availability Gastroenterology consulted - no role for EUS/ERCP with negative MRCP - Consider cholecystectomy with IOC LFTs remain normal Continue Rocephin 2000 mg IV q24h and Metronidazole 500 mg IV q8h Pain control prn tylenol, diluadid PRN zofran (2) Pancreatitis: Plan: Lipase 39 --> 3042 --> 376 - Triglycerides 03/2023: 280 - IVF decreased for maintenance rates while NPO (3) Hyperlipidemia: Plan: Continue pravastatin (4) Depression: Plan: Continue trazodone (5) Anxiety: Plan: Continue BuSpar Hydroxyzine as needed (6) Chronic interstitial cystitis: Plan: Pyridium as needed for bladder pain (7) Hx of supraventricular tachycardia: Plan: Chronic; noted EKG NSR at 72 bpm on arrival; QTc 413 Troponin WNL Continue metoprolol (8) Abnormal finding on CT scan: Plan: Chest CT revealed 15 mm groundglass focus in the right upper lobe (recommended chest CT in 3-4 months) CT abdomen and pelvis: 3.3 cm left adnexal lesion, possible ovarian cyst, recommend outpatient pelvic ultrasound Plan Disposition: continue inpatient stay VTE PPx: SCDs (hold chemical dvt proh at this time with pending OR) Admission and Anticipated Discharge Date Admission Date: May 11, 2023 Supervising Physician Co-Signing Physician Notes Attending Attestation - Chart reviewed, care plan d/w JHOAN Nolasco. I agree w/ the renteria components of her documentation. Acute gallstone pancreatitis improved (lipase ~3000 at peak, now 376). Appreciate GI & gen surg consultations. To OR today for lap kieran. Sumanth Ochoa MD Subjective Patient resting in bed - per patient general surgery has a large case this AM and would like to take out her gallbladder but will depend on OR avability/time. Feels less distended from yesterday. pain is about the same. Passing gas, has not moved her bowels. Review of Systems Review of Systems: All systems reviewed & are unremarkable except as noted in HPI & below Physical Exam Physical Exam: General: NAD, VS as above Resp: normal respiratory effort, lungs clear to auscultation CV: RRR, no murmur, Abd: soft, nondistended. Tender RUQ quadrant, epigastric and LUQ. No rebound Extremities: Moves all extremities, Results & Data Results & Data Vital Signs (Past 12 Hours) Vital Signs Temp Pulse Pulse Resp BP Pulse Ox O2 Del Method 05/12/23 12:00 36.6 C 75 18 143/77 H 96 Room Air 05/12/23 08:24 36.7 C 67 18 147/86 H 97 Room Air Laboratory Results CBC, chemistry and lipase reviewed PG Care Time/CCT Total # of Minutes Spent Total Time Spent with Patient: Total time spent is greater than 50% in coordination of care (as documented) at patient's floor/unit and/or counseling patient: Coding Level of Care Code 41752 SUB INP/OBS CARE 2/35MIN Diagnoses Acute cholecystitis K81.0 Pancreatitis K85.90 Hyperlipidemia E78.5 Depression F32.9 Anxiety F41.9 Chronic interstitial cystitis N30.10 Hx of supraventricular tachycardia Z86.[address] scan R93.89
--- NOTE | 2023-05-12 15:20 | Surgery Progress Note ---
Date of Service May 12, 2023 Assessment & Plan (1) Acute gallstone pancreatitis: Plan: Patient's lipase significantly decreased today as well as her symptoms. Will plan for laparoscopic cholecystectomy today. The details of the procedure have been explained to her including the risks and benefits. Consent was obtained. Admission and Anticipated Discharge Date Admission Date: May 11, 2023 Subjective Patient seen and examined this am. She states she feels better with decreased abdominal discomfort. No N/V Physical Exam Constitutional: + obese and healthy appearing; not ill a ppearing, not in distress and not diaphoretic Respiratory: normal respiratory effort and + labored breathing; no respiratory distress and does not use accessory muscles Gastrointestinal (Abdomen): Percussion/Palpation: abdomen soft; abdomen nontender, no guarding and abdomen not rigid Results & Data Vital Signs (Past 12 Hours) Vital Signs Temp Pulse Pulse Resp BP Pulse Ox O2 Del Method 05/12/23 14:34 37.0 C 77 14 133/73 94 Room Air 05/12/23 14:03 37.0 C 76 17 124/75 95 Room Air 05/12/23 12:00 36.6 C 75 18 143/77 H 96 Room Air 05/12/23 08:24 36.7 C 67 18 147/86 H 97 Room Air PG Care Time/CCT Total # of Minutes Spent Total Time Spent with Patient: Total time spent is greater than 50% in coordination of care (as documented) at patient's floor/unit and/or counseling patient: Coding Level of Care Code 13869 SUB INP/OBS CARE 25MIN Diagnoses Acute gallstone pancreatitis K85.10
[2023-05-12] MEDS ORDERED: ONDANSETRON INJ 2 MG/ML 2 ML VIAL ONE (15:30)
[2023-05-12] MEDS ORDERED: PROPOFOL IV EMULSION 10 MG/ML 20 ML VIAL IV ONE (15:30)
[2023-05-12] MEDS ORDERED: DEXAMETHASONE SOD INJ 4 MG/ML VIAL ONE (15:30)
[2023-05-12] MEDS ORDERED: LIDOCAINE 2% 2 ML VIAL/AMP(20MG/ML) INFIL ONE (15:30)
[2023-05-12] MEDS ORDERED: MIDAZOLAM HCL 1 MG/ML 2ML VIAL ONE (15:30)
[2023-05-12] MEDS ORDERED: ROCURONIUM BROMIDE 10 MG/ML 5 ML VIAL IV ONE (15:30)
[2023-05-12] MEDS ORDERED: fentaNYL citrate PF 100 MCG/2 ML VIAL ONE ×2 (15:30→16:26)
[2023-05-12] MEDS ORDERED: FLUMAZENIL 0.1 MG/1 ML 10 ML VIAL IV PRN (15:45)
[2023-05-12] MEDS ORDERED: HYDROmorphone INJ 1 MG/ML SYRINGE IV PRN (15:45)
[2023-05-12] MEDS ORDERED: ePHEDrine sulfate 50 MG/ML AMP IV PRN (15:45)
[2023-05-12] MEDS ORDERED: NALOXONE HCL 0.4 MG/1 ML VIAL/CARP IV PRN (15:45)
[2023-05-12] MEDS ORDERED: ONDANSETRON INJ 2 MG/ML 2 ML VIAL IV PRN (15:45)
[2023-05-12] MEDS ORDERED: PROMETHAZINE HCL 6.25 MG in SODIUM CHLORIDE 0.9% 50 ML IV PRN (15:45)
[2023-05-12] MEDS ORDERED: fentaNYL citrate PF 100 MCG/2 ML VIAL IV PRN (15:45)
[2023-05-12] MEDS ORDERED: LABETALOL HCL IV 5 MG/ML 20ML IV PRN (15:45)
[2023-05-12] MEDS ORDERED: ATROPINE SULFATE 0.1 MG/ML 10ML SYR IV PRN (15:45)
--- NOTE | 2023-05-12 15:45 | Anesthesiology Consultation ---
Date of Service May 12, 2023 Assessment & Plan Chart Review Chart Review: Acceptable Risk for Surgery and Patient NOT seen in Pre Admission Testing Consults Requested none ASA ASA3 Proposed Anesthesia Anesthesia Type: General Risk / Benefits Reviewed With: PT / POA / Parent / Guardian, Accepts Plan and Informed Consent Obtained History Surgery Operation Date: 05/12/23 09:55 Proposed Procedures p Laparoscopic Cholecystectomy - Joshua Mckay, Height/Weight Height: 5 ft Weight: 112.945 kg Allergies Allergy/AdvReac Type Severity Reaction Status Date / Time Iodinated Contrast Media Allergy Severe CHEST Verified 05/09/23 17:44 PAIN, SHORTNESS OF BREATH atorvastatin AdvReac Intermediate leg Verified 05/09/23 17:44 swelling lisinopril AdvReac Intermediate Cough Verified 05/09/23 17:44 Medications Home Medications Medication Instructions Recorded Confirmed Last Taken albuterol sulfate 90 mcg/actuation 2 puff inhalation Q6H PRN 06/16/21 05/09/23 09/04/22 22:00 aerosol inhaler shortness of breath or wheezing #18 grams phenazopyridine 100 mg tablet 100 mg PO DIRECTED PRN BLADDER 01/17/22 05/09/23 01/17/22 (Pyridium) PAIN fluticasone furoate 200 1 inh inhalation QAM 03/09/22 05/09/23 05/09/23 mcg-vilanterol 25 mcg/dose inhalation powder (Breo Ellipta) trazodone 50 mg tablet 50 mg PO HS #90 tabs 09/19/22 05/09/23 05/08/23 benzonatate 200 mg capsule 200 mg PO BID PRN cough #60 caps 12/07/22 05/09/23 Unknown nystatin 100,000 unit/mL oral 5 ml PO QID PRN NEEDED Thrush 12/21/22 05/09/23 Unknown suspension #480 mL hydroxyzine pamoate 25 mg capsule 25 mg PO Q8H PRN anxiety #60 caps 03/14/23 05/09/23 Unknown (Vistaril) pravastatin 40 mg tablet 40 mg PO HS #90 tabs 04/03/23 05/09/23 05/08/23 buspirone 5 mg tablet 5 mg PO BID #60 tabs 04/14/23 05/09/23 05/09/23 metoprolol succinate 50 mg 50 mg PO HS #90 tabs 04/14/23 05/09/23 05/08/23 tablet,extended release 24 hr phentermine 37.5 mg capsule 37.5 mg PO DAILY #30 caps 04/28/23 05/09/23 05/09/23 diclofenac sodium 75 mg 75 mg PO BID PRN Pain 05/09/23 05/09/23 Unknown tablet,delayed release iron,carbonyl 65 mg-vitamin C 125 1 tab PO .EVERY OTHER DAY 05/09/23 05/09/23 05/08/23 mg tablet,delayed release (Vitron-C) Active Medications Generic Name Dose Route Start Last Admin Trade Name Freq PRN Reason Stop Dose Admin Buspirone HCl 5 mg 05/09/23 21:00 05/12/23 08:18 Buspirone 5 Mg Tab PO 06/08/23 20:59 5 mg BID ELIUD Administration Fluticasone/Vilanterol 1 puffs 05/10/23 09:00 05/12/23 08:19 Fluticasone/Vilanterol 200/25mcg 14 Puffs/Inhaler INH 06/09/23 08:59 Not Given QAM ELIUD Hydromorphone HCl 1 mg 05/09/23 21:00 05/12/23 13:05 Hydromorphone Inj 1 Mg/Ml Syringe IV 05/23/23 20:59 1 mg Q2H PRN Administration Severe Pain (7,8,9,10) on NRS Metronidazole 500 mg in 100 mls @ 100 mls/hr 05/10/23 04:00 05/12/23 13:03 Flagyl IV 05/20/23 03:59 Infused Q8H ELIUD Infusion Protocol Ceftriaxone Sodium 2,000 mg/ 50 mls @ 100 mls/hr 05/09/23 20:00 05/11/23 21:19 Dextrose IV 05/19/23 19:59 Infused Q24H ELIUD Infusion Protocol Lactated Ringer's 1,000 mls @ 100 mls/hr 05/11/23 08:45 05/12/23 11:15 Lr IV 06/10/23 08:44 150 mls/hr .Q10H ELIUD Administration Metoprolol Succinate 50 mg 05/09/23 21:00 05/11/23 20:57 Metoprolol Succ 50mg Ext Rel Tab PO 06/08/23 20:59 50 mg HS ELIUD Administration Ondansetron HCl 4 mg 05/09/23 21:00 05/12/23 08:30 Ondansetron Inj 2 Mg/Ml 2 Ml Vial IV 06/08/23 20:59 4 mg Q6H PRN Administration Nausea Pravastatin Sodium 40 mg 05/09/23 21:00 05/11/23 20:49 Pravastatin Sod 40 Mg Tab PO 06/08/23 20:59 40 mg HS ELIUD Administration Trazodone HCl 50 mg 05/09/23 21:00 05/11/23 20:48 Trazodone Hcl 50 Mg Tab PO 06/08/23 20:59 50 mg HS ELIUD Administration NPO Date Last Intake of Fluids: 05/12/23 Time Last Intake of Fluids: 08:00 Date Last Intake of Solids: 05/09/23 Time Last Intake of Solids: 11:00 Past Medical History Medical History Menorrhagia DEXTER (iron deficiency anemia) DEXTER in the setting of GI blood loss with concurrent anemia of chronic disease/inflammation History of chronic cough since COVID PNA 07/2020 Hx of migraines Hx of supraventricular tachycardia hx of; controlled w/metoprolol; f/u with PCP (no mention in recent PCP notes over past 1 year) Premature ventricular contraction remote hx of per pt History of COVID-[address] [facility] covid pneumonia; currently has chronic cough, brain fog, chronic fatigue, memory loss; maintains f/u with PCP Hemorrhoids Anxiety Vitamin D deficiency HTN (hypertension) Hyperlipidemia no meds at present; PCP monitoring History of hydronephrosis none currently Depression Chronic interstitial cystitis Morbid obesity Kidney stones hx Exercise / Class Metabolic Activity II 4-5 Yardwork/Stairs/Walk up hill Past Family History Family History Father No problems noted. Mother Hypertension Migraine Aunt Breast cancer maternal Uncle Colorectal cancer maternal Grandfather (Paternal) Myocardial infarction Other No pertinent family history Denies family history of Ovarian cancer Prostate cancer Past Surgical History Surgical History History of hysterectomy S/P hemorrhoidectomy (05/04/22) 05/04/22 [facility]; [place]: LMA #4 iGel wihtout issue History of colonoscopy Hx of lithotripsy (03/2018) History of tonsillectomy and adenoidectomy History of laparoscopy History of cystoscopy x MULTIPLE Status post breast reduction Past Anesthesia History No Hx of Anesthesia Complications and No Family Hx of Anesthesia Complications History of PONV No Hx of PONV and No Hx of Motion Sickness Social History Smoking Status: Never smoker Do You Dip or Chew Tobacco: No Hx Alcohol Use: No Hx Substance Use: No substance use type: does not use Physical Exam Vital Signs Last Vital Signs Temp 37.0 C 05/12/23 14:34 Pulse 77 05/12/23 14:34 Resp 14 05/12/23 14:34 BP 133/73 05/12/23 14:34 Pulse Ox 94 05/12/23 14:34 O2 Del Method Room Air 05/12/23 14:34 Constitutional + morbidly obese; no acute distress ENMT Mouth: no dentition abnormality Thyromental Distance: < 3.5 Finger Breadths Mallampati Class: II Neck normal visual inspection and trachea midline; neck extension not limited Respiratory normal respiratory effort Auscultation: lungs clear to auscultation bilaterally and + diminished lung sounds Cardiovascular Rate/Rhythm: regular rate and regular rhythm Heart Sounds: no murmur Vessels: no carotid bruit Musculoskeletal Spine: normal cervical ROM and no pain with cervical ROM Extremities: extremities normal to inspection; full ROM of extremities Neurologic moves all extremities Motor/Sensory: no sensory deficit Psychiatric Orientation: alert and oriented x 3 Testing Laboratory Results 05/12/23 07:09 05/12/23 07:09 Urine Color Yellow 05/09/23 15:16 Urine Appearance Clear (Clear) 05/09/23 15:16 Urine pH 8.0 (4.5-7.5) H 05/09/23 15:16 Ur Specific [place] 1.009 (1.000-1.030) 05/09/23 15:16 Urine Protein Negative (Negative) 05/09/23 15:16 Urine Glucose (UA) Negative (Negative) 05/09/23 15:16 Urine Ketones 1+ (Negative) H 05/09/23 15:16 Urine Nitrite Negative (Negative) 05/09/23 15:16 Ur Leukocyte Esterase Negative (Negative) 05/09/23 15:16 Electrocardiogram Date: 06/07/23 Findings: + NSR @ (@ 72;low voltage QRS) Echocardiogram Date: 08/20/21 EF: 60% LV Function: normal RWMA: + none Other Findings: + diastolic dysfunction (grade 1) Valvular Disease: + no significant valvular disease
[2023-05-12] MEDS: ceFAZolin 2000MG 2,000 MG/15 ML SYR IV ONE (15:53)
[2023-05-12] MEDS ORDERED: diphenhydrAMINE 50 MG/ML VIAL ONE (16:39)
[2023-05-12] MEDS ORDERED: SUGAMMADEX SODIUM 200 MG/2 ML VIAL IV ONE (16:43)
[2023-05-12] MEDS ORDERED: KETOROLAC 30 MG/ML VIAL ONE (16:44)
[2023-05-12] MEDS: BUPIVACAINE/EPINEPHRINE 0.5% MPF 1:200,000 30 ML VIAL ONE (16:53)
--- NOTE | 2023-05-12 17:04 | Operative Report ---
PG Post Operative Report Pre & Post Diagnosis Operation Date: 05/12/23 09:55 Pre-Op Diagnosis: Acute Cholecystitis Post-Op Diagnosis: Acute Cholecystitis I identified the patient and participated in the time-out.: Yes Procedure Operation Date: 05/12/23 09:55 Actual Procedures p Laparoscopic Cholecystectomy(Not Applicable) - Joshua Mckay DO Surgeon Joshua Mckay DO [employer] JHOAN Thacker Estimated Blood Loss 5 Findings Consistent with Post-Op Diagnosis Specimens Gallbladder Drains None Anesthesia Type General Complications None Indications gallstone pancreatitis Description of Procedure The patient was brought back to the operating room and placed on the operating room table in supine position. She was connected to cardiac and oxygen monitoring. SCDs were applied to bilateral lower extremities. The patient was administered general anesthesia and a secure airway was established. The abdomen was prepped and draped in typical sterile fashion and a timeout was conducted. Local anesthetic was injected into the skin and subcutaneous tissues just above the umbilicus and a small stab incision was made with an 11 blade. The fascia was elevated with a towel clamp and a Veress needle was used to gain access to the intra-abdominal space. CO2 insufflation was initiated and pneumoperitoneum was established local pressure 15 mmHg. A 5 mm trocar was inserted using direct visualization with a 5 mm laparoscope and Visiport. Local anesthetic was then injected at the epigastric area and an incision was made with an 11 blade. A 11 mm trocar was inserted under direct visualization. 2 additional right subcostal 5 mm trocars were inserted under direct visualization using the same method. The patient was placed in reverse Trendelenburg and left side down. The gallbladder was identified at the right upper quadrant beneath the liver. The fundus was grasped with a grasper and elevated superiorly. The gallbladder was tense and grabbing it with the grasper did cause compromise to the gallbladder wall which spilled bile. Bile was suctioned away and suctioned from within the gallbladder to completely collapse it. Omental adhesions to the gallbladder were taken down using blunt and cautery dissection to expose the infundibulum. Once the infundibulum was exposed this was grasped with a grasper and retracted inferiorly and laterally. The cystic triangle was carefully dissected using alternating cautery and blunt dissection with the [place]. Once the cystic duct and artery were exposed, each structure was ligated using 2 5 mm clips proximally and 1 distally. The structure was then transected using endoscopic florian. The gallbladder was then cauterized away from the liver bed. Bleeding at the cystic plate along the way it was controlled with cautery. Once the gallbladder was completely dissected away from the liver bed it was placed in an Endo Catch bag and removed. The gallbladder sent to pathology for further analysis. The right upper quadrant was copiously irrigated and suctioned dry. The right paracolic gutter was inspected for fluid. Any excess fluid was suctioned away. Hemostasis was checked this again multiple times and there was no bleeding. At this point the instruments were all removed and pneumoperitoneum was evacuated. The trocars were finally removed. The epigastric incision was closed at the level of the fascia using 0 Vicryl suture. Additional local anesthetic was injected at each incision site the dermis was approximated using 4-0 Vicryl suture and each incision and the incisions were all skin sealed with Dermabond. Once the Dermabond was dry, the patient was fitted with abdominal binder for additional support. The patient was awakened from anesthesia, the secure airway was removed and she was transferred to recovery in stable condition. I attest to the content of the Intraoperative Record and any orders documented therein. Any exceptions are noted below.
--- NOTE | 2023-05-12 17:38 | Anesthesiology Progress Note ---
Date of Service May 12, 2023 Anesthesia Post Procedure Vital Signs Vital Signs: Temp Pulse Pulse Resp BP Pulse Ox O2 Del Method 05/12/23 17:30 90 17 147/71 H 92 Oxymask 05/12/23 17:20 98 H 19 138/90 96 Oxymask 05/12/23 17:14 36.3 C L 96 H 14 154/80 H 92 Oxymask 05/12/23 14:34 37.0 C 77 14 133/73 94 Room Air 05/12/23 14:03 37.0 C 76 17 124/75 95 Room Air 05/12/23 12:00 36.6 C 75 18 143/77 H 96 Room Air 05/12/23 08:24 36.7 C 67 18 147/86 H 97 Room Air 05/11/23 22:12 37.1 C 77 16 140/81 95 Room Air O2 Flow Rate 05/12/23 17:30 4 05/12/23 17:20 6 05/12/23 17:14 6 05/12/23 14:34 05/12/23 14:03 05/12/23 12:00 05/12/23 08:24 05/11/23 22:12 Pain Intensity Right Abdomen: Pain Intensity: 3 Transfer of Care Handoff Completed per policy Notes Mental Status: alert / awake / arousable Patient Amnestic to Procedure: Yes Nausea / Vomiting: adequately controlled Pain: adequately controlled Airway Patency, RR, SpO2: stable & adequate BP & HR: stable & adequate Hydration State: stable & adequate Anesthetic Complications: no major complications apparent
[2023-05-12] MEDS ORDERED: oxyCODONE HCL IR 5 MG TAB (IMMEDIATE RELEASE) PO PRN (18:03)
[2023-05-12] MEDS: LORazepam 0.5 MG TAB PO STA (20:12)
[2023-05-12] MEDS: oxyCODONE HCL IR 5 MG TAB (IMMEDIATE RELEASE) PO PRN (22:04)
[2023-05-13 06:40] LABS: Basophils # (auto) 0.02 K/uL (0.00-0.20); Basophils % (auto) 0.3 %; Hematocrit (blood only) 36.4 % (37.0-47.0); Hemoglobin 12.8 g/dl (12.0-16.0); Immature Granulocytes # (auto) 0.02 K/uL (0.01-0.20); Immature Granulocytes % (auto) 0.3 %; Lymphocytes # (auto) 0.77 K/uL (1.20-3.40); Mean Corpuscular Hemoglobin 32.6 pg (25.0-34.0); Mean Corpuscular Hgb Conc 35.2 g/dL (32.0-36.0); Mean Corpuscular Volume 92.6 fL (80.0-100.0); Mean Platelet Volume 10.3 fL (9.4-12.4); Monocytes # (auto) 0.38 K/uL (0.11-0.59); Monocytes % (auto) 4.9 %; Neutrophils # (auto) 6.51 K/uL (1.40-6.50); Neutrophils % (auto) 84.5 %; Platelet Count 192 K/uL (130-400); RDW Coefficient of Variation 11.7 % (11.5-14.5); RDW Standard Deviation 39.7 fL (36.4-46.3); Red Blood Count 3.93 M/uL (4.20-5.40)
[2023-05-13 07:04] LABS: Albumin Globulin Ratio 1.4 (0.9-2); Albumin Level 3.9 gm/dl (3.4-5.0); BUN Creatinine Ratio 11.8 (10-20); Bilirubin,Total 0.4 mg/dl (0.2-1.0); Calcium 8.9 mg/dl (8.6-10.3); Est GFR (African American) 127.2 ml/min; Est GFR (Non-African American) 109.8 ml/min; Globulin 2.7 gm/dl (2.5-4.0); Potassium 4.6 mmol/L (3.5-5.1); Total Protein 6.6 gm/dl (6.0-8.3)
--- NOTE | 2023-05-13 09:24 | Surgery Progress Note ---
Date of Service May 13, 2023 Assessment & Plan (1) Acute gallstone pancreatitis: Plan: doing well regular diet discharge today if medically cleared will sign off f/u dr ledezma 2 weeks Admission and Anticipated Discharge Date Admission Date: May 11, 2023 Subjective pain controlled taking po well regular diet Review of Systems Constitutional: no fever and no chills Gastrointestinal: + abdominal pain; no nausea, no vomiting and no change in bowel habits Genitourinary: no dysuria Physical Exam Gastrointestinal (Abdomen): Inspection/Auscultation: abdomen normal to inspection, normal bowel sounds and + abdominal surgical incision; abdomen not distended Percussion/Palpation: + abdomen tender and abdomen soft; no guarding and abdomen not rigid Results & Data Vital Signs (Past 12 Hours) Vital Signs Temp Pulse Resp BP Pulse Ox O2 Del Method 05/13/23 07:53 36.7 C 56 L 16 135/76 96 Room Air
--- NOTE | 2023-05-13 13:27 | Discharge Summary ---
Discharge Summary Date of Service May 13, 2023 Notes For Next Care Provider Gallbladder removed 05/[address] Mckay, after acute cholecystitis. Had acute pancreatitis that resolved on discharge. Pain control and low fat diet at discharge. Incidental finding on CT scans that need followed up on - lung spot and adnexal lesion. Medication Changes From Visit Augmentin 875mg BID x 7 days Admission HPI Per Admitting Provider Courtney is a 52yo female with PMH of... Patient developed sudden onset of epigastric pain around 11 AM after eating breakfast sandwich from [employer]. Patient notes she has been on a keto-like diet since mid March and has not been eating this type of food in a while. Sudden epigastric pain felt like heartburn to her, then it radiated under her right ribs into her right upper scapula. She notes that the pain has been constant, sharp, and she rates it at 10/10 at its worst. She did not take any pain medication before coming in. She notes that she took all of her regular morning medications. No prior history of gallbladder issues. Surgeries include hysterectomy in August 2022; no history of appendectomy. She reports that she been having ongoing fevers on and off due to her chronic cystitis. Patient denies smoking, tobacco use, and recent alcohol use. Patient is mildly hypertensive at 148/77 at time of admission; vitals otherwise stable. ED Course: Morphine 4 mg + 6 mg IV Hydromorphone 1.5 mg IV NSS 500 mL IV Pepcid 20 mg IV Zofran 4 mg IV Protonix 40 mg IV ROS: Patient endorses intermittent fevers secondary to cystitis, dry cough (chronic after covid in 2019), pleuritic CP, chest palpitations (with PVCs), epigastric pain, nausea, explosive diarrhea x1 episode yesterday, burning with urination (chronic), blood in urine (chronic), Patient denies chills, nightsweats, dizziness, lightheadedness, pain/pressure in L arm or jaw, headaches, blood in stool, or numbness/tingling in arms or legs. Principal Dx & Hospital Course #1 = Principal Diagnosis (1) Acute cholecystitis: Acute onset of epigastric/RUQ pain radiating to the right scapula after eating a breakfast manage around 11 AM on 05/09 - Gallbladder ultrasound was negative - A/P CT revealed mildly distended gallbladder with pericholecystic stranding wh ich raises the possibility of acute cholecystitis General surgery consulted - n/v with breakfast , recommended HIDA scan --> delayed visualization of gallbladder and common bile duct - Recommend MRCP --> multiple granular gallstones (3mm), no gallbladder wall thickening, no CBD dilation, peripancreatic edema consistent with acute pancreatitis - S/p lap kieran with Dr. Mckay on 05/11 Gastroenterology consulted - no role for EUS/ERCP with negative MRCP - Consider cholecystectomy with IOC LFTs remain normal Recieved Rocephin 2000 mg IV q24h and Metronidazole 500 mg IV q8h while inpatient --> discharged with augmentin 875mg BID x7 Tolerating regular diet day of discharge. Pain well controlled. (2) Pancreatitis: Lipase 39 --> 3042 --> 376 --> 49 - Triglycerides 03/2023: 280 Resolved (3) Hyperlipidemia: Continue pravastatin (4) Depression: Continue trazodone (5) Anxiety: Continue BuSpar Hydroxyzine as needed (6) Chronic interstitial cystitis: Pyridium as needed for bladder pain (7) Hx of supraventricular tachycardia: Chronic; noted EKG NSR at 72 bpm on arrival; QTc 413 Troponin WNL Continue metoprolol (8) Abnormal finding on CT scan: Chest CT revealed 15 mm groundglass focus in the right upper lobe (recommended chest CT in 3-4 months) CT abdomen and pelvis: 3.3 cm left adnexal lesion, possible ovarian cyst, recommend outpatient pelvic ultrasound (9) Morbid obesity with BMI of 45.0-49.9, adult: BMI 48.6 Plan Disposition: discharge to home Discharge Exam General: NAD, VS as above Resp: normal respiratory effort, lungs clear to auscultation CV: RRR, no murmur, Abd: soft, nondistended. tenderness improved. No rebound Extremities: Moves all extremities, Updated Medication List Medication Instructions Recorded Confirmed Type albuterol sulfate 90 mcg/actuation 2 puff inhalation Q6H PRN 06/16/21 05/09/23 Rx aerosol inhaler shortness of breath or wheezing #18 grams phenazopyridine 100 mg tablet 100 mg PO DIRECTED PRN BLADDER 01/17/22 0 05/09/23 History (Pyridium) PAIN fluticasone furoate 200 1 inh inhalation QAM 12/28/22 02/27/24 History mcg-vilanterol 25 mcg/dose inhalation powder (Breo Ellipta) trazodone 50 mg tablet 50 mg PO HS #90 tabs 09/19/22 05/09/23 Rx benzonatate 200 mg capsule 200 mg PO BID PRN cough #60 caps 12/07/22 05/09/23 Rx nystatin 100,000 unit/mL oral 5 ml PO QID PRN NEEDED Thrush 12/21/22 05/09/23 Rx suspension #480 mL hydroxyzine pamoate 25 mg capsule 25 mg PO Q8H PRN anxiety #60 caps 03/14/23 05/09/23 Rx (Vistaril) pravastatin 40 mg tablet 40 mg PO HS #90 tabs 04/03/23 05/09/23 Rx buspirone 5 mg tablet 5 mg PO BID #60 tabs 04/14/23 05/09/23 Rx metoprolol succinate 50 mg 50 mg PO HS #90 tabs 04/14/23 05/09/23 Rx tablet,extended release 24 hr phentermine 37.5 mg capsule 37.5 mg PO DAILY #30 caps 04/28/23 05/09/23 Rx diclofenac sodium 75 mg 75 mg PO BID PRN Pain 05/09/23 05/09/23 History tablet,delayed release iron,carbonyl 65 mg-vitamin C 125 1 tab PO .EVERY OTHER DAY 05/09/23 05/09/23 History mg tablet,delayed release (Vitron-C) oxycodone 5 mg tablet 5 - 10 mg (1 - 2 x 5 mg) PO 05/12/23 Rx .[id number] PRN pain, for initial therapy, max 6 tabs per day #15 tabs acetaminophen 500 mg tablet 1,000 mg (2 x 500 mg) PO Q8H PRN 05/13/23 Rx (Tylenol Extra Strength) pain #30 tabs amoxicillin 875 mg-potassium 1 tab PO BID 7 days #14 tabs 05/13/23 Rx clavulanate 125 mg tablet Hospital Stay Data Consultations 05/09/23 17:14 Consult General Surgery Routine 05/09/23 19:43 ED Decision to Admit Stat 05/10/23 19:50 Consult Gastroenterology Routine Procedures Performed Operation Date: 05/12/23 09:55 Actual Procedures p Laparoscopic Cholecystectomy(Not Applicable) - Joshua Mckay DO Diagnostic Imagining Performed Gallbladder Ultrasound 05/09/23 13:21 US gallbladder CLINICAL HISTORY: Right upper quadrant abdominal pain. COMPARISON STUDY: CT of the abdomen and pelvis January 17, 2022. FINDINGS: Hepatic echogenicity is increased. There are no hepatic lesions. Hypoechoic foci within the gallbladder fossa favor fatty sparing. There is no biliary ductal dilatation. The gallbladder is normal. There are no gallstones. Internal echoes within the gallbladder are likely artifactual. No sonographic Rucker sign was elicited. Pancreatic body is normal. Head and tail are partially obscured. There is no right hydronephrosis. IMPRESSION: 1. No gallstones or biliary ductal dilatation. 2. Hepatic steatosis. 3. Partially obscured pancreas. ACT 112: Negative or not required by law. Electronically signed by: Alpesh Noel M.D. 05/09/2023 3:24 PM Abdomen/Pelvis CT 05/09/23 15:29 CT OF THE ABDOMEN AND PELVIS WITHOUT CONTRAST CLINICAL HISTORY: Right flank pain. COMPARISON STUDY: CT of the abdomen and pelvis January 17, 2022. Right upper quadrant ultrasound performed earlier today. Pelvic ultrasound July 18, 2022. TECHNIQUE: Axial images of the abdomen and pelvis were obtained without IV contrast. Images were reviewed in the axial, sagittal, and coronal planes. Au tomated exposure control was utilized for the study. A dose lowering technique was utilized adhering to the principles of ALARA. FINDINGS: Please note that the chest CT will be reported separately. No pneumatosis, free air or portal venous gas is present. There are no renal, ureteral or bladder calculi. There is hepatic steatosis. Unenhanced images of the spleen, adrenal glands and pancreas are unremarkable. There is no biliary or pancreatic ductal dilatation. The gallbladder is mildly distended. There is mild pericholecystic stranding. No radiopaque stones are identified. The appendix is normal. There is no evidence for a bowel obstruction. There is no lymphadenopathy. Low attenuation left adnexal lesion measures approximately 3.3 cm. No acute fractures are identified within visualized skeletal structures. IMPRESSION: 1. Mildly distended gallbladder with mild pericholecystic stranding. Despite negative ultrasound, the findings raise the possibility of acute cholecystitis. Nuclear medicine hepatobiliary scan could be obtained for further evaluation. 2. No urinary calculi or hydronephrosis. 3. Normal appendix. No bowel obstruction. 4. Low-attenuation left adnexal lesion. This may reflect an ovarian cyst however follow-up nonemergent pelvic ultrasound is recommended. ACT 112: Negative or not required by law. Electronically signed by: Alpesh Noel M.D. 05/09/2023 4:[address] 05/09/23 15:35 CT SCAN OF THE CHEST WITHOUT IV CONTRAST CLINICAL HISTORY: Atypical chest pain. Epigastric abdominal pain. COMPARISON STUDY: Chest CT dated 07/02/2021. Chest x-ray dated 08/09/2021. TECHNIQUE: CT scan of the thorax was performed from the thoracic inlet to the upper abdomen. Images are reviewed in the axial, sagittal, and coronal planes. IV contrast was not administered for this examination as per the referring clinician. A dose lowering technique was utilized adhering to the principles of ALARA. FINDINGS: Thyroid: Imaged portions of the thyroid gland are normal in size and attenuation. Thoracic aorta: There is minimal atherosclerotic calcification of the thoracic aorta, which is normal in caliber and demonstrates standard 3-vessel arch anatomy. Heart: The heart is normal in size and without pericardial effusion. Lungs and pleural spaces: There is no lobar consolidation or pleural effusion. The trachea and central airways are clear. A 15 mm groundglass focus in the right upper lobe on image #93. Minimal groundglass opacities are also seen in the left upper lobe and lingula. There is a 3 mm left basilar pulmonary nodule on image #144. This is unchanged from 2022. Scattered calcified granulomas are observed. Mediastinum: There is no mediastinal lymphadenopathy. Velia: Not well assessed without IV contrast. Axillae: There is no axillary lymphadenopathy. Upper abdomen: The liver appears steatotic. The liver is top normal in size measuring 13.1 cm in length. Skeletal structures: No lytic or blastic bony lesions are seen. IMPRESSION: 1. There is a 15 mm groundglass focus in the right upper lobe, as well as minimal groundglass opacities seen in the left upper lobe and lingula. These findings likely represent atelectasis versus a mild infectious/inflammatory process. A follow-up chest CT is recommended in 3-4 months time to document resolution. 2. There is no lobar consolidation or pleural effusion. 3. No lymphadenopathy is seen. 4. Hepatic steatosis. 5. Additional findings as above. ACT 112: Negative or not required by law. Electronically signed by: William Rudolph M.D. 05/09/2023 4:19 PM Hepatobiliary Scan Nuclear Medicine 05/10/23 15:00 NUCLEAR MEDICINE HEPATOBILIARY SCAN HISTORY: Right flank pain. cholecystitis COMPARISON: Abdomen and pelvis CT 05/09/2023 TECHNIQUE: Immediately following the intravenous administration of 4.8 mCi Tc- 99m Choletec, dynamic anterior abdominal imaging was performed. FINDINGS: Uniform hepatic tracer accumulation is shown. Prompt intrahepatic biliary excretion is seen. The gallbladder, common bile duct, and small bowel were not visualized during the initial 60 minutes of imaging. Therefore, additional imaging of the 4 hour time interval was obtained. The gallbladder common bile duct are visualized at the 90 minute time interval. The small bowel was not visualized throughout the 4 hours of imaging. IMPRESSION: 1. Delayed visualization of the gallbladder and common bile duct. Of note, the small bowel was not identified during the 4 hours of imaging. Therefore, these findings are concerning for distal common bile duct obstruction. A chronic cholecystitis also remains in the differential diagnosis. 2. Follow-up ERCP recommended for further evaluation. ACT 112: Negative or not required by law. Electronically signed by: Percy Starkey M.D. 05/10/2023 7:10 PM Cholangiopancreatography MRI 05/10/23 21:25 Exam(s): MRI MRCP EXAM: MR Abdomen Without Intravenous Contrast, MRCP Protocol CLINICAL HISTORY: bile duct obstruction. TECHNIQUE: Multiplanar magnetic resonance images of the abdomen without intravenous contrast using MRCP protocol. COMPARISON: Hepatobiliary examination performed at 1404 hrs.; CT abdomen and pelvis without contrast 05/09/2023 FINDINGS: Bile ducts: The common bile duct is upper normal limits, measuring 6.3 mm. There is a normal tapering of the distal common bile duct near the ampulla. No choledocholithiasis noted. Gallbladder: Multiple granular gallstones are noted along the posterior aspect of the gallbladder measuring up to 3 mm in diameter. No gallbladder wall thickening. Liver: No intrahepatic biliary dilatation. Trace perihepatic fluid noted laterally. Pancreas: Peripancreatic edema and fluid appears to be new from the previous CT examination. No pancreatic ductal dilation or loculated pseudocysts. Spleen: Unremarkable. No splenomegaly. Adrenals: Unremarkable. No mass. Kidneys and ureters: Unremarkable. No hydronephrosis. Stomach and bowel: Unremarkable. No obstruction. IMPRESSION: 1. Multiple granular gallstones are noted along the posterior aspect of the gallbladder measuring up to 3 mm in diameter. No gallbladder wall thickening. 2. The common bile duct is upper normal limits, measuring 6.3 mm. No intrahepatic biliary dilatation. There is a normal tapering of the distal common bile duct near the ampulla. No choledocholithiasis noted. If there is concern for developing an ampullary stricture, recommend endoscopic manometric evaluation, as clinically indicated. 3. Peripancreatic edema and fluid appears to be new from the previous CT examination. No pancreatic ductal dilation or loculated pseudocysts. Findings are most consistent with acute pancreatitis. Electronically signed by: Maurizio Fernández MD 05/11/23 00:43 AM Pending Results Patient Have Any Pending Studies at Discharge: Yes Discharge Instructions Given to Patient (Per Discharging Provider) Ms. Huber, Mendoza were hospitalized with abdominal pain that was found to be related to your gallbladder. This also caused acute pancreatitis which has resolved at time of discharge. We treated your gallbladder with surgical removal with Dr. Sourav Garcia on 05/11. Pain control per surgery recommendations below. Given the appearance of your gallbladder during surgery, will treat with one more week of antibiotics - Augmentin has been sent to your pharmacy. Recommend that you continue a low fat diet for 1-2 weeks. Information for that is attached below. Follow up with surgery in 2 weeks. Keep appointment with PCP. As part of your workup with performed CT scans that had incidental finds of the left adnexal lesion, possible cyst and a small focus on your Chest CT. Both of these findings will require follow up, that your PCP will help organize. CONTACT YOUR PRIMARY CARE PROVIDER or Surgeon if you experience any of the following: Shortness of breath or difficulty breathing Fevers or chills Feeling tired with normal activity or experiencing dizziness or fainting Difficulty following your treatment plan, or difficulty taking medications CALL 911 OR GO TO THE EMERGENCY DEPARTMENT if you experience any of the following: Severe abdominal pain or nausea/vomiting Severe chest pain, or chest pain that radiates (moves) to your jaw or arm Sudden, severe shortness of breath or difficulty breathing Thank you for allowing us to participate in your care. Total Time Total Time Spent Total Time Spent (In Minutes): Time spend day of discharge 35 minutes including direct patient care, medication reconciliation, documentation, review of labs and images, and coordination of care. Supervising Physician Co-Signing Physician Notes Attending Attestation and Discharge Note: Pt seen/examined, chart reviewed, discharge care plan d/w JHOAN Nolasco. I agree w/ the renteria components of her discharge documentation. 52yo female who presented with severe upper abdominal pain after eating at [employer] on the day of admission. She underwent a large work-up including CT a/p which showed gall bladder dist ended and pericholecystic fluid. She was started on IV antibiotics, IV fluids, etc. Seen by general surgery, additional testing advised including HIDA scan. HIDA scan was abnormal and this was followed up with MRCP. MRCP identified gallstones as well as findings concerning for acute pancreatitis. Indeed her lipase had climbed from 39 to 3000 in just 48 hours. Acute pancreatitis was likely due to gallstones. She received ongoing supportive care as well as IV antibiotic therapy. On 05/12/23 she underwent laparoscopic cholecystectomy by Dr Mckay. During the operation there was some spillage of bile from the gall bladder. Post-op she did well. She was tolerating a normal diet, had had a bowel movement, and pain was relatively controlled. She will complete a course of PO antibiotics upon transition home. Discharge exam: gen - obese, NAD, pleasant eyes - nonicteric mouth - MMM heart - RRR, s1 s2, no murmur lungs - CTA b/l abd - mildly distended, BS+, abdominal wall incisions are clean and without cellulitis/drainage, no HSM; mild incisional tenderness only ext - no edema, pulses 2+ b/l Of note - she will need f/u for the ovarian cyst seen on CT a/p. She will also need a repeat CT chest due to a groundglass opacity seen in the RUL. Advise repeat imaging in 3-4 months. Sumanth Ochoa MD Coding Level of Care Code 33885 INP/OBS DISCH >30 MIN Diagnoses Acute cholecystitis K81.0 Pancreatitis K85.90 Hyperlipidemia E78.5 Depression F32.9 Anxiety F41.9 Chronic interstitial cystitis N30.10 Hx of supraventricular tachycardia Z86.[address] scan R93.89 Morbid obesity with BMI of 45.0-49.9, adult E66.01; Z68.42
== END 2023-05-13 15:30 | disposition home or self-care (01) ==
LOC: ED 12:39 → 3E 12:39 → SUATTDRO 17:21 → 3E 20:45

== ENCOUNTER 2024-07-02 00:07 | Inpatient (IN) ==
[2024-07-02] MEDS: SODIUM CHLORIDE 0.9% 1,000 ML IV ONE (00:36)
[2024-07-02] MEDS: HYDROmorphone INJ 0.5 MG/0.5 ML SYR IV STA ×3 (00:36→08:02)
[2024-07-02] MEDS: ONDANSETRON INJ 2 MG/ML 2 ML VIAL IV STA (00:37)
[2024-07-02] MEDS: ACETAMINOPHEN 1,000 MG/100 ML VIAL IV STA (00:37)
[2024-07-02 00:59] LABS: Basophils # (auto) 0.05 K/uL (0.00-0.20); Basophils % (auto) 0.7 %; Eosinophils % (auto) 1.5 %; Hematocrit (blood only) 41.5 % (37.0-47.0); Hemoglobin 13.9 g/dl (12.0-16.0); Immature Granulocytes # (auto) 0.02 K/uL (0.01-0.20); Immature Granulocytes % (auto) 0.3 %; Lymphocytes # (auto) 2.79 K/uL (1.20-3.40); Lymphocytes % (auto) 40.6 %; Mean Corpuscular Hemoglobin 30.6 pg (25.0-34.0); Mean Corpuscular Hgb Conc 33.5 g/dL (32.0-36.0); Mean Corpuscular Volume 91.4 fL (80.0-100.0); Mean Platelet Volume 9.7 fL (9.4-12.4); Monocytes # (auto) 0.53 K/uL (0.11-0.59); Monocytes % (auto) 7.7 %; Neutrophils # (auto) 3.39 K/uL (1.40-6.50); Neutrophils % (auto) 49.2 %; Platelet Count 261 K/uL (130-400); RDW Coefficient of Variation 12.8 % (11.5-14.5); RDW Standard Deviation 42.2 fL (36.4-46.3); Red Blood Count 4.54 M/uL (4.20-5.40); White Blood Count 6.88 K/ul (4.8-10.8)
[2024-07-02 01:02] LABS: Albumin Globulin Ratio 1.5 (0.9-2); Albumin Level 4.5 gm/dl (3.4-5.0); BUN Creatinine Ratio 16.8 (10-20); Bilirubin,Total 0.3 mg/dl (0.2-1.0); Calcium 9.8 mg/dl (8.6-10.3); Creatinine Clr Calc Pharmacy 66.2 ml/min; Magnesium 1.8 mg/dl (1.7-2.4); Potassium 3.3 mmol/L (3.5-5.1); Total Protein 7.5 gm/dl (6.0-8.3)
[2024-07-02] MEDS: HYDROmorphone INJ 1 MG/ML SYRINGE IV STA (01:09)
--- NOTE | 2024-07-02 01:09 | Emergency Department Note ---
Impression & Plan Acute right flank pain, Hematuria, Ureterolithiasis ED Provider Note ED Provider Note NAME: VEGA MANDUJANO AGE:53 SEX: Female : 1970 ARRIVES VIA: Private vehicle INFORMANT: Patient ED PROVIDER(s): Lupis Camejo DO CHIEF COMPLAINT: Acute right flank pain HPI: This is a 53-year-old female who presents emergency department due to acute right flank pain. Patient has had dull intermittent pain ever since undergoing lithotripsy on June 14. Patient has a long history of kidney stones, has had recurrent UTIs and does have interstitial cystitis. No stent was placed. Patient states she has not noticed any passage of sediment or particles of stone and has been straining her urine since the procedure. She states tonight pain became acutely worse in the right flank and radiates into the right low back and down into the right groin. She states she has been nauseated on arrival did vomit. She denies fevers or chills. She has still been taking Flomax and Pyridium for her symptoms. She states tonight those did not provide any additional relief. She did take Tylenol at home. She did contact urology recently due to waxing and waning duller right flank pain and states a prescription for pain medication was called in. She states no other recent trauma or change in activity. No other recent illness. No other change in medications. PAST MEDICAL HISTORY:See Below PAST SURGICAL HISTORY:See Below FAMILY HISTORY:See Below SOCIAL HISTORY:See Below HOME MEDICATIONS:See Below ALLERGIES:See Below VITALS:See Below PHYSICAL EXAMINATION: GENERAL: alert, uncomfortable appearing, well nourished, no distress, non-toxic, holding emesis bag EYE EXAM: normal conjunctiva, PERRL and EOM's grossly intact OROPHARYNX: no exudate, no erythema, lips, buccal mucosa, and tongue normal and mucous membranes are dry NECK: supple, no nuchal rigidity, no adenopathy, non-tender LUNGS: Clear to auscultation. Normal chest wall mechanics, no w/r/r HEART: no murmurs, S1 normal and S2 normal ABDOMEN: abdomen soft, non-tender, normo-active bowel sounds, no masses, no rebound or guarding. BACK: Back is symmetrical on inspection and there is no deformity, no midline tenderness, no CVA tenderness. SKIN: no rashes, petechiae, orbruising UPPER EXTREMITIES: upper extremities are grossly normal. FROM, nml pulses b/l. LOWER EXTREMITIES: No pitting edema. FROM, nml pulses b/l. NEURO EXAM: Normal sensorium, cranial nerves II-XII grossly intact, normal speech, no facial droop,nogross weakness of arms, no gross weakness of legs. Gross sensation intact. No ataxia. Vital Signs: reviewed and remarkable Differential Diagnosis: pyelonephritis/UTI, renal colic, appendicitis, interstitial cystitis, diverticulitis, aortic pathology, infections, inflammatory bowel disease, bowel obstruction, PUD, biliary pathology, as well as others were entertained. MEDICAL DECISION MAKING: This is a 53-year-old female who presents emergency department with concern for acute onset worsening right flank pain with accompanying nausea and vomiting on presentation. Patient afebrile and hemodynamically stable. Labs drawn and sent, IV established, EKG and x-ray performed at bedside interpreted by me and patient monitored on telemetry. Patient started on IV fluids and given IV Tylenol, IV Dilaudid, and IV Zofran initially. She had persistent pain and so additional doses of Dilaudid were added. Following result of patient's labs, IV Toradol was added additionally. Patient continued to complain of 8/10 pain so she was given low-dose ketamine additionally been sent for renal ultrasound. Patient noted to have right distal ureteral stone as well as hydroureteronephrosis. Due to concern for persistent pain despite multiple medications, obvious ureteral stone and recent lithotripsy by urology, case discussed with the hospitalist for additional evaluation and management. No evidence for MARISA or UTI. Patient verbalized understanding of all results and was in agreement with the plan. Consultation(s): 0450: Discussed with Dr. Case, [place] hospitalist team, for additional evaluation and mgmt. ER Treatment Provided: See below 0430: Updated patient on results. Patient still having 5/10 pain after Tylenol, Toradol, multiple doses of Dilaudid, and low-dose ketamine. Diagnostics Interpreted By Me: -ECG: Normal sinus at 71, normal axis, normal intervals, no acute ST/T wave changes, low voltage noted -Cardiac Monitoring: An order was placed for continuous cardiac monitoring. The monitor shows a rate of 66 with normal sinus rhythm. -Laboratory studies: As stated above and show below. -Imaging studies: KUB: no sob, no obvious stone Triage Nursing Note Reviewed Prior/Outside Records Reviewed -prior urology visit this month reviewed Past Med/Surg History Problem List (Updated 07/02/24 @ 06:41 by Lupis Camejo DO) Ureterolithiasis (Acute) Hydronephrosis Hematuria (Acute) Acute right flank pain (Acute) Chronic interstitial cystitis (Chronic) Incontinence (Chronic) Frequent UTI (Chronic) Abnormal finding on CT scan DEXTER (iron deficiency anemia) DEXTER in the setting of GI blood loss with concurrent anemia of chronic disease/inflammation Hemorrhoids Chronic cough Hypersomnia Allergic rhinitis with postnasal drip Asthmatic bronchitis Asthma Pulmonary nodule Vitamin D deficiency Kidney stones (Chronic) HTN (hypertension) (Chronic) Morbid obesity Medical History Hx of supraventricular tachycardia last episode approx > controlled with metoprolol HTN (hypertension) Asthma well controlled Menorrhagia History of chronic cough slowly resolving Hx of migraines Premature ventricular contraction remote hx of per pt > no cards History of COVID-19 hospitalized 07/2020 [facility] covid pneumonia Anxiety Hyperlipidemia no meds at present; PCP monitoring History of hydronephrosis none currently Depression Chronic interstitial cystitis Kidney stones hx and at present Surgical History History of dilatation and curettage Hx laparoscopic cholecystectomy (05/16/23) Laparoscopic Cholecystectomy(Not Applicable) - Joshua Mckay DO History of hysterectomy S/P hemorrhoidectomy (05/04/22) 05/04/22 [facility]; [place]: LMA #[facility] issue History of colonoscopy Hx of lithotripsy (03/2018) History of tonsillectomy and adenoidectomy History of laparoscopy History of cystoscopy Status post breast reduction Family History Father No problems noted. Mother Hypertension Migraine Aunt Breast cancer maternal Uncle Colorectal cancer maternal Grandfather (Paternal) Myocardial infarction Other No pertinent family history Denies family history of Ovarian cancer Prostate cancer Social History Smoking Status: Never smoker Second Hand Exposure: No; Do You Dip or Chew Tobacco: No; Hx Alcohol Use: No Hx Substance Use: No Preferred Language: Tajik Communication Ability: Effective Visual Impairment: Partially Limited Librarian School Required: No Beliefs That Will Affect Care: None marital status: Single Current Living Situation: Family Current Living Situation Comment: has been w/ bf over >30 years current occupational status: employed current occupation: [employer] How many Children do You have: 1 Feels Safe at Home: Yes Childhood Exposure to Second-Hand Smoke: No Diet: low carbohydrate Diet Comment: low carb diet caffeine: Yes (1 glass of tea a day ) during the past year weight has: decreased > 10 lbs Dental Care, Regularly: Yes Physical Activity Frequency: Does not Exercise Seatbelt Use: always Sunscreen Use: Yes Assistive Devices: Glasses Allergies Allergies Allergy/AdvReac Type Severity Reaction Status Date / Time Iodinated Contrast Media Allergy Severe CHEST Verified 06/14/24 09:02 PAIN, SHORTNESS OF BREATH atorvastatin AdvReac Intermediate leg Verified 06/14/24 09:02 swelling lisinopril AdvReac Intermediate Cough Verified 06/14/24 09:02 Home Meds Home Medications Medication Instructions Recorded Confirmed metoprolol succinate 50 mg 25 mg PO HS 06/06/24 06/15/24 tablet,extended release 24 hr montelukast 10 mg tablet 10 mg PO DAILY PRN Congestion 06/06/24 06/15/24 tiotropium bromide 1.25 2 inh inhalation QAM 06/06/24 06/15/24 mcg/actuation mist for inhalation (Spiriva Respimat) Previous Rx's Medication Instructions Recorded buspirone 5 mg tablet 5 mg PO BID #60 tabs 10/30/23 Breo Ellipta 200 mcg-25 mcg/dose 1 inh inhalation QAM #60 ea 12/27/23 powder for inhalation (fluticasone furoate-vilanterol) albuterol sulfate 90 mcg/actuation 2 puff inhalation Q6H PRN 12/27/23 aerosol inhaler shortness of breath or wheezing #18 grams trazodone 50 mg tablet 50 mg PO HS #90 tabs 02/19/24 diclofenac sodium 75 mg 75 mg PO BID PRN Pain #60 tabs 05/20/24 tablet,delayed release phenazopyridine 200 mg tablet 200 mg PO Q8H PRN pain #10 tabs 04/04/25 (Pyridium) hydroxyzine pamoate 25 mg capsule 25 mg PO Q8H PRN anxiety #90 caps 06/17/24 (Vistaril) tamsulosin 0.4 mg capsule 0.4 mg PO HS #30 caps 06/18/24 oxycodone-acetaminophen 5 mg-325 1 tab PO Q8H PRN pain #7 tabs 07/01/24 mg tablet (Percocet) Results & Data (ED) Vital Signs Vital Signs - 24 hr 07/02/24 00:10 07/02/24 01:00 07/02/24 01:12 Temperature 36.6 C Temperature Source Oral Pulse Rate 73 71 68 Pulse Rate [Apical] Pulse Rate from SpO2 Sensor 71 Respiratory Rate 18 18 Respiratory Effort / Characteristics Non-Labored Spontaneous Respiratory Depth Normal Respiratory Pattern Regular Blood Pressure 174/80 H 144/81 H Blood Pressure [Right Arm] Blood Pressure Mean 111 102 Blood Pressure Mean [Right Arm] Blood Pressure Position Sitting Pulse Oximetry 100 100 Oxygen Delivery Method Room Air Oxygen Flow Rate Sepsis Recent Fever Within 48 Hours No Sepsis New/Unexplained Change in Mental Status N/A Sepsis Action Taken by Nursing No Action Required 07/02/24 01:31 07/02/24 01:58 07/02/24 02:01 Temperature Temperature Source Pulse Rate 69 66 Pulse Rate [Apical] Pulse Rate from SpO2 Sensor Respiratory Rate 22 19 Respiratory Effort / Characteristics Respiratory Depth Respiratory Pattern Blood Pressure 170/104 H 169/117 H Blood Pressure [Right Arm] Blood Pressure Mean 117 133 Blood Pressure Mean [Right Arm] Blood Pressure Position Pulse Oximetry 100 97 100 Oxygen Delivery Method Nasal Cannula Oxygen Flow Rate 2 Sepsis Recent Fever Within 48 Hours Sepsis New/Unexplained Change in Mental Status Sepsis Action Taken by Nursing 07/02/24 03:00 07/02/24 04:13 07/02/24 04:30 Temperature Temperature Source Pulse Rate 74 72 Pulse Rate [Apical] 77 Pulse Rate from SpO2 Sensor 74 Respiratory Rate 20 20 Respiratory Effort / Characteristics Non-Labored Spontaneous Respiratory Depth Normal Respiratory Pattern Blood Pressure 138/73 134/77 Blood Pressure [Right Arm] 125/75 Blood Pressure Mean 94 86 Blood Pressure Mean [Right Arm] 91 Blood Pressure Position Pulse Oximetry 94 99 99 Oxygen Delivery Method Nasal Cannula Oxygen Flow Rate 2 Sepsis Recent Fever Within 48 Hours Sepsis New/Unexplained Change in Mental Status Sepsis Action Taken by Nursing 07/02/24 05:01 07/02/24 05:30 07/02/24 05:33 Temperature Temperature Source Pulse Rate 73 66 63 Pulse Rate [Apical] Pulse Rate from SpO2 Sensor Respiratory Rate 19 17 Respiratory Effort / Characteristics Respiratory Depth Respiratory Pattern Blood Pressure 133/79 126/80 Blood Pressure [Right Arm] Blood Pressure Mean 82 97 Blood Pressure Mean [Right Arm] Blood Pressure Position Pulse Oximetry 100 100 Oxygen Delivery Method Oxygen Flow Rate Sepsis Recent Fever Within 48 Hours Sepsis New/Unexplained Change in Mental Status Sepsis Action Taken by Nursing 07/02/24 06:00 07/02/24 06:00 07/02/24 06:00 Temperature Temperature Source Pulse Rate 64 Pulse Rate [Apical] Pulse Rate from SpO2 Sensor 64 Respiratory Rate 14 Respiratory Effort / Characteristics Respiratory Depth Respiratory Pattern Blood Pressure 126/75 126/75 126/75 Blood Pressure [Right Arm] Blood Pressure Mean 92 98 98 Blood Pressure Mean [Right Arm] Blood Pressure Position Pulse Oximetry 97 Oxygen Delivery Method Oxygen Flow Rate Sepsis Recent Fever Within 48 Hours Sepsis New/Unexplained Change in Mental Status Sepsis Action Taken by Nursing Laboratory Data 07/02/24 00:26 07/02/24 00:26 Lab Results 07/02/24 07/02/24 07/02/24 Range/Units 00:01 00:20 00:26 WBC 6.88 (4.8-10.8) K/ul RBC 4.54 (4.20-5.40) M/uL Hgb 13.9 (12.0-16.0) g/dl Hct 41.5 (37.0-47.0) % MCV 91.4 (80.0-100.0) fL MCH 30.6 (25.0-34.0) pg MCHC 33.5 (32.0-36.0) g/dL RDW Std Deviation 42.2 (36.4-46.3) fL RDW Coeff of [place] 12.8 (11.5-14.5) % Plt Count 261 (130-400) K/uL MPV 9.7 (9.4-12.4) fL Immature Gran % (Auto) 0.3 % Neut % (Auto) 49.2 % Lymph % (Auto) 40.6 % [place] % (Auto) 7.7 % Eos % (Auto) 1.5 % Baso % (Auto) 0.7 % Neut # (Auto) 3.39 (1.40-6.50) K/uL Lymph # (Auto) 2.79 (1.20-3.40) K/uL [place] # (Auto) 0.53 (0.11-0.59) K/uL Eos # (Auto) 0.10 (0.00-0.50) K/uL Baso # (Auto) 0.05 (0.00-0.20) K/uL Immature Gran # (Auto) 0.02 (0.01-0.20) K/uL PT 10.5 (9.0-12.0) Seconds INR 1.0 (0.9-1.1) APTT 31 (21-31) Seconds PTT Ratio 1.2 Sodium 140 (136-145) mmol/L Potassium 3.3 L (3.5-5.1) mmol/L Chloride 106 (98-107) mmol/L Carbon Dioxide 28 (21-32) mmol/L Anion Gap 6 (3-11) BUN 16 (6-23) mg/dl Creatinine 0.95 (0.6-1.2) mg/dl Est Cr Clr Drug Dosing 66.2 ml/min eGFR 71.20 BUN/Creatinine Ratio 16.8 (10-20) Glucose 84 (70-99(Fasting)) mg/dl Calcium 9.8 (8.6-10.3) mg/dl Magnesium 1.8 (1.7-2.4) mg/dl Total Bilirubin 0.3 (0.2-1.0) mg/dl AST 17 (13-39) U/L ALT 15 (7-52) U/L Alkaline Phosphatase 84 (34-104) U/L Total Protein 7.5 (6.0-8.3) gm/dl Albumin 4.5 (3.4-5.0) gm/dl Globulin 3.0 (2.5-4.0) gm/dl Albumin/Globulin Ratio 1.5 (0.9-2) Lipase 32 (11-82) U/L Urine Color Red Urine Appearance Turbid A (Clear) Urine pH 5.5 (4.5-7.5) Ur Specific [place] >= 1.030 (1.000-1.030) Urine Protein 3+ H (Negative) Urine Glucose (UA) Negative (Negative) Urine Ketones Negative (Negative) Urine Blood 3+ H (Negative) Urine Nitrite Negative (Negative) Urine Bilirubin Negative (Negative) Urine Urobilinogen Negative (Negative) Ur Leukocyte Esterase Negative (Negative) Urine RBC >20 H (0-2) /hpf Urine WBC 6-10 H (0-5) /hpf Ur Epithelial Cells 6-10 H (0-2) /hpf Calcium Oxalate Crystal Present A (None Prsent) Urine Bacteria None Seen (None Seen) Urine Mucus Present A (None Prsent) Administered Medications Discontinued Medications Hydromorphone HCl (Hydromorphone Inj 0.5 Mg/0.5 Ml Syr) 0.5 mg IV NOW STA Stop: 07/02/24 00:26 Last Admin: 07/02/24 00:36 Dose: 0.5 mg Documented By: MILLIE Hydromorphone HCl (Hydromorphone Inj 0.5 Mg/0.5 Ml Syr) 0.5 mg IV NOW STA Stop: 07/02/24 00:51 Last Admin: 07/02/24 00:53 Dose: 0.5 mg Documented By: MILLIE Hydromorphone HCl (Hydromorphone Inj 1 Mg/Ml Syringe) 1 mg IV NOW STA Stop: 07/02/24 01:06 Last Admin: 07/02/24 01:09 Dose: 1 mg Documented By: MILLIE Acetaminophen (Ofirmev) 1,000 mg in 100 mls @ 400 mls/hr IV NOW STA Stop: 07/02/24 00:39 Last Infusion: 07/02/24 01:02 Dose: Infused Documented By: Admin: 07/02/24 00:37 Dose: 400 mls/hr Documented By: MILLIE Sodium Chloride (Nss) 1,000 mls @ 999 mls/hr IV .Q1H1M ONE Stop: 07/02/24 01:25 Last Infusion: 07/02/24 01:52 Dose: Infused Documented By: Admin: 07/02/24 00:36 Dose: 999 mls/hr Documented By: MILLIE Ketamine HCl (Ketamine Hcl 10mg/Ml Syr) 8 mg IV NOW STA Stop: 07/02/24 02:04 Last Admin: 07/02/24 02:33 Dose: 8 mg Documented By: RENEE Ketorolac Tromethamine (Ketorolac Tromethamine 15 Mg/Ml Vial) 10 mg IV NOW ONE Stop: 07/02/24 01:24 Last Admin: 07/02/24 01:37 Dose: 10 mg Documented By: MILLIE Lorazepam (Lorazepam 2 Mg/1 Ml Vial) 0.25 mg IV NOW STA Stop: 07/02/24 02:04 Last Admin: 07/02/24 02:34 Dose: 0.25 mg Documented By: MILLIE Ondansetron HCl (Ondansetron Inj 2 Mg/Ml 2 Ml Vial) 4 mg IV NOW STA Stop: 07/02/24 00:26 Last Admin: 07/02/24 00:37 Dose: 4 mg Documented By: MILLIE Ondansetron HCl (Ondansetron Inj 2 Mg/Ml 2 Ml Vial) Confirm Administered Dose 4 mg .ROUTE .STK-MED ONE Stop: 07/02/24 02:43 Last Admin: 07/02/24 02:45 Dose: 4 mg Documented By: MILLIE Potassium Chloride (Potassium Chloride Crtab 20 Meq Tabcr) 20 meq PO NOW STA Stop: 07/02/24 05:09 Last Admin: 07/02/24 05:22 Dose: 20 meq Documented By: MILLIE Imaging Data Radiologist's Impression: KUB X-Ray 07/02/24 02:02 EXAM: XR KUB/Abdomen 1 view CLINICAL HISTORY: right flank pain, hx stones TECHNIQUE: Radiograph of kub was acquired. COMPARISON: none FINDINGS: Non-obstructive, non-specific bowel gas pattern. No significant air fluid levels. No obvious radio opacity overlying kidneys. Surgical clips seen in right upper abdomen- likely post cholecystectomy changes. Multiple radio-opaque oval shadows seen in pelvis. No obvious organomegaly. Bony shadows appear unremarkable. IMPRESSION: 1. Multiple radio-opaque oval shadows seen in pelvis. Likely Pelvic phleboliths. However distal ureter/vesical calculi cannot be ruled out. Advised clinical correlation and ultrasound correlation. Electronically signed by Richard Scott 07-02-2024 04:37 AM Renal Ultrasound 07/02/24 02:02 EXAM: US renal/blad retro comp CLINICAL HISTORY: right flank pain, hx stones. PRIOR 05/20/2024 TECHNIQUE: Static ultrasound images with Grayscale and Doppler of the upper abdomen were submitted for review. COMPARISON: 05/20/2024 FINDINGS: The right kidney measures 11.5 x 6.33 x 5.7cm and is normal in size and echogenicity without evidence of nephrolithiasis or focal mass lesions. Evidence of 6.2mm calculus noted in distal ureter with upstream dilatation of ureter and pelvicalyceal system. The renal calculus seen in prior study is not seen in current study. The left kidney measures 10.2 x 6.14 x 4.18cm and is normal in size and echogenicity without evidence of hydronephrosis, nephrolithiasis or focal mass lesions. An 6 x 5.6 x 5mm anechoic cyst noted in upper pole. Urinary bladder is unremarkable. IMPRESSION: 1. Obstructive right distal ureteric calculus with mild to moderate right hydroureteronephrosis. 2. Left cortical renal cyst. Electronically signed by Richard Scott 07-02-2024 04:24 AM Discharge Plan Visit Data Chief Complaint: Kidney Stone Stated Complaint: KIDNEY STONE PAIN ED Provider: Lupis Camejo Discharge Problem: Acute right flank pain, Hematuria, Ureterolithiasis Forms Stand Alone Forms: [employer] Prescriptions Prescriptions: No Action buspirone 5 mg tablet 5 mg PO BID Qty: 60 5RF trazodone 50 mg tablet 50 mg PO HS Qty: 90 1RF diclofenac sodium 75 mg tablet,delayed release (DR/EC) 75 mg PO BID PRN (Reason: Pain) Qty: 60 1RF hydroxyzine pamoate [Vistaril] 25 mg capsule 25 mg PO Q8H PRN (Reason: anxiety) Qty: 90 2RF tamsulosin 0.4 mg capsule 0.4 mg PO HS Qty: 30 0RF oxycodone-acetaminophen [Percocet] 5-325 mg tablet 1 tab PO Q8H PRN (Reason: pain) Qty: 7 0RF fluticasone furoate-vilanterol [Breo Ellipta] 200-25 mcg/dose blister with device 1 inh inhalation QAM Qty: 60 12RF albuterol sulfate 90 mcg/actuation HFA aerosol inhaler 2 puff inhalation Q6H PRN (Reason: shortness of breath or wheezing) Qty: 18 3RF metoprolol succinate 50 mg tablet extended release 24 hr 25 mg PO HS montelukast 10 mg tablet 10 mg PO DAILY PRN (Reason: Congestion) Spiriva Respimat 1.25 mcg/actuation mist 2 inh inhalation QAM phenazopyridine [Pyridium] 200 mg tablet 200 mg PO Q8H PRN (Reason: pain) Qty: 10 0RF Referrals Referrals: Maurizio Rdz CRNP [Primary Care Provider] -
[2024-07-02 01:15] LABS: Appearance Urine Turbid (Clear); Bilirubin Urine Negative (Negative); Blood Urine 3+ (Negative); Color Urine Red; Glucose Urine UA Negative (Negative); Ketones Urine Negative (Negative); Leukocyte Esterase Urine Negative (Negative); Nitrite Urine Negative (Negative); Protein Urine 3+ (Negative); Specific Gravity Urine >= 1.030 (1.000-1.030); Urobilinogen Urine Negative (Negative); pH Urine 5.5 (4.5-7.5)
[2024-07-02 01:24] LABS: RBC Urine >20 /hpf (0-2)
[2024-07-02 01:25] LABS: Bacteria Urine None Seen (None Seen); Calcium Oxalate Crystals Urine Present (None Prsent); Mucus Urine Present (None Prsent)
[2024-07-02] MEDS: KETOROLAC TROMETHAMINE 15 MG/ML VIAL IV ONE (01:37)
[2024-07-02] MEDS: KETAMINE HCL 10MG/ML SYR IV STA (02:33)
[2024-07-02] MEDS: LORazepam 2 MG/1 ML VIAL IV STA (02:34)
[2024-07-02] MEDS: ONDANSETRON INJ 2 MG/ML 2 ML VIAL ONE (02:45)
--- NOTE | 2024-07-02 04:25 | Ultrasound Report ---
EXAM: US renal/blad retro comp CLINICAL HISTORY: right flank pain, hx stones. PRIOR 05/20/2024 TECHNIQUE: Static ultrasound images with Grayscale and Doppler of the upper abdomen were submitted for review. COMPARISON: 05/20/2024 FINDINGS: The right kidney measures 11.5 x 6.33 x 5.7cm and is normal in size and echogenicity without evidence of nephrolithiasis or focal mass lesions. Evidence of 6.2mm calculus noted in distal ureter with upstream dilatation of ureter and pelvicalyceal system. The renal calculus seen in prior study is not seen in current study. The left kidney measures 10.2 x 6.14 x 4.18cm and is normal in size and echogenicity without evidence of hydronephrosis, nephrolithiasis or focal mass lesions. An 6 x 5.6 x 5mm anechoic cyst noted in upper pole. Urinary bladder is unremarkable. IMPRESSION: 1. Obstructive right distal ureteric calculus with mild to moderate right hydroureteronephrosis. 2. Left cortical renal cyst. Electronically signed by Richard Scott 07-02-2024 04:24 AM
--- NOTE | 2024-07-02 04:37 | XRay Report ---
EXAM: XR KUB/Abdomen 1 view CLINICAL HISTORY: right flank pain, hx stones TECHNIQUE: Radiograph of kub was acquired. COMPARISON: none FINDINGS: Non-obstructive, non-specific bowel gas pattern. No significant air fluid levels. No obvious radio opacity overlying kidneys. Surgical clips seen in right upper abdomen- likely post cholecystectomy changes. Multiple radio-opaque oval shadows seen in pelvis. No obvious organomegaly. Bony shadows appear unremarkable. IMPRESSION: 1. Multiple radio-opaque oval shadows seen in pelvis. Likely Pelvic phleboliths. However distal ureter/vesical calculi cannot be ruled out. Advised clinical correlation and ultrasound correlation. Electronically signed by Richard Scott 07-02-2024 04:37 AM
--- NOTE | 2024-07-02 05:14 | Urology Consultation ---
Date of Consultation July 02, 2024 Assessment & Plan (1) Kidney stones: The patient is being admitted on the hospitalist service. From urologic perspective we recommend the following: Provide analgesics Provide antiemetics Follow serial labs Provide IV fluid for hydration Patient takes Flomax as an outpatient which should be used for expulsive therapy Keep patient n.p.o. for the present time. She will be evaluated by her dayshift team on 07/02/2024 to determine if cystoscopic intervention will be required At the present time the patient is nontoxic-appearing (normotensive without tachycardia or fever. She does not have leukocytosis or acute kidney injury) Additional recommendations were forthcoming based on her clinical course as unfolds History of Present Illness Reason for Consultation: Nephrolithiasis History of Present Illness This is a 53-year-old female well-known to [facility] physician group urology. Patient has a history of kidney stones and on 06/14/2024 she underwent extracorporeal shockwave lithotripsy by Dr. Pyle secondary to an 8 mm kidney stone in the right kidney identified on ultrasound on 05/20/2024. Patient notes that since her lithotripsy she has had ongoing right-sided flank pain but she felt that this was merely postprocedural but got worse in a significant fashion yesterday evening. Patient does report some nausea and vomiting but denies any fevers, shakes, or chills. She denies any dysuria urinary frequency but notes that she is having hematuria. The patient does add that since her lithotripsy she has not passed any sediment or kidney stone fragments in her urine. Since arrival to the emergency department today she has had labs and imaging which independent reviewed. KUB showed multiple radiopaque shadows in the pelvis. This was followed up with a renal ultrasound and patient was noted to have an obstructive distal right ureteral calculus with moderate right-sided hydronephrosis. Labs include a CBC where white blood cell count, hemoglobin, hematocrit, and platelet count were normal. Chemistry profile showed sodium is 140 with a normal potassium. BUN and creatinine were both normal. The urinalysis showed 6-10 white blood cells per high-power field but was otherwise not indicative of infection. At the time of my interview she was resting comfortably in bed and she was no distress.[id number] Allergies Allergy/AdvReac Type Severity Reaction Status Date / Time Iodinated Contrast Media Allergy Severe CHEST Verified 06/14/24 09:02 PAIN, SHORTNESS OF BREATH atorvastatin AdvReac Intermediate leg Verified 06/14/24 09:02 swelling lisinopril AdvReac Intermediate Cough Verified 06/14/24 09:02 Home Medications Medication Instructions Recorded Confirmed Type buspirone 5 mg tablet 5 mg PO BID #60 tabs 10/30/23 06/15/24 Rx Breo Ellipta 200 mcg-25 mcg/dose 1 inh inhalation QAM #60 ea 12/27/23 06/15/24 Rx powder for inhalation (fluticasone furoate-vilanterol) albuterol sulfate 90 mcg/actuation 2 puff inhalation Q6H PRN 12/27/23 06/15/24 Rx aerosol inhaler shortness of breath or wheezing #18 grams trazodone 50 mg tablet 50 mg PO HS #90 tabs 02/19/24 06/15/24 Rx diclofenac sodium 75 mg 75 mg PO BID PRN Pain #60 tabs 05/20/24 06/15/24 Rx tablet,delayed release metoprolol succinate 50 mg 25 mg PO HS 06/06/24 06/15/24 History tablet,extended release 24 hr montelukast 10 mg tablet 10 mg PO DAILY PRN Congestion 06/06/24 06/15/24 History tiotropium bromide 1.25 2 inh inhalation QAM 06/06/24 06/15/24 History mcg/actuation mist for inhalation (Spiriva Respimat) phenazopyridine 200 mg tablet 200 mg PO Q8H PRN pain #10 tabs 06/14/24 06/15/24 Rx (Pyridium) hydroxyzine pamoate 25 mg capsule 25 mg PO Q8H PRN anxiety #90 caps 06/17/24 Rx (Vistaril) tamsulosin 0.4 mg capsule 0.4 mg PO HS #30 caps 06/18/24 Rx oxycodone-acetaminophen 5 mg-325 1 tab PO Q8H PRN pain #7 tabs 07/01/24 Rx mg tablet (Percocet) Patient History Medical History Hx of supraventricular tachycardia last episode approx > controlled with metoprolol HTN (hypertension) Asthma well controlled Menorrhagia History of chronic cough slowly resolving Hx of migraines Premature ventricular contraction remote hx of per pt > no cards History of COVID-19 hospitalized 07/2020 [facility] covid pneumonia Anxiety Hyperlipidemia no meds at present; PCP monitoring History of hydronephrosis none currently Depression Chronic interstitial cystitis Kidney stones hx and at present Surgical History History of dilatation and curettage Hx laparoscopic cholecystectomy (05/16/23) Laparoscopic Cholecystectomy(Not Applicable) - Joshua Mckay DO History of hysterectomy S/P hemorrhoidectomy (05/04/22) 05/04/22 [facility]; [place]: LMA #4 iGel wihtout issue History of colonoscopy Hx of lithotripsy (03/2018) History of tonsillectomy and adenoidectomy History of laparoscopy History of cystoscopy Status post breast reduction Family History Father No problems noted. Mother Hypertension Migraine Aunt Breast cancer maternal Uncle Colorectal cancer maternal Grandfather (Paternal) Myocardial infarction Other No pertinent family history Denies family history of Ovarian cancer Prostate cancer Social History Smoking Status: Never smoker Second Hand Exposure: No; Do You Dip or Chew Tobacco: No; Hx Alcohol Use: No Hx Substance Use: No Preferred Language: Latvian Communication Ability: Effective Visual Impairment: Partially Limited Driver Service Technician Required: No Beliefs That Will Affect Care: None marital status: Single Current Living Situation: Family Current Living Situation Comment: has been w/ bf over >30 years current occupational status: employed current occupation: [employer] How many Children do You have: 1 Feels Safe at Home: Yes Childhood Exposure to Second-Hand Smoke: No Diet: low carbohydrate Diet Comment: low carb diet caffeine: Yes (1 glass of tea a day ) during the past year weight has: decreased > 10 lbs Dental Care, Regularly: Yes Physical Activity Frequency: Does not Exercise Seatbelt Use: always Sunscreen Use: Yes Assistive Devices: Glasses Review of Systems Review of Systems: All systems reviewed & are unremarkable except as noted in HPI & below Physical Exam Constitutional: WD/WN, vitals as above Eyes: no conjunctival abnormality ENMT: Ears: no hearing impairment and no external ear abnormality Mouth: no oropharynx abnormality Neck: trachea midline Respiratory: normal respiratory effort; no respiratory distress and no labored breathing Cardiovascular: Rate/Rhythm: regular rate and regular rhythm Gastrointestinal (Abdomen): Abdomen is soft and nondistended. There is no pain with palpation Musculoskeletal: No calf tenderness Skin: no rashes Neurologic: moves all extremities Psychiatric: A+Ox3, euthymic affect Genitourinary: Slight CVA tenderness on the right side with percussion. No bruising or ecchymosis noted in the right flank. No CVA tenderness on the left. Results & Data Vital Signs (Past 12 Hours) Vital Signs Temp Pulse Pulse Resp BP BP Pulse Ox 07/02/24 05:01 73 19 133/79 100 07/02/24 04:30 77 20 125/75 99 07/02/24 04:13 72 20 134/77 99 07/02/24 03:00 74 138/73 94 07/02/24 02:01 66 19 169/117 H 100 07/02/24 01:58 97 07/02/24 01:31 69 22 170/104 H 100 07/02/24 01:12 68 07/02/24 01:00 71 18 144/81 H 100 07/02/24 00:10 36.6 C 73 18 174/80 H 100 O2 Del Method O2 Flow Rate 07/02/24 05:01 07/02/24 04:30 Nasal Cannula 2 07/02/24 04:13 07/02/24 03:00 07/02/24 02:01 07/02/24 01:58 Nasal Cannula 2 07/02/24 01:31 07/02/24 01:12 07/02/24 01:00 07/02/24 00:10 Room Air PG Care Time/CCT Total # of Minutes Spent Total Time Spent with Patient: Total time spent is greater than 50% in coordination of care (as documented) at patient's floor/unit and/or counseling patient: Coding Level of Care Code 74461 IN/OBS CONSULT LVL 5,80M Diagnoses Kidney stones N20.0
[2024-07-02] MEDS: POTASSIUM CHLORIDE CRTAB 20 MEQ TABCR PO STA (05:22)
[2024-07-02 05:27] LABS: Partial Thromboplastin Ratio 1.2; Partial Thromboplastin Time 31 Seconds (21-31); Prothrombin Time 10.5 Seconds (9.0-12.0)
--- NOTE | 2024-07-02 05:27 | History & Physical Report ---
"Date of Service July 02, 2024 Assessment & Plan (1) Hydronephrosis: (2) Kidney stones: (3) HTN (hypertension): (4) Asthma: Plan 53 y/o female with PMH of recurrent nephrolithiasis, asthma, HTN, hx of SVT that presented to the hospital with right sided flank pain and nausea. Patient underwent a lithotripsy on 06/14/2024. Patient found with an obstructive distal right ureteral calculus with moderate right sided hydronephrosis on renal ultrasound. #Nephrolithiasis | Right sided Hydronephrosis - New onset of right flank pain, and nausea. Underwent lithotripsy 06/14/2024 - Renal US: obstructive distal right ureteral calculus with moderate right-sided hydronephrosis. - Denied any dysuria, frequency or urgency - No leukocytosis, no fever, hemodynamically stable - Normal BUN and Cr, UA: RBC+, no bacteria, no nitrates - Urology consulted - Keep NPO - Zofran IV for nausea - IV Dilaudid, Toradol for pain control - Pyridium prn - Continue Flomax - CBC, BMP AM #HTN - continue home medications #Asthma: Continue home inhalers DVT prophylaxis: SCDs, hold for now due to possible stent placement Disposition: Admit to Med telemetry History of Present Illness Primary Care Provider: MICHELLE Roland 53 y/o female with PMH of recurrent nephrolithiasis, asthma, HTN that presented to the hospital with right sided flank pain. Patient found with an obstructive distal right ureteral calculus with moderate right sided hydronephrosis. Patient states pain started this afternoon. She underwent a lithotripsy on 06/14/2024. She states that pain started yesterday afternoon. She had been taking Flomax and Pyridium. She states having nausea and vomiting due to pain. She states having a long history of history of kidney stones, UTI, and interstitial cystitis. Denied any chills or fevers. Denied any dysuria, frequency or urgency. States having hematuria. Denied any passaged of sediment, or stones. Denied any chest pain, SOB, palpitations, abdominal pain, or diarrhea. Allergies Allergy/AdvReac Type Severity Reaction Status Date / Time Iodinated Contrast Media Allergy Severe CHEST Verified 06/14/24 09:02 PAIN, SHORTNESS OF BREATH atorvastatin AdvReac Intermediate leg Verified 06/14/24 09:02 swelling lisinopril AdvReac Intermediate Cough Verified 06/14/24 09:02 Home Medications Medication Instructions Recorded Confirmed Type buspirone 5 mg tablet 5 mg PO BID #60 tabs 10/30/23 06/15/24 Rx Breo Ellipta 200 mcg-25 mcg/dose 1 inh inhalation QAM #60 ea 12/27/23 06/15/24 Rx powder for inhalation (fluticasone furoate-vilanterol) albuterol sulfate 90 mcg/actuation 2 puff inhalation Q6H PRN 12/27/23 06/15/24 Rx aerosol inhaler shortness of breath or wheezing #18 grams trazodone 50 mg tablet 50 mg PO HS #90 tabs 02/19/24 06/15/24 Rx diclofenac sodium 75 mg 75 mg PO BID PRN Pain #60 tabs 05/20/24 06/15/24 Rx tablet,delayed release metoprolol succinate 50 mg 25 mg PO HS 06/06/24 06/15/24 History tablet,extended release 24 hr montelukast 10 mg tablet 10 mg PO DAILY PRN Congestion 06/06/24 06/15/24 History tiotropium bromide 1.25 2 inh inhalation QAM 06/06/24 06/15/24 History mcg/actuation mist for inhalation (Spiriva Respimat) phenazopyridine 200 mg tablet 200 mg PO Q8H PRN pain #10 tabs 06/14/24 06/15/24 Rx (Pyridium) hydroxyzine pamoate 25 mg capsule 25 mg PO Q8H PRN anxiety #90 caps 06/17/24 Rx (Vistaril) tamsulosin 0.4 mg capsule 0.4 mg PO HS #30 caps 06/18/24 Rx oxycodone-acetaminophen 5 mg-325 1 tab PO Q8H PRN pain #7 tabs 07/01/24 Rx mg tablet (Percocet) Past Med/Surg History Problem List (Updated 07/02/24 @ 06:41 by Lupis Camejo DO) Ureterolithiasis (Acute) Hydronephrosis Hematuria (Acute) Acute right flank pain (Acute) Chronic interstitial cystitis (Chronic) Incontinence (Chronic) Frequent UTI (Chronic) Abnormal finding on CT scan DEXTER (iron deficiency anemia) DEXTER in the setting of GI blood loss with concurrent anemia of chronic disease/inflammation Hemorrhoids Chronic cough Hypersomnia Allergic rhinitis with postnasal drip Asthmatic bronchitis Asthma Pulmonary nodule Vitamin D deficiency Kidney stones (Chronic) HTN (hypertension) (Chronic) Morbid obesity Medical History Hx of supraventricular tachycardia last episode approx > controlled with metoprolol HTN (hypertension) Asthma well controlled Menorrhagia History of chronic cough slowly resolving Hx of migraines Premature ventricular contraction remote hx of per pt > no cards History of COVID-19 hospitalized 07/2020 [facility] covid pneumonia Anxiety Hyperlipidemia no meds at present; PCP monitoring History of hydronephrosis none currently Depression Chronic interstitial cystitis Kidney stones hx and at present Surgical History History of dilatation and curettage Hx laparoscopic cholecystectomy (05/16/23) Laparoscopic Cholecystectomy(Not Applicable) - Joshua Mckay DO History of hysterectomy S/P hemorrhoidectomy (05/04/22) 05/04/22 [facility]; [place]: LMA #4 iGel wihtout issue History of colonoscopy Hx of lithotripsy (03/2018) History of tonsillectomy and adenoidectomy History of laparoscopy History of cystoscopy Status post breast reduction Family History Father No problems noted. Mother Hypertension Migraine Aunt Breast cancer maternal Uncle Colorectal cancer maternal Grandfather (Paternal) Myocardial infarction Other No pertinent family history Denies family history of Ovarian cancer Prostate cancer Social History Smoking Status: Never smoker Second Hand Exposure: No; Do You Dip or Chew Tobacco: No; Hx Alcohol Use: No Hx Substance Use: No Preferred Language: Turkmen Communication Ability: Effective Visual Impairment: Partially Limited Biotech Production Specialist Required: No Beliefs That Will Affect Care: None marital status: Single Current Living Situation: Family Current Living Situation Comment: has been w/ bf over >30 years current occupational status: employed current occupation: [employer] How many Children do You have: 1 Feels Safe at Home: Yes Childhood Exposure to Second-Hand Smoke: No Diet: low carbohydrate Diet Comment: low carb diet caffeine: Yes (1 glass of tea a day ) during the past year weight has: decreased > 10 lbs Dental Care, Regularly: Yes Physical Activity Frequency: Does not Exercise Seatbelt Use: always Sunscreen Use: Yes Assistive Devices: Glasses Review of Systems Review of Systems: as per HPI Physical Exam Constitutional: WD/WN, vitals as above ENMT: external ear and nose normal, oropharynx normal Respiratory: normal respiratory effort, lungs clear to auscultation Cardiovascular: RRR, no murmur, no edema Gastrointestinal (Abdomen): normal bowel sounds, soft, nontender, no hepatosplenomegaly CVA tenderness on Right sided flank Skin: no rashes, warm and dry Results & Data Results & Data Vital Signs (Past 12 Hours) Vital Signs Temp Pulse Resp BP Pulse Ox O2 Del Method O2 Flow Rate 07/02/24 04:13 72 20 134/77 99 07/02/24 03:00 74 138/73 94 07/02/24 02:01 66 19 169/117 H 100 07/02/24 01:58 97 Nasal Cannula 2 07/02/24 01:31 69 22 170/104 H 100 07/02/24 01:12 68 07/02/24 01:00 71 18 144/81 H 100 07/02/24 00:10 36.6 C 73 18 174/80 H 100 Room Air Supervising Physician Co-Signing Physician Notes I personally saw and examined the patient. I independently reviewed the labs, imaging, problem list, medication list, past medical history and family history. I verified all renteria points and agree with Ciarra Garcia PA-C with the following exceptions and/or additions: 53-year-old female presents to the ER with right flank pain. No fevers or chills. O/E HS RRR, no murmurs, Chest CTAB, Abdo mild lower right abdominal pain, right CVA tenderness A/P Ureterolithiasis with hydronephrosis - NPO, pain medications, IV fluids, consult urology Resident Activity Tracking Resident Involvement: Resident Care Provided Care Provided: Adult Hospital Medicine"
--- NOTE | 2024-07-02 06:54 | Billing Data ---
Date of Service July 02, 2024 Coding Level of Care Code 45520 INT INP/OBS CARE
[2024-07-02] MEDS ORDERED: hydrOXYzine HCl 25 MG TAB PO PRN (08:48)
--- NOTE | 2024-07-02 09:12 | Urology Progress Note ---
Date of Service July 02, 2024 Assessment & Plan (1) Ureterolithiasis: (2) Hydronephrosis: (3) Acute right flank pain: Plan: 53 yo/F who is s/p Right ESWL on 06/14/24 admitted for acute right flank pain secondary to an obstructing right distal ureteral stone. Patient remains afebrile and hemodynamically stable Discussed options for management including trial of passage if pain is controlled or surgical intervention today with cystoscopy, right ureteroscopy, possible stone treatment, and right ureteral stent placement Ureteral stents were discussed in detail She would like to proceed with surgical intervention today Proceed to OR for cystoscopy, right ureteroscopy, possible stone treatment and right ureteral stent placement Risk and benefits of procedure to be reviewed with patient by Dr. Scruggs Keep NPO for procedure Continue supportive care and medical management of her per hospital medicine service Will cover with preoperative antibiotic will follow Admission and Anticipated Discharge Date Admission Date: July 02, 2024 Subjective Patient seen and examined at bedside in ED this morning. Continues to have rig ht-sided flank pain. Denies nausea, vomiting, fever or chills at present. She is NPO. Review of Systems Constitutional: as per Subjective / HPI Genitourinary: as per Subjective / HPI Physical Exam Constitutional: well developed and well nourished; no acute distress Respiratory: normal respiratory effort; no respiratory distress and no labored breathing Gastrointestinal (Abdomen): Inspection/Auscultation: abdomen normal to inspection Musculoskeletal: Head/Neck/Chest: normocephalic Neurologic: moves all extremities and awake Psychiatric: Orientation: alert and oriented x 3 Results & Data Vital Signs (Past 12 Hours) Vital Signs Temp Pulse Pulse Resp BP BP Pulse Ox 07/02/24 08:40 65 07/02/24 07:22 71 21 123/81 100 07/02/24 06:00 126/75 07/02/24 06:00 126/75 07/02/24 06:00 64 14 126/75 97 07/02/24 05:33 63 07/02/24 05:30 66 17 126/80 100 07/02/24 05:01 73 19 133/79 100 07/02/24 04:30 77 20 125/75 99 07/02/24 04:13 72 20 134/77 99 07/02/24 03:00 74 138/73 94 07/02/24 02:01 66 19 169/117 H 100 07/02/24 01:58 97 07/02/24 01:31 69 22 170/104 H 100 07/02/24 01:12 68 07/02/24 01:00 71 18 144/81 H 100 07/02/24 00:10 36.6 C 73 18 174/80 H 100 O2 Del Method O2 Flow Rate 07/02/24 08:40 07/02/24 07:22 Room Air 07/02/24 06:00 07/02/24 06:00 07/02/24 06:00 07/02/24 05:33 07/02/24 05:30 07/02/24 05:01 07/02/24 04:30 Nasal Cannula 2 07/02/24 04:13 07/02/24 03:00 07/02/24 02:01 07/02/24 01:58 Nasal Cannula 2 07/02/24 01:31 07/02/24 01:12 07/02/24 01:00 07/02/24 00:10 Room Air PG Care Time/CCT Total # of Minutes Spent Total Time Spent with Patient: Total time spent is greater than 50% in coordination of care (as documented) at patient's floor/unit and/or counseling patient: Coding Level of Care Code None Diagnoses Ureterolithiasis N20.1 Hydronephrosis N13.30 Acute right flank pain R10.9
[2024-07-02] MEDS: LACTATED RINGER'S 1,000 ML IV SCH (09:42)
[2024-07-02] MEDS: UMECLIDINIUM BROMIDE 62.5MCG/BLISTER 7 PUFFS/INHALER INH SCH (09:49)
[2024-07-02] MEDS: FLUTICASONE/VILANTEROL 200/25MCG 14 PUFFS/INHALER INH SCH (09:49)
[2024-07-02] MEDS: busPIRone 5 MG TAB PO SCH (10:05)
[2024-07-02] MEDS ORDERED: Nursing to Pharmacy Communication SCH (10:15)
--- NOTE | 2024-07-02 10:22 | Electrocardiogram Report ---
Test Reason : Blood Pressure : */* mmHG Vent. Rate : 71 BPM Atrial Rate : 71 BPM P-R Int : 138 ms QRS Dur : 74 ms QT Int : 378 ms P-R-T Axes : 29 1 62 degrees QTcB Int : 410 ms Normal sinus rhythm Low voltage QRS Inferior infarct , age undetermined Cannot rule out Anterior infarct (cited on or before 27-Jan-2024) Abnormal ECG When compared with ECG of 27-Jan-2024 21:46, No significant change was found Confirmed by Raul Brito ([id number]) on 07/02/2024 10:22:44 AM Referred By: REFERRED SELF Confirmed By: Raul Brito
[2024-07-02] MEDS ORDERED: DEXAMETHASONE SOD INJ 4 MG/ML VIAL ONE (10:50)
[2024-07-02] MEDS ORDERED: LIDOCAINE 2% 2 ML VIAL/AMP(20MG/ML) INFIL ONE (10:50)
[2024-07-02] MEDS ORDERED: fentaNYL citrate PF 100 MCG/2 ML VIAL ONE (10:50)
[2024-07-02] MEDS ORDERED: PROPOFOL IV EMULSION 10 MG/ML 20 ML VIAL IV ONE (10:50)
[2024-07-02] MEDS ORDERED: ONDANSETRON INJ 2 MG/ML 2 ML VIAL ONE (10:50)
[2024-07-02] MEDS ORDERED: MIDAZOLAM HCL 1 MG/ML 2ML VIAL ONE (10:51)
[2024-07-02] MEDS ORDERED: GLYCOPYRROLATE 0.2 MG/ML VIAL ONE (10:51)
[2024-07-02] MEDS ORDERED: ePHEDrine sulfate 50 MG/ML AMP IV PRN (11:59)
[2024-07-02] MEDS ORDERED: ONDANSETRON INJ 2 MG/ML 2 ML VIAL IV PRN (11:59)
[2024-07-02] MEDS ORDERED: ATROPINE SULFATE 0.1 MG/ML 10ML SYR IV PRN (11:59)
--- NOTE | 2024-07-02 11:59 | Anesthesiology Consultation ---
Date of Service July 02, 2024 Assessment & Plan (1) Encounter for pre-operative examination: Chart Review Chart Review: Acceptable Risk for Surgery and Patient NOT seen in Pre Admission Testing Consults Requested none History Surgery Operation Date: 07/02/24 10:50 Proposed Procedures p Cystoscopy, Right Ureteroscopy, Stone Treatment, Right Ureteral Stent Placement - Angel Scruggs MD Height/Weight Height: 5 ft Weight: 86.6 kg Allergies Allergy/AdvReac Type Severity Reaction Status Date / Time Iodinated Contrast Media Allergy Severe CHEST Verified 07/02/24 08:12 PAIN, SHORTNESS OF BREATH atorvastatin AdvReac Intermediate leg Verified 07/02/24 08:12 swelling lisinopril AdvReac Intermediate Cough Verified 07/02/24 08:12 Medications Home Medications Medication Instructions Recorded Confirmed Last Taken Breo Ellipta 200 mcg-25 mcg/dose 1 inh inhalation QAM #60 ea 12/27/23 07/02/24 07/01/24 powder for inhalation (fluticasone furoate-vilanterol) albuterol sulfate 90 mcg/actuation 2 puff inhalation Q6H PRN 12/27/23 07/02/24 06/13/24 aerosol inhaler shortness of breath or wheezing #18 grams trazodone 50 mg tablet 50 mg PO HS #90 tabs 02/19/24 07/02/24 07/01/24 diclofenac sodium 75 mg 75 mg PO BID PRN Pain #60 tabs 05/20/24 07/02/24 07/01/24 tablet,delayed release metoprolol succinate 50 mg 25 mg PO HS 06/06/24 07/02/24 07/01/24 tablet,extended release 24 hr montelukast 10 mg tablet 10 mg PO DAILY PRN Congestion 06/06/24 07/02/24 07/01/24 tiotropium bromide 1.25 2 inh inhalation QAM 06/06/24 07/02/24 07/01/24 mcg/actuation mist for inhalation (Spiriva Respimat) phenazopyridine 200 mg tablet 200 mg PO Q8H PRN pain #10 tabs 06/14/24 07/02/24 07/01/24 (Pyridium) hydroxyzine pamoate 25 mg capsule 25 mg PO Q8H PRN anxiety #90 caps 06/17/24 07/02/24 Unknown (Vistaril) tamsulosin 0.4 mg capsule 0.4 mg PO HS #30 caps 06/18/24 07/02/24 07/01/24 oxycodone-acetaminophen 5 mg-325 1 tab PO Q8H PRN pain #7 tabs 07/01/24 07/02/24 07/01/24 mg tablet (Percocet) acetaminophen 500 mg tablet 500 mg PO Q6H PRN Pain 07/02/24 07/02/24 07/01/24 buspirone 5 mg tablet 5 mg PO HS 07/02/24 07/02/24 07/01/24 ibuprofen 400 mg tablet 400 mg PO Q6H PRN Pain 07/02/24 07/02/24 07/01/24 multivitamin with minerals-folic 1 tab PO DAILY 07/02/24 07/02/24 07/01/24 acid 200 mcg chewable tablet (Multivitamin Gummies) Active Medications Generic Name Dose Route Start Last Admin Trade Name Freq PRN Reason Stop Dose Admin Buspirone HCl 5 mg 07/02/24 09:00 07/02/24 10:05 Buspirone 5 Mg Tab PO 08/01/24 08:59 Not Given BID ELIUD Fluticasone/Vilanterol 1 puffs 07/02/24 09:00 07/02/24 09:49 Fluticasone/Vilanterol 200/25mcg 14 Puffs/Inhaler INH 08/01/24 08:59 1 puffs QAM ELIUD Administration Lactated Ringer's 1,000 mls @ 125 mls/hr 07/02/24 08:48 07/02/24 09:42 Lr IV 07/02/24 16:47 125 mls/hr .Q8H ELIUD Administration Umeclidinium [place] 1 puffs 07/02/24 09:00 07/02/24 09:49 Umeclidinium [place] 62.5mcg/Blister 7 Puffs/Inhaler INH 08/01/24 08:59 1 puffs QAM ELIUD Administration NPO Date Last Intake of Fluids: 07/02/24 Time Last Intake of Fluids: 08:00 Last Intake of Fluids Comment: sip with med Date Last Intake of Solids: 07/01/24 Time Last Intake of Solids: 16:00 Past Medical History Medical History Hx of supraventricular tachycardia last episode approx > controlled with metoprolol HTN (hypertension) Asthma well controlled Menorrhagia History of chronic cough slowly resolving Hx of migraines Premature ventricular contraction remote hx of per pt > no cards History of COVID-19 hospitalized 07/2020 [facility] covid pneumonia Anxiety Hyperlipidemia no meds at present; PCP monitoring History of hydronephrosis none currently Depression Chronic interstitial cystitis Kidney stones hx and at present Past Family History Family History Father No problems noted. Mother Hypertension Migraine Aunt Breast cancer maternal Uncle Colorectal cancer maternal Grandfather (Paternal) Myocardial infarction Other No pertinent family history Denies family history of Ovarian cancer Prostate cancer Past Surgical History Surgical History History of dilatation and curettage Hx laparoscopic cholecystectomy (05/16/23) Laparoscopic Cholecystectomy(Not Applicable) - Joshua Mckay DO History of hysterectomy S/P hemorrhoidectomy (05/04/22) 05/04/22 [facility]; [place]: LMA #4 iGel wihtout issue History of colonoscopy Hx of lithotripsy (03/2018) History of tonsillectomy and adenoidectomy History of laparoscopy History of cystoscopy Status post breast reduction Social History Smoking Status: Never smoker Do You Dip or Chew Tobacco: No Hx Alcohol Use: No Hx Substance Use: No substance use type: does not use Physical Exam Vital Signs Last Vital Signs Temp 97.7 F 07/02/24 11:40 Pulse 66 07/02/24 11:40 Resp 20 07/02/24 11:40 BP 131/69 07/02/24 11:40 Pulse Ox 100 07/02/24 11:40 O2 Del Method Room Air 07/02/24 11:40 O2 Flow Rate 2 07/02/24 04:30 Testing Laboratory Results 07/02/24 00:26 07/02/24 00:26 PT 10.5 Seconds (9.0-12.0) 07/02/24 00:01 INR 1.0 (0.9-1.1) 07/02/24 00:01 APTT 31 Seconds (21-31) 07/02/24 00:01 Urine Color Red 07/02/24 00: Urine Appearance Turbid (Clear) A 07/02/24 00: Urine pH 5.5 (4.5-7.5) 07/02/24 00: Ur Specific Taylor >= 1.030 (1.000-1.030) 07/02/24 00:20 Urine Protein 3+ (Negative) H 07/02/24 00:20 Urine Glucose (UA) Negative (Negative) 07/02/24 00 Urine Ketones Negative (Negative) 07/02/24 00: Urine Nitrite Negative (Negative) 07/02/24 00: Ur Leukocyte Esterase Negative (Negative) 07/02/24 00: Urine RBC >20 /hpf (0-2) H 07/02/24 00: Urine WBC 6-10 /hpf (0-5) H 07/02/24 00:20 Ur Epithelial Cells 6-10 /hpf (0-2) H 07/02/24 00:20
[2024-07-02] MEDS: CIPROFLOXACIN 400MG / 200ML D5W IV ONE (12:05)
[2024-07-02] MEDS: CIPROFLOXACIN / D5W 400 MG/200 ML BAG IV SCH (12:05)
--- NOTE | 2024-07-02 12:46 | Operative Report ---
PG Post Operative Report Pre & Post Diagnosis Operation Date: 07/02/24 10:50 Pre-Op Diagnosis: Right hydronephrosis Post-Op Diagnosis: Right hydronephrosis I identified the patient and participated in the time-out.: Yes Procedure Operation Date: 07/02/24 10:50 Actual Procedures p Cystoscopy, Right Ureteroscopy, Right Ureteral Stent Placement(Right) - Angel Scruggs MD Surgeon Angel Scruggs MD Poultry Scalder none Estimated Blood Loss 0 Findings Consistent with Post-Op Diagnosis Specimens none Description of Procedure The patient was identified in the preoperative holding area, appropriate informed consents were reviewed and completed and the patient was transferred to the operative suite. Upon arrival, appropriate antibiotics and anesthesia were administered and the patient was placed in dorsal lithotomy position and prepped and draped in sterile fashion. Begin the case I passed a 21 [place]ian cystoscope with 30 degree lens. Full inspection was conducted utilizing both a 30 and 70 degree lens. There were no stones within the bladder, there were no mucosal abnormalities. The bladder itself appeared quite healthy. Ureteral orifices were in orthotopic position. I turned my attention to the right UO. I cannulated with a sensor wire and a 5 [place]ian open-ended catheter. I then entered the ureter with a semirigid ureteroscope. There were no stones visualized in the ureter and I was able to advance the scope all the way to the level of the kidney. There was 1 small clot in the distal ureter which was evacuated upon entry. The rest of the ureter was healthy with minimal to no inflammation and no significant dilation. Because I saw no stone or other cause for her significant symptoms, I elected to pass a second wire through the scope into the kidney and then exchanged the semirigid scope for a flexible scope. I advanced the flexible scope into the kidney and performed full renoscopy. I saw no stones, however there was clot in the dependent portion of the kidney and in some posterior calyces. I inspected each calyx in a detailed fashion before performing another exit ureteroscopy. After concluding the ureteroscopic portion of the case I did place a 6 [place]ian by 24 cm double-J stent with a good curl in the kidney as well as the bladder. A string was left attached. Her bladder was decompressed and the case was concluded. There were no complications. My underlying suspicion is that she does not have an obstructing calculus but likely was passing a clot and had transient clot obstruction of her ureter. Think this is probably simply trauma from her ESWL. I did not appreciate any stone or stone fragments in the kidney implying that she requires no further stone treatment in the near future. I attest to the content of the Intraoperative Record and any orders documented therein. Any exceptions are noted below.
--- NOTE | 2024-07-02 12:50 | Fluoroscopy Report ---
FL KUB CLINICAL HISTORY: RIGHT STENT COMPARISON STUDY: None FLUOROSCOPY TIME: 9 seconds FLUOROSCOPY IMAGES: 3 EXPOSURE DOSE: 2 mGy FINDINGS: Fluoroscopy was provided for urologic procedure. IMPRESSION: Intraoperative fluoroscopy. ACT 112: Negative or not required by law. Electronically signed by: Bolivar Warren M.D. 07/02/2024 12:49 PM
[2024-07-02] MEDS: fentaNYL citrate PF 100 MCG/2 ML VIAL IV PRN (13:01)
[2024-07-02] MEDS: HYDROmorphone INJ 0.5 MG/0.5 ML SYR IV PRN (14:58)
[2024-07-02] MEDS: ONDANSETRON INJ 2 MG/ML 2 ML VIAL IV PRN (14:59)
--- NOTE | 2024-07-02 15:20 | Anesthesiology Progress Note ---
Date of Service July 02, 2024 Anesthesia Post Procedure Vital Signs Vital Signs: Temp Pulse Pulse Resp BP BP Pulse Ox 07/02/24 14:53 98.1 F 88 16 145/76 H 99 07/02/24 14:10 98.1 F 90 16 148/86 H 95 07/02/24 13:55 87 10 L 155/81 H 98 07/02/24 13:40 94 H 17 161/79 H 98 07/02/24 13:25 98.1 F 95 H 12 143/98 H 96 07/02/24 13:15 98 H 20 157/81 H 98 07/02/24 13:05 101 H 20 149/80 H 98 07/02/24 12:55 97 H 12 147/95 H 100 07/02/24 12:47 97.7 F 58 L 16 138/92 100 07/02/24 11:40 97.7 F 66 20 131/69 100 07/02/24 08:40 65 07/02/24 07:22 71 21 123/81 100 07/02/24 06:00 126/75 07/02/24 06:00 126/75 07/02/24 06:00 64 14 126/75 97 07/02/24 05:33 63 07/02/24 05:30 66 17 126/80 100 07/02/24 05:01 73 19 133/79 100 07/02/24 04:30 77 20 125/75 99 07/02/24 04:13 72 20 134/77 99 07/02/24 03:00 74 138/73 94 07/02/24 02:01 66 19 169/117 H 100 07/02/24 01:58 97 07/02/24 01:31 69 22 170/104 H 100 07/02/24 01:12 68 07/02/24 01:00 71 18 144/81 H 100 07/02/24 00:10 97.9 F 73 18 174/80 H 100 O2 Del Method O2 Flow Rate 07/02/24 14:53 Room Air 07/02/24 14:10 Room Air 07/02/24 13:55 Room Air 07/02/24 13:40 Room Air 07/02/24 13:25 Room Air 07/02/24 13:15 Room Air 07/02/24 13:05 Oxymask 8 07/02/24 12:55 Oxymask 8 07/02/24 12:47 Oxymask 8 07/02/24 11:40 Room Air 07/02/24 08:40 07/02/24 07:22 Room Air 07/02/24 06:00 07/02/24 06:00 07/02/24 06:00 07/02/24 05:33 07/02/24 05:30 07/02/24 05:01 07/02/24 04:30 Nasal Cannula 2 07/02/24 04:13 07/02/24 03:00 07/02/24 02:01 07/02/24 01:58 Nasal Cannula 2 07/02/24 01:31 07/02/24 01:12 07/02/24 01:00 07/02/24 00:10 Room Air Pain Intensity Right Back: Pain Intensity: 10 Right Hip: Pain Intensity: 5 Transfer of Care Handoff Completed per policy Notes Mental Status: alert / awake / arousable and participated in evaluation Patient Amnestic to Procedure: Yes Nausea / Vomiting: adequately controlled Pain: adequately controlled Airway Patency, RR, SpO2: stable & adequate BP & HR: stable & adequate Hydration State: stable & adequate Anesthetic Complications: no major complications apparent and Pt Satisfied with anesthetic care
[2024-07-02] MEDS: ACETAMINOPHEN 325 MG TAB PO PRN (15:39)
[2024-07-02] MEDS: KETOROLAC TROMETHAMINE 15 MG/ML VIAL IV PRN (15:41)
[2024-07-02] MEDS: HYDROmorphone INJ 1 MG/ML SYRINGE IV PRN (16:30)
[2024-07-02] MEDS: traZODone HCL 50 MG TAB PO SCH (20:29)
[2024-07-02] MEDS: METOPROLOL SUCC 25MG EXT REL TAB PO SCH (20:29)
[2024-07-02] MEDS: TAMSULOSIN HCL 0.4 MG CAP PO SCH (20:29)
[2024-07-02] MEDS ORDERED: NALOXONE HCL 0.4 MG/1 ML VIAL/CARP IV PRN (23:38)
[2024-07-03] MEDS: HYDROmorphone PCA 30 MG/30 ML IV PRN (01:27)
[2024-07-03] MEDS: HYDROmorphone INJ 0.5 MG/0.5 ML SYR IV STA (01:56)
[2024-07-03] MEDS: CIPROFLOXACIN / D5W 400 MG/200 ML BAG IV ONE (06:00)
[2024-07-03 06:41] LABS: Basophils # (auto) 0.01 K/uL (0.00-0.20); Basophils % (auto) 0.1 %; Hematocrit (blood only) 36.2 % (37.0-47.0); Hemoglobin 12.3 g/dl (12.0-16.0); Immature Granulocytes # (auto) 0.05 K/uL (0.01-0.20); Immature Granulocytes % (auto) 0.4 %; Lymphocytes # (auto) 0.74 K/uL (1.20-3.40); Lymphocytes % (auto) 6.5 %; Mean Corpuscular Hemoglobin 31.4 pg (25.0-34.0); Mean Corpuscular Volume 92.3 fL (80.0-100.0); Mean Platelet Volume 9.9 fL (9.4-12.4); Monocytes # (auto) 0.55 K/uL (0.11-0.59); Monocytes % (auto) 4.9 %; Neutrophils # (auto) 9.97 K/uL (1.40-6.50); Neutrophils % (auto) 88.1 %; Platelet Count 239 K/uL (130-400); RDW Coefficient of Variation 12.8 % (11.5-14.5); RDW Standard Deviation 42.9 fL (36.4-46.3); Red Blood Count 3.92 M/uL (4.20-5.40); White Blood Count 11.32 K/ul (4.8-10.8)
[2024-07-03 07:19] LABS: BUN Creatinine Ratio 15.1 (10-20); Creatinine Clr Calc Pharmacy 59.3 ml/min; Potassium 4.6 mmol/L (3.5-5.1)
--- NOTE | 2024-07-03 09:32 | Urology Progress Note ---
Date of Service July 03, 2024 Assessment & Plan (1) Acute right flank pain: Plan: - Pt POD#1 s/p Cystoscopy, Right Ureteroscopy, Right Ureteral Stent Placement - Afebrile, hemodynamically stable - Lab work reviewed - creatinine 1.06, WBC 11.32 - Poorly tolerating right ureteral stent - Required BRIDGE REPAIR CREW PERSON for pain control, reports feeling better at present - Discussed removal of tethered stent today and she would like to do the removal herself - We discussed that she may continue to have some discomfort and spasms after stent removal - Continue Flomax, Pyridium, and pain management per hospital medicine service - Added Oxybutynin for ureteral spasm - Okay to d/c from perspective when medically stable - Expected clinical course reviewed, all questions answered - Will arrange outpatient follow-up with our service Admission and Anticipated Discharge Date Admission Date: July 02, 2024 Subjective Patient seen and examined at bedside this morning. She is awake and sitting up in bed. She reports difficult night due to uncontrolled pain. She eventually required a BRIDGE REPAIR CREW PERSON for pain control. Reports she is feeling better at present. No fever or chills at present. We discussed removing her tethered stent today and she would like to do it herself. Review of Systems Constitutional: as per Subjective / HPI Genitourinary: as per Subjective / HPI Physical Exam Constitutional: well developed and well nourished; no acute distress Respiratory: normal respiratory effort; no respiratory distress and no labored breathing Gastrointestinal (Abdomen): Inspection/Auscultation: abdomen normal to inspection Musculoskeletal: Head/Neck/Chest: normocephalic Neurologic: moves all extremities and awake Psychiatric: Orientation: alert and oriented x 3 Results & Data Vital Signs (Past 12 Hours) Vital Signs Temp Pulse Pulse Pulse Resp BP Pulse Ox 07/03/24 07:18 36.8 C 72 16 111/73 96 07/03/24 03:01 36.5 C 88 18 107/69 95 07/02/24 23:43 80 07/02/24 22:43 36.7 C 71 18 137/89 94 O2 Del Method 07/03/24 07:18 Nasal Cannula 07/03/24 03:01 Room Air 07/02/24 23:43 07/02/24 22:43 Room Air PG Care Time/CCT Total # of Minutes Spent Total Time Spent with Patient: Total time spent is greater than 50% in coordination of care (as documented) at patient's floor/unit and/or counseling patient: Coding Level of Care Code 52867 SUB INP/OBS CARE 2/35MIN Diagnoses Acute right flank pain R10.9
[2024-07-03] MEDS: PHENAZOPYRIDINE HCL 200 MG TAB PO PRN (10:12)
[2024-07-03] MEDS: OXYBUTYNIN CHLORIDE XL 5 MG TABCR PO SCH (10:55)
--- NOTE | 2024-07-03 15:15 | Hospitalist Progress Note ---
"Date of Service July 03, 2024 Assessment & Plan (1) Hydronephrosis: (2) Kidney stones: (3) HTN (hypertension): (4) Asthma: Plan 53 y/o female with PMH of recurrent nephrolithiasis, asthma, HTN, hx of SVT that presented to the hospital with right sided flank pain and nausea. Patient underwent a lithotripsy on 06/14/2024. Patient found with an obstructive distal right ureteral calculus with moderate right sided hydronephrosis on renal ultrasound. #Nephrolithiasis | Right sided Hydronephrosis - New onset of right flank pain, and nausea. Underwent lithotripsy 06/14/2024 - Renal US: obstructive distal right ureteral calculus with moderate right-sided hydronephrosis. - Urology consulted. Patient underwent right ureteroscopy, right ureteral stent placement on 07/02 Pain was uncontrolled after the procedure This morning urology saw the patient and decision was made to remove the stent. It was removed by the patient herself Urology has cleared the patient for discharge The patient would like to stay for better pain control Continue FIRE SAFETY MANAGER pump Continue Pyridium Continue Flomax Oxybutynin added for ureteral spasms #HTN - continue home medications #Asthma: Continue home inhalers DVT prophylaxis: SCDs Disposition: Likely discharge 07/04 provided pain under control Admission and Anticipated Discharge Date Admission Date: July 02, 2024 Subjective Overnight events noted. Patient was in a lot of pain. Eventually was put on a FIRE SAFETY MANAGER pump. This morning, pain is much better controlled. The tethered stent was removed by patient herself after talking to urology. Review of Systems Review of Systems: All systems reviewed & are unremarkable except as noted in Subjective Physical Exam Physical Exam: General: Awake, conversant Heart: S1, S2/regular rate and rhythm, no murmur rubs or gallops Lungs: Clear to auscultation bilaterally. Normal effort Abdomen: Soft/nontender/nondistended. No hepatosplenomegaly Extremities: No clubbing/cyanosis. No edema Behavior: Appropriate, cooperative Results & Data Results & Data Vital Signs (Past 12 Hours) Vital Signs Temp Pulse Pulse Pulse Resp BP Pulse Ox 07/03/24 11:48 36.7 C 71 17 107/71 98 07/03/24 08:00 68 07/03/24 07:18 36.8 C 72 16 111/73 96 O2 Del Method 07/03/24 11:48 Room Air 07/03/24 08:00 07/03/24 07:18 Nasal Cannula Laboratory Results Abnormal lab results 07/03/24 Range/Units 06:02 WBC 11.32 H (4.8-10.8) K/ul RBC 3.92 L (4.20-5.40) M/uL Hct 36.2 L (37.0-47.0) % Neut # (Auto) 9.97 H (1.40-6.50) K/uL Lymph # (Auto) 0.74 L (1.20-3.40) K/uL Glucose 106 H (70-99(Fasting)) mg/dl PG Care Time/CCT Total # of Minutes Spent Total Time Spent with Patient: Total time spent is greater than 50% in coordination of care (as documented) at patient's floor/unit and/or counseling patient: Coding Level of Care Code 74487 SUB INP/OBS CARE 2/35MIN Diagnoses Hydronephrosis N13.30 Kidney stones N20.0 HTN (hypertension) I10 Asthma J45.909"
[2024-07-04] MEDS: ALBUTEROL HFA 8 GM INHALER INH PRN (03:34)
[2024-07-04 04:58] LABS: Basophils # (auto) 0.03 K/uL (0.00-0.20); Basophils % (auto) 0.2 %; Eosinophils # (auto) 0.01 K/uL (0.00-0.50); Eosinophils % (auto) 0.1 %; Hematocrit (blood only) 40.3 % (37.0-47.0); Hemoglobin 13.6 g/dl (12.0-16.0); Immature Granulocytes # (auto) 0.06 K/uL (0.01-0.20); Immature Granulocytes % (auto) 0.4 %; Lymphocytes # (auto) 1.68 K/uL (1.20-3.40); Lymphocytes % (auto) 11.7 %; Mean Corpuscular Hemoglobin 31.2 pg (25.0-34.0); Mean Corpuscular Hgb Conc 33.7 g/dL (32.0-36.0); Mean Corpuscular Volume 92.4 fL (80.0-100.0); Mean Platelet Volume 9.9 fL (9.4-12.4); Monocytes # (auto) 0.79 K/uL (0.11-0.59); Monocytes % (auto) 5.5 %; Neutrophils # (auto) 11.77 K/uL (1.40-6.50); Neutrophils % (auto) 82.1 %; Platelet Count 257 K/uL (130-400); RDW Coefficient of Variation 12.9 % (11.5-14.5); RDW Standard Deviation 43.8 fL (36.4-46.3); Red Blood Count 4.36 M/uL (4.20-5.40); White Blood Count 14.34 K/ul (4.8-10.8)
[2024-07-04 05:18] LABS: BUN Creatinine Ratio 14.6 (10-20); Calcium 9.5 mg/dl (8.6-10.3); Creatinine Clr Calc Pharmacy 39.8 ml/min; Potassium 3.9 mmol/L (3.5-5.1)
--- NOTE | 2024-07-04 05:54 | CT Scan Report ---
EXAM: CT abd pelvis wo con CLINICAL HISTORY: CVA tendernes, pyelo? TECHNIQUE: Contiguous axial images were obtained from the level of the diaphragm to the pubic symphysis without intravenous or oral contrast. Coronal and sagittal reconstructions were likewise performed and indicated to increase the sensitivity for detecting clinically relevant pathology. CT scan was performed according to ALARA (as low as reasonable achievable). COMPARISON: 05/09/2023 14:53:08 CASH REGISTER REPAIRER FINDINGS: Few atelectatic bands are noted involving bilateral lung bases. Evaluation of the abdominal and pelvic visceral organs is limited without intravenous contrast. The unenhanced liver, spleen, pancreas, and adrenal glands are grossly unremarkable. The gallbladder is removed. The kidneys are normal in size and attenuation without obvious calcification. Right kidney show nonobstructing calculus of size 3mm in middle calyx. Right sided mild to moderate hydronephroureterosis with mild right side perinephric and periureteric fat stranding. Small air focus is noted involving right renal pelvis. No obvious obstructing radio-opaque calculus noted.- could be infective/inflammatory etiology (pyelo ureteritis) No adenopathy or fluid collections are seen. No evidence of focal or diffuse bowel wall thickening or evidence of bowel obstruction is seen. The appendix is visualized in the right lower quadrant and appears within normal limits. The aorta is normal in caliber. The urinary bladder is normal in contour. Pelvic viscera are grossly unremarkable. No aggressive appearing osseous lesions are identified. IMPRESSION: 1. Right kidney show nonobstructing calculus of size 3mm in middle calyx.-new finding. 2. Right sided mild to moderate hydronephroureterosis with mild right side perinephric and periureteric fat stranding. Small air focus is noted involving right renal pelvis. No obvious obstructing radio-opaque calculus noted.- could be infective/inflammatory etiology (pyeloureteritis)- post-contrast workup suggested.-new finding. 3. Status post-cholecystectomy. Electronically signed by Richard Scott 07-04-2024 05:54 AM
[2024-07-04 07:38] LABS: Appearance Urine Clear (Clear)
[2024-07-04 07:40] LABS: Calcium Oxalate Crystals Urine Present (None Prsent); Mucus Urine Present (None Prsent)
[2024-07-04 07:41] LABS: Bacteria Urine 1+ (None Seen)
[2024-07-04] MEDS: cefTRIAXone SODIUM 2,000 MG/50 ML BAG IV SCH (08:50)
--- NOTE | 2024-07-04 10:05 | Urology Progress Note ---
Date of Service July 04, 2024 Assessment & Plan (1) Ureterolithiasis: (2) Hydronephrosis: (3) Acute right flank pain: Plan: - Pt POD#2 s/p Cystoscopy, Right Ureteroscopy, Right Ureteral Stent Placement - Tethered stent was removed by patient yesterday per Dr. Scruggs - Tmax 37.8 this morning - Lab work reviewed - creatinine 1.58, WBC 14.34 - CTAP was ordered today due to increased flank pain and low grade fever this am - CT showed right perinephric and periureteral stranding, mild to moderate right sided hydronephrosis with small focus of gas in the right renal pelvis, 3 mm nonobstructing stone within the right kidney - Suspect findings are related to recent surgery/instrumentation, hydronephrosis can be expected at this stage after surgery/stent removal, possible inflammation vs infection - Urine and blood cultures are pending - Agree with continuing broad spectrum antibiotics and follow cultures - No acute intervention at this time - Continue Flomax, Pyridium, and oxybutynin for symptom management - ENVIRONMENTAL TECHNOLOGY PROFESSOR per hospital medicine for pain management - Continue supportive care and antibiotics per hospital medicine service - Keep outpatient urology follow-up as scheduled - will sign off, recall if needed Admission and Anticipated Discharge Date Admission Date: July 02, 2024 Subjective Patient seen and examined at bedside this am. She removed her tethered right ureteral stent yesterday. She reports increased right flank pain this morning and had a low grade temp. CT was ordered. She was started on Ceftriaxone. Reports right flank and abdominal pain at present. Pain improved with ENVIRONMENTAL TECHNOLOGY PROFESSOR. Voiding spontaneously. Reports some dysuria. Review of Systems Constitutional: as per Subjective / HPI Genitourinary: as per Subjective / HPI Physical Exam Constitutional: well developed and well nourished; no acute distress Respiratory: normal respiratory effort; no respiratory distress and no labored breathing Gastrointestinal (Abdomen): Inspection/Auscultation: abdomen normal to inspection Musculoskeletal: Head/Neck/Chest: normocephalic Neurologic: moves all extremities and awake Psychiatric: Orientation: alert and oriented x 3 Genitourinary: Some tenderness to palpation of right flank and right abdomen Results & Data Vital Signs (Past 12 Hours) Vital Signs Temp Pulse Pulse Resp BP Pulse Ox O2 Del Method 07/04/24 07:39 37.2 C 97 H 18 93/57 L 96 Room Air 07/04/24 07:07 94 H 07/04/24 03:36 98 H 20 94 Room Air 07/04/24 03:22 37.8 C H 98 H 20 112/71 94 Room Air 07/04/24 01:23 37.6 C H 07/03/24 23:22 36.8 C 78 18 117/75 97 Room Air 07/03/24 23:14 76 PG Care Time/CCT Total # of Minutes Spent Total Time Spent with Patient: Total time spent is greater than 50% in coordination of care (as documented) at patient's floor/unit and/or counseling patient: Coding Level of Care Code 58239 SUB INP/OBS CARE 04/06MIN Diagnoses Ureterolithiasis N20.1 Hydronephrosis N13.30 Acute right flank pain R10.9
--- NOTE | 2024-07-04 12:49 | Hospitalist Progress Note ---
"Date of Service July 04, 2024 Assessment & Plan (1) Hydronephrosis: (2) Kidney stones: (3) HTN (hypertension): (4) Asthma: Plan 53 y/o female with PMH of recurrent nephrolithiasis, asthma, HTN, hx of SVT that presented to the hospital with right sided flank pain and nausea. Patient underwent a lithotripsy on 06/14/2024. Patient found with an obstructive distal right ureteral calculus with moderate right sided hydronephrosis on renal ultrasound. #Nephrolithiasis | Right sided Hydronephrosis/acute complicated pyelonephritis related to infected stone and instrumentation - New onset of right flank pain, and nausea. Underwent lithotripsy 06/14/2024 - Renal US: obstructive distal right ureteral calculus with moderate right-sided hydronephrosis. - Urology consulted. Patient underwent right ureteroscopy, right ureteral stent placement on 07/02 Pain was uncontrolled after the procedure Per urology, decision was made to remove the stent. It was removed by the patient herself 07/03 Overnight, patient spiked a fever and her pain got worse along with swelling. Urine sent for culture, blood sent for culture Patient has been started on IV ceftriaxone Patient most likely has acute complicated pyelonephritis related to infected stone and instrumentation Continue DISPLAY ASSOCIATE pump Continue Pyridium Continue Flomax Oxybutynin added for ureteral spasms #Acute kidney injury Will hydrate the patient gently Discontinue Toradol Monitor BMP closely #HTN - continue home medications #Asthma: Continue home inhalers DVT prophylaxis: SCDs Disposition: Discharge canceled as the patient has pyelonephritis Admission and Anticipated Discharge Date Admission Date: July 02, 2024 Subjective Patient had been complaining of right flank pain that is constant. She also felt like her right side of her abdomen is swollen. She had a fever spike overnight. Urine cultures, blood cultures were ordered. Patient has been started on IV antibiotics. CT abdomen showed findings suggestive of right-sided pyelonephritis along with right-sided hydronephrosis and a 3 mm nonobstructing stone. Review of Systems Review of Systems: All systems reviewed & are unremarkable except as noted in Subjective Physical Exam Physical Exam: General: Awake, conversant Heart: S1, S2/regular rate and rhythm, no murmur rubs or gallops Lungs: Clear to auscultation bilaterally. Normal effort Abdomen: Soft. Tenderness to palpation in the right side of the abdomen with no rebound, rigidity or guarding. Right flank pain and tenderness noted as well. No hepatosplenomegaly Extremities: No clubbing/cyanosis. No edema Behavior: Appropriate, cooperative Results & Data Results & Data Vital Signs (Past 12 Hours) Vital Signs Temp Pulse Pulse Resp BP Pulse Ox O2 Del Method 07/04/24 11:14 37.2 C 108 H 18 95/65 L 96 Room Air 07/04/24 10:24 Room Air 07/04/24 07:39 37.2 C 97 H 18 93/57 L 96 Room Air 07/04/24 07:07 94 H 07/04/24 03:36 98 H 20 94 Room Air 07/04/24 03:22 37.8 C H 98 H 20 112/71 94 Room Air 07/04/24 01:23 37.6 C H Laboratory Results Abnormal lab results 07/04/24 07/04/24 Range/Units 04:23 Unknown WBC 14.34 H (4.8-10.8) K/ul Neut # (Auto) 11.77 H (1.40-6.50) K/uL [place] # (Auto) 0.79 H (0.11-0.59) K/uL Creatinine 1.58 H D (0.6-1.2) mg/dl Glucose 103 H (70-99(Fasting)) mg/dl Urine RBC 11-20 H (0-2) /hpf Urine WBC 11-20 H (0-5) /hpf Ur Epithelial Cells 3-5 H (0-2) /hpf Calcium Oxalate Crystal Present A (None Prsent) Urine Bacteria 1+ H (None Seen) Urine Mucus Present A (None Prsent) Diagnostic Findings Abdomen/Pelvis CT 07/04/24 04:18 EXAM: CT abd pelvis wo con CLINICAL HISTORY: CVA tendernes, pyelo? TECHNIQUE: Contiguous axial images were obtained from the level of the diaphragm to the pubic symphysis without intravenous or oral contrast. Coronal and sagittal reconstructions were likewise performed and indicated to increase the sensitivity for detecting clinically relevant pathology. CT scan was performed according to ALARA (as low as reasonable achievable). COMPARISON: 05/09/2023 14:53:08 MANAGER OFFICE FINDINGS: Few atelectatic bands are noted involving bilateral lung bases. Evaluation of the abdominal and pelvic visceral organs is limited without intravenous contrast. The unenhanced liver, spleen, pancreas, and adrenal glands are grossly unremarkable. The gallbladder is removed. The kidneys are normal in size and attenuation without obvious calcification. Right kidney show nonobstructing calculus of size 3mm in middle calyx. Right sided mild to moderate hydronephroureterosis with mild right side perinephric and periureteric fat stranding. Small air focus is noted involving right renal pelvis. No obvious obstructing radio-opaque calculus noted.- could be infective/inflammatory etiology (pyelo ureteritis) No adenopathy or fluid collections are seen. No evidence of focal or diffuse bowel wall thickening or evidence of bowel obstruction is seen. The appendix is visualized in the right lower quadrant and appears within normal limits. The aorta is normal in caliber. The urinary bladder is normal in contour. Pelvic viscera are grossly unremarkable. No aggressive appearing osseous lesions are identified. IMPRESSION: 1. Right kidney show nonobstructing calculus of size 3mm in middle calyx.-new finding. 2. Right sided mild to moderate hydronephroureterosis with mild right side perinephric and periureteric fat stranding. Small air focus is noted involving right renal pelvis. No obvious obstructing radio-opaque calculus noted.- could be infective/inflammatory etiology (pyeloureteritis)- post-contrast workup suggested.-new finding. 3. Status post-cholecystectomy. Electronically signed by Richard Scott 07-04-2024 05:54 AM PG Care Time/CCT Total # of Minutes Spent Total Time Spent with Patient: Total time spent is greater than 50% in coordination of care (as documented) at patient's floor/unit and/or counseling patient: Coding Level of Care Code 44890 SUB INP/OBS CARE 2/35MIN Diagnoses Hydronephrosis N13.30 Kidney stones N20.0 HTN (hypertension) I10 Asthma J45.909"
[2024-07-04] MEDS: SODIUM CHLORIDE 0.9% 1,000 ML IV SCH (13:16)
[2024-07-04] MEDS: SODIUM CHLORIDE 0.9% 500 ML IV ONE (15:35)
[2024-07-04] MEDS: HYDROmorphone INJ 0.5 MG/0.5 ML SYR IV STA (20:53)
[2024-07-05 07:41] LABS: BUN Creatinine Ratio 10.6 (10-20); Creatinine Clr Calc Pharmacy 44.6 ml/min; Potassium 3.8 mmol/L (3.5-5.1)
[2024-07-05] MEDS: POLYETHYLENE (MIRALAX) 17 GM PACK PO PRN (09:15)
[2024-07-05 11:24] LABS: Hematocrit (blood only) 30.6 % (37.0-47.0); Mean Corpuscular Hemoglobin 30.9 pg (25.0-34.0); Mean Corpuscular Hgb Conc 32.7 g/dL (32.0-36.0); Mean Corpuscular Volume 94.4 fL (80.0-100.0); Mean Platelet Volume 10.2 fL (9.4-12.4); Platelet Count 174 K/uL (130-400); RDW Coefficient of Variation 12.7 % (11.5-14.5); Red Blood Count 3.24 M/uL (4.20-5.40); White Blood Count 7.82 K/ul (4.8-10.8)
--- NOTE | 2024-07-05 14:19 | Hospitalist Progress Note ---
"Date of Service July 05, 2024 Assessment & Plan (1) Hydronephrosis: (2) Kidney stones: (3) HTN (hypertension): (4) Asthma: Plan 53 y/o female with PMH of recurrent nephrolithiasis, asthma, HTN, hx of SVT that presented to the hospital with right sided flank pain and nausea. Patient underwent a lithotripsy on 06/14/2024. Patient found with an obstructive distal right ureteral calculus with moderate right sided hydronephrosis on renal ultrasound. #Nephrolithiasis | Right sided Hydronephrosis/acute complicated pyelonephritis related to infected stone and instrumentation - New onset of right flank pain, and nausea. Underwent lithotripsy 06/14/2024 - Renal US: obstructive distal right ureteral calculus with moderate right-sided hydronephrosis. - Urology consulted. Patient underwent right ureteroscopy, right ureteral stent placement on 07/02 Pain was uncontrolled after the procedure Per urology, decision was made to remove the stent. It was removed by the patient herself 07/03 On 07/03 night, patient spiked a fever and her pain got worse along with swelling. Urine sent for culture, blood sent for culture Patient has been started on IV ceftriaxone Patient most likely has acute complicated pyelonephritis related to infected stone and instrumentation White count came down Patient is clinically better but not 100% better yet Continue WILDLAND FIREFIGHTER pump Continue Pyridium Continue Flomax Oxybutynin added for ureteral spasms #Acute kidney injury Will hydrate the patient gently Discontinue Toradol Creatinine came down to 1.4 Encourage p.o. intake as the patient is starting to feel bloated Monitor BMP closely #HTN - continue home medications #Asthma: Continue home inhalers DVT prophylaxis: SCDs Disposition: Likely discharge in the next 1 or 2 days. Admission and Anticipated Discharge Date Admission Date: July 02, 2024 Subjective Patient feels better overall but still complaining of right abdominal/flank pain. Review of Systems Review of Systems: All systems reviewed & are unremarkable except as noted in Subjective Physical Exam Physical Exam: General: Awake, conversant Heart: S1, S2/regular rate and rhythm, no murmur rubs or gallops Lungs: Clear to auscultation bilaterally. Normal effort Abdomen: Soft. Tenderness to palpation in the right side of the abdomen with no rebound, rigidity or guarding. Right flank pain and tenderness noted as well. No hepatosplenomegaly Extremities: No clubbing/cyanosis. No edema Behavior: Appropriate, cooperative Results & Data Results & Data Vital Signs (Past 12 Hours) Vital Signs Temp Pulse Pulse Resp BP BP Pulse Ox 07/05/24 11:22 36.8 C 77 18 114/65 93 07/05/24 08:00 80 07/05/24 07:55 37.4 C 76 18 107/71 92 07/05/24 03:45 37.1 C 110 H 18 120/68 92 O2 Del Method 07/05/24 11:22 Room Air 07/05/24 08:00 07/05/24 07:55 Room Air 07/05/24 03:45 Room Air Laboratory Results Abnormal lab results 07/05/24 07/05/24 Range/Units 06:59 07:03 RBC 3.24 L (4.20-5.40) M/uL Hgb 10.0 L D (12.0-16.0) g/dl Hct 30.6 L (37.0-47.0) % Chloride 112 H (98-107) mmol/L Creatinine 1.41 H (0.6-1.2) mg/dl Calcium 8.0 L (8.6-10.3) mg/dl PG Care Time/CCT Total # of Minutes Spent Total Time Spent with Patient: Total time spent is greater than 50% in coordination of care (as documented) at patient's floor/unit and/or counseling patient: Coding Level of Care Code 75501 SUB INP/OBS CARE 2/35MIN Diagnoses Hydronephrosis N13.30 Kidney stones N20.0 HTN (hypertension) I10 Asthma J45.909"
[2024-07-05 23:22] VITALS: RESP 16
[2024-07-06 07:41] LABS: Hematocrit (blood only) 33.1 % (37.0-47.0); Mean Corpuscular Hemoglobin 30.7 pg (25.0-34.0); Mean Corpuscular Hgb Conc 33.2 g/dL (32.0-36.0); Mean Corpuscular Volume 92.5 fL (80.0-100.0); Mean Platelet Volume 9.9 fL (9.4-12.4); Platelet Count 199 K/uL (130-400); RDW Coefficient of Variation 12.6 % (11.5-14.5); RDW Standard Deviation 42.5 fL (36.4-46.3); Red Blood Count 3.58 M/uL (4.20-5.40); White Blood Count 6.68 K/ul (4.8-10.8)
[2024-07-06 07:59] LABS: BUN Creatinine Ratio 9.6 (10-20); Calcium 8.9 mg/dl (8.6-10.3); Creatinine Clr Calc Pharmacy 50.3 ml/min; Potassium 3.7 mmol/L (3.5-5.1)
--- NOTE | 2024-07-06 10:19 | Hospitalist Progress Note ---
"Date of Service July 06, 2024 Assessment & Plan (1) Hydronephrosis: (2) Kidney stones: (3) HTN (hypertension): (4) Asthma: Plan 53 y/o female with PMH of recurrent nephrolithiasis, asthma, HTN, hx of SVT that presented to the hospital with right sided flank pain and nausea. Patient underwent a lithotripsy on 06/14/2024. Patient found with an obstructive distal right ureteral calculus with moderate right sided hydronephrosis on renal ultrasound. #Nephrolithiasis | Right sided Hydronephrosis/acute complicated pyelonephritis related to infected stone and instrumentation - New onset of right flank pain, and nausea. Underwent lithotripsy 06/14/2024 - Renal US: obstructive distal right ureteral calculus with moderate right-sided hydronephrosis. - Urology consulted. Patient underwent right ureteroscopy, right ureteral stent placement on 07/02 Pain was uncontrolled after the procedure Per urology, decision was made to remove the stent. It was removed by the patient herself 07/03 On 07/03 night, patient spiked a fever and her pain got worse along with swelling. Urine sent for culture, blood sent for culture Patient has been started on IV ceftriaxone Patient most likely has acute complicated pyelonephritis related to infected stone and instrumentation White count came down Patient is clinically better but not 100% better yet Discontinue SHOE SHANKER pump. Start oxycodone p.o. to be used as needed Continue Pyridium Continue Flomax Oxybutynin added for ureteral spasms #Acute kidney injury Improving Discontinue Toradol Creatinine came down to 1.4 Encourage p.o. intake as the patient is starting to feel bloated Monitor BMP closely #HTN - continue home medications #Asthma: Continue home inhalers DVT prophylaxis: SCDs Disposition: Likely discharge in the next 1 or 2 days. Admission and Anticipated Discharge Date Admission Date: July 02, 2024 Subjective Patient feels better overall. No more fever. Pain is improving. Review of Systems Review of Systems: All systems reviewed & are unremarkable except as noted in Subjective Physical Exam Physical Exam: General: Awake, conversant Heart: S1, S2/regular rate and rhythm, no murmur rubs or gallops Lungs: Clear to auscultation bilaterally. Normal effort Abdomen: Soft. Tenderness to palpation in the right side of the abdomen with no rebound, rigidity or guarding improving. Right flank pain and tenderness improving. No hepatosplenomegaly Extremities: No clubbing/cyanosis. No edema Behavior: Appropriate, cooperative Results & Data Results & Data Vital Signs (Past 12 Hours) Vital Signs Temp Pulse Pulse Resp BP Pulse Ox O2 Del Method 07/06/24 08:56 36.8 C 82 16 120/80 94 Room Air 07/06/24 05:53 79 07/06/24 03:42 37.1 C 80 16 102/69 91 Room Air 07/05/24 23:22 37.3 C 82 16 108/69 91 Room Air Laboratory Results Abnormal lab results 07/05/24 07/06/24 Range/Units 07:03 07:00 RBC 3.24 L 3.58 L (4.20-5.40) M/uL Hgb 10.0 L D 11.0 L (12.0-16.0) g/dl Hct 30.6 L 33.1 L (37.0-47.0) % Creatinine 1.25 H (0.6-1.2) mg/dl BUN/Creatinine Ratio 9.6 L (10-20) PG Care Time/CCT Total # of Minutes Spent Total Time Spent with Patient: Total time spent is greater than 50% in coordination of care (as documented) at patient's floor/unit and/or counseling patient: Coding Level of Care Code 61541 SUB INP/OBS CARE 2/35MIN Diagnoses Hydronephrosis N13.30 Kidney stones N20.0 HTN (hypertension) I10 Asthma J45.909"
[2024-07-06] MEDS: oxyCODONE HCL IR 5 MG TAB (IMMEDIATE RELEASE) PO PRN ×2 (12:49→18:08)
[2024-07-07 02:49] VITALS: O2SAT 95
[2024-07-07 07:05] LABS: Hemoglobin 10.7 g/dl (12.0-16.0); Mean Corpuscular Hemoglobin 31.2 pg (25.0-34.0); Mean Corpuscular Hgb Conc 33.4 g/dL (32.0-36.0); Mean Corpuscular Volume 93.3 fL (80.0-100.0); Mean Platelet Volume 9.6 fL (9.4-12.4); Platelet Count 272 K/uL (130-400); RDW Coefficient of Variation 12.6 % (11.5-14.5); RDW Standard Deviation 42.6 fL (36.4-46.3); Red Blood Count 3.43 M/uL (4.20-5.40); White Blood Count 5.93 K/ul (4.8-10.8)
[2024-07-07 07:21] LABS: BUN Creatinine Ratio 11.3 (10-20); Calcium 9.1 mg/dl (8.6-10.3); Creatinine Clr Calc Pharmacy 50.7 ml/min; Potassium 3.6 mmol/L (3.5-5.1)
[2024-07-07 08:31] VITALS: PULSE 62; TEMP 98.2
[2024-07-07 08:58] VITALS: BP 107/71
--- NOTE | 2024-07-07 10:35 | Discharge Summary ---
"Date of Service July 07, 2024 Admission HPI Per Admitting Provider 53 y/o female with PMH of recurrent nephrolithiasis, asthma, HTN that presented to the hospital with right sided flank pain. Patient found with an obstructive distal right ureteral calculus with moderate right sided hydronephrosis. Patient states pain started this afternoon. She underwent a lithotripsy on 06/14/2024. She states that pain started yesterday afternoon. She had been taking Flomax and Pyridium. She states having nausea and vomiting due to pain. She states having a long history of history of kidney stones, UTI, and interstitial cystitis. Denied any chills or fevers. Denied any dysuria, frequency or urgency. States having hematuria. Denied any passaged of sediment, or stones. Denied any chest pain, SOB, palpitations, abdominal pain, or diarrhea. Principal Diagnosis Right kidney stone with hydronephrosis status post ureteral stent status post removal Right complicated pyelonephritis Discharge Exam General: Awake, conversant Heart: S1, S2/regular rate and rhythm, no murmur rubs or gallops Lungs: Clear to auscultation bilaterally. Normal effort Abdomen: Soft. Tenderness to palpation in the right side of the abdomen with no rebound, rigidity or guarding improving. Right flank pain and tenderness improving. No hepatosplenomegaly Extremities: No clubbing/cyanosis. No edema Behavior: Appropriate, cooperative Discharge Data Allergies Allergy/AdvReac Type Severity Reaction Status Date / Time Iodinated Contrast Media Allergy Severe CHEST Verified 07/02/24 08:12 PAIN, SHORTNESS OF BREATH atorvastatin AdvReac Intermediate leg Verified 07/02/24 08:12 swelling lisinopril AdvReac Intermediate Cough Verified 07/02/24 08:12 Consultations 07/02/24 04:56 ED Decision to Admit Stat 07/02/24 05:04 Consult Urology Routine 07/02/24 08:48 Consult Urology Routine Procedures Performed Operation Date: 07/02/24 10:50 Actual Procedures p Cystoscopy, Right Ureteroscopy, Right Ureteral Stent Placement(Right) - Angel Scruggs MD Ordered Studies 04 Abdomen Fluoroscopy 07/02/24 00:00 FL KUB CLINICAL HISTORY: RIGHT STENT COMPARISON STUDY: None FLUOROSCOPY TIME: 9 seconds FLUOROSCOPY IMAGES: 3 EXPOSURE DOSE: 2 mGy FINDINGS: Fluoroscopy was provided for urologic procedure. IMPRESSION: Intraoperative fluoroscopy. ACT 112: Negative or not required by law. Electronically signed by: Bolivar Warren M.D. 07/02/2024 12:49 PM KUB X-Ray 07/02/24 02:02 EXAM: XR KUB/Abdomen 1 view CLINICAL HISTORY: right flank pain, hx stones TECHNIQUE: Radiograph of kub was acquired. COMPARISON: none FINDINGS: Non-obstructive, non-specific bowel gas pattern. No significant air fluid levels. No obvious radio opacity overlying kidneys. Surgical clips seen in right upper abdomen- likely post cholecystectomy changes. Multiple radio-opaque oval shadows seen in pelvis. No obvious organomegaly. Bony shadows appear unremarkable. IMPRESSION: 1. Multiple radio-opaque oval shadows seen in pelvis. Likely Pelvic phleboliths. However distal ureter/vesical calculi cannot be ruled out. Advised clinical correlation and ultrasound correlation. Electronically signed by Richard Scott 07-02-2024 04:37 AM Renal Ultrasound 07/02/24 02:02 EXAM: US renal/blad retro comp CLINICAL HISTORY: right flank pain, hx stones. PRIOR 05/20/2024 TECHNIQUE: Static ultrasound images with Grayscale and Doppler of the upper abdomen were submitted for review. COMPARISON: 05/20/2024 FINDINGS: The right kidney measures 11.5 x 6.33 x 5.7cm and is normal in size and echogenicity without evidence of nephrolithiasis or focal mass lesions. Evidence of 6.2mm calculus noted in distal ureter with upstream dilatation of ureter and pelvicalyceal system. The renal calculus seen in prior study is not seen in current study. The left kidney measures 10.2 x 6.14 x 4.18cm and is normal in size and echogenicity without evidence of hydronephrosis, nephrolithiasis or focal mass lesions. An 6 x 5.6 x 5mm anechoic cyst noted in upper pole. Urinary bladder is unremarkable. IMPRESSION: 1. Obstructive right distal ureteric calculus with mild to moderate right hydroureteronephrosis. 2. Left cortical renal cyst. Electronically signed by Richard Scott 07-02-2024 04:24 AM Abdomen/Pelvis CT 07/04/24 04:18 EXAM: CT abd pelvis wo con CLINICAL HISTORY: CVA tendernes, pyelo? TECHNIQUE: Contiguous axial images were obtained from the level of the diaphragm to the pubic symphysis without intravenous or oral contrast. Coronal and sagittal reconstructions were likewise performed and indicated to increase the sensitivity for detecting clinically relevant pathology. CT scan was performed according to ALARA (as low as reasonable achievable). COMPARISON: 05/09/2023 14:53:08 HUMAN RESOURCES ASSISTANT FINDINGS: Few atelectatic bands are noted involving bilateral lung bases. Evaluation of the abdominal and pelvic visceral organs is limited without intravenous contrast. The unenhanced liver, spleen, pancreas, and adrenal glands are grossly unremarkable. The gallbladder is removed. The kidneys are normal in size and attenuation without obvious calcification. Right kidney show nonobstructing calculus of size 3mm in middle calyx. Right sided mild to moderate hydronephroureterosis with mild right side perinephric and periureteric fat stranding. Small air focus is noted involving right renal pelvis. No obvious obstructing radio-opaque calculus noted.- could be infective/inflammatory etiology (pyelo ureteritis) No adenopathy or fluid collections are seen. No evidence of focal or diffuse bowel wall thickening or evidence of bowel obstruction is seen. The appendix is visualized in the right lower quadrant and appears within normal limits. The aorta is normal in caliber. The urinary bladder is normal in contour. Pelvic viscera are grossly unremarkable. No aggressive appearing osseous lesions are identified. IMPRESSION: 1. Right kidney show nonobstructing calculus of size 3mm in middle calyx.-new finding. 2. Right sided mild to moderate hydronephroureterosis with mild right side perinephric and periureteric fat stranding. Small air focus is noted involving right renal pelvis. No obvious obstructing radio-opaque calculus noted.- could be infective/inflammatory etiology (pyeloureteritis)- post-contrast workup suggested.-new finding. 3. Status post-cholecystectomy. Electronically signed by Richard Scott 07-04-2024 05:54 AM / FL KUB Routine 07/02/24 02:02 US renal/blad retro comp Stat 07/04/24 04:18 CT Abd and Pelvis [CT abd pelvis wo con] Urgent Hospital Course (1) Hydronephrosis: (2) Kidney stones: (3) HTN (hypertension): (4) Asthma: Plan 53 y/o female with PMH of recurrent nephrolithiasis, asthma, HTN, hx of SVT that presented to the hospital with right sided flank pain and nausea. Patient underwent a lithotripsy on 06/14/2024. Patient found with an obstructive distal right ureteral calculus with moderate right sided hydronephrosis on renal ultrasound. #Nephrolithiasis | Right sided Hydronephrosis/acute complicated pyelonephritis related to infected stone and instrumentation - New onset of right flank pain, and nausea. Underwent lithotripsy 06/14/2024 - Renal US: obstructive distal right ureteral calculus with moderate right-sided hydronephrosis. - Urology consulted. Patient underwent right ureteroscopy, right ureteral stent placement on 07/02 Pain was uncontrolled after the procedure Per urology, decision was made to remove the stent. It was removed by the patient herself 07/03 On 07/03 night, patient spiked a fever and her pain got worse along with swelling. Urine sent for culture, blood sent for culture Patient has been started on IV ceftriaxone Patient most likely has acute complicated pyelonephritis related to infected stone and instrumentation White count came down Patient is clinically better but not 100% better yet Discontinue FLYING II INSTRUCTOR pump. Start oxycodone p.o. to be used as needed Continue Pyridium Continue Flomax Oxybutynin added for ureteral spasms Urine culture grew vaginal yaima Plan to discharge this patient on p.o. Keflex #Acute kidney injury Improving Discontinue Toradol Creatinine came down Encourage p.o. intake Monitor BMP closely #HTN - continue home medications #Asthma: Continue home inhalers Discharge to home today. Patient is comfortable with the discharge plan. Total Time Total Time Spent Total Time Spent (In Minutes): 35 Discharge Plan Discharge Items Patient Disposition: Home - Self-Care Reason For Visit: KIDNEY STONE, HYDRONEPHROSIS Discharge Diagnosis: Right kidney stone with hydronephrosis status post ureteral stent status post removal Right complicated pyelonephritis Activity: Resume your previous activity Non-emergency contact: Primary Care Provider Call non-emergency contact if: you have any medication questions Follow-up/Referrals: Maurizio Rdz CRNP [Primary Care Provider] - 07/15/24 10:20 am Diet: Regular Addtl Attending Provider Instructions: Advised to follow-up with PCP in 1 week Advised to follow-up with urologist as scheduled previously. Pending Studies at Discharge: No Stand-Alone Forms: My [employer] Medications and DC Order Prescriptions: New cephalexin 500 mg capsule 500 mg PO BID 5 Days Qty: 10 0RF docusate sodium [Colace] 100 mg capsule 100 mg PO BID Qty: 60 0RF oxybutynin chloride 5 mg tablet 5 mg PO Q8H PRN (Reason: bladder spasms) Qty: 20 0RF oxycodone 5 mg tablet 5 mg PO Q6H PRN (Reason: pain, severe) Qty: 20 0RF Continued trazodone 50 mg tablet 50 mg PO HS Qty: 90 1RF hydroxyzine pamoate [Vistaril] 25 mg capsule 25 mg PO Q8H PRN (Reason: anxiety) Qty: 90 2RF tamsulosin 0.4 mg capsule 0.4 mg PO HS Qty: 30 0RF fluticasone furoate-vilanterol [Breo Ellipta] 200-25 mcg/dose blister with device 1 inh inhalation QAM Qty: 60 12RF albuterol sulfate 90 mcg/actuation HFA aerosol inhaler 2 puff inhalation Q6H PRN (Reason: shortness of breath or wheezing) Qty: 18 3RF acetaminophen 500 mg Tablet 500 mg PO Q6H PRN (Reason: Pain) multivit with min-folic acid [Multivitamin Gummies] 200 mcg Tablet,Chewable 1 tab PO DAILY buspirone 5 mg tablet 5 mg PO HS phenazopyridine [Pyridium] 200 mg tablet 200 mg PO Q8H PRN (Reason: pain) Qty: 20 0RF metoprolol succinate 50 mg tablet extended release 24 hr 25 mg PO HS montelukast 10 mg tablet 10 mg PO DAILY PRN (Reason: Congestion) Spiriva Respimat 1.25 mcg/actuation mist 2 inh inhalation QAM Discontinued diclofenac sodium 75 mg tablet,delayed release (DR/EC) 75 mg PO BID PRN (Reason: Pain) Qty: 60 1RF oxycodone-acetaminophen [Percocet] 5-325 mg tablet 1 tab PO Q8H PRN (Reason: pain) Qty: 7 0RF ibuprofen [Motrin] 400 mg Tablet 400 mg PO Q6H PRN (Reason: Pain) Discharge Orders: Discharge Order (Routine); Ordered 07/07/24 Ordered By: Patience Henry Admission Data Admit Date/Time: 07/02/24 05:13 Attending Provider: Patience Henry Admit Provider: Rena Easton Primary Care Provider: Maurizio Rdz Other Providers: Sumanth Case Other Interventions: Discharge Summary Assessment (RN) Last Done: 07/07/24 08:57"
--- NOTE | 2024-07-11 10:10 | Coding Query ---
CODING QUERY To promote full compliance with coding requirements relating to patient care, provider participation is requested in all cases of security officer supervisor uncertainty. Please assist us with the question(s) below: In the record, it states that the patient has an hydronephrosis with kidney stone status post ureteral stent. Please clarify below the cause of the hydronephrosis with kidney stone if applicable. Thank you. ( ) The ureteral stent was the cause of the hydronephrosis. ( ) Other urinary cath/device was the cause of the hydronephrosis. ( ) hydronephrosis, unspecified cause. ( x ) Other (Specify):__hydronephrosis was caused by the stone Principal Diagnosis: "that condition established after study, to be chiefly responsible for occasioning the admission of the patient to the hospital for care." Co-Existing Principal Diagnosis: "when two or more diagnoses equally meet the criteria for principal diagnosis as determined by the circumstances of admission, diagnostic work up, and/or therapy provided, and the Alphabetic Index, Tabular List, or another coding guideline does not provide sequencing direction, any one of the diagnoses may be sequenced first." "When the physician has documented what appears to be a current diagnosis in the body of the record, but has not included the diagnosis in the final diagnostic statement, the physician should be asked whether the diagnosis should be added." ([facility] 2 QTR90. p3-4) [facility]
== END 2024-07-07 11:11 | disposition home or self-care (01) | DRG 661 ==
LOC: SUATTDRO → ED 00:07 → EDINP 05:13 → SUATTDRO 05:13 → EDINP 08:48 → PACUINP 13:23 → 2N 14:33